=== PATIENT | male | born 1955 | race African-American/Black ===

== ENCOUNTER 2023-08-14 13:44 | Outpatient (REF) | payer MEDICARE, MEDICAID, SELFPAY | END 2023-08-14 13:45 | disposition home or self-care (01) | LOC: HO.SH 13:44 | PROVIDERS: PCP Nurse Practitioner Family; Visit Provider Nurse Practitioner Family | DX: Z01.118 Encounter for examination of ears and hearing with other abnormal findings (principal); H90.3 Sensorineural hearing loss, bilateral | CPT/HCPCS: 92557; 92567 ==

== ENCOUNTER 2023-10-10 09:59 | Outpatient (RCR) | payer OTHER, SELFPAY | END 2023-12-05 14:41 | disposition still patient (30) | LOC: HO.SH 09:59 | PROVIDERS: PCP Nurse Practitioner Family; Visit Provider Nurse Practitioner Family | DX: I69.328 Other speech and language deficits following cerebral infarction (principal) | CPT/HCPCS: 92523 ==

== ENCOUNTER 2023-12-17 15:32 | Inpatient (IN) | payer OTHER, SELFPAY ==
--- NOTE | ~2023-12-17 | XR_ITS ---
EXAMINATION: XR CHEST CLINICAL INFORMATION: Unresponsiveness COMPARISON: None available. TECHNIQUE: Frontal view of the chest was obtained. FINDINGS: Dual-chamber pacemaker device in place without disruption grossly. No significant abnormality is noted involving the heart, lungs, mediastinum, bony thorax or soft tissues. XR/XR chest 1V IMPRESSION: No active chest disease.. Electronically signed by: Brian Horner MD 12/17/2023 05:11 PM EDT RP
--- NOTE | ~2023-12-17 | CT_ITS ---
EXAMINATION: CT ANGIOGRAM HEAD CT ANGIOGRAM NECK CLINICAL INFORMATION: Unresponsive COMPARISON: None. TECHNIQUE: Test bolus sequences followed by intravenous administration 270 mL of Omnipaque 350. Helical imaging was performed in the axial plane from the aortic arch to the skull vertex. Delayed postcontrast imaging of the head was also performed. The data was processed at the communications technologist's workstation for generation of MIP sequences. Angled MIPs and volume rendered reformatted images were also generated at an offline 3D workstation. Stenoses are assessed in accordance with Encarnacion et al. Quantification of Carotid Stenosis on CT Angiography. AJR 2006. 27(1):13-19. [address] CT examination was performed using dose optimization techniques as appropriate, variously including the following: *Automated exposure control *Adjustment of mA and/or kV according to patient size (this includes techniques or standardized protocols for targeted exams where dose is matched to indication/reason for exam; i.e. extremities or head) *Use of iterative reconstruction technique DLP: 1498 mGy-cm FINDINGS: CT HEAD: Mild to moderate generalized parenchymal volume loss. Apparent symmetric subcortical hypodensities versus artifact within the bilateral frontal lobes would be better diagnostically assessed on brain MRI. Age indeterminate though likely chronic infarct involving the mid to anterior right temporal lobe with slight ex vacuo dilatation of the right temporal horn, although this would be more definitively aged on MRI. Otherwise, no large territorial edematous infarct. No acute intracranial hemorrhage. Prominence of the extra-axial CSF spaces overlying the right greater than left cerebellar hemispheres versus low density subdural fluid collections. 1.0 cm lipoma along the posterior interhemispheric fissure. No mass lesion, significant mass effect, or herniation pattern. No pathologic intra-axial enhancement or regional oligemia. The orbits are grossly normal. Retention cyst in the left maxillary sinus. No mastoid effusion. Osseous structures are intact. CTA HEAD: No hemodynamically significant stenosis or occlusion in the anterior or posterior circulation. Patchy calcific plaque along the carotid siphons contributes to mild stenosis of the cavernous and supraclinoid internal carotid arteries. 2 mm favor infundibulum over aneurysm at the left ophthalmic artery origin. No high flow vascular malformations. 1.5 cm longitudinally oriented arachnoid granulation projecting into the distal left transverse sinus, with otherwise normal opacification of the dural venous sinuses. CTA NECK: Classic 3 vessel branching pattern of the aortic arch. Origins of the great vessels are widely patent. The common carotid arteries are widely patent. Trace atherosclerosis at the carotid bifurcations without stenosis. The internal carotid arteries are widely patent. Retropharyngeal course of the right distal common carotid and bilateral proximal internal carotid arteries. The left vertebral artery is dominant. The vertebral artery ostia are widely patent. Both vertebral arteries are widely patent throughout their extracranial cervical course. CT NECK: Centrilobular and emphysematous changes in the lungs. 4 mm ill-defined nodule in the subpleural right upper lobe. Advanced cervical spondylosis contributes to apparent severe C5-C6 spinal canal stenosis with mass effect on the cord and apparent multilevel moderate spinal canal and multilevel severe neural foraminal narrowing. Multilevel vacuum disc phenomenon with some extruded anterior from the intervertebral disc spaces at C3-C4 and C4-C5 into the left-sided prevertebral soft tissues. CT/CT angio head neck stroke IMPRESSION: 1. Apparent symmetric subcortical hypodensities versus artifact within the bilateral frontal lobes would be better diagnostically assessed on brain MRI. 2. Age indeterminate though likely chronic infarct involving the mid to anterior right temporal lobe with slight ex vacuo dilatation of the right temporal horn would be more definitively aged on MRI. No acute intracranial hemorrhage. 3. Prominence of the extra-axial CSF spaces overlying the right greater than left cerebellar hemispheres versus low density subdural fluid collections. 4. No acute arterial occlusion or hemodynamically significant stenosis within the head or neck. 5. 2 mm favor infundibulum over aneurysm at the left ophthalmic artery origin. 6. Advanced cervical spondylosis contributes to apparent severe C5-C6 spinal canal stenosis with mass effect on the cord, appearing multilevel moderate spinal canal, and multilevel severe neural foraminal narrowing. If there is referrable myelopathy/radiculopathy, further evaluation of these findings with dedicated cervical spine MRI may be performed as clinically warranted. 5. 4 mm ill-defined nodule in the subpleural right upper lobe. According to the UPDATED 2017 Fleischner Society recommendations, the advised followup imaging for solid nodules < 6 mm is: LOW RISK PATIENT: No routine follow up. HIGH RISK PATIENT: Optional CT at 12 months. This critical result was discussed with Elvi Cisse at 4:47 PM on 12/17/2023 and it was ascertained that the content and urgency of the report was understood at the time of direct communication. Electronically signed by: Lalita Hankins MD 12/17/2023 04:47 PM EDT
--- NOTE | 2023-12-17 15:36 | ECG_ITS ---
Test Reason : heart straining Blood Pressure : / mmHG Vent. Rate : 074 BPM Atrial Rate : 074 BPM P-R Int : 104 ms QRS Dur : 178 ms QT Int : 446 ms P-R-T Axes : 000 123 -68 degrees QTc Int : 495 ms Atrial-sensed ventricular-paced rhythm Abnormal ECG No previous ECGs available Referred By: Generic ED Physician Electronically Signed By:SHANAE SÁNCHEZ
[2023-12-17 15:51] VITALS: BP 101/70; PULSE 94; O2SAT 100
[2023-12-17 15:52] LABS: Glucose, Whole Blood 105 mg/dL (60-115)
[2023-12-17 15:54] LABS: MANUAL DIFF FLAG NO
--- NOTE | 2023-12-17 15:55 | ED.GENADULT ---
HPI - General Adult General Chief complaint: Stroke Stated complaint: semi responsive,vomitig Time Seen by Provider: 12/17/23 15:38 History of Present Illness ED Provider: Nino HPI narrative: 68 y/o M patient; PMH medtronic dual chamber pacemaker 2/2 to CHB, HTN, HLD, spinal stenosis, hx right MCA stroke on Coumadin; presents from his out-patient physical therapy office with concern for decreased responsiveness. The patient went into the bathroom, had a large bowel movement, and when he walked out he had significant vomiting. He then was lowered to the ground where he was noticed to only be saying a few words at a time. EMS arrival the patient had an appropriate glucose. Patient denies chest pain or SOB, he reports a mild generalized headache. No history of alcohol or drug abuse. He is an active smoker. Related Data Allergies Allergy/AdvReac Type Severity Reaction Status Date / Time Unable to Assess Allergy Verified 12/17/23 16:22 Review of Systems Review of Systems: Yes Unobtainable due to mental condition Neurologic: Denies Abnormal speech present and Denies Sensory deficit (Neuro) [facility] Past Medical History Source: unable to obtain Social History Social History Do you have a plan to hurt others: No Plan Physical Exam ED Vital Signs: Vital Signs - 24 hr 12/17/23 16:18 Pulse Rate 50 Respiratory Rate 16 Blood Pressure 122/65 Pulse Oximetry 96 Oxygen Delivery Method Room Air BMI result Body Mass Index 25.8 Patient is afebrile, blood pressure low normal, appropriate HR and SpO2. Const Other: Lethargic, arousable to verbal stimuli with opening of both eyes Orientation/consciousness: patient oriented x3 HENMT Head: Yes normal to inspection and Yes atraumatic Eyes General: appearance normal, both eyes and all related structures Pupils: Equal, round and reactive pupils present EOM: EOMs intact bilaterally Neck Neck: Yes normal visual inspection, Yes full ROM, Yes supple and No tender Chest Chest palpation & inspection: normal inspection of the chest and normal palpation of entire chest wall Resp Effort & Inspection: normal respiratory effort, able to speak in complete sentences, no cough and no respiratory distress Auscultation: clear to auscultation bilaterally Cardio Rate: bradycardic Rhythm: regular rhythm Peripheral pulses: Peripheral pulses 2+ throughout GI Inspection: Yes normal to inspection, No Abdominal wall edema and No distended Palpation (GI): Soft to palpation, not firm, nontender, no guarding and not rigid Auscultation: normal bowel sounds Back/Spine/Pelvis Back: No back tenderness Neuro General: patient oriented x3 Cranial nerves: Yes CN's II-XII intact bilaterally and Yes Equal, round and reactive pupils present Cognition (Neuro): normal cognition Speech: No Abnormal speech present Motor exam (neuro): 5/5 motor strength present throughout Sensory Exam: No Sensory deficit (Neuro) Coordination: [id number] test normal and pkct-vm-ajby test normal Course Course Course Narrative: Patient is afebrile, blood pressure low normal, appropriate HR and SpO2. POC glucose 105. EKG consistent with paced rhythm. Does not meet [place] criteria. Sent emergently to the CT scanner for stroke evaluation. Reevaluation(s) Reevaluation #1: Labs reviewed. Hgb 10.6 - unclear baseline. INR 3.4. Cr 1.7, K 5.5 (01/2023 previously 1.1). Provided Calcium gluconate. Patient returned from CT more responsive. He does not have any memory of the events. He asked if he was just in an accident. He denies any pain, reports significant generalized weakness. NIHSS 1 for arouses to minor stimulation. Patient is on warfarin and is not a candidate for tnk at this time. We spoke with the patient's son who states they are estranged and he does not know anything about his father. Interrogated medtronic pacemaker. Normal pacemaker findings. CTA Head/Neck unremarkable for acute findings. Likely etiology of symptoms: seizure versus acute CVA. Supporting seizure is that patient has recently been seen by Neurology with concern for brief episodic jabs and jolts - he was due for an out-patient EEG. He did have a post-ictal type experience with significant amnesia to events today. He does not currently have any residual deficits suggesting CVA. He takes aspirin and Coumadin at baseline. Plan: Admit to hospitalist Condition: Stable Medications Administered Generic Name Dose Route Start Last Admin Trade Name Freq PRN Reason Stop Dose Admin Calcium Gluconate 1 gm in 50 mls @ 50 mls/hr 12/17/23 16:24 12/17/23 16:30 Calcium Gluconate IV 12/17/23 17:23 50 mls/hr ONCE ONE Administration Sodium Chloride 1,000 mls @ 999 mls/hr 12/17/23 16:30 12/17/23 16:30 Ns IV 12/17/23 17:30 999 mls/hr .Q1H1M DEISI Administration Discontinued Medications Generic Name Dose Route Start Last Admin Trade Name Velasquezq PRN Reason Stop Dose Admin Iohexol 100 ml 12/17/23 16:03 12/17/23 16:03 Iohexol 350 Mg/Ml 100 Ml Infus..Btl IV 12/17/23 16:04 70 ml ONCE ONE Administration Medical Decision Making Lab Data 12/17/23 15:45 12/17/23 15:45 Labs: Lab Results 12/17/23 12/17/23 12/17/23 Range/Units 15:39 15:45 15:53 WBC 7.2 (4.8-10.8) X10*3/uL RBC 3.90 L (4.60-5.80) X10*6/uL Hgb 10.6 L (14.0-18.0) g/dl Hct 34.1 L (42.0-52.0) % MCV 87.4 (80.0-98.0) fL MCH 27.2 (27.0-33.0) pg MCHC 31.1 (31.0-36.0) g/dl RDW 18.6 H (11.0-16.0) % Plt Count 361 (160-400) X10*3/uL MPV 9.1 L (9.4-12.4) fL Immature Gran % (Auto) 0.8 H (0.0-0.4) % Neut % (Auto) 67.4 (45-73) % Lymph % (Auto) 21.5 (20-40) % [place] % (Auto) 7.5 (2-11) % Eos % (Auto) 2.1 (0-4) % Baso % (Auto) 0.7 (0-2) % Lymph # (Auto) 1.5 (1.2-4.9) X10*3/uL [place] # (Auto) 0.5 (0.1-1.2) X10*3/uL Eos # (Auto) 0.2 (0.0-0.4) X10*3/uL Baso # (Auto) 0.1 (0.0-0.2) X10*3/uL Abs Immat Gran (auto) 0.06 H (0.00-0.03) X10*3/uL Absolute Neuts (auto) 4.8 (2.0-8.3) x10*3/uL Absolute Nucleated RBC 0.000 (0.0-0.012) X10*3/uL Nucleated RBC % (auto) 0.0 (0.0-0.2) /100WBC PT 41.0 H (11.1-13.3) SEC INR 3.4 H (0.9-1.1) APTT 46.0 H (26.0-36.8) SEC VBG pH 7.33 (7.32-7.43) VBG pCO2 51 mmHg VBG pO2 36 mmHg VBG HCO3 27 H (22-26) mmol/L VBG O2 Saturation 51.0 % VBG Base Excess 1.0 mmol/L Sodium 136 (135-145) mmol/L Potassium 5.5 H (3.3-5.1) mmol/L Chloride 102 (96-108) mmol/L Carbon Dioxide 26 (22-29) mmol/L Anion Gap 14 (12-20) BUN 33 H (9-16) mg/dL Creatinine 1.70 H (0.5-1.4) mg/dL Estim Creat Clear Calc 42.9 Estimated GFR 40 POC Glucose 105 (60-115) mg/dL Random Glucose 117 H (60-115) mg/dL Calcium 10.1 (8.4-10.2) mg/dL Magnesium 2.2 (1.6-2.6) mg/dL Total Bilirubin 0.4 (0.0-1.0) mg/dL AST 20 (5-37) U/L ALT 25 (0-40) U/L Alkaline Phosphatase 91 (39-117) U/L Troponin I High Sens 7.3 (<3.5-35.0) ng/L B-Natriuretic Peptide 21 (<100) pg/mL Total Protein 7.7 (6.5-8.0) g/dL Albumin 4.5 (3.5-5.0) g/dL Lipase 44 (8-78) U/L Influenza Type A (PCR) NEGATIVE (Negative) Influenza Type B (PCR) NEGATIVE (Negative) RSV RNA Qual (PCR) NEGATIVE (Negative) SARS-CoV-2 RNA (RT-PCR) NEGATIVE (Negative) Radiology Impression Discussion of test interpretation with radiology: I have reviewed the radiologist's reading. Radiologist Impression: EXAMINATION: CT ANGIOGRAM HEAD CT ANGIOGRAM NECK CLINICAL INFORMATION: Unresponsive COMPARISON: None. TECHNIQUE: Test bolus sequences followed by intravenous administration 270 mL of Omnipaque 350. Helical imaging was performed in the axial plane from the aortic arch to the skull vertex. Delayed postcontrast imaging of the head was also performed. The data was processed at the echo vascular technologist's workstation for generation of MIP sequences. Angled MIPs and volume rendered reformatted images were also generated at an offline 3D workstation. Stenoses are assessed in accordance with Encarnacion et al. Quantification of Carotid Stenosis on CT Angiography. AJR 2006. 27(1):13-19. This CT examination was performed using dose optimization techniques as appropriate, variously including the following: *Automated exposure control *Adjustment of mA and/or kV according to patient size (this includes techniques or standardized protocols for targeted exams where dose is matched to indication/reason for exam; i.e. extremities or head) *Use of iterative reconstruction technique DLP: 1498 mGy-cm FINDINGS: CT HEAD: Mild to moderate generalized parenchymal volume loss. Apparent symmetric subcortical hypodensities versus artifact within the bilateral frontal lobes would be better diagnostically assessed on brain MRI. Age indeterminate though likely chronic infarct involving the mid to anterior right temporal lobe with slight ex vacuo dilatation of the right temporal horn, although this would be more definitively aged on MRI. Otherwise, no large territorial edematous infarct. No acute intracranial hemorrhage. Prominence of the extra-axial CSF spaces overlying the right greater than left cerebellar hemispheres versus low density subdural fluid collections. 1.0 cm lipoma along the posterior interhemispheric fissure. No mass lesion, significant mass effect, or herniation pattern. No pathologic intra-axial enhancement or regional oligemia. The orbits are grossly normal. Retention cyst in the left maxillary sinus. No mastoid effusion. Osseous structures are intact. CTA HEAD: No hemodynamically significant stenosis or occlusion in the anterior or posterior circulation. Patchy calcific plaque along the carotid siphons contributes to mild stenosis of the cavernous and supraclinoid internal carotid arteries. 2 mm favor infundibulum over aneurysm at the left ophthalmic artery origin. No high flow vascular malformations. 1.5 cm longitudinally oriented arachnoid granulation projecting into the distal left transverse sinus, with otherwise normal opacification of the dural venous sinuses. CTA NECK: Classic 3 vessel branching pattern of the aortic arch. Origins of the great vessels are widely patent. The common carotid arteries are widely patent. Trace atherosclerosis at the carotid bifurcations without stenosis. The internal carotid arteries are widely patent. Retropharyngeal course of the right distal common carotid and bilateral proximal internal carotid arteries. The left vertebral artery is dominant. The vertebral artery ostia are widely patent. Both vertebral arteries are widely patent throughout their extracranial cervical course. CT NECK: Centrilobular and emphysematous changes in the lungs. 4 mm ill-defined nodule in the subpleural right upper lobe. Advanced cervical spondylosis contributes to apparent severe C5-C6 spinal canal stenosis with mass effect on the cord and apparent multilevel moderate spinal canal and multilevel severe neural foraminal narrowing. Multilevel vacuum disc phenomenon with some extruded anterior from the intervertebral disc spaces at C3-C4 and C4-C5 into the left-sided prevertebral soft tissues. CT/CT head/brain wo IV con IMPRESSION: 1. Apparent symmetric subcortical hypodensities versus artifact within the bilateral frontal lobes would be better diagnostically assessed on brain MRI. 2. Age indeterminate though likely chronic infarct involving the mid to anterior right temporal lobe with slight ex vacuo dilatation of the right temporal horn would be more definitively aged on MRI. No acute intracranial hemorrhage. 3. Prominence of the extra-axial CSF spaces overlying the right greater than left cerebellar hemispheres versus low density subdural fluid collections. 4. No acute arterial occlusion or hemodynamically significant stenosis within the head or neck. 5. 2 mm favor infundibulum over aneurysm at the left ophthalmic artery origin. 6. Advanced cervical spondylosis contributes to apparent severe C5-C6 spinal canal stenosis with mass effect on the cord, appearing multilevel moderate spinal canal, and multilevel severe neural foraminal narrowing. If there is referrable myelopathy/radiculopathy, further evaluation of these findings with dedicated cervical spine MRI may be performed as clinically warranted. 5. 4 mm ill-defined nodule in the subpleural right upper lobe. According to the UPDATED 2017 Fleischner Society recommendations, the advised followup imaging for solid nodules < 6 mm is: LOW RISK PATIENT: No routine follow up. HIGH RISK PATIENT: Optional CT at 12 months. This critical result was discussed with Elvi Cisse at 4:47 PM on 12/17/2023 and it was ascertained that the content and urgency of the report was understood at the time of direct communication. Electronically signed by: Lalita Hankins MD 12/17/2023 04:47 PM EDT RP Discharge Plan Discharge Clinical Impression: Episode of unresponsiveness Patient Disposition: Admitted As Inpatient Print Language: [place]
[2023-12-17 15:57] LABS: VBG HCO3 27 mmol/L (22-26); VBG pCO2 51 mmHg; VBG pH 7.33 (7.32-7.43); VBG pO2 36 mmHg
[2023-12-17 15:59] VITALS: BMI 25.6
[2023-12-17 15:59] LABS: Basophils Absolute Auto 0.1 X10*3/uL (0.0-0.2); Basophils Percent Auto 0.7 % (0-2); Eosinophils Absolute Auto 0.2 X10*3/uL (0.0-0.4); Eosinophils Percent Auto 2.1 % (0-4); Hematocrit 34.1 % (42.0-52.0); Hemoglobin 10.6 g/dl (14.0-18.0); Imm Gran Abs Auto 0.06 X10*3/uL (0.00-0.03); Imm Gran Pct Auto 0.8 % (0.0-0.4); Lymphocytes Absolute Auto 1.5 X10*3/uL (1.2-4.9); Lymphocytes Percent Auto 21.5 % (20-40); Mean Corpuscular HGB Conc 31.1 g/dl (31.0-36.0); Mean Corpuscular Hemoglobin 27.2 pg (27.0-33.0); Mean Corpuscular Volume 87.4 fL (80.0-98.0); Mean Platelet Volume 9.1 fL (9.4-12.4); Monocytes Absolute Auto 0.5 X10*3/uL (0.1-1.2); Monocytes Percent Auto 7.5 % (2-11); Neutrophils Absolute Auto 4.8 x10*3/uL (2.0-8.3); Neutrophils Percent Auto 67.4 % (45-73); Platelet Count 361 X10*3/uL (160-400); Red Cell Distribution Width 18.6 % (11.0-16.0); White Blood Count 7.2 X10*3/uL (4.8-10.8)
[2023-12-17 16:00] LABS: Venous Blood Gas Refer to POC result
[2023-12-17] MEDS: iohexoL 350 MG/ML 100 ML INFUS..BTL IV (16:03)
[2023-12-17 16:08] LABS: INTERNATIONAL NORM RATIO 3.4 (0.9-1.1)
[2023-12-17 16:15] LABS: Alanine Aminotransferase 25 U/L (0-40); Albumin Level 4.5 g/dL (3.5-5.0); Alkaline Phosphatase 91 U/L (39-117); Anion Gap 14 (12-20); Aspartate Amino Transferase 20 U/L (5-37); Bilirubin Total 0.4 mg/dL (0.0-1.0); Blood Urea Nitrogen 33 mg/dL (9-16); Calcium 10.1 mg/dL (8.4-10.2); Carbon Dioxide 26 mmol/L (22-29); Chloride 102 mmol/L (96-108); Creatinine Clr Calc Pharmacy 42.9; Estimated Glomerular Filt Rate 40; Glucose Random 117 mg/dL (60-115); Lipase 44 U/L (8-78); Magnesium 2.2 mg/dL (1.6-2.6); Potassium 5.5 mmol/L (3.3-5.1); Sodium 136 mmol/L (135-145); Total Protein 7.7 g/dL (6.5-8.0)
[2023-12-17 16:18] VITALS: BP 122/65; PULSE 50; RESP 16; O2SAT 96; BMI 25.6
[2023-12-17 16:20] LABS: B Type Natriuretic Peptide 21 pg/mL (<100)
[2023-12-17 16:22] LABS: Troponin-I High Sensitivity 7.3 ng/L (<3.5-35.0)
[2023-12-17] MEDS: Calcium Gluconate/NaCl,Iso-Osm 1 GM/50 ML PLAST..BAG IV (16:30)
[2023-12-17] MEDS: 0.9 % Sodium Chloride 1,000 ML 999 ML IV (16:30)
[2023-12-17 16:37] VITALS: BMI 25.8
[2023-12-17 16:58] LABS: Influenza A PCR NEGATIVE (Negative); Influenza B PCR NEGATIVE (Negative); Resp Syncy Virus RNA Qual PCR NEGATIVE (Negative); SARS COV2 PCR INHOUSE NEGATIVE (Negative)
--- OUTSIDE RECORDS SUMMARY | 2023-12-17 17:05 | XMS_ITS | Continuity of Care Document ---
Author Organization [facility] Address [address] [place] [address]- Care Team Providers Care Animal Nutritionist Name Role Phone Anabel LOWRY, [place] Primary Care Physician Encounter [facility] Date(s): 04/16/19 - 06/27/[address] [address]- [facility] Attending Physician: Magali Kruse MD Admitting Physician: Magali Kruse MD Referring Physician: Jossy Little NP Allergies, Adverse Reactions, Alerts Substance Reaction Severity Status NKA Active Immunizations Given and Recorded Vaccine Date Status Refusal Reason tetanus/diphtheria/pertussis, acel(Tdap) 1 11/20/12 Given pneumococcal 23-valent vaccine 01/07/12 Given influenza virus vaccine, inactivated 01/07/12 Give n 1Admin Note: vis 04/23/11 Medications aspirin 81 mg oral tablet 1 tablet = 81 mg, By Mouth, Daily, # 90 tablet, 3 Refills, Maintenance, 04/16/19 13:32:00 EST, Tablet, [facility]/pharmacy #[id number], 178, cm, 04/16/19 13:02:00 EST, Height Start Date: 04/16/19 Status: Ordered atorvastatin 20 mg oral tablet 1 tablet = 20 mg, By Mouth, Daily, # 30 tablet, 0 Refills, Maintenance, Tablet Start Date: 04/10/16 Status: Ordered carvedilol 25 mg oral tablet 25 mg, 1, tablet, By Mouth, 2 times a day, # 60 tablet, Refills 0, Maintenance, 04/10/16 10:14:16 Start Date: 04/10/16 Status: Ordered clopidogrel 75 mg oral tablet 75 mg, 1, tablet, By Mouth, Daily, Refills 0, Maintenance, 11/13/18 9:39:04 EDT Start Date: 11/13/18 Status: Ordered docusate sodium 100 mg oral capsule 100 mg, By Mouth, 2 times a day, # 60 capsule, Refills 0, Tot. Refills 0, Maintenance, 05/04/18 13:45:15 EST, Route to Pharmacy Electronically, [id number], [facility]/pharmacy #[id number] Start Date: 05/04/18 Status: Ordered DULoxetine 40 mg oral delayed release capsule 0 Refills, Maintenance, 11/05/17 13:28:01 EDT Start Date: 11/05/17 Status: Ordered Home Blood Pressure Monitor See Instructions, # 1 each, Refills 0, Tot. Refills 0, Maintenance, Use to measure blood pressure daily for hypertension. Dx: I10, 05/20/18 16:29:16 EST, Compound Start Date: 05/20/18 Status: Ordered lidocaine 5% topical cream 1 application, Topically, 3 times a day, PRN Pain , Moderate, # 30 Gm, 0 Refills, Maintenance, 03/05/19 16:40:29 EST, Cream, 1 application Topically 3 times a day,PRN:Pain , Moderate, 178, cm, 03/05/19 16:33:16 EST, Height Start Date: 03/05/19 Status: Ordered lisinopril 20 mg oral tablet 40 mg, 2, tablet, By Mouth, Daily, # 30 tablet, Refills 0, Maintenance, 04/10/16 10:15:28 EST Start Date: 04/10/16 Status: Ordered mirtazapine 15 mg oral tablet 1 tablet = 15 mg, By Mouth, Daily at bedtime, # 30 tablet, 3 Refills, Maintenance, 05/20/18 16:28:23 EST, Tablet Start Date: 05/20/18 Status: Ordered NuLYTELY Lemon [place] oral powder for reconstitution 240 mL, By Mouth, Every 15 minutes, # 4,000 mL, 0 Refills, Maintenance, 09/22/18 14:59:27 EDT Start Date: 09/22/18 Status: Ordered QUEtiapine 200 mg oral tablet, extended release 200 mg, 1, tablet, By Mouth, Daily in PM, # 30 tablet, Refills 3, Tot. Refills 3, Maintenance, 05/20/18 16:26:44 EST, Route to Pharmacy Electronically, [id number], [id number] Start Date: 05/20/18 Status: Ordered Problem List Condition Effective Dates Status Health Status Inform ant Anxiety and depression(Confirmed) Active Marijuana use(Confirmed) Active Cardiac pacemaker, Medtronic dual chamber pacemaker model E2DR0(Confirmed) 1 2005 Active CHB (complete heart block)(Confirmed) Active Essential hypertension(Confirmed) Active GERD (gastroesophageal reflu x disease)(Confirmed) Active History of substance abuse(C onfirmed) 2 Active Hypercholesterolemia with hypertriglyceridemia(Confirmed) Active Liver lesion(Confirmed) Active Old VT (myocardial infarction)(Confirmed) Active [facility]N CCA, [employer], Care Coor dinator Chelsea Youssef [phone](Confirmed) Active Post traumatic stress disord er (PTSD)(Confirmed) Active Spinal stenosis at L4-L5 level(Confirmed) Active Spinal stenosis at L4-L5 level(Confirmed) 3 Active Current tobacco use(Confirmed) Active 1History of cardiac pacemaker in situ from a complete heart block. Dual chamber electronic pacemaker[place] [address] Alvares. 2marijuana, cocaine, amphetamines, opiates and benzos. 3Dx 06/2017 Social History Social History Type Response Tobacco Use: Patient smokes 5 cig. a day. Sex
--- OUTSIDE RECORDS SUMMARY | 2023-12-17 17:05 | XMS_ITS | Continuity of Care Document ---
Author Organization [facility] Address [address] [place] [address]- Care Team Providers Care Dry Mill Worker Name Role Phone Anabel LOWRY, Jossy Park Primary Care Physician Encounter [facility] [place] Date(s): 10/07/22 - 11/06/22 [facility] [address] [place], [place] [id number] Allergies, Adverse Reactions, Alerts No Known Allergies Immunizations Given and Recorded Vaccine Date Status Refusal Reason pneumococcal 13-valent vaccine 05/10/21 Given SARS-CoV-2 (COVID-19) mRNA BNT-162b2 vac 1 03/15/21 Given SARS-CoV-2 (COVID-19) Ad26 vaccine 07/09/20 Given tetanus/diphtheria/pertussis, acel(Tdap) 2 11/20/12 Given pneumococcal 23-valent vaccine 01/07/12 Given influenza virus vaccine, inactivated 01/07/12 Give n 1Result Comment: Reconstituted with 1.8 mL of 0.9% NaCl Lot #[id number] Exp. 08/2022. 2Admin Note: vis 04/23/11 Medications aspirin 81 mg oral tablet 1 tablet = 81 mg, By Mouth, Daily, # 90 tablet, 3 Refills, Maintenance, 04/16/19 13:32:00 EST, Tablet, [facility]/pharmacy #[id number], 178, cm, 04/16/19 13:02:00 EST, Height Start Date: 04/16/19 Status: Ordered atorvastatin 40 mg oral tablet 1 tablet = 40 mg, By Mouth, Daily, # 30 tablet, 0 Refills, Maintenance, 06/27/21 9:46:00 EDT, [facility]/pharmacy #[id number], Partial fill upon patient request if the prescription is for a schedule II opioid drug., 177.8, cm, 06/27/21 7:59:00 EDT, Height, 68.2, k... Start Date: 06/27/21 Stop Date: 07/27/21 Status: Ordered carvedilol 25 mg oral tablet 25 mg, 1, tablet, By Mouth, 2 times a day, # 60 tablet, Refills 0, Maintenance, 04/10/16 10:14:16 Start Date: 04/10/16 Status: Ordered Diflucan 150 mg oral tablet 1 tablet = 150 mg, By Mouth, Once, # 1 tablet, 0 Refills, Soft Stop, 09/24/22 11:07:00 EDT, Tablet,[facility]/pharmacy #[id number], Partial fill upon patient request if the prescription is for a schedule II opioid drug., 177.8, cm, 09/24/22 10:56:00 EDT, Height,... Start Date: 09/24/22 Status: Ordered Home Blood Pressure Monitor See Instructions, # 1 each, Refills 0, Tot. Refills 0, Maintenance, Use to measure blood pressure daily for hypertension. Dx: I10, 05/20/18 16:29:16 EST, Compound Start Date: 05/20/18 Status: Ordered lisinopril 20 mg oral tablet 40 mg, 2, tablet, By Mouth, Daily, # 30 tablet, Refills 0, Maintenance, 04/10/16 10:15:28 EST Start Date: 04/10/16 Status: Ordered nitroglycerin 0.4 mg sublingual tablet 1 tablet = 0.4 mg, Sublingual, Every 5 minutes, PRN for chest pain, If chest pain not relieved in 5minutes after first dose, seek immediate medical attention, # 100 tablet, 0 Refills, Maintenance, 12/07/19 8:50:00 EDT, Tablet, [facility]/pharmacy #[id number], 178... Start Date: 12/07/19 Status: Ordered pantoprazole 20 mg oral delayed release tablet = 20 mg, By Mouth, Daily, # 30 each, 4 Refills, Maintenance, 07/27/21 9:45:00 EDT, EC Tablet, 177.8, cm, 06/27/21 7:59:00 EDT, Height, 68.2, kg, 06/26/21 0:54:00 EDT, Dry Weight Start Date: 07/27/21 Stop Date: 12/24/21 Status: Ordered Wrist splints cocked to neutral position Wrist splints cocked to neutral position, See Instructions, # 2 each, Refills 0, Tot. Refills 0, Maintenance, bilateral wrist splints to be worn every night to bed for carpal tunnel syndrome G56.00, 12/20/21 10:12:00 EDT, Compound Start Date: 12/20/21 Status: Ordered Problem List Condition Confirmation Course Effective Dates Status Health Status Informant Anxiety and depression Confirmed Active Candidiasis Confirmed Active Marijuana use Confirmed Active Cardiac pacemaker, Medtronic dual chamber pacemaker model E2DR0 1 Confirmed 2005 Active CHB (complete heart block) Confirmed Active Essential hypertension Confirmed Active GERD (gastroesophageal reflux disease) Confirmed Active History of substance abuse 2 Confirmed Active Hypercholesterolemia with hypertriglyceridemia Confirmed Active Liver lesion Confirmed Active [place] (myocardial infarction) Confirmed Active N Care Management [facility], Mikie Thibodeaux [phone] Confirmed Active Peripheral arterial disease Confirmed Active Post traumatic stress disorder (PTSD) Confirmed Active Spinal stenosis at L4-L5 level Confirmed Active Spinal stenosis at L4-L5 level 3 Confirmed Active Current tobacco use Confirmed Active 1History of cardiac pacemaker in situ from a complete heart block. Dual chamber electronic pacemaker[place] [address] Alvares. 2marijuana, cocaine, amphetamines, opiates and benzos. 3Dx 06/2017 Social History Social History Type Response Tobacco Use: Patient smokes 5 cig. a day. Sex Patient Care team information Care Team Personnel Name: El Beltran MD Position: [facility] Physician - Gastroenterology Member Role: Lifetime Consulting Physician Address: Address: [address] [place] [address], [address] [facility] [place] [address]- Name: Jossy Little NP Position: [facility] PCO Associate Professional Member Role: PCP Address: Address: [address] [place] [address]- Care Team Related Persons Name: JORJE ROBERTO Address: [address] [address] Name: MARCIN QUINTERO Address: [place] [address]
--- OUTSIDE RECORDS SUMMARY | 2023-12-17 17:05 | XMS_ITS | Continuity of Care Document ---
Author Organization [facility] Address [address] [address]- Care Team Providers Care Lead Athlete Name Role Phone Anabel LOWRY, Jossy Park Primary Care Physician [place] [facility] [place] 03[place]13/22 [facility] [address] [id number] Attending Physician: Ike Vyas Admitting Physician: AdmtrIke Referring Physician: Admtr, Tato8 Allergies, Adverse Reactions, Alerts No Known Allergies Immunizations Given and Recorded Vaccine Date Status Refusal Reason pneumococcal 13-valent vaccine 05/10/21 Given SARS-CoV-2 (COVID-19) mRNA BNT-162b2 vac 1 03/15/21 Given SARS-CoV-2 (COVID-19) Ad26 vaccine 07/09/20 Given tetanus/diphtheria/pertussis, acel(Tdap) 2 11/20/12 Given pneumococcal 23-valent vaccine 01/07/12 Given influenza virus vaccine, inactivated 01/07/12 Give n 1Result Comment: Reconstituted with 1.8 mL of 0.9% NaCl Lot #[id number] Exp. 08/2022. 2Admin Note: vis 04/23/11 Medications aspirin 81 mg oral tablet 1 tablet = 81 mg, By Mouth, Daily, # 90 tablet, 3 Refills, Maintenance, 04/16/19 13:32:00 EST, Tablet, [facility][id number], 178, cm, 04/16/19 13:02:00 EST, Height Start Date: 04/16/19 Status: Ordered atorvastatin 40 mg oral tablet 1 tablet = 40 mg, By Mouth, Daily, # 30 tablet, 0 Refills, Maintenance, 06/27/21 9:46:00 EDT, [facility]/pharmacy #[id number], Partial fill upon patient request if the prescription is for a schedule II opioid drug., 177.8, cm, 06/27/21 7:59:00 EDT, Height, 68.2, k... Start Date: 06/27/21 Stop Date: 07/27/21 Status: Ordered carvedilol 25 mg oral tablet 25 mg, 1, tablet, By Mouth, 2 times a day, # 60 tablet, Refills 0, Maintenance, 04/10/16 10:14:16 Start Date: 04/10/16 Status: Ordered Home Blood Pressure Monitor See [...] 0 Refills, Maintenance, 12/07/19 8:50:00 EDT, Tablet, [facility]/pharmacy #[id number], 178... Start Date: 12/07/19 Status: Ordered [...] Status Informant Anxiety and depression Confirmed Active Marijuana use Confirmed Active Cardiac pacemaker, Medtronic dual chamber pacemaker model E2DR0 1 Confirmed 2005 Active CHB (complete heart block) Confirmed Active Essential hypertension Confirmed Active GERD (gastroesophageal reflux disease) Confirmed Active History of substance abuse 2 Confirmed Active Hypercholesterolemia with hypertriglyceridemia Confirmed Active Liver lesion Confirmed Active [place] (myocardial infarction) Confirmed Active [facility] Care Management [facility], Mikie Thibodeaux [phone] Confirmed Active Peripheral arterial disease Confirmed Active [...] Team Personnel Name: El Beltran MD Position: [facility] GI MD Member Role: Lifetime Consulting Physician Address: Address: [address] [place] [address], [address] [facility] [place] [address]- Name: Jossy Little NP Position: [facility] PCO Associate Professional Member Role: PCP Address: Address: [address] [place] [address]- Care Team Related Persons Name: JORJE ROBERTO Address: home [address] [place] [address] Name: MARCIN QUINTERO Address: [place] [address]
--- OUTSIDE RECORDS SUMMARY | 2023-12-17 17:05 | XMS_ITS | Continuity of Care Document ---
Author Organization [facility] Address [address] [place] [address]- Care Team Providers Care Solar Installation Foreman Name Role Phone Anabel LOWRY, Jossy Park Primary Care Physician Encounter [facility] [place] Date(s): 12/26/22 - 01/25/23 [facility] [address] [place] [address]- [place] Allergies, Adverse Reactions, Alerts No Known Allergies Immunizations Given and Recorded Vaccine Date Status Refusal Reason pneumococcal 13-valent vaccine 05/10/21 Given SARS-CoV-2 (COVID-19) mRNA BNT-162b2 vac 1 03/15/21 Given SARS-CoV-2 (COVID-19) Ad26 vaccine 07/09/20 Given tetanus/diphtheria/pertussis, acel(Tdap) 2 11/20/12 Given pneumococcal 23-valent vaccine 01/07/12 Given influenza virus vaccine, inactivated 01/07/12 Give n 1Result Comment: Reconstituted with 1.8 mL of 0.9% NaCl Lot #[id number] Exp. 08/2022. 2Admin Note: vis 04/23/11 Medications [...] tablet, 0 Refills, Maintenance, 06/27/21 9:46:00 EDT, [id number], Partial fill upon patient request if the prescription is for a schedule II opioid drug., 177.8, cm, 06/27/21 7:59:00 EDT, Height, 68.2, k... Start Date: 06/27/21 Stop Date: 07/27/21 Status: Ordered carvedilol 25 mg oral tablet 25 mg, 1, tablet, By Mouth, 2 times a day, # 60 tablet, Refills 0, Maintenance, 04/10/16 10:14:16 Start Date: 04/10/16 Status: Ordered diclofenac 1% topical gel = 2 Gm, Topically, 4 times a day, # 100 Gm, 0 Refills, Maintenance, 01/22/23 11:55:00 EDT, Gel, [facility]/pharmacy #[id number], Partial fill upon patient request if the prescription is for a schedule II opioid drug., 177.8, cm, 01/22/23 11:14:00 EDT, Height, 68.2... Start Date: 01/22/23 Status: Ordered Diflucan 150 mg oral tablet 1 tablet = 150 mg, By Mouth, Once, # 1 tablet, 0 Refills, Soft Stop, 09/24/22 11:07:00 EDT, Tablet,[facility]/pharmacy #[id number], Partial fill upon patient [...] 0 Refills, Maintenance, 12/07/19 8:50:00 EDT, Tablet, [facility]/pharmacy #[id number], 178... Start Date: 12/07/19 [...] Confirmed Active Liver lesion Confirmed Active [place] (myocardial infarction) Confirmed Active [facility] Care Management [facility], Mikie Thibodeaux [phone] Confirmed Active Peripheral arterial disease Confirmed Active Post traumatic stress disorder (PTSD) Confirmed Active Spinal stenosis at L4-L5 level Confirmed Active Spinal stenosis at L4-L5 level 3 Confirmed Active Current tobacco use Confirmed Active 1History of cardiac pacemaker in situ from a complete heart block. Dual chamber electronic pacemaker[place] [address] Alvares. 2marijuana, cocaine, amphetamines, opiates and benzos. 3Dx 06/2017 Social History Social History Type Response Tobacco Use: Patient smokes 5 cig. a day. Sex Patient Care team information Care Team Personnel Name: El Beltran MD Position: [facility] Physician - Gastroenterology Member Role: Lifetime Consulting Physician Address: Address: [address] [place] [address], [address] [facility] [place] [address]- Name: Jossy Little NP Position: [facility] PCO Associate Professional Member Role: PCP Address: Address: [address] [place] [phone] [place] Care Team Related Persons Name: EDDIE ROBERTOANNETTE Address: home [address] [place] [address] Name: MARCIN QUINTERO Address: [place] [address]
--- OUTSIDE RECORDS SUMMARY | 2023-12-17 17:05 | XMS_ITS | Continuity of Care Document ---
Author Organization [facility] Address [address] [place] [address]- Care Team Providers Care Wallpaper Embosser Helper Name Role Phone Anabel LOWRY, Jossy Park Primary Care Physician [phone] Encounter [facility] [place] Date(s): 09/24/23 - 10/24/[address] [address] Attending Physician: Admtr, Ar8 Admitting Physician: Admtr, Ar8 Referring Physician: Admtr, Ar8 Allergies, Adverse Reactions, Alerts No Known Allergies Immunizations Given and Recorded Vaccine Date Status Refusal Reason influenza virus vaccine, inactivated 03/03/23 Give n influenza virus vaccine, inactivated 01/07/12 Give n tetanus/diphtheria/pertussis, acel(Tdap) 03/03/23 Given tetanus/diphtheria/pertussis, acel(Tdap) 1 11/20/12 Given pneumococcal 13-valent vaccine 05/10/21 Given SARS-CoV-2 (COVID-19) mRNA BNT-162b2 vac 2 03/15/21 Given SARS-CoV-2 (COVID-19) Ad26 vaccine 07/09/20 Given pneumococcal 23-valent vaccine 01/07/12 Given 1Admin Note: vis 04/23/11 2Result Comment: Reconstituted with 1.8 mL of 0.9% NaCl Lot #[id number] Exp. 08/2022. Medications aspirin 81 mg oral tablet 1 tablet = 81 mg, By Mouth, Daily, # 90 tablet, 3 Refills, Maintenance, 04/16/19 13:32:00 EST, Tablet, [id number], 178, cm, 04/16/19 13:02:00 EST, Height Start Date: 04/16/19 Status: Ordered atorvastatin 40 mg oral tablet 1 tablet = 40 mg, By Mouth, Daily, # 90 tablet, 3 Refills, Maintenance, 03/03/23 15:43:00 EST, [facility]/pharmacy #[id number], Partial fill upon patient request if the prescription is for a schedule II opioid drug., 182, cm, 03/03/23 15:03:00 EST, Height, 76, kg,... Start Date: 03/03/23 Stop Date: 07/01/23 Status: Ordered buPROPion 150 mg/24 hours (XL) oral tablet, extended release 1 tablet, By Mouth, Daily, # 30 tablet, 0 Refills, Maintenance, 04/03/23 9:26:00 EST, [facility] STORE [id number], 30, TAKE 1 TABLET BY MOUTH EVERY DAY, 182, cm, 03/14/23 11:20:00 EST, Height, 76, kg, 02/15/23 6:04:00 EST, Dry Weight Start Date: 04/03/23 Status: Ordered Colace sodium 100 mg oral capsule 100 mg, 1, capsule, By Mouth, 2 times a day, PRN, with plenty of water, # 60 capsule, Refills 2, Tot. Refills 2, Maintenance, Constipation, 09/18/23 9:28:00 EDT, Route to Pharmacy Electronically, [facility]/pharmacy #[id number], Partial fill upon patient request i... Start Date: 09/18/23 Status: Ordered Farxiga 10 mg oral tablet 1 tablet, By Mouth, Daily, Please have labs drawn for additional refills, # 90 tablet, 0 Refills, Maintenance, 08/04/23 10:32:00 EDT, [facility]/pharmacy #[id number], 182, cm, 05/08/23 7:28:00 EST, Height, 76, kg, 02/15/23 6:04:00 EST, Dry Weight Start Date: 08/04/23 Status: Ordered finasteride 5 mg oral tablet 1 tablet = 5 mg, By Mouth, Daily, # 90 tablet, 3 Refills, Maintenance, 03/03/23 15:52:00 EST, Tablet, [facility]/pharmacy #[id number], Partial fill upon patient request if the prescription is for a schedule II opioid drug., 182, cm, 03/03/23 15:03:00 EST, Height,... Start Date: 03/03/23 Status: Ordered Flomax 0.4 mg oral capsule 0.4 mg, 1, capsule, By Mouth, Daily, # 90 capsule, Refills 3, Tot. Refills 3, Maintenance, 03/03/2315:51:00 EST, Route to Pharmacy Electronically, [facility]/pharmacy #[id number], Partial fill upon patient request if the prescription is for a schedule II opioid d... Start Date: 03/03/23 Status: Ordered Jardiance 10 mg oral tablet 1 tablet = 10 mg, By Mouth, Daily in AM, # 30 tablet, 3 Refills, Maintenance, 05/16/23 14:28:00 EST, Tablet, [facility]/pharmacy #[id number], Partial fill upon patient request if the prescription is for a schedule II opioid drug., 182, cm, 05/08/23 7:28:00 EST, He... Start Date: 05/16/23 Status: Ordered lisinopril 40 mg oral tablet 1 tablet = 40 mg, By Mouth, Daily, # 90 each, 3 Refills, Maintenance, 03/03/23 15:47:00 EST, Tablet, [facility]/pharmacy #[id number], Partial fill upon patient request if the prescription is for a schedule II opioid drug., 182, cm, 03/03/23 15:03:00 EST, Height, 7... Start Date: 03/03/23 Status: Ordered metroNIDAZOLE 500 mg oral tablet 4 tablet = 2,000 mg, By Mouth, Once, # 4 tablet, 0 Refills, Soft Stop, 10/13/23 15:26:00 EDT, [facility]/pharmacy #[id number], Partial fill upon patient request if the prescription is for a schedule II opioid drug., 182, cm, 09/18/23 8:50:00 EDT, Height, 76, kg, 1... Start Date: 10/13/23 Status: Ordered nortriptyline 25 mg oral capsule 1, capsule, By Mouth, Daily at bedtime, # 30 capsule, Refills 5, Maintenance, 06/02/23 11:58:00 EST, Route to Pharmacy Electronically, [facility] STORE [id number], 182, cm, 05/08/23 7:28:00 EST, Height, 76, kg, 02/15/23 6:04:00 EST, Dry Weight Start Date: 06/02/23 Status: Ordered spironolactone 25 mg oral tablet 25 mg, By Mouth, Daily, # 90 tablet, Refills 3, Tot. Refills 3, Maintenance, 03/21/23 8:45:00 EST, Route to Pharmacy Electronically, [facility]/pharmacy #[id number], Partial fill upon patient request if the prescription is for a schedule II opioid drug., 182, cm,... Start Date: 03/21/23 Stop Date: 07/19/23 Status: Ordered warfarin 5 mg oral tablet 1 tablet = 5 mg, By Mouth, Daily, # 90 tablet, 3 Refills, Maintenance, 03/23/23 13:03:00 EST, Tablet, [facility]/pharmacy #[id number], Partial fill upon patient request if the prescription is for a schedule II opioid drug., 182, cm, 03/03/23 15:03:00 EST, Height,... Start Date: 03/23/23 Stop Date: 07/21/23 Status: Ordered Problem List Condition Confirmation Course [...] Confirmed Active Liver lesion Confirmed Active Old [place] (myocardial infarction) Confirmed Active *[id number]-Practice Representative-Isabel Paniagua Confirmed Active Peripheral arterial disease Confirmed Active Post traumatic stress disorder (PTSD) Confirmed Active Spinal stenosis at L4-L5 level Confirmed Active Spinal stenosis at L4-L5 level 3 Confirmed Active Current tobacco use Confirmed Active Vasculitis Confirmed Active 1History of cardiac pacemaker in situ from a complete heart block. Dual chamber electronic [place] [address] [place]vares. 2marijuana, cocaine, amphetamines, opiates and benzos. 3Dx 06/2017 Social History Social History Type Response Tobacco Use: Patient smokes 5 cig. a day. Sex Cardiology * Event Display: Cardiology Office Note, Non-BH Authored Date: * Event Display: Cardiovascular Result Scanned Authored Date: * Event Display: Cardiovascular Result Scanned Authored Date: Cardiology Consult note * Event Display: Consult Note Cardiology Authored Date: * Event Display: Consult Note Cardiology Authored Date: Patient Care team information Care Team Personnel Name: El Beltran MD Position: [facility] Physician - Gastroenterology Member Role: Lifetime Consulting Physician Address: Address: [address] [place] [address], [address] [facility] [place] [address]- Name: Anabel LOWRY, Jossy Park Position: [facility] PCO Associate Professional Member Role: PCP Address: Address: [address] [place] [address] [place] Name: Jackie Holland RN Position: [facility] RN Member Role: Primary Care Nurse Name: Jennifer Blackburn RN Position: [facility] RN Member Role: Primary Care Nurse Care Team Related Persons Name: JORJE ROBERTO Address: [address] [address] Name: MARCIN QUINTERO Address: [place] [address]
--- OUTSIDE RECORDS SUMMARY | 2023-12-17 17:05 | XMS_ITS | Continuity of Care Document ---
Author Organization [facility] Address [address] [place] [address]- Care Team Providers Care Timber Framer Name Role Phone Anabel LOWRY, Jossy Park Primary Care Physician [place] [facility] [place] Date(s): 07/30/21 - 08/29/21 [facility] [address] [place], [place] [address] Attending Physician: AdmIke castellon Admitting Physician: AdmtrIke Referring Physician: Admtr, Ar8 Allergies, Adverse Reactions, [...] with 1.8 mL of 0.9% NaCl Lot #[id number] Exp. 08/2022. 2Admin Note: vis 04/23/11 Medications [...] tablet, 0 Refills, Maintenance, 06/27/21 9:46:00 EDT, [facility]/pharmacy #[id number], Partial fill upon patient [...] 0 Refills, Maintenance, 12/07/19 8:50:00 EDT, Tablet, [facility]/pharmacy #[id number], 178... Start Date: 12/07/19 Status: Ordered pantoprazole 20 mg oral delayed release tablet = 20 mg, By Mouth, Daily, # 30 each, 4 Refills, Maintenance, 07/27/21 9:45:00 EDT, EC Tablet, 177.8, cm, 06/27/21 7:59:00 EDT, Height, 68.2, kg, 06/26/21 0:54:00 EDT, Dry Weight Start Date: 07/27/21 Stop Date: 12/24/21 Status: Ordered Problem List Condition Effective Dates Status Health Status Inform ant Anxiety and depression(Confirmed) Active Marijuana use(Confirmed) Active Cardiac pacemaker, Medtronic dual chamber pacemaker model E2DR0(Confirmed) 2005 Active CHB (complete heart block)(Confirmed) Active Essential hypertension(Confirmed) Active GERD (gastroesophageal reflu x disease)(Confirmed) Active History of substance abuse(C onfirmed) 2 Active Hypercholesterolemia with hypertriglyceridemia(Confirmed) Active Liver lesion(Confirmed) Active [place] (myocardial infarction)(Confirmed) Active [facility] Care Management Mikie Richardson [phone](Confirmed) Active Peripheral arterial disease(Confirmed) Active Post traumatic stress disord er (PTSD)(Confirmed) [...]
--- OUTSIDE RECORDS SUMMARY | 2023-12-17 17:06 | XMS_ITS | Continuity of Care Document ---
Author Organization [facility] Address [address] [place] [address]- Care Team Providers Care Physician Relations Specialist Name Role Phone Anabel LOWRY, Jossy Park Primary Care Physician Encounter [facility] Date(s): 09/26/23 - 10/26/23 [facility] [address] [place] [address]- Attending Physician: Ike Vyas Admitting Physician: Ike Vyas Referring Physician: AdmtrIke Allergies, Adverse Reactions, Alerts No Known Allergies [...] with 1.8 mL of 0.9% NaCl Lot #[id number] Exp. 08/2022. Medications aspirin 81 mg oral tablet 1 tablet = 81 mg, By Mouth, Daily, # 90 tablet, 3 Refills, Maintenance, 04/16/19 13:32:00 EST, Tablet, [id number], 178, cm, 04/16/19 13:02:00 EST, Height Start Date: 04/16/19 Status: Ordered atorvastatin 40 mg oral tablet 1 tablet = 40 mg, By Mouth, Daily, # 90 tablet, 3 Refills, Maintenance, 03/03/23 15:43:00 EST, [facility]/pharmacy #[id number], Partial fill upon patient request if the prescription is for a schedule II opioid drug., 182, cm, 03/03/23 15:03:00 EST, Height, 76, kg,... Start Date: 03/03/23 Stop Date: 07/01/23 Status: Ordered buPROPion 150 mg/24 hours (XL) oral tablet, extended release 1 tablet, By Mouth, Daily, # 30 tablet, 0 Refills, Maintenance, 04/03/23 9:26:00 EST, [facility] STORE [id number], 30, TAKE 1 TABLET BY MOUTH EVERY [...] 09/18/23 9:28:00 EDT, Route to Pharmacy Electronically, [facility]/pharmacy #[id number], Partial fill upon patient request i... Start Date: 09/18/23 Status: Ordered Farxiga 10 mg oral tablet 1 tablet, By Mouth, Daily, Please have labs drawn for additional refills, # 90 tablet, 0 Refills, Maintenance, 08/04/23 10:32:00 EDT, [facility]/pharmacy #[id number], 182, cm, 05/08/23 7:28:00 EST, Height, 76, kg, 02/15/23 6:04:00 EST, Dry Weight Start Date: 08/04/23 Status: Ordered finasteride 5 mg oral tablet 1 tablet = 5 mg, By Mouth, Daily, # 90 tablet, 3 Refills, Maintenance, 03/03/23 15:52:00 EST, Tablet, [facility]/pharmacy #[id number], Partial fill upon patient request if the prescription is for a schedule II opioid drug., 182, cm, 03/03/23 15:03:00 EST, Height,... Start Date: 03/03/23 Status: Ordered Flomax 0.4 mg oral capsule 0.4 mg, 1, capsule, By Mouth, Daily, # 90 capsule, Refills 3, Tot. Refills 3, Maintenance, 03/03/2315:51:00 EST, Route to Pharmacy Electronically, [facility]/pharmacy #[id number], Partial fill upon patient request if the prescription is for a schedule II opioid d... Start Date: 03/03/23 Status: Ordered Jardiance 10 mg oral tablet 1 tablet = 10 mg, By Mouth, Daily in AM, # 30 tablet, 3 Refills, Maintenance, 05/16/23 14:28:00 EST, Tablet, [facility]/pharmacy #[id number], Partial fill upon patient request if the prescription is for a schedule II opioid drug., 182, cm, 05/08/23 7:28:00 EST, He... Start Date: 05/16/23 Status: Ordered lisinopril 40 mg oral tablet 1 tablet = 40 mg, By Mouth, Daily, # 90 each, 3 Refills, Maintenance, 03/03/23 15:47:00 EST, Tablet, [facility]/pharmacy #[id number], Partial fill upon patient request if the prescription is for a schedule II opioid drug., 182, cm, 03/03/23 15:03:00 EST, Height, 7... Start Date: 03/03/23 Status: Ordered metroNIDAZOLE 500 mg oral tablet 4 tablet = 2,000 mg, By Mouth, Once, # 4 tablet, 0 Refills, Soft Stop, 10/13/23 15:26:00 EDT, [facility]/pharmacy #[id number], Partial fill upon patient request if the prescription is for a schedule II opioid drug., 182, cm, 09/18/23 8:50:00 EDT, Height, 76, kg, 1... Start Date: 10/13/23 Status: Ordered nortriptyline 25 mg oral capsule 1, capsule, By Mouth, Daily at bedtime, # 30 capsule, Refills 5, Maintenance, 06/02/23 11:58:00 EST, Route to Pharmacy Electronically, [facility] STORE [id number], 182, cm, 05/08/23 7:28:00 EST, Height, 76, kg, 02/15/23 6:04:00 EST, Dry Weight Start Date: 06/02/23 Status: Ordered spironolactone 25 mg oral tablet 25 mg, By Mouth, Daily, # 90 tablet, Refills 3, Tot. Refills 3, Maintenance, 03/21/23 8:45:00 EST, Route to Pharmacy Electronically, [facility]/pharmacy #[id number], Partial fill upon patient request if the prescription is for a schedule II opioid drug., 182, cm,... Start Date: 03/21/23 Stop Date: 07/19/23 Status: Ordered warfarin 5 mg oral tablet 1 tablet = 5 mg, By Mouth, Daily, # 90 tablet, 3 Refills, Maintenance, 03/23/23 13:03:00 EST, Tablet, [facility]/pharmacy #[id number], Partial fill upon patient request if [...] Active [place] (myocardial infarction) Confirmed Active *[id number] Miner-Isabel Paniagua Confirmed Active Peripheral arterial disease Confirmed [...] Team Personnel Name: El Beltran MD Position: [facility] Physician - Gastroenterology Member Role: Lifetime Consulting Physician Address: Address: [address] [place] [address], [address] [facility] [place] [address]- Name: Jossy Little NP Position: [facility] PCO Associate Professional Member Role: PCP Address: Address: [address] [place] [address]- [place] Name: Jackie Holland RN Position: S RN Member Role: Primary Care Nurse Name: Jennifer Blackburn RN Position: S RN Member Role: Primary Care Nurse Care Team Related Persons Name: JORJE ROBERTO Address: home [address] [place] [address] Name: MARCIN QUINTERO Address: [place] [address]
--- OUTSIDE RECORDS SUMMARY | 2023-12-17 17:06 | XMS_ITS | Continuity of Care Document ---
Author Organization [facility] Address [address] [place] [address]- Care Team Providers Care Senior Solutions Engineer Name Role Phone Anabel LOWRY, Jossy Park Primary Care Physician [phone] Encounter [facility] R [id number] Date(s): 10/05/22 - 11/04/22 [facility] [address] [place], [place] [address] Allergies, Adverse Reactions, Alerts No Known Allergies Immunizations Given and Recorded Vaccine Date Status Refusal Reason pneumococcal 13-valent vaccine 05/10/21 Given SARS-CoV-2 (COVID-19) mRNA BNT-162b2 vac 1 03/15/21 Given SARS-CoV-2 (COVID-19) Ad26 vaccine 07/09/20 Given tetanus/diphtheria/pertussis, acel(Tdap) 2 11/20/12 Given pneumococcal 23-valent vaccine 01/07/12 Given influenza virus vaccine, inactivated 01/07/12 Give n 1Result Comment: Reconstituted with 1.8 mL of 0.9% NaCl Lot #[id number] Exp. 08/2022. 2Admin Note: vis 04/23/11 Medications aspirin 81 mg oral tablet 1 tablet = 81 mg, By Mouth, Daily, # 90 tablet, 3 Refills, Maintenance, 04/16/19 13:32:00 EST, Tablet, [facility]/pharmacy #[id number], 178, cm, 04/16/19 13:02:00 EST, Height Start Date: 04/16/19 Status: Ordered atorvastatin 40 mg oral tablet 1 tablet = 40 mg, By Mouth, Daily, # 30 tablet, 0 Refills, Maintenance, 06/27/21 9:46:00 EDT, [facility]/pharmacy #[id number], Partial fill upon patient request [...] 0 Refills, Soft Stop, 09/24/22 11:07:00 EDT, Tablet,[id number], Partial fill upon patient request [...] Maintenance, 12/07/19 8:50:00 EDT, Tablet, [facility]/pharmacy #[id number], 178... Start Date: 12/07/19 Status: [...] Confirmed Active Liver lesion Confirmed Active [place] (myocardial infarction) Confirmed Active N Care Management [facility], Mikie Thibodeaux [phone] Confirmed Active Peripheral arterial disease Confirmed Active [...] Team Personnel Name: El Beltran MD Position: [facility] Physician - Gastroenterology Member Role: Lifetime Consulting Physician Address: Address: [address] [place] [address], [address] [facility] [place] [address]- Name: Jossy Little NP Position: [facility] PCO Associate Professional Member Role: PCP Address: Address: [address] [place] [address]- Care Team Related Persons Name: JORJE ROBERTO Address: home [address] [address] Name: MARCIN QUINTERO Address: [place] [address]
--- OUTSIDE RECORDS SUMMARY | 2023-12-17 17:06 | XMS_ITS | Continuity of Care Document ---
Author Organization [facility] Address [address], [address], [address] [place] [address]- Care Team Providers Care Tank Stave Assembler Name Role Phone Anabel LOWRY, Jossy Park Primary Care Physician Encounter [facility] Date(s): 03/21/23 - 04/20/23 [facility] [address], [address] [place] [address] Allergies, Adverse Reactions, Alerts No [...] with 1.8 mL of 0.9% NaCl Lot #[id number] Exp. 08/2022. Medications aspirin 81 mg oral tablet 1 tablet = 81 mg, By Mouth, Daily, # 90 tablet, 3 Refills, Maintenance, 04/16/19 13:32:00 EST, Tablet, [id number], 178, cm, 04/16/19 13:02:00 EST, Height Start Date: 04/16/19 Status: Ordered atorvastatin 40 mg oral tablet 1 tablet = 40 mg, By Mouth, Daily, # 90 tablet, 3 Refills, Maintenance, 03/03/23 15:43:00 EST, [id number], Partial fill upon patient request if the prescription is for a schedule II opioid drug., 182, cm, 03/03/23 15:03:00 EST, Height, 76, kg,... Start Date: 03/03/23 Stop Date: 07/01/23 Status: Ordered buPROPion 150 mg/24 hours (XL) oral tablet, extended release 1 tablet, By Mouth, Daily, # 30 tablet, 0 Refills, Maintenance, 04/03/23 9:26:00 EST, [id number], 30, TAKE 1 TABLET BY MOUTH EVERY DAY, 182, cm, 03/14/23 11:20:00 EST, Height, 76, kg, 02/15/23 6:04:00 EST, Dry Weight Start Date: 04/03/23 Status: Ordered dapagliflozin 10 mg oral tablet = 10 mg, By Mouth, Daily, # 30 tablet, 3 Refills, Maintenance, 04/04/23 8:51:00 EST, Tablet, [facility]/pharmacy #[id number], Partial fill upon patient request if the prescription is for a schedule II opioid drug., 182, cm, 03/14/23 11:20:00 EST, Height, 76, kg, 1... Start Date: 04/04/23 Stop Date: 08/02/23 Status: Ordered finasteride 5 mg oral tablet 1 tablet = 5 mg, By Mouth, Daily, # 90 tablet, 3 Refills, Maintenance, 03/03/23 15:52:00 EST, Tablet, [facility]/pharmacy #[id number], Partial fill upon patient request if the prescription is for a schedule II opioid drug., 182, cm, 03/03/23 15:03:00 EST, Height,... Start Date: 03/03/23 Status: Ordered Flomax 0.4 mg oral capsule 0.4 mg, 1, capsule, By Mouth, Daily, # 90 capsule, Refills 3, Tot. Refills 3, Maintenance, 03/03/2315:51:00 EST, Route to Pharmacy Electronically, [facility]/pharmacy #[id number], Partial fill upon patient request if the prescription is for a schedule II opioid d... Start Date: 03/03/23 Status: Ordered lisinopril 40 mg oral tablet 1 tablet = 40 mg, By Mouth, Daily, # 90 each, 3 Refills, Maintenance, 03/03/23 15:47:00 EST, Tablet, [id number], Partial fill upon patient request if the prescription is for a schedule II opioid drug., 182, cm, 03/03/23 15:03:00 EST, Height, 7... Start Date: 03/03/23 Status: Ordered nortriptyline 25 mg oral capsule 25 mg, By Mouth, Daily at bedtime, # 30 capsule, Refills 2, Tot. Refills 2, Maintenance, 03/26/23 10:48:00 EST, Route to Pharmacy Electronically, [id number], Partial fill upon patient requestif the prescription is for a schedule II opioid casandra... Start Date: 03/26/23 Stop Date: 06/24/23 Status: Ordered spironolactone 25 mg oral tablet 25 mg, By Mouth, Daily, # 90 tablet, Refills 3, Tot. Refills 3, Maintenance, 03/21/23 8:45:00 EST, Route to Pharmacy Electronically, [id number], Partial fill upon patient request if the prescription is for a schedule II opioid drug., 182, cm,... Start Date: 03/21/23 Stop Date: 07/19/23 Status: Ordered warfarin 5 mg oral tablet 1 tablet = 5 mg, By Mouth, Daily, # 90 tablet, 3 Refills, Maintenance, 03/23/23 13:03:00 EST, Tablet, [id number], Partial fill upon patient request [...] Confirmed Active Liver lesion Confirmed Active [place] (myocardial infarction) Confirmed Active [facility] [phone] Confirmed Active Peripheral arterial disease Confirmed Active [...] Team Personnel Name: El Beltran MD Position: [facility] Physician - Gastroenterology Member Role: Lifetime Consulting Physician Address: Address: [address] [place] [address], [address] [facility] [place] [address]- Name: Jossy Little NP Position: [facility] PCO Associate Professional Member Role: PCP Address: Address: [address] [place] [id number]- Name: Jackie Holland RN Position: [facility] RN Member Role: Primary Care Nurse Name: Jennifer Galvan Position: [facility] RN Member Role: Primary Care Nurse Name: Gil Grijalva RN Position: [facility] RN Member Role: Primary Care Nurse Care Team Related Persons Name: JORJE ROBERTO Address: home [address] [address] Name: MARCIN QUINTERO Address: [place] [address]
--- OUTSIDE RECORDS SUMMARY | 2023-12-17 17:06 | XMS_ITS | Continuity of Care Document ---
Author Organization [facility] Address [address] [place] [address]- Care Team Providers Care Central Sterile Supply Technician Name Role Phone Anabel LOWRY, Jossy Park Primary Care Physician Encounter [facility] Date(s): 11/26/21 - 12/26/21 [facility] [address] [place] [address]- Attending Physician: Ike Vyas Admitting Physician: AdmtrIke Referring Physician: Admtr, Ar8 [...] with 1.8 mL of 0.9% NaCl Lot #[id number] Exp. 08/2022. 2Admin Note: vis 04/23/11 Medications aspirin 81 mg oral tablet 1 tablet = 81 mg, By Mouth, Daily, # 90 tablet, 3 Refills, Maintenance, 04/16/19 13:32:00 EST, Tablet, [facility]/pharmacy #[id number], 178, cm, 04/16/19 13:02:00 EST, Height Start Date: 04/16/19 Status: Ordered atorvastatin 40 mg oral tablet 1 tablet = 40 mg, By Mouth, Daily, # 30 tablet, 0 Refills, Maintenance, 06/27/21 9:46:00 EDT, [facility]/pharmacy #[id number], Partial fill upon patient [...] 0 Refills, Maintenance, 12/07/19 8:50:00 EDT, Tablet, [facility]/pharmacy #[id number], 178... Start Date: 12/07/19 Status: Ordered pantoprazole [...] Confirmed Active Liver lesion Confirmed Active [place] (myocardial infarction) Confirmed Active [facility] Care Management [facility], Mikie Thibodeaux [phone] Confirmed Active Peripheral arterial disease Confirmed Active [...] a day. Sex Patient Care team information Personnel Name: Jossy Little NP Address: Address: [address] [place] [address]
--- OUTSIDE RECORDS SUMMARY | 2023-12-17 17:06 | XMS_ITS | Continuity of Care Document ---
Author Organization [facility] Address [address] [place] [address]- Care Team Providers Care Care Taker Name Role Phone Anabel LOWRY, Jossy Park Primary Care Physician Encounter [facility] Date(s): 02/28/23 - 03/30/[address] [address] Allergies, Adverse Reactions, Alerts No Known Allergies [...] with 1.8 mL of 0.9% NaCl Lot #[id number] Exp. 08/2022. Medications aspirin 81 mg oral [...] Date: 03/03/23 Stop Date: 07/01/23 Status: Ordered dapagliflozin 10 mg oral tablet = 10 mg, By Mouth, Daily, # 30 tablet, 0 Refills, Maintenance, 02/19/23 8:44:00 EST, Tablet, [facility]/pharmacy #[id number], Partial fill upon patient request if the prescription is for a schedule II opioid drug., 182, cm, 02/17/23 18:23:00 EST, Height, 76, kg, 1... Start Date: 02/19/23 Stop Date: 03/21/23 Status: Ordered finasteride 5 mg oral tablet 1 tablet = 5 mg, By Mouth, Daily, # 90 tablet, 3 Refills, Maintenance, 03/03/23 15:52:00 EST, Tablet, [facility]/pharmacy #[id number], Partial fill upon patient request if the prescription is for a schedule II opioid drug., 182, cm, 03/03/23 15:03:00 EST, Height,... Start Date: 03/03/23 Status: Ordered Flomax 0.4 mg oral capsule 0.4 mg, 1, capsule, By Mouth, Daily, # 90 capsule, Refills 3, Tot. Refills 3, Maintenance, 03/03/2315:51:00 EST, Route to Pharmacy Electronically, [facility]/pharmacy #[id number], Partial fill upon patient request [...] Date: 03/23/23 Stop Date: 07/21/23 Status: Ordered Wellbutrin XL 150 mg/24 hours oral tablet, extended release 1 tablet = 150 mg, By Mouth, Every 24 hours, for 30 days, do not crush or chew, # 30 tablet, 0 Refills, Acute 04/13/23 11:49:00 EST, 03/14/23 11:49:00 EST, ER Tablet, [facility]/pharmacy #[id number], Partial fillupon patient request if the prescription is for a s... Start Date: 03/14/23 Stop Date: 04/13/23 Status: Ordered Problem List Condition Confirmation Course [...] Active [place] (myocardial infarction) Confirmed Active [facility] [phone] Confirmed Active Peripheral arterial disease Confirmed Active [...] Team Personnel Name: El Beltran MD Position: [facility] Physician - Gastroenterology Member Role: Lifetime Consulting Physician Address: Address: [address] [place] [address], [address] [facility] [place] [address]- Name: Jossy Little NP Position: [facility] PCO Associate Professional Member Role: PCP Address: Address: [address] [place] [id number]- Name: Jackie Holland RN Position: [facility] RN Member Role: Primary Care Nurse Name: Jennifer Galvan Position: [facility] RN Member Role: Primary Care Nurse Name: Gil Grijalva RN Position: [facility] RN Member Role: Primary Care Nurse Care Team Related Persons Name: JORJE ROBERTO Address: home [address] [place] [id number] Name: MARCIN QUINTERO Address: [place] [address]
--- OUTSIDE RECORDS SUMMARY | 2023-12-17 17:06 | XMS_ITS | Continuity of Care Document ---
Author Organization [facility] Address [address] [place] [address]- Care Team Providers Care Mine Expert Name Role Phone Anabel LOWRY, Jossy Park Primary Care Physician Encounter [facility] Date(s): 10/30/23 - 11/29/[address] [address] Allergies, Adverse Reactions, Alerts No Known [...] with 1.8 mL of 0.9% NaCl Lot #[id number] Exp. 08/2022. Medications aspirin 81 mg oral tablet 1 tablet = 81 mg, By Mouth, Daily, # 90 tablet, 3 Refills, Maintenance, 04/16/19 13:32:00 EST, Tablet, [id number], 178, cm, 04/16/19 13:02:00 EST, Height Start Date: 1/17/20 Status: Ordered atorvastatin 40 mg oral tablet 1 tablet = 40 mg, By Mouth, Daily, # 90 tablet, 3 Refills, Maintenance, 03/03/23 15:43:00 EST, [facility]/pharmacy #[id number], Partial fill upon patient request if the prescription is for a schedule II opioid drug., 182, cm, 03/03/23 15:03:00 EST, Height, 76, kg,... Start Date: 03/03/23 Stop Date: 07/01/23 Status: Ordered buPROPion 150 mg/24 hours (XL) oral tablet, extended release 1 tablet, By Mouth, Daily, # 30 tablet, 0 Refills, Maintenance, 04/03/23 9:26:00 EST, [facility] STORE 09831, 30, TAKE 1 TABLET BY MOUTH EVERY DAY, 182, cm, 03/14/23 11:20:00 EST, Height, 76, kg, 02/15/23 6:04:00 EST, Dry Weight Start Date: 04/03/23 Status: Ordered carvedilol 12.5 mg oral tablet Refills 0, Maintenance, 11/10/23 14:02:00 EDT, Partial fill upon patient request if the prescription is for a schedule II opioid drug. Start Date: 11/10/23 Status: Ordered Colace sodium 100 mg oral capsule 100 mg, 1, capsule, By Mouth, 2 times a day, PRN, with plenty of water, # 60 capsule, Refills 2, Tot. Refills 2, Maintenance, Constipation, 09/18/23 9:28:00 EDT, Route to Pharmacy Electronically, [facility]/pharmacy #[id number], Partial fill upon patient request i... Start Date: 09/18/23 Status: Ordered Farxiga 10 mg oral tablet 1 tablet, By Mouth, Daily, # 90 tablet, 3 Refills, Maintenance, 11/04/23 9:07:00 EDT, [id number], 182, cm, 09/18/23 8:50:00 EDT, Height, 76, kg, 02/15/23 6:04:00 EST, Dry Weight Start Date: 11/04/23 Status: Ordered finasteride 5 mg oral tablet 1 tablet = 5 mg, By Mouth, Daily, # 90 tablet, 3 Refills, Maintenance, 03/03/23 15:52:00 EST, Tablet, [id number], Partial fill upon patient request if the prescription is for a schedule II opioid drug., 182, cm, 03/03/23 15:03:00 EST, Height,... Start Date: 03/03/23 Status: Ordered Flomax 0.4 mg oral capsule 0.4 mg, 1, capsule, By Mouth, Daily, # 90 capsule, Refills 3, Tot. Refills 3, Maintenance, 03/03/2315:51:00 EST, Route to Pharmacy Electronically, [facility]/pharmacy #[id number], Partial fill upon patient request if the prescription is for a schedule II opioid d... Start Date: 03/03/23 Status: Ordered lisinopril 40 mg oral tablet 1 tablet = 40 mg, By Mouth, Daily, # 90 each, 3 Refills, Maintenance, 03/03/23 15:47:00 EST, Tablet, [facility]/pharmacy #[id number], Partial fill upon patient request if the prescription is for a schedule II opioid drug., 182, cm, 03/03/23 15:03:00 EST, Height, 7... Start Date: 03/03/23 Status: Ordered metroNIDAZOLE 500 mg oral tablet 4 tablet = 2,000 mg, By Mouth, Once, # 4 tablet, 0 Refills, Soft Stop, 10/13/23 15:26:00 EDT, [facility]/pharmacy #[id number], Partial fill upon patient request if the prescription is for a schedule II opioid drug., 182, cm, 09/18/23 8:50:00 EDT, Height, 76, kg, 1... Start Date: 10/13/23 Status: Ordered nortriptyline 25 mg oral capsule 1, capsule, By Mouth, Daily at bedtime, # 30 capsule, Refills 5, Maintenance, 06/02/23 11:58:00 EST, Route to Pharmacy Electronically, [id number], 182, cm, 05/08/23 7:28:00 EST, Height, 76, kg, 02/15/23 6:04:00 EST, Dry Weight Start Date: 06/02/23 Status: Ordered spironolactone 25 mg oral tablet 1, tablet, By Mouth, Daily, # 90 tablet, Refills 3, Maintenance, 11/12/23 10:42:00 EDT, Route to Pharmacy Electronically, [id number], 182, cm, 11/10/23 14:00:00 EDT, Height, 76, kg, 02/15/23 6:04:00 EST, Dry Weight Start Date: 11/12/23 Stop Date: 12/12/23 Status: Ordered traMADol 50 mg oral tablet 0 Refills, Maintenance, 11/10/23 14:02:00 EDT, Partial fill upon patient request if the prescription is for a schedule II opioid drug. Start Date: 11/10/23 Status: Ordered warfarin 5 mg oral tablet 1 tablet = 5 mg, By Mouth, Daily, # 90 tablet, 3 Refills, Maintenance, 03/23/23 13:03:00 EST, Tablet, [facility]/pharmacy #[id number], Partial fill upon [...] Confirmed Active Liver lesion Confirmed Active Old [place] (myocardial infarction) Confirmed Active *[id number] Destructive Testing Supervisor-Isabel Paniagua Confirmed Active Peripheral arterial disease Confirmed [...] Personnel Name: El Beltran MD Position: [facility] Physician - Gastroenterology Member Role: Lifetime Consulting Physician Address: Address: [address] [place] [address], [address] [facility] [place] [address]- Name: Jossy Little NP Position: [facility] PCO Associate Professional Member Role: PCP Address: Address: [address] [place] [address]- [place] Name: Jackie Holland RN Position: S RN Member Role: Primary Care Nurse Name: Jennifer Blackburn RN Position: S RN Member Role: Primary Care Nurse Care Team Related Persons Name: JORJE ROBERTO Address: home [address] [place] [address] Name: MARCIN QUINTERO Address: [place] [address]
--- OUTSIDE RECORDS SUMMARY | 2023-12-17 17:06 | XMS_ITS | Continuity of Care Document ---
Author Organization [facility] Address [address] [place] [address]- Care Team Providers Care Catering Convention Services Manager Name Role Phone Anabel LOWRY, Jossy Park Primary Care Physician [phone] Encounter [facility] [place] Date(s): 07/09/20 - 08/08/20 [facility]/[address] [address] Attending Physician: Admtr, Tato8 Admitting Physician: Admtr, Ar8 Referring Physician: Admtr, Ar8 Allergies, Adverse Reactions, Alerts Substance Reaction Severity Status NKA Active Immunizations Given and Recorded Vaccine Date Status Refusal Reason SARS-CoV-2 (COVID-19) Ad26 vaccine 07/09/20 Given tetanus/diphtheria/pertussis, acel(Tdap) 1 11/20/12 Given pneumococcal 23-valent [...] 05/04/18 13:45:15 EST, Route to Pharmacy Electronically, [id number], [facility]/pharmacy #[id number] Start Date: 05/04/18 Status: Ordered DULoxetine [...] EST, Tablet Start Date: 05/20/18 Status: Ordered nitroglycerin 0.4 mg sublingual tablet 1 tablet = 0.4 mg, Sublingual, Every 5 minutes, PRN for chest pain, If chest pain not relieved in 5minutes after first dose, seek immediate medical attention, # 100 tablet, 0 Refills, Maintenance, 12/07/19 8:50:00 EDT, Tablet, [facility]/pharmacy #[id number], 178... Start Date: 12/07/19 Status: Ordered NuLYTELY [place] oral powder for reconstitution 240 mL, By Mouth, Every 15 minutes, # 4,000 mL, 0 Refills, Maintenance, 09/22/18 14:59:27 EDT Start Date: 09/22/18 Status: Ordered QUEtiapine 200 mg oral tablet, extended release 200 mg, 1, tablet, By Mouth, Daily in PM, # 30 tablet, Refills 3, Tot. Refills 3, Maintenance, 05/20/18 16:26:44 EST, Route to Pharmacy Electronically, [id number], [facility]/pharmacy #[id number] Start Date: 05/20/18 Status: Ordered Problem List Condition Effective Dates Status Health Status Inform ant Anxiety and depression(Confirmed) Active Marijuana use(Confirmed) Active Cardiac pacemaker, Medtronic dual chamber pacemaker model E2DR0(Confirmed) 1 2005 Active CHB (complete heart block)(Confirmed) Active Essential hypertension(Confirmed) Active GERD (gastroesophageal reflu x disease)(Confirmed) Active History of substance abuse(C onfirmed) 2 Active Hypercholesterolemia with hypertriglyceridemia(Confirmed) Active Liver lesion(Confirmed) Active [place] (myocardial infarction)(Confirmed) Active N Care Management [facility] , Mikie Caos [phone](Confirmed) Active Post traumatic stress disord er (PTSD)(Confirmed) [...]
--- OUTSIDE RECORDS SUMMARY | 2023-12-17 17:06 | XMS_ITS | Continuity of Care Document ---
Author Organization [facility] Address [address], [address], [address] [place] [address]- Care Team Providers Care Tractor Operator Battery Name Role Phone Anabel LOWRY, Jossy Park Primary Care Physician [place] [facility] 05/15/23 - 06/14/23 [facility] [address], [address], [address] [place] [address] Allergies, Adverse Reactions, Alerts No Known [...] with 1.8 mL of 0.9% NaCl Lot #[id number] Exp. 08/2022. Medications aspirin 81 mg oral [...] Refills, Maintenance, 04/03/23 9:26:00 EST, [id number], 30, TAKE 1 TABLET BY MOUTH EVERY DAY, 182, cm, 03/14/23 11:20:00 EST, Height, 76, kg, 02/15/23 6:04:00 EST, Dry Weight Start Date: 04/03/23 Status: Ordered dapagliflozin 10 mg oral tablet = 10 mg, By Mouth, Daily, # 30 tablet, 3 Refills, Maintenance, 04/04/23 8:51:00 EST, Tablet, [facility]/pharmacy #[id number], Partial fill upon patient request if the prescription is for a schedule II opioid drug., 182, cm, 03/14/23 11:20:00 EST, Height, 76, kg, 1... Start Date: 04/04/23 Stop Date: 08/02/23 Status: Ordered finasteride 5 mg oral tablet 1 tablet = 5 mg, By Mouth, Daily, # 90 tablet, 3 Refills, Maintenance, 03/03/23 15:52:00 EST, Tablet, [facility]/pharmacy #[id number], Partial fill upon patient request if the prescription is for a schedule II opioid drug., 182, cm, 03/03/23 15:03:00 EST, Height,... Start Date: 03/03/23 Status: Ordered Flomax 0.4 mg oral capsule 0.4 mg, 1, capsule, By Mouth, Daily, # 90 capsule, Refills 3, Tot. Refills 3, Maintenance, 03/03/2315:51:00 EST, Route to Pharmacy Electronically, [facility]/pharmacy #[id number], Partial fill upon patient request if the prescription is for a schedule II opioid d... Start Date: 03/03/23 Status: Ordered Jardiance 10 mg oral tablet 1 tablet = 10 mg, By Mouth, Daily in AM, # 30 tablet, 3 Refills, Maintenance, 05/16/23 14:28:00 EST, Tablet, [facility]/pharmacy #[id number], Partial fill upon patient request if the prescription is for a schedule II opioid drug., 182, cm, 05/08/23 7:28:00 EST, He... Start Date: 05/16/23 Status: Ordered lisinopril 40 mg oral tablet 1 tablet = 40 mg, By Mouth, Daily, # 90 each, 3 Refills, Maintenance, 03/03/23 15:47:00 EST, Tablet, [facility]/pharmacy #[id number], Partial fill upon patient request if the prescription is for a schedule II opioid drug., 182, cm, 03/03/23 15:03:00 EST, Height, 7... Start Date: 03/03/23 Status: Ordered metroNIDAZOLE 500 mg oral tablet 4 tablet = 2,000 mg, By Mouth, Once, MONITOR FOR BLEEDING. PLEASE HAVE INR CHECKED SCHEDULED>, # 4 tablet, 0 Refills, Soft Stop, 06/10/23 17:09:00 EDT, Tablet, [facility]/pharmacy #[id number], Partial fill upon patient request if the prescription is for a sched... Start Date: 06/10/23 Status: Ordered nortriptyline 25 mg oral capsule 1, capsule, By Mouth, Daily at bedtime, # 30 capsule, Refills 5, Maintenance, 06/02/23 11:58:00 EST, Route to Pharmacy Electronically, [id number], 182, cm, 05/08/23 7:28:00 EST, Height, 76, kg, 02/15/23 6:04:00 EST, Dry Weight Start Date: 06/02/23 Status: Ordered spironolactone 25 mg oral tablet 25 mg, By Mouth, Daily, # 90 tablet, Refills 3, Tot. Refills 3, Maintenance, 03/21/23 8:45:00 EST, Route to Pharmacy Electronically, [facility]/pharmacy #[id number], Partial fill upon patient request if the prescription is for a schedule II opioid drug., 182, cm,... Start Date: 03/21/23 Stop Date: 07/19/23 Status: Ordered warfarin 5 mg oral tablet 1 tablet = 5 mg, By Mouth, Daily, # 90 tablet, 3 Refills, Maintenance, 03/23/23 13:03:00 EST, Tablet, [facility]/pharmacy #[id number], Partial fill upon patient request if the [...] Confirmed Active Liver lesion Confirmed Active [place] (myocardial infarction) Confirmed Active [facility] Care Management [facility], Mikie Thibodeaux [phone] Confirmed Active Peripheral arterial disease Confirmed Active [...] Team Personnel Name: El Beltran MD Position: [facility] Physician - Gastroenterology Member Role: Lifetime Consulting Physician Address: Address: [address] [place] [address], [address] [facility] [place] [address]- Name: Jossy Little NP Position: [facility] PCO Associate Professional Member Role: PCP Address: Address: [address] [place] [address]- [place] Name: Jackie Holland RN Position: [facility] RN Member Role: Primary Care Nurse Name: Jennifer Blackburn RN Position: [facility] RN Member Role: Primary Care Nurse Care Team Related Persons Name: EDDIE ROBERTOANNETTE Address: home [address] [address] Name: MARCIN QUINTERO Address: [place] [address]
--- OUTSIDE RECORDS SUMMARY | 2023-12-17 17:06 | XMS_ITS | Continuity of Care Document ---
Author Organization [facility] Address [address] [place] [address]- Care Team Providers Care Dog Bather Name Role Phone Anabel LOWRY, Jossy Park Primary Care Physician [place] [facility] [place]19[place]23 - 03/21/[address] [address] Allergies, Adverse Reactions, Alerts No Known [...] with 1.8 mL of 0.9% NaCl Lot #[id number] Exp. 08/2022. Medications aspirin 81 mg oral [...] 0 Refills, Maintenance, 02/19/23 8:44:00 EST, Tablet, [facility]/pharmacy #[id number], Partial fill upon patient request if the prescription is for a schedule II opioid drug., 182, cm, 02/17/23 18:23:00 EST, Height, 76, kg, 1... Start Date: 02/19/23 Stop Date: 03/21/23 Status: Ordered finasteride 5 mg oral tablet 1 tablet = 5 mg, By Mouth, Daily, # 90 tablet, 3 Refills, Maintenance, 03/03/23 15:52:00 EST, Tablet, [facility]/pharmacy #[id number], Partial fill upon patient request if the prescription is for a schedule II opioid drug., 182, cm, 03/03/23 15:03:00 EST, Height,... Start Date: 03/03/23 Status: Ordered Flomax 0.4 mg oral capsule 0.4 mg, 1, capsule, By Mouth, Daily, # 90 capsule, Refills 3, Tot. Refills 3, Maintenance, 03/03/2315:51:00 EST, Route to Pharmacy Electronically, [facility]/pharmacy #[id number], Partial fill upon patient request if the prescription is for a schedule II opioid d... Start Date: 03/03/23 Status: Ordered lisinopril 40 mg oral tablet 1 tablet = 40 mg, By Mouth, Daily, # 90 each, 3 Refills, Maintenance, 03/03/23 15:47:00 EST, Tablet, [facility]/pharmacy #[id number], Partial fill upon patient request if the prescription is for a schedule II opioid drug., 182, cm, 03/03/23 15:03:00 EST, Height, 7... Start Date: 03/03/23 Status: Ordered nortriptyline 25 mg oral capsule 25 mg, By Mouth, Daily at bedtime, # 30 capsule, Refills 0, Tot. Refills 0, Maintenance, 02/19/23 8:44:00 EST, Route to Pharmacy Electronically, [facility]/pharmacy #[id number], Partial fill upon patient request if the prescription is for a schedule II opioid drug... Start Date: 02/19/23 Stop Date: 03/21/23 Status: Ordered spironolactone 25 mg oral tablet [...] tablet = 5 mg, By Mouth, Daily, for 30 days, # 30 tablet, 0 Refills, Hard Stop 03/23/23 13:03:00 EST, 02/21/23 13:03:00 EST, Tablet, [facility] 3, Partial fill upon patient request if the prescription is for a schedule II opioid drug., 1... Start Date: 02/21/23 Stop Date: 03/23/23 Status: Ordered warfarin 5 mg oral tablet 1 tablet = 5 mg, By Mouth, Daily, # 90 tablet, 3 Refills, Maintenance, 03/23/23 13:03:00 EST, Tablet, [facility]/pharmacy #[id number], Partial fill upon patient request [...] 11:49:00 EST, 03/14/23 11:49:00 EST, ER Tablet, [facility]/pharmacy #[id number], Partial fillupon patient request if the [...] Active [place] (myocardial infarction) Confirmed Active [facility] Care Management [facility], Mikie Thibodeaux [phone] Confirmed Active Peripheral arterial disease Confirmed Active [...] Team Personnel Name: El Beltran MD Position: [facility] Physician - Gastroenterology Member Role: Lifetime Consulting Physician Address: Address: [address] [place] [address], [address] [place] [address]- Name: Jossy Little NP Position: [facility] PCO Associate Professional Member Role: PCP Address: Address: [address] [place] [id number] Name: Jackie Holland RN Position: [facility] RN Member Role: Primary Care Nurse Name: Jennifer Galvan Position: S RN Member Role: Primary Care Nurse Name: Gil Grijalva RN Position: [facility] RN Member Role: Primary Care Nurse Care Team Related Persons Name: BROOKLYN ROBERTOETTE Address: [address] [address] Name: MARCIN QUINTERO Address: [place] [address]
--- OUTSIDE RECORDS SUMMARY | 2023-12-17 17:06 | XMS_ITS | Continuity of Care Document ---
Author Organization [facility] Address [address] [place] [address]- Care Team Providers Care Belt Splicer Name Role Phone Anabel LOWRY, Jossy Park Primary Care Physician Encounter [facility] [place] Date(s): 01/17/22 - 02/16/22 [facility] [address] [place] [address]- [place] Allergies, Adverse Reactions, Alerts No Known Allergies Immunizations Given and Recorded Vaccine Date Status Refusal Reason pneumococcal 13-valent vaccine 05/10/21 Given SARS-CoV-2 (COVID-19) mRNA BNT-162b2 vac 1 03/15/21 Given SARS-CoV-2 (COVID-19) Ad26 vaccine 07/09/20 Given tetanus/diphtheria/pertussis, acel(Tdap) 2 11/20/12 Given pneumococcal 23-valent vaccine 01/07/12 Given influenza virus vaccine, inactivated 01/07/12 Give n 1Result Comment: Reconstituted with 1.8 mL of 0.9% NaCl Lot #[id number] Exp. 08/2022. 2Admin Note: vis 04/23/11 Medications aspirin 81 mg oral tablet 1 tablet = 81 mg, By Mouth, Daily, # 90 tablet, 3 Refills, Maintenance, 04/16/19 13:32:00 EST, Tablet, [facility]/pharmacy #[id number], 178, cm, 04/16/19 13:02:00 EST, Height Start Date: 04/16/19 Status: Ordered atorvastatin 40 mg oral tablet 1 tablet = 40 mg, By Mouth, Daily, # 30 tablet, 0 Refills, Maintenance, 06/27/21 9:46:00 EDT, [facility]/pharmacy #[id number], Partial fill upon patient request if [...] 0 Refills, Maintenance, 12/07/19 8:50:00 EDT, Tablet, [facility]/pharmacy #[id number], 178... Start Date: 12/07/19 Status: Ordered pantoprazole [...] Confirmed Active Liver lesion Confirmed Active Old [place] (myocardial infarction) Confirmed Active [facility] Care Management [facility], Mikie Thibodeaux [phone] Confirmed Active Peripheral arterial disease Confirmed Active [...] Team Personnel Name: El Beltran MD Position: [facility] CANELA Member Role: Lifetime Consulting Physician Address: Address: [address] [place] [address], [address] [facility] [place] [address]- Name: Jossy Little NP Position: [facility] PCO Associate Professional Member Role: PCP Address: Address: [address] [place] [address]- Name: Bertha Melo RN Position: [facility] RN Member Role: Primary Care Nurse Care Team Related Persons Name: JORJE ROBERTO Address: home [address] [place] [address] Name: MARCIN QUINTERO Address: [place] [address]
--- OUTSIDE RECORDS SUMMARY | 2023-12-17 17:06 | XMS_ITS | Continuity of Care Document ---
Author Organization [facility] Address [address] [place] [address]- Care Team Providers Care Ground Crewman Name Role Phone Anabel LOWRY, Jossy Park Primary Care Physician [id number] Date(s): 06/05/21 - 07/27/21 [facility] [address] [place], [place] [address] Attending Physician: Dino LOWRY, Clarisa Santiago Admitting Physician: Dino LOWRY, Clarisa Santiago Referring Physician: Jossy Little NP Allergies, Adverse Reactions, Alerts No Known Allergies Immunizations Given and Recorded Vaccine Date Status Refusal Reason pneumococcal 13-valent vaccine 05/10/21 Given SARS-CoV-2 (COVID-19) mRNA BNT-162b2 vac 1 03/15/21 Given SARS-CoV-2 (COVID-19) Ad26 vaccine 07/09/20 Given tetanus/diphtheria/pertussis, acel(Tdap) 2 11/20/12 Given pneumococcal 23-valent vaccine 01/07/12 Given influenza virus vaccine, inactivated 01/07/12 Give n 1Result Comment: Reconstituted with 1.8 mL of 0.9% NaCl Lot #[id number] Exp. 08/2022. 2Admin Note: vis 04/23/11 Medications [...] tablet, 0 Refills, Maintenance, 06/27/21 9:46:00 EDT, [facility]/pharmacy #[id number], Partial fill upon patient request if [...] 0 Refills, Maintenance, 12/07/19 8:50:00 EDT, Tablet, [facility]/pharmacy #[id number], 178... Start Date: 12/07/19 Status: Ordered [...] with hypertriglyceridemia(Confirmed) Active Liver lesion(Confirmed) Active [place] (myocardial infarction)(Confirmed) Active [facility] Care Management [facility] , Radhajosefa Thibodeaux [phone](Confirmed) Active Peripheral arterial disease(Confirmed) Active Post traumatic [...]
--- OUTSIDE RECORDS SUMMARY | 2023-12-17 17:06 | XMS_ITS | Continuity of Care Document ---
Author Organization [facility] Address [address] [place] [address]- Care Team Providers Care Cvor Nurse Name Role Phone Anabel LOWRY, Jossy Park Primary Care Physician [phone] Encounter [place] Date(s): 05/28/19 - 06/07/[address] [address]- [facility] Attending Physician: AdmIke castellon Admitting Physician: AdmtrIke Referring Physician: Admtr, Ike Allergies, Adverse Reactions, Alerts Substance Reaction Severity [...] 3 Refills, Maintenance, 04/16/19 13:32:00 EST, Tablet, [facility]/pharmacy #[id number], 178, cm, 04/16/19 13:02:00 [...] 05/04/18 13:45:15 EST, Route to Pharmacy Electronically, [id number], [facility]/pharmacy #[id number] Start Date: 05/04/18 Status: Ordered DULoxetine [...] Start Date: 05/20/18 Status: Ordered NuLYTELY Lemon [place] oral powder for reconstitution 240 mL, By Mouth, Every 15 minutes, # 4,000 mL, 0 Refills, Maintenance, 09/22/18 14:59:27 EDT Start Date: 09/22/18 Status: Ordered QUEtiapine 200 mg oral tablet, extended release 200 mg, 1, tablet, By Mouth, Daily in PM, # 30 tablet, Refills 3, Tot. Refills 3, Maintenance, 05/20/18 16:26:44 EST, Route to Pharmacy Electronically, [id number], [id number] Start Date: 05/20/18 Status: Ordered [...] with hypertriglyceridemia(Confirmed) Active Liver lesion(Confirmed) Active [place] (myocardial infarction)(Confirmed) Active [facility], Care Coor dinator Chelsea Youssef [phone](Confirmed) Active Post traumatic stress disord er (PTSD)(Confirmed) [...]
--- OUTSIDE RECORDS SUMMARY | 2023-12-17 17:06 | XMS_ITS | Continuity of Care Document ---
Author Organization [facility] Address [address] [place] [address]- Care Team Providers Care Lard Maker Name Role Phone Anabel LOWRY, Jossy Park Primary Care Physician [place] [facility] 07/24/[address] [address]- [facility] Attending Physician: AdmIke castellon Admitting Physician: AdmtrIke [...] 3 Refills, Maintenance, 04/16/19 13:32:00 EST, Tablet, [facility]/pharmacy #[id number], 178, cm, 04/16/19 13:02:00 EST, [...] 05/04/18 13:45:15 EST, Route to Pharmacy Electronically, [id number], [facility]/pharmacy #[id number] Start Date: 05/04/18 Status: Ordered [...] Start Date: 05/20/18 Status: Ordered NuLYTELY Lemon [place] oral powder for reconstitution 240 mL, By Mouth, Every 15 minutes, # 4,000 mL, 0 Refills, Maintenance, 09/22/18 14:59:27 EDT Start Date: 09/22/18 Status: Ordered QUEtiapine 200 mg oral tablet, extended release 200 mg, 1, tablet, By Mouth, Daily in PM, # 30 tablet, Refills 3, Tot. Refills 3, Maintenance, 05/20/18 16:26:44 EST, Route to Pharmacy Electronically, [id number], [id number] Start Date: 05/20/18 Status: Ordered [...] with hypertriglyceridemia(Confirmed) Active Liver lesion(Confirmed) Active [place] (myocardial infarction)(Confirmed) Active [facility], Care Coor dinator Chelsea Youssef [phone](Confirmed) Active Post traumatic stress disord er (PTSD)(Confirmed) [...]
--- OUTSIDE RECORDS SUMMARY | 2023-12-17 17:06 | XMS_ITS | Continuity of Care Document ---
Author Organization [facility] Address [address] [place] [address]- Care Team Providers Care Supervisor Name Role Phone Anabel LOWRY, Jossy Park Primary Care Physician En[place] [facility] Date(s): 07/14/19 - 07/21/[address] [address]- [facility] Encounter Diagnosis Hot flashes(Discharge Diagnosis) - 07/14/19 Attending Physician: Sincere Milton MD Allergies, Adverse Reactions, Alerts Substance Reaction Severity [...] Refills, Maintenance, 04/16/19 13:32:00 EST, Tablet, [facility]/pharmacy #[id number], 178, cm, 04/16/19 13:02:00 EST, [...] 05/04/18 13:45:15 EST, Route to Pharmacy Electronically, [id number], [facility]/pharmacy #[id number] Start Date: 05/04/18 Status: Ordered [...] Start Date: 05/20/18 Status: Ordered NuLYTELY Lemon [place] oral powder for reconstitution 240 mL, By Mouth, Every 15 minutes, # 4,000 mL, 0 Refills, Maintenance, 09/22/18 14:59:27 EDT Start Date: 09/22/18 Status: Ordered QUEtiapine 200 mg oral tablet, extended release 200 mg, 1, tablet, By Mouth, Daily in PM, # 30 tablet, Refills 3, Tot. 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 Active CHB (complete heart block)(Confirmed) Active Essential hypertension(Confirmed) Active GERD (gastroesophageal reflu x disease)(Confirmed) Active History of substance abuse(C onfirmed) 2 Active Hypercholesterolemia with hypertriglyceridemia(Confirmed) Active Liver lesion(Confirmed) Active [place] (myocardial infarction)(Confirmed) Active [facility], Care Coor dinator Chelsea Youssef [phone](Confirmed) Active Post traumatic stress disord er (PTSD)(Confirmed) Active Spinal stenosis at L4-L5 level(Confirmed) Active Spinal stenosis at L4-L5 level(Confirmed) 3 Active Current tobacco use(Confirmed) Active 1History of cardiac pacemaker in situ from a complete heart block. Dual chamber electronic pacemaker[place] [address] Alvares. 2marijuana, cocaine, amphetamines, opiates and benzos. 3Dx 06/2017 Diagnosis Diagnosis Type Effective Dates Health Status Clini [facility] Service Informant Hot flashes Discharge Diagnosis 07/14/19 Social History Social History Type Response Tobacco Use: Patient smokes 5 cig. a day. Sex
--- OUTSIDE RECORDS SUMMARY | 2023-12-17 17:06 | XMS_ITS | Continuity of Care Document ---
Author Organization [facility] ter Address [address] [place] [id number]- Care Team Providers Care Podiatrist Assistant Name Role Phone Anabel LOWRY, [place] Primary Care Phys[phone] Date(s): 01/14/22 - 02/20/[address] [address]- Attending Physician: El Beltran MD Admitting Physician: El Beltran MD Referring Physician: El Beltran MD Allergies, Adverse Reactions, Alerts No Known Allergies Immunizations Given and Recorded Vaccine Date Status Refusal Reason pneumococcal 13-valent vaccine 05/10/21 Given SARS-CoV-2 (COVID-19) mRNA BNT-162b2 vac 1 03/15/21 Given SARS-CoV-2 (COVID-19) Ad26 vaccine 07/09/20 Given tetanus/diphtheria/pertussis, acel(Tdap) 2 11/20/12 Given pneumococcal 23-valent vaccine 01/07/12 Given influenza virus vaccine, inactivated 01/07/12 Give n 1Result Comment: Reconstituted with 1.8 mL of 0.9% NaCl Lot #[id number] Exp. 08/2022. 2Admin Note: vis 04/23/11 Medications [...] tablet, 0 Refills, Maintenance, 06/27/21 9:46:00 EDT, [facility]/pharmacy #[id number], Partial fill upon patient [...] 0 Refills, Maintenance, 12/07/19 8:50:00 EDT, Tablet, [facility]/pharmacy #[id number], 178... Start Date: 12/07/19 [...] Confirmed Active Liver lesion Confirmed Active [place] (myocardial infarction) Confirmed Active [facility] Care Management [facility], Mikie Thibodeaux [phone] Confirmed Active Peripheral arterial disease Confirmed Active [...] Team Personnel Name: El Beltran MD Position: [facility] GI MD Member Role: Lifetime Consulting Physician Address: Address: [address] [place] [address], [address] [facility] [place] [address]- Name: Jossy Little NP Position: [facility] PCO Associate Professional Member Role: PCP Address: Address: [address] [place] [address]- Name: Bertha Melo RN Position: [facility] RN Member Role: Primary Care Nurse Care Team Related Persons Name: JORJE ROBERTO Address: home [address] [address] Name: MARCIN QUINTERO Address: [place] [address]
--- OUTSIDE RECORDS SUMMARY | 2023-12-17 17:06 | XMS_ITS | Continuity of Care Document ---
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 Name Role Phone Anabel LOWRY, [place] Primary Care Physician Encounter [facility] Date(s): 02/14/23 - 02/19/[address] [address]- Discharge Disposition: A-D/C Home Attending Physician: Kirti Wakefield MD Admitting Physician: Mauro Dalal MD Referring Physician: Not on Staff, Referring MD Allergies, Adverse Reactions, Alerts No Known Allergies Immunizations Given and Recorded Vaccine Date Status Refusal Reason pneumococcal 13-valent vaccine 05/10/21 Given SARS-CoV-2 (COVID-19) mRNA BNT-162b2 vac 1 03/15/21 Given SARS-CoV-2 (COVID-19) Ad26 vaccine 07/09/20 Given tetanus/diphtheria/pertussis, acel(Tdap) 2 11/20/12 Given pneumococcal 23-valent vaccine 01/07/12 Given influenza virus vaccine, inactivated 01/07/12 Give n 1Result Comment: Reconstituted with 1.8 mL of 0.9% NaCl Lot #[id number] Exp. 08/2022. 2Admin Note: vis 04/23/11 Medications [...] tablet, 0 Refills, Maintenance, 06/27/21 9:46:00 EDT, [facility]/pharmacy #[id number], Partial fill upon patient request if the prescription is for a schedule II opioid drug., 177.8, cm, 06/27/21 7:59:00 EDT, Height, 68.2, k... Start Date: 06/27/21 Stop Date: 07/27/21 Status: Ordered carvedilol 3.125 mg oral tablet 3.125 mg, Tablet, By Mouth, 02/19/23 9:00:00 EST Start Date: 02/19/23 Stop Date: 02/19/23 Status: Completed dapagliflozin 10 mg oral tablet = 10 mg, By Mouth, Daily, # 30 tablet, 0 Refills, Maintenance, 02/19/23 8:44:00 EST, Tablet, [facility]/pharmacy #[id number], Partial fill upon patient request if the prescription is for a schedule II opioid drug., 182, cm, 02/17/23 18:23:00 EST, Height, 76, kg, 1... Start Date: 02/19/23 Stop Date: 03/21/23 Status: Ordered Fioricet Tablet 1 tablet, Tablet, By Mouth, Every 6 hours, PRN for Headache, Routine, 02/18/23 18:32:00 EST Notes: acetaminophen/butalbital/caffeine 325 mg-50 mg-40 mg oral tablet Start Date: 02/18/23 Stop Date: 02/20/23 Status: Discontinued lisinopril 20 mg oral tablet 40 mg, 2, tablet, By Mouth, Daily, # 30 tablet, Refills 0, Maintenance, 04/10/16 10:15:28 EST Start Date: 04/10/16 Status: Ordered lisinopril 20 mg oral tablet 40 mg, Tablet, By Mouth, 02/19/23 9:00:00 EST Start Date: 02/19/23 Stop Date: 02/19/23 Status: Completed Lovenox 120 mg/0.8 mL injectable solution = 114 mg, Subcutaneous Injection, Daily, for 5 days, *Note: Treatment = 1.5mg/kg/day, renal dosing = 1mg/kg/day*, # 40 mL, 0 Refills, Acute 02/24/23 13:27:00 EST, 02/19/23 13:27:00 EST, [facility], Partial fill upon patient request if th... Start Date: 02/19/23 Stop Date: 02/24/23 Status: Ordered nortriptyline 25 mg oral capsule 25 mg, By Mouth, Daily at bedtime, # 30 capsule, Refills 0, Tot. Refills 0, Maintenance, 02/19/23 8:44:00 EST, Route to Pharmacy Electronically, [facility]/pharmacy #[id number], Partial fill upon patient request if the prescription is for a schedule II opioid drug... Start Date: 02/19/23 Stop Date: 03/21/23 Status: Ordered spironolactone 25 mg oral tablet 25 mg, By Mouth, Daily, # 30 tablet, Refills 0, Tot. Refills 0, Maintenance, 02/19/23 8:45:00 EST, Route to Pharmacy Electronically, [facility]/pharmacy #[id number], Partial fill upon patient request if the prescription is for a schedule II opioid drug., 182, cm,... Start Date: 02/19/23 Stop Date: 03/21/23 Status: Ordered warfarin 5 mg oral tablet 1 tablet = 5 mg, By Mouth, Daily, # 30 tablet, 0 Refills, Maintenance, 02/21/23 13:03:00 EST, Tablet, [facility], Partial fill upon patient request if the prescription is for a scheduleII opioid drug., 182, cm, 02/19/23 11:57:00 EST, He... Start Date: 02/21/23 Stop Date: 03/23/23 Status: Ordered Problem List Condition Confirmation Course [...] Active Old CT (myocardial infarction) Confirmed Active [facility] [phone] Confirmed Active Peripheral arterial disease Confirmed Active Post traumatic stress disorder (PTSD) Confirmed Active Spinal stenosis at L4-L5 level Confirmed Active Spinal stenosis at L4-L5 level 3 Confirmed Active Current tobacco use Confirmed Active 1History of cardiac pacemaker in situ from a complete heart block. Dual chamber electronic pacemakerinserted [place] [address] Alvares. 2marijuana, cocaine, amphetamines, opiates and benzos. 3Dx 06/2017 Results Radiology Reports * Exam Date Time Procedure Performing Provider Status 02/15/23 8:[address] Head/Brain W/O Contrast Marion Roblero; Stu (Verified) Notes: (CT Head/Brain W/O Contrast) Reason For Exam: TIA RESULT: CT Head/Brain W/O Contrast CT Head/Brain W/O Contrast INDICATION: Reason: TIA; Clinical Question(s): Infarction; Order Comment: TECHNIQUE: Noncontrast head CT using axial technique and reconstructed in axial and coronal planes.Iterative reconstruction techniques are used to optimize dose and image quality. CTDIvol Head: 47.10 mGy, DLP Head: 772 mGy*cm. COMPARISON: 02/14/2023 FINDINGS: Monitor And Storage Bin Tender view findings, lines and tubes: None. BRAIN: Hypodense area seen in the anterior right temporal lobe. Findings suggest recent infarct. This represents a change from previous exam. No hemorrhage appreciated. VENTRICLES: Ventricles, sulci, and basilar cisterns are normal. EXTRA-AXIAL SPACES: No subarachnoid hemorrhage. No subdural or epidural collection. SKULL/SOFT TISSUES: No fractures or suspicious bony lesions. The extracranial soft tissues are unremarkable. SINUSES: The paranasal sinuses and mastoid air cells are clear. ORBITS: Visualized orbits and globes are intact. IMPRESSION: Moderate sized hypodense area noted in the right temporal lobe consistent with recent infarct. No hemorrhage identified. WSN: [id number] Ordering Physician: Megan Reddy Dictated By: Robin Molina MD Dictated Date/Time: 02/15/23 9:05 pm Reviewed By: Robin Molina MD Signed By: Robin Molina MD Signed Date/Time: 02/15/23 9:05 pm Transcribed By: ELIZABETH Transcribed Date/Time: 02/15/23 9:01 pm * Exam Date Time Procedure Performing Provider Status 02/14/23 1:28 PM Chest Portable Vinny Irby; Stu (Verified) Notes: (Chest Portable) Reason For Exam: Stroke;Other: RESULT: Chest Portable Chest Portable Reason: Other:; Stroke; Clinical Question(s): CHF COMPARISON: 06/25/2021 FINDINGS: LINES AND TUBES: The left-sided pacing device remains in place. There is been no change in the position of the leads. LUNGS AND PLEURA: Clear lungs. Normal pulmonary vascularity. No pleural effusion. No pneumothorax. HEART, MEDIASTINUM AND DONNIE: Heart is normal in size. Aorta is tortuous and unfolded. BONES AND SOFT TISSUES: There has been old trauma to the left clavicle. IMPRESSION: No acute abnormality. WSN: [id number] Ordering Physician: John Paul Lyons MD Dictated By: John Paul Baca MD Dictated Date/Time: 02/14/23 1:33 pm Reviewed By: John Paul Baca MD Signed By: John Paul Baca MD Signed Date/Time: 02/14/23 1:33 pm Transcribed By: CSLeticia Transcribed Date/Time: 02/14/23 1:32 pm * Exam Date Time Procedure Performing Provider Status 02/14/23 1:[address] Head/Brain W/O Contrast Arabella Barkley (Verified) Notes: (CT Head/Brain W/O Contrast) Reason For Exam: Headache(s) RESULT: CT Head/Brain W/O Contrast CT Head/Brain W/O Contrast Reason: New onset headache in the setting of right M2 occlusion. Clinical Question(s): Subarachnoid Hemorrhage. TECHNIQUE: Incremental CT without contrast through the head was formatted in axial and coronal plane. Weight-based protocol using automatic tube modulation was performed to optimize scan parameters. CTDIvol Head: 46.90 mGy, DLP Head: 773 mGy*cm. COMPARISON: Earlier the same day. CTA labeled 12:39 PM. FINDINGS: Current exam labeled 1:15 PM. BRAIN and EXTRA-AXIAL SPACES: This is a limited diagnostic quality exam for extra-axial hemorrhage although none is suspected. Hyperdensity along the falx and tentorium is likely normal post injection changes. No convincing evidence of an intra or extra-axial bleed. Right M2 segment remains hyperdense inferiorly in the sylvian fissure. Resendiz-white matter differentiation is well preserved. Ventricular prominence disproportionate with respect to the degree of sulcal prominence. No white matter lesions. No subarachnoid hemorrhage, subdural or epidural collections. CALVARIUM, SKULL BASE AND SOFT TISSUES: No fractures or suspicious bony lesions. The paranasal sinuses and mastoid air cells are clear. Visualized orbits and globes are intact. The extracranial soft tissues are unremarkable. IMPRESSION: No change in the dense right MCA sign. Otherwise no evidence of acute intracranial process. Please see CTA report for further information WSN: [id number] Ordering Physician: Cammy Wing Dictated By: Jonathan Mayer MD Dictated Date/Time: 02/14/23 1:35 pm Reviewed By: Jonathan Mayer MD Signed By: Jonathan Mayer MD Signed Date/Time: 02/14/23 1:35 pm Transcribed By: ELIZABETH Transcribed Date/Time: 02/14/23 1:25 pm * Exam Date Time Procedure Performing Provider Status 02/14/23 12:[address] Head-Hyper Acute Stroke Joellen Wright i; Auth (Verified) Notes: (CT Head-Hyper Acute Stroke) Reason For Exam: Neuro deficit, acute, stroke suspected;Other: RESULT: CT Head-Hyper Acute Stroke CT Head-Hyper Acute Stroke Reason: Other:; Neuro deficit, acute, stroke suspected; Clinical Question(s): Other:; Hematoma Infarction. TECHNIQUE: Incremental CT without contrast through the head was formatted in axial and coronal plane. Weight-based protocol using automatic tube modulation was performed to optimize scan parameters. CTDIvol Body: 22.53 mGy, DLP Body: 488 mGy*cm. CTDIvol Head: 45.90 mGy, DLP Head: 772 mGy*cm. COMPARISON: None. FINDINGS: BRAIN and EXTRA-AXIAL SPACES: No parenchymal hemorrhage, midline shift or mass effect. Hyperdensity is identified in the M2 segment of the right middle cerebral artery inferiorly, axial image 41 through 49 raising the question of thrombosis. No associated parenchymal changes are identified. Ventricular prominence disproportionate with respect to the degree of sulcal prominence similar to previous. No subarachnoid hemorrhage, subdural or epidural collections. CALVARIUM, SKULL BASE AND SOFT TISSUES: No fractures or suspicious bony lesions. The paranasal sinuses and mastoid air cells are clear. Visualized orbits and globes are intact. The extracranial soft tissues are unremarkable. IMPRESSION: 1. No intra or extra-axial bleed. 2. Dense right MCA sign concerning for an occluded M2 segment. 3. No associated parenchymal changes at this time. 4. Please see the separately dictated CTA report for further information. WSN: [id number] Ordering Physician: John Paul Lyons MD Dictated By: Jonathan Mayer MD Dictated Date/Time: 02/14/23 1:09 pm Reviewed By: Jonathan Mayer MD Signed By: Jonathan Mayer MD Signed Date/Time: 02/14/23 1:09 pm Transcribed By: ELIZABETH Transcribed Date/Time: 02/14/23 1:01 pm * Exam Date Time Procedure Performing Provider Status 02/14/23 12:[address] Angio Neck Hypera cute Stroke Joellen Isaac; Auth (Verified) Notes: (CT Angio Neck Hyperacute Stroke) Reason For Exam: Aneurysm, neck vessel(s);Other: RESULT: CT Angio Neck Hyperacute Stroke CT Angio Head Hyperacute Stroke, CT Angio Neck Hyperacute Stroke Reason: Other:; Stroke; Clinical Question(s): Other:; Hematoma Aneurysm / Other: Additional history per technologist: Left-sided weakness. TECHNIQUE: CT angiogram of the head and neck was performed after bolus administration of intravenous contrast. 100 mL of Omnipaque 300 was administered intravenously. Coronal and sagittal MIP reformatted images were obtained. Additional 3-D images were created on a separate workstation under concurrent supervision by the attending radiologist. All stenoses are measured using NASCET criteria. Weight-based protocol using automatic tube modulation was used to optimize exposure parameters. RADIATION DOSE PARAMETERS: CTDIvol Body: 22.53 mGy, DLP Body: 488 mGy*cm. COMPARISON: Noncontrast CT head performed concurrently. FINDINGS: CTA OF THE NECK: Arch: There is a three vessel aortic arch. The origins of the supra aortic vessels are patent. Right carotid system: The common carotid and cervical internal carotid arteries are patent. No stenosis (0%) by NASCET criteria. There is no dissection or aneurysm. Left carotid system: The common carotid and cervical internal carotid arteries are patent. No stenosis (0%) by NASCET criteria. There is no dissection or aneurysm. There is a co-dominant vertebral artery system. Right vertebral: No significant stenosis. No evidence of dissection or aneurysm. Left vertebral: Partial obscuration by surrounding refluxing venous contrast in the V1 segment. Otherwise no significant stenosis. No evidence of dissection or aneurysm. Other: Soft tissues and bones: Left chest wall pacemaker is partially visualized. No evidence of lymphadenopathy or mass. The thyroid is unremarkable. Visualized lungs are blurred by motion artifact, without significant superimposed airspace opacity. Multilevel degenerative changes of the spine are noted,without acute osseous abnormality. CTA OF THE HEAD: Anterior circulation: Bilateral intracranial ICAs demonstrate atherosclerotic calcifications, with mild narrowing of the cavernous and clinoid ICA is identified. There is abrupt occlusion of the right MCA inferior division proximal M2 branch, with reconstitution of the mid M2 branches after a 1.3 cm gap. Left MCA and bilateral KIMMY branches are patent without high-grade stenosis or proximal cutoff. No aneurysm or vascular malformation is seen. Posterior circulation: Bilateral intracranial vertebral arteries, the basilar artery, and bilateralsuperior cerebellar and posterior cerebral branches are patent. There is partial supply to both car body designer with mildly hypoplastic P1 segments on each side. There is no significant stenosis, proximalcutoff, aneurysm, or vascular malformation. Veins: Major dural venous sinuses are patent. Other: Soft tissues and bones: No midline shift or effacement of the basal cisterns. No space-occupying hemorrhage. No territorial loss of resendiz-white matter differentiation. Orbits are unremarkable. Mucous retention cyst noted in the inferior left maxillary sinus. Otherwise no significant opacification in the paranasal sinuses or mastoid air cells. IMPRESSION: 1. Abrupt occlusion of the right MCA inferior division proximal M2 branch, with reconstitution in the mid M2 segment. 2. No other site of occlusion or high-grade stenosis in the remaining major arteries of the head and neck. The impression above was relayed to Cammy Wing MD by Dr. Shandra Jim over the phone on02/14/2023 at 1:03 PM. WSN: [id number] Ordering Physician: John Paul Lyons MD Dictated By: Shandra Jim MD Dictated Date/Time: 02/14/23 2:44 pm Reviewed By: Shandra Jim MD Signed By: Shandra Jim MD Signed Date/Time: 02/14/23 2:44 pm Transcribed By: ELIZABETH Transcribed Date/Time: 02/14/23 1:05 pm * Exam Date Time Procedure Performing Provider Status 02/14/23 12:[address] Angio Head Hypera cute Stroke Joellen Isaac; Auth (Verified) Notes: (CT Angio Head Hyperacute Stroke) Reason For Exam: Stroke;Other: RESULT: CT Angio Head Hyperacute Stroke CT Angio Head Hyperacute Stroke, CT Angio Neck Hyperacute Stroke Reason: Other:; Stroke; Clinical Question(s): Other:; Hematoma Aneurysm / Other: Additional history per technologist: Left-sided weakness. TECHNIQUE: CT angiogram of the head and neck was performed after bolus administration of intravenous contrast. 100 mL of Omnipaque 300 was administered intravenously. Coronal and sagittal MIP reformatted images were obtained. Additional 3-D images were created on a separate workstation under concurrent supervision by the attending radiologist. All stenoses are measured using NASCET criteria. Weight-based protocol using automatic tube modulation was used to optimize exposure parameters. RADIATION DOSE PARAMETERS: CTDIvol Body: 22.53 mGy, DLP Body: 488 mGy*cm. COMPARISON: Noncontrast CT head performed concurrently. FINDINGS: CTA OF THE NECK: Arch: There is a three vessel aortic arch. The origins of the supra aortic vessels are patent. Right carotid system: The common carotid and cervical internal carotid arteries are patent. No stenosis (0%) by NASCET criteria. There is no dissection or aneurysm. Left carotid system: The common carotid and cervical internal carotid arteries are patent. No stenosis (0%) by NASCET criteria. There is no dissection or aneurysm. There is a co-dominant vertebral artery system. Right vertebral: No significant stenosis. No evidence of dissection or aneurysm. Left vertebral: Partial obscuration by surrounding refluxing venous contrast in the V1 segment. Otherwise no significant stenosis. No evidence of dissection or aneurysm. Other: Soft tissues and bones: Left chest wall pacemaker is partially visualized. No evidence of lymphadenopathy or mass. The thyroid is unremarkable. Visualized lungs are blurred by motion artifact, without significant superimposed airspace opacity. Multilevel degenerative changes of the spine are noted,without acute osseous abnormality. CTA OF THE HEAD: Anterior circulation: Bilateral intracranial ICAs demonstrate atherosclerotic calcifications, with mild narrowing of the cavernous and clinoid ICA is identified. There is abrupt occlusion of the right MCA inferior division proximal M2 branch, with reconstitution of the mid M2 branches after a 1.3 cm gap. Left MCA and bilateral KIMMY branches are patent without high-grade stenosis or proximal cutoff. No aneurysm or vascular malformation is seen. Posterior circulation: Bilateral intracranial vertebral arteries, the basilar artery, and bilateralsuperior cerebellar and posterior cerebral branches are patent. There is partial supply to both car body designer with mildly hypoplastic P1 segments on each side. There is no significant stenosis, proximalcutoff, aneurysm, or vascular malformation. Veins: Major dural venous sinuses are patent. Other: Soft tissues and bones: No midline shift or effacement of the basal cisterns. No space-occupying hemorrhage. No territorial loss of resendiz-white matter differentiation. Orbits are unremarkable. Mucous retention cyst noted in the inferior left maxillary sinus. Otherwise no significant opacification in the paranasal sinuses or mastoid air cells. IMPRESSION: 1. Abrupt occlusion of the right MCA inferior division proximal M2 branch, with reconstitution in the mid M2 segment. 2. No other site of occlusion or high-grade stenosis in the remaining major arteries of the head and neck. The impression above was relayed to Cammy Wing MD by Dr. Shandra Jim over the phone on02/14/2023 at 1:03 PM. WSN: [id number] Ordering Physician: John Paul Lyons MD Dictated By: Shandra Jim MD Dictated Date/Time: 02/14/23 2:44 pm Reviewed By: Shandra Jim MD Signed By: Shandra Jim MD Signed Date/Time: 02/14/23 2:44 pm Transcribed By: ELIZABETH Transcribed Date/Time: 02/14/23 1:05 pm Vital Signs Most recent to oldest [Reference Range]: 1 2 3 4 Height 182 cm (02/19/23 11:57 AM) 182 cm (02/17/23 6:23 PM) 182 cm (02/17/23 1:26 PM) Weight 76 kg (02/14/23 8:28 PM) Oxygen Saturation [94-100 %] 97 % (02/19/23 11:57 AM) 100 % (02/19/23 8:00 AM) 100 % (02/19/23 4:09 AM) Pulse Rate [55-90 bpm] 51 bpm *L* (02/19/23 11:57 AM) 56 bpm (02/19/23 9:40 AM) 51 bpm *L* (02/19/23 8:00 AM) Body Mass Index [18.5-24.99 kg/m2] 22.94 kg/m2 (02/14/23 8:28 PM) Blood Pressure [90-138/55-84 mm Hg] 165/93mm Hg *H* (02/19/23 11:57 AM) 165/93mm Hg *H* (02/19/23 11:00 AM) 160/101mm Hg *H* (02/19/23 9:40 AM) 160/101mm Hg *H* (02/19/23 9:40 AM) Respiratory Rate [16-30 br/min] 18 br/min (02/19/23 3:29 PM) 12 br/min *L* (02/19/23 11:57 AM) 16 br/min (02/19/23 9:26 AM) Temperature [96.8-100.4 DegF] 98.6 DegF (02/19/23 11:57 AM) 97.2 DegF (02/19/23 8:00 AM) 97.0 DegF (02/19/23 4:09 AM) Mode of Delivery (Oxygen) Room air (02/19/23 11:57 AM) Room air (02/19/23 4:09 AM) Room air (02/19/23 12:19 AM) Blood pressure sites Arm, right (02/19/23 11:57 AM) Arm, left (02/19/23 11:00 AM) Arm, right (02/19/23 8:00 AM) Temperature Route Oral (02/19/23 11:57 AM) Temporal (02/19/23 8:00 AM) Temporal (02/19/23 4:09 AM) Dry Weight 76 kg (02/14/23 8:28 PM) Weight Obtained Via Bed scale (02/14/23 8:28 PM) Social History Social History Type Response Tobacco Use: Patient smokes 5 cig. a day. Sex Male Admission evaluation note * Kumar CANELA, Bull: PERFORM Event Display: Admission Note Authored Date: [id number] Patient: ??MARCIN QUINTERO ? Age:??67 Years?Sex:??Male?:??1955?? Chief Complaint/Reason for Consultation Slurring of speech History of Present Illness The patient is a 67 years old male with past medical history of peripheral vascular disease, hypertension, hyperlipidemia, PTSD presented to ER with a chief complaint of slurring of speech. ?? The patient reported that he was in his usual state of health and??at dietary program when he and noticed??that he was unable to speak and??felt??his lips are flat.?? Patient also noticed shooting??pain in his left??and a 1 bystanders noticed patient is having slurring words. ??Therefore, they called 911 and patient brought to the ER. ?? In ER, patient has CT head done that did not show acute event, CT head and neck was done that showed right MCA ??occlusion.?? Patient's symptoms most resolved in the ER. ?? While in the ER, patient also developed right-sided temporal headache that he described at??sudden onset, feels like sharp??pains,??7 out of 10, with no aggravating or alleviating factors, nonradiating, not associate with blurry vision, nausea, vomiting Review of Systems All pertinent negative and positives are noted in HPI. ??All other systems were reviewed and are negative Objective ? Vital Signs?? Temperature: 98.1 DegF (02/14/23 18:51:00) Temperature Route: Oral (02/14/23 18:51:00) Pulse Rate: 57 bpm (02/14/23 19:30:00) Respiratory Rate: 20 br/min (02/14/23 19:30:00) Systolic Blood Pressure:??192 mm Hg??High (02/14/23 19:30:00) Diastolic Blood Pressure:??90 mm Hg??High (02/14/23 19:30:00) Blood pressure sites: Arm, left (02/14/23 19:30:00) Mean Arterial Pressure: 125 mm Hg (02/14/23 18:42:00) Pulse Pressure: 91 mm Hg (02/14/23 18:42:00) Oxygen Saturation: 100 % (02/14/23 19:30:00) Mode of Delivery (Oxygen): Room air (02/14/23 19:30:00) Early Warning Score: 0 (02/14/23 19:33:19) ? Physical Exam Constitutional: Alert, in no acute distress. Head: Normocephalic. ?? Eyes: Pupils are equal, round and reactive to light. Extraocular muscles intact. No pallor or scleral icterus ?? Ear, Nose and Throat: mucous membranes moist. Ears and nose - no obvious deformities. Trachea midline. ?? Neck: Supple, Full range of motion.No JVD or bruits. Respiratory:??Clear to auscultation. No wheezing or rhonchi.??No use of accessory muscles. No tactile fremitus.?? Cardiovascular:??PMI not visible. S1 S2 regular. No murmurs, rubs or gallops. Gastrointestinal:??Abdomen soft, non-tender, non-distended. Normal bowel sounds. No pulsatile mass.No hepatosplenomegaly. Genitourinary:??No costovertebral angle tenderness. Extremities: No lower extremity pitting edema. No cyanosis or clubbing. Neurologic:??AAOx3, Cranial nerves II-XII grossly intact. Speech normal, no facial droop. No focal neurological deficits. Moves all extremities spontaneously. Sensation intact bilaterally.??Flexor plantar response Skin:??No rash.?? Musculoskeletal:??No gross deformities on inspection. Normal range of motion in hips, knees, ankles. ??.??Muscle strength within normal limits Heme/Lymphatics:??Palpation of neck reveals no swelling or tenderness of neck nodes.?? Psychiatric: Normal mood and affect. Assessment/Plan Diagnoses 1. ??Acute CVA (cerebrovascular accident) ??(I63.9) 2. ??Occlusion of right middle cerebral artery ??(I66.01) 3. ??Headache ??(R51.9) 4. ??HTN (hypertension) ??(I10) 5. ??H/O heart block ??(Z86.79) 6. ??H/O cardiac pacemaker ??(Z95.0) 7. ??Peripheral arterial disease ??(I73.9) 8. ??HLD (hyperlipidemia) ??(E78.5) ?? Assessment:??The patient is a 67 years old male who is admitted with slurring of speech likely due to CVA ?? Acute CVA (cerebrovascular accident) (I63.9):??Etiology: Likely right MCA occlusion Patient presented with slurring of speech??and was found to have weakness in left hand??that resolved in the ER NIHSS scale is 0 In ER, CT head was done did not show acute neurology, CT head and neck was done that showed right MCA occlusion involving M2 branch Patient passed bedside swallow eval in the ER Neurology was consulted who recommended??to start patient on aspirin and statin, Lopressor hypertension Neuro endovascular also consulted who??recommended against??neuro endovascular intervention due to low NIHSS??but they will evaluate the patient again??and decide about neuro???intervention if symptoms worsen ?? Currently, patient is asymptomatic ?? Plan Continue home medication aspirin, Lipitor Allow permissive hypertension up to 220 Unable to get MRI due to pacemaker, will repeat CT head in 24 hours PMR consult Will monitor neurological status ?Antithrombotic Therapy by End of Hospital Day 2:??Antithrombotic ordered ?Statin Ordered:??Statin Ordered ?? 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 Headache (R51.9):??Etiology: Unclear Patient developed sudden right-sided temporal headache while in the ER??without any associated symptoms ESR, CRP normal Due to abrupt onset of headache, repeat CT was done that did not show any acute normality Neurology recommended to treat headache with??Tylenol Patient received Tylenol and headache??improved but??patient reports??headache is returning Will try dose of tramadol ? HTN (hypertension) (I10):??Currently holding home medication to allow permissive hypertension for 220 ?? 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 H/O cardiac pacemaker (Z95.0):??Management as above ?? Peripheral arterial disease (I73.9):??Resume home medication aspirin, Lipitor ?? HLD (hyperlipidemia) (E78.5):??Resume home medication Lipitor ?? VTE Prophylaxis:??Lovenox ?VTE Prophylaxis Assessment:??VTE Prophylaxis Ordered ?? Code Status:??Full code ?Order Code Status:??Code Status Ordered ?? Ongoing Medical Necessity:??CVA ?? Discharge Planning:??Pending clinical course ? Date of service: February 14, 2023 Histories Allergies Allergies ?(Active and Proposed Allergies Only) NKA? (Severity: Unknown severity, Onset: Unknown) ? Past Medical History/Problem List Active Problems??(17) Anxiety and depression [employer] [facility] Care Management [facility] Mikie Hernandez [phone] Candidiasis Cardiac pacemaker, Medtronic dual chamber pacemaker model [id number] CHB (complete heart block) Current tobacco use Essential hypertension GERD (gastroesophageal reflux disease) History of substance abuse Hypercholesterolemia with hypertriglyceridemia Liver lesion Marijuana use Old CT (myocardial infarction) Peripheral arterial disease Post traumatic stress disorder (PTSD) Spinal stenosis at L4-L5 level Spinal stenosis at L4-L5 level ? Past Surgical History Esophagogastroduodenoscopy and biopsy: 06/26/21 Colonoscopy, flexible; with removal of tumor(s), polyp(s), or other lesion(s) by snare technique: 01/11/19 Colonoscopy, flexible, proximal to splenic flexure; diagnostic, with or without collection of specimen(s) by brushing or washing, with or without colon decompression (separate procedure): 12/26/11 Upper gastrointestinal endoscopy including esophagus, stomach, and either the duodenum and/or jejunum as appropriate; with biopsy, single or multiple: 12/26/11 ORIF right ankle pacemaker ? Social History Tobacco Details:??Use: Patient smokes 5 cig. a day. Details:??Current every day smoker, Type: Cigarettes. ??Tobacco use times per day: 8 cigarretes a day max, 3 joints a day marijuana. ? Family History Mother: Hypertension Father: Hypertension Sister: Hypertension ? Medications Home Medications Aspirin (aspirin 81 mg oral tablet)?1?tab(s)?81?Milligram?By Mouth?Daily Atorvastatin (atorvastatin 40 mg oral tablet)?1?tab(s)?40?Milligram?By Mouth?Daily?for 30?Days Carvedilol (carvedilol 25 mg oral tablet)?25?Milligram?1?tablet?By Mouth?2 times a day Lisinopril (lisinopril 20 mg oral tablet)?40?Milligram?2?tablet?By Mouth?Daily ? Results Recent Labs BLOOD BANK Blood Type O Positive ()?? 02/14/2023 12:33 Antibody Screen Negative ()?? 02/14/2023 12:33 ?? BLOOD COUNT & DIFF WBC 4.4 k/mm3 ()?? 02/14/2023 13:41 RBC 4.52 m/mm3 (Low)?? 02/14/2023 13:41 Hgb 12.2 Gm/dL (Low)?? 02/14/2023 13:41 Hct 38.9 % (Low)?? 02/14/2023 13:41 MCV 86.1 femtoliters ()?? 02/14/2023 13:41 MCH 27.0 pg ()?? 02/14/2023 13:41 MCHC 31.4 g/dL (Low)?? 02/14/2023 13:41 Platelet Count 262 k/mm3 ()?? 02/14/2023 13:41 RDW-SD 45.2 femtoliters ()?? 02/14/2023 13:41 MPV 10.4 femtoliters ()?? 02/14/2023 13:41 Nucleated RBC (Automated) 0.0 #/100 WBC'S ()?? 02/14/2023 13:41 Abs. NRBC 0.0 k/mm3 ()?? 02/14/2023 13:41 Abs. Neut 2.2 k/mm3 ()?? 02/14/2023 13:41 Abs. Lymph 1.7 k/mm3 ()?? 02/14/2023 13:41 Abs. [place] 0.4 k/mm3 ()?? 02/14/2023 13:41 Abs. Eo 0.1 k/mm3 ()?? 02/14/2023 13:41 Abs. Baso 0.0 k/mm3 ()?? 02/14/2023 13:41 Neut % 49.4 % ()?? 02/14/2023 13:41 Lymph % 38.5 % ()?? 02/14/2023 13:41 [place] % 8.5 % ()?? 02/14/2023 13:41 Eos % 2.5 % ()?? 02/14/2023 13:41 Baso % 0.9 % ()?? 02/14/2023 13:41 Imm Gran 0.2 % ()?? 02/14/2023 13:41 Abs. Imm Gran 0.0 k/mm3 ()?? 02/14/2023 13:41 ?? CARDIAC High Sensitivity Troponin (HSTnT) 18 ng/L ()?? 02/14/2023 13:41 ?? CHEM GENERAL Sodium 141 mmol/L ()?? 02/14/2023 13:41 Potassium 4.8 mmol/L ()?? 02/14/2023 13:41 Chloride 106 mmol/L ()?? 02/14/2023 13:41 Bicarbonate Level 29 mmol/L ()?? 02/14/2023 13:41 Anion Gap 6 ()?? 02/14/2023 13:41 Glucose Level 103 mg/dL (High)?? 02/14/2023 13:41 Glucose, POC 127 mg/dL (High)?? 02/14/2023 12:27 BUN 12 mg/dL ()?? 02/14/2023 13:41 Creatinine-Blood 1.1 mg/dL ()?? 02/14/2023 13:41 Estimated GFR Creatinine 78 ML/MIN/1.73 M2 ()?? 02/14/2023 13:41 Calcium 9.2 mg/dL ()?? 02/14/2023 13:41 AST (SGOT) 17 units/L ()?? 02/14/2023 13:41 C-Reactive Protein <0.3 mg/dL ()?? 02/14/2023 13:41 ?? COAG INR 1.1 ()?? 02/14/2023 13:41 Protime (PT) 11.7 seconds (High)?? 02/14/2023 13:41 APTT 30.3 seconds ()?? 02/14/2023 13:41 ?? HEME OTHER Sed Rate 11 mm/hr ()?? 02/14/2023 13:41 ?? TOXICOLOGY/TDM Barbiturate Screen, Urine NONE DETECTED ()?? 02/14/2023 14:40 Cannabinoid Screen, Urine POSITIVE (Abnormal)?? 02/14/2023 14:40 Cocaine Metabolite Screen, Urine NONE DETECTED ()?? 02/14/2023 14:40 Benzodiazepine Screen, Urine NONE DETECTED ()?? 02/14/2023 14:40 Amphetamine Screen, Urine NONE DETECTED ()?? 02/14/2023 14:40 Opiate Screen, Urine NONE DETECTED ()?? 02/14/2023 14:40 ?? UA/URINALYSIS Appear/Color, Urine LIGHT YELLOW ()?? 02/14/2023 14:40 Specific [place], Urine >1.050 (High)?? 02/14/2023 14:40 pH, Urine 7.0 ()?? 02/14/2023 14:40 Albumin, Urine TRACE (Abnormal)?? 02/14/2023 14:40 Glucose, Urine NEGATIVE ()?? 02/14/2023 14:40 Ketones, Urine NEGATIVE ()?? 02/14/2023 14:40 Bilirubin, Urine NEGATIVE ()?? 02/14/2023 14:40 Hemoglobin, Urine NEGATIVE ()?? 02/14/2023 14:40 Nitrite, Urine NEGATIVE ()?? 02/14/2023 14:40 Leukocyte, Urine NEGATIVE ()?? 02/14/2023 14:40 Urobilinogen NORMAL mg/dL ()?? 02/14/2023 14:40 WBC's, Urine <1 /HPF ()?? 02/14/2023 14:40 RBC's, Urine 1 /HPF ()?? 02/14/2023 14:40 Squamous Epith <1 /HPF ()?? 02/14/2023 14:40 Hold Urine Culture Testing available 48 hours from time of collection. ()?? 02/14/2023 14:40 ?? VIROLOGY Influenza A PCR NEGATIVE ()?? 02/14/2023 13:40 Influenza B PCR NEGATIVE ()?? 02/14/2023 13:40 RSV PCR NEGATIVE ()?? 02/14/2023 13:40 COVID-19 PCR Specimen Source NASAL ()?? 02/14/2023 13:40 COVID-19 PCR Result NEGATIVE ()?? 02/14/2023 13:40 ? Coagulation Profile APTT: 30.3 seconds (13:41) INR: 1.1 (13:41) Protime (PT):??11.7 seconds??High (13:41) ?? EKG study * Event Display: EKG Authored Date: * Event Display: ECG 12-Lead Authored Date: Please click on pdf link to open report * Event Display: ECG 12-Lead Authored Date: Ventricular Rate: 63 BPM Atrial Rate: 63 BPM P-R Interval: 140 ms QRS Duration: 176 ms Q-T Interval: 498 ms QTC Calculation(Bazett): 509 ms R [place]: 112 degrees T [place]: -85 degrees AV dual-paced rhythm Abnormal ECG When compared with ECG of 25-JUN-2021 17:27, Vent. rate has increased BY 12 BPM Confirmed by BALDEV ONTIVEROS ([id number]) on 02/14/2023 4:27:42 PM [place]: BALDEV ONTIVEROS Heart * Event Display: Echocardiogram - Complete Authored Date: Transthoracic Echocardiography Report (TTE) Patient Demographics Patient Name MARCIN QUINTERO Date of Study 02/17/2023 Corporate Gender Male Facility Race Black Ethnicity Date of 1955 Height: 71.65 inches Age 67 year(s) Weight: 167.55 pounds Accession Number [id number] BSA: 1.97 m2 Room Number [id number] BMI: 22.94 kg/m2 Referring Physician Freida Garza MD Interpreting Physician Marli Soliman MD Floor Framer Martine Reina CVA. Clinical History Hypertension. Hypercholesterolemia. Pacemaker. Hx Substance abuse Old myocardial infarction. PAD Study Data Type of Study TTE procedure:Echo Complete-(Doppler, Colorflow) with Contrast. Procedure Information:Definity was administered by Martine Dumont RDCS. Study Date02/17/2023 Start Time: 11:20 AM Study Location: [facility] [place] Adult Echo Study Status: Echo lab Patient Status: JAY Technical Quality: Technically difficult due to poor acoustical window. Blood Pressure:164/95 mmHg EKG: Sinus bradycardia HR: 54 bpm Contrast Medium: Definity. Amount - 2 ml Allergies - No known allergies. 2D Measurements LV Diastolic Dimension: 5.8 cm LV Systolic Dimension: 4.4 cm LV Septum Diastolic: 1.3 cm LV PW Diastolic: 1.1 cm AO Root Dimension: 3.7 cm LA ESV (BP):64.2 ml LVOT Stroke Volume: 78.78 ml LA ESV Index: 33 ml/m2 Stroke Volume Index39.99 ml/m2 LVOT: 2.8 cm Cardiac Index:2.16 l/min/m2 Ascending Aorta:3.3 cm Doppler Measurements AV Peak Velocity: 152 cm/s MV Peak E-Wave: 45.4 cm/s AV Peak Gradient: 9.24 mmHg MV Peak A-Wave: 82.7 cm/s MV E/A Ratio: 0.55 LVOT Peak Velocity: 54.8 cm/s LVOT VTI12.8 cm MV Deceleration Time: 419 msec AV P1/2t: 797 msec TR Velocity:201 cm/s TR Gradient:16.16 mmHg PV Peak Velocity: 72.8 cm/s Estimated RAP:3 mmHg PV Peak Gradient: 2.12 mmHg Estimated RVSP: 19.2 mmHg E' Septal Velocity: 4.03 cm/s E' Lateral Velocity: 2.72 cm/s E/Med E':11.29582 E/Lat E':16.35294 Cardiac Anatomy Left Ventricle/Interventricular Septum The left ventricle is mildly dilated. Wall thickness is moderately increased. Systolic function appears moderately reduced. Ejection fraction is 30-40%. 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 Grade I diastolic dysfunction. Left Atrium/Interatrial Septum The left atrium is normal in size. Aortic Valve Mild regurgitation. No significant stenosis. Mitral Valve Trace regurgitation. Aorta The ascending aorta and aortic root are normal in size. Right Ventricle The right ventricle is normal in size. Function is preserved. There appears to be a pacer wire in the RV. Right Atrium The right atrial size is at the upper limit of normal. Pulmonic Valve No significant regurgitation. Tricuspid Valve Trace regurgitation. Pumonary Artery The pulmonary artery systolic pressure estimation is within normal limits. Venous Structures IVC Is normal in size with normal inspiratory collapse. Pericardium/Extracardiac There appears to be a small pericardial effusion anteriorly. Summary The left ventricle is mildly dilated. Wall thickness is moderately increased. Systolic function appears moderately reduced. Ejection fraction is 30-40%. 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 Grade I diastolic dysfunction. The left atrium is normal in size. The right ventricle is normal in size. Function is preserved. There appears to be a pacer wire in the RV. The right atrial size is at the upper limit of normal. The pulmonary artery systolic pressure estimation is within normal limits. There appears to be a small pericardial effusion anteriorly. Comparison No prior study available for comparison. Signature * Event Display: Echocardiogram - Complete Authored Date: Cardiology * Event Display: Cardiac Rhythm Strips Authored Date: * Event Display: Cardiac Rhythm Strips Authored Date: Hospital Progress note * Hannah Young: PERFORM Event Display: Progress Note Hospital Authored Date: Patient: ??MARCIN QUINTERO ? Age:??67 Years?Sex:??Male?:??1955?? Subjective Cardiology follow-up for: CMP, pacemaker, CVA Review of Systems C/o of headache. Denies chest pain, dyspnea,palps, edema Objective Measurements?? Height: 182 cm (02/17/23) Weight: 76 kg (02/14/23) Dry Weight: 76 kg (02/14/23) Body Mass Index: 22.94 kg/m2 (02/14/23) ? Vital Signs?? Temperature: 97.2 DegF (02/19/23 08:00:00) Temperature Route: Temporal (02/19/23 08:00:00) Pulse Rate: 56 bpm (02/19/23 09:40:00) Respiratory Rate: 16 br/min (02/19/23 09:26:00) Systolic Blood Pressure:??160 mm Hg??High (02/19/23 09:40:00) Systolic Blood Pressure:??160 mm Hg??High (02/19/23 09:40:00) Diastolic Blood Pressure:??101 mm Hg??High (02/19/23 09:40:00) Diastolic Blood Pressure:??101 mm Hg??High (02/19/23 09:40:00) Blood pressure sites: Arm, right (02/19/23 08:00:00) Mean Arterial Pressure: 111 mm Hg (02/19/23 04:09:00) Pulse Pressure: 89 mm Hg (02/19/23 04:09:00) Oxygen Saturation: 100 % (02/19/23 08:00:00) Mode of Delivery (Oxygen): Room air (02/19/23 04:09:00) Early Warning Score: 2 (02/19/23 09:41:20) ? Intake/Output? 02/14 16:51 02/19 07:00 02/18 07:00 02/17 07:00 02/16 07:00 ?? 02/19 11:14 02/19 11:14 02/19 06:59 02/18 06:59 02/17 06:59 Intake ? 3960 ?0 ? 1200 ?610 ?100 Output ?2 ?0 ?1 ?1 ?0 Net Total ? 3958 ?0 ? 1199 ?609 ?100 ? Urine Count ? 26 ?0 ?2 ?6 ?8 ? Physical Exam NEURO: AAOx3, no focal deficits, moving all extremities spontaneously HEENT: Moist mucous membranes, head atraumatic, pupils equal/round RESPIRATORY: Clear to auscultation bilaterally. No wheezes, rales, or rhonchi. CARDIOVASCULAR: RRR, S1S2, no murmurs/rubs/gallops ABDOMEN: Non-distended, +BS, soft, NTTP EXTREMITIES: No LE edema, erythema, or skin changes SKIN: Warm, dry, well-perfused _ Home Medications Aspirin (aspirin 81 mg oral tablet)?1?tab(s)?81?Milligram?By Mouth?Daily Atorvastatin (atorvastatin 40 mg oral tablet)?1?tab(s)?40?Milligram?By Mouth?Daily?for 30?Days Carvedilol (carvedilol 3.125 mg oral tablet)?3.125?Milligram?By Mouth?2 times a day?for 30?Days dapagliflozin (dapagliflozin 10 mg oral tablet)?10?Milligram?By Mouth?Daily?for 30?Days Lisinopril (lisinopril 20 mg oral tablet)?40?Milligram?2?tablet?By Mouth?Daily Nortriptyline (nortriptyline 25 mg oral capsule)?25?Milligram?By Mouth?Daily at bedtime?for 30?Days Spironolactone (spironolactone 25 mg oral tablet)?25?Milligram?By Mouth?Daily?for 30?Days ? Inpatient Medications Medications (21) Active SCHEDULED: (10) Aspirin 81 mg Chew Tablet (aspirin 81 mg oral tablet, chewable) ??81 mg, By Mouth, Daily Atorvastatin 40 mg Tablet (atorvastatin 40 mg oral tablet) ??40 mg, By Mouth, Daily at bedtime Carvedilol 3.125 mg Tablet (carvedilol 3.125 mg oral tablet) ??3.125 mg, By Mouth, 2 times a day Dapagliflozin 10 mg Tablet (Dapagliflozin Tablet) ??10 mg, By Mouth, Daily Enoxaparin 40 mg Inj (Enoxaparin Inj) ??40 mg 0.4 mL, Subcutaneous Injection, Daily Lisinopril 20 mg Tablet (lisinopril 20 mg oral tablet) ??40 mg, By Mouth, Daily Mineral Oil/Petrolatum Ophth Ointment (Lacri-Lube S.O.P. Ophth) ??1 application, Eyes, Both, 2 times a day NaCl 0.9% Flush 3ml (NaCL 0.9% Flush) ??3 mL, IV Push, Every 8 hours Nortriptyline 25 mg Capsule (nortriptyline 25 mg oral capsule) ??25 mg, By Mouth, Daily at bedtime Spironolactone 25 mg Tablet (spironolactone 25 mg oral tablet) ??25 mg, By Mouth, Daily CONTINUOUS: (0) PRN: (11) Acetaminophen 325 mg Tablet (Acetaminophen Tablet) ??975 mg, By Mouth, Every 6 hours Acetaminophen/Butalbital/Caffeine Tablet (Fioricet Tablet) ??1 tablet, By Mouth, Every 6 hours Dextromethorphan-Guaifenesin 20 mg-200 mg/10 mL Liqu UD (Robitussin DM Liquid) ??10 mL, By Mouth, Every 4 hours Docusate Sodium 100 mg Capsule (Docusate Sodium Capsule) ??100 mg 1 capsule, By Mouth, 2 times a day hydrALAZINE 20 mg/mL Inj (hydrALAZINE Inj) ??10 mg 0.5 mL, IV Push Slowly, Every 4 hours Lorazepam 2 mg Inj Syringe (Ativan Inj) ??0.5 mg, IV Push Slowly, Once Melatonin 3 mg Tablet (Melatonin Tablet) ??3 mg, By Mouth, Daily at bedtime NaCl 0.9% Flush 3ml (NaCL 0.9% Flush) ??3 mL, IV Push, Every 8 hours Polyethylene Glycol 17 Gm Powder (MiraLax Powder) ??17 Gm 1 pack/packet, By Mouth, Daily Senna Tablet ??8.6 mg 1 tablet, By Mouth, 2 times a day Simethicone 80 mg Chewable Tablet (Simethicone Tablet) ??80 mg, Chew, 3 times a day ? Results Recent Labs No labs resulted between 02/18/2023 00:00 and 02/19/2023 11:14? LFT?? No qualifying data available. ?? Microbiology ?? COVID-19, RSV, and Flu A/B, Rapid PCR?? Completed?? Source: Nasal Body Site: Nose Collected Dt/Tm: 02/14/2023 12:57 Last Updated Dt/Tm: 02/14/2023 15:02 ? Cardiology Labs High Sensitivity Troponin (HSTnT): 18 ng/L (02/14/23 13:41:00) Lipids: Cholesterol: 152 mg/dL (02/15/23 06:33:00) Triglycerides: 73 mg/dL (02/15/23 06:33:00) HDL Cholesterol: 55 mg/dL (02/15/23 06:33:00) LDL Cholesterol: 82 mg/dL (02/15/23 06:33:00) Non HDL Cholesterol: 97 mg/dL (02/15/23 06:33:00) ?? Blood Gases?? No qualifying data available. ?? Assessment/Plan ??1. ??Acute cerebrovascular accident Right MCA inferior division in the proximal M2 branch, neurology is following. On asa/statin. No evidence of arrhythmia on his monitor.?? 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 This dates back to 2005.?? He had an echocardiogram with contrast that did not show any apparent LV thrombus.?? Would recommend Coumadin, starting 7 days after his stroke as the most likely cause was thrombus in his apical aneurysm ? 2. ??Nonischemic cardiomyopathy The patient has a longstanding history of a nonischemic cardiomyopathy. ??Historically, his LVEF has remained around 40%. ??On the most recent echocardiogram done during this hospitalization the LVEFwas noted to be 30- 40%.??Continue spironolactone, Farxiga, carvedilol, lisinopril for guideline directed medical therapy.?? He did have heart catheterization in 2011 which did not show any significant coronary artery disease. ? 3. ??Presence of a cardiac pacemaker The patient has a Medtronic dual-chamber pacemaker and has approximately 2 months of battery life left.?? We will arrange outpatient follow-up to have his generator changed. ? Plan discussed and pt seen/examined with Dr. Hoang * Mariah CANELA, Ramu Huber: PERFORM Event Display: Progress Note Hospital Authored Date: [id number] Attending attestation: I have personally performed a face to face diagnostic evaluation of this patient at the date of service. I have reviewed pertinent historical, laboratory and other data. I discussed the patient's ongoing clinical issues and their management with the ARCHITECTURAL SALES CONSULTANT/PA and agree with the re commendations as above.?? I have personally performed the medical decision making in its entirety. ?? 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 The patient is currently on guideline directed medical therapy with carvedilol, dapagliflozin, lisinopril, and spironolactone.?? Would recommend to continue this medical therapy.?? On the other hand, the CVA was thought to be cardioembolic in nature.?? Interrogation of his pacemaker did not show any evidence of atrial arrhythmias.?? Given the patient's apical aneurysm, he is at an increased risk for developing an LV apical thrombus.?? As such, we need to consider the possibility that his CVA may have been cardioembolic in nature secondary to a small apical thrombus that embolized to the cerebral circulation.?? I discussed this possibility with the neurology team and they are in agreement that the patient would benefit from anticoagulation therapy given his cardioembolic CVA that may have been secondary to an LV apical thrombus.?? Neurology team recommended starting anticoagulation therapy 7 days after the CVA.?? I discussed this with the hospitalist team.?? We will start the patient on anticoagulation therapy with warfarin 7 daysafter the CVA.?? The patient is also in agreement to starting anticoagulation therapy with warfarin.?? On the other hand, the patient has a pacemaker in place with approximately 2 months of battery life left.?? I discussed his case with the electrophysiology service (Dr. Landaverde) and Dr. Landaverde will make arrangements for the patient to undergo an elective battery change in the outpatient setting within the next 2 weeks.?? I discussed this with the patient and he is in agreement to proceed with an e lective outpatient battery change for his pacemaker in the next few weeks. ?? Ramu Lemus MD, FAC, RPVI * Stanley Doll RN, Sa: PERFORM, SIGN, VERIFY Event Display: Progress Note Hospital Authored Date: Patient: MARCIN QUINTERO Age: 67 years Sex: Male : 1955 Associated Diagnoses: None Author: Stanley Doll RN, Sa Findings Problem Related to Alteration in Neurological : Alteration in Neurological Function/new 02/18/2023 21:00 EST Alteration in Neuro status Related to Acute Stroke (CVA) Goals & Outcomes, Neurological Pt will be hemodynamically stable, Pt will be Neurologically stable, Pt will maintain intact skin integrity Interventions, Neurological Active/passive range of motion, Assess/monitor cardiac status, Assess/monitor comfort/pain, Assess/monitor for signs of paralysis, range of motion, Elevate HOB & keep head midline in sniffing position, Minimize neuro stimulation Goals/Interventions, Neurological Yes Neurological, Problem Start 02/15/2023 4:34 Reviewed plan with, Neurological Patient Patient Progression, Neurological Pt progressing according to plan . Nursing Data Activity Data : Activity Data 02/18/2023 21:00 EST Baseline Functional Status Independent Activity Status ADL Ambulating in room Activity Assistance Independent Ambulation Distance ft Walk independently from bed to bathroom and back his bed Ambulation Patient Effort Good Ambulation Patient Response Tolerated well Ambulatory devices needed None Patient Effort Up to Chair Weight bearing Repositioning Self Range of Motion LUE Active Range of Motion RUE Active Range of Motion LLE Active Range of Motion RLE Active . IV Lines. : IV Lines. 02/18/2023 22:52 EST Right Forearm 18 gauge Peripheral IV Activity: Assess Peripheral IV Assess Compare Touch: A/C/T Done, no complications Peripheral IV Site Assessment: Clean, dry and intact, Flushes Well . Neurological Data. : Neurological Data. 02/17/2023 20:10 EST Neurological Symptoms Headache: persistent, changing or sudden Level of Consciousness Full Consciousness Orientated to person, place, time Person, Place, Time, Event Facial Symmetry Intact Characteristics of Speech Clear and normal Pupil description, left Regular Pupil description, right Regular Strength LUE 5-Active movement against gravity & full resistance Strength RUE 5-Active movement against gravity & full resistance Strength LLE 5-Active movement against gravity & full resistance Strength RLE 5-Active movement against gravity & full resistance Tone LUE Normal Tone RUE Normal Tone LLE Normal Tone RLE Normal Sensation LUE Intact Sensation RUE Intact Sensation LLE Intact Sensation RLE Intact Movement LUE Spontaneous, To command Movement RUE Spontaneous, To command Movement LLE Spontaneous, To command Movement RLE Spontaneous, To command Gait Steady 1 - 10 Pain Scale Score 10 Pain Interventions Repositioning, Rest, Other: coffee Pain relief acceptable Yes Neuro WNL except Memory Intact Swallow - Neuro Normal . Psychosocial : Psychosocial Data. 02/18/2023 23:00 EST Affect/Behavior Calm, Cooperative . Evaluation Pt. alert and oriented x 4. Denies dizzziness and blurred vision. C/O of headache to bilateral temporal and medication with PRN APAP with positive effects. On tele with AV paced rhythm with no distress noted on RM. Denies SOB. BP elevated (195/105) and period of V- tach noted and reported to provider; hydralazine given with positive effect. Bowel sound posiitve x all 4 quads; last BM on the 02/17/2023 per pt. Strength 4s to all exterimities. Walks independently to restroom and remains continentof bowel/bladder. Requested PRN elatonin today at HS and effective. Pt. appears to resting comfortably in bed. Call hewitt in reach and pt. reminded to call for assist. . Discharge Information Rehabilitation Discharge : Rehab Discharge Index 02/17/2023 8:28 EST Full chart review completed Yes Hospital course 02/17: per PM&R, PT is Not needed in this setting. * Jackie Holland RN: VERIFY, PERFORM, SIGN Event Display: Progress Note Hospital Authored Date: [id number] Patient: MARCIN QUINTERO Age: 67 years Sex: Male : 1955 Associated Diagnoses: None Author: Jackie Holland RN Findings Pt is AOx4. Able to make needs known. Endorses 10/07 headache managed with PRN tylenol and caffeine as recommended by neuro. Denies any chest pain, palpitations, dizziness, or shortness of breath. LS clear. Paced on tele. +BSx4. Continent of bowel/bladder. skin intact. bed locked in low position, call light and personal belongings in reach. Discharge Information Rehabilitation Discharge : Rehab Discharge Index 02/17/2023 8:28 EST Full chart review completed Yes Hospital course 02/17: per PM&R, PT is Not needed in this setting. Consult note * Ramu Lemus MD: PERFORM, MODIFY, MODIFY, SIGN, VERIFY Event Display: Consultation Note Authored Date: [id number] Patient: MARCIN QUINTERO Age: 67 years Sex: Male : 1955 Associated Diagnoses: None Author: Ramu Lemus MD History of Presenting Problem Mr. Quintero is a 67 years old male patient with history of heart failure with reduced ejection fraction due to a nonischemic cardiomyopathy, nonobstructive coronary artery disease, complete heart blockstatus post pacemaker placement (Medtronic), peripheral arterial disease, hyperlipidemia, past history of pancreatitis, and current smoker who is currently hospitalized after suffering a cerebrovascular accident. The patient is followed in our office by Dr. Alvares. The patient's last evaluation with Dr. Alvares was in June 2021. Since then, the patient has not showed up for several follow-up appointments including an appointment with the device clinic on 11/15/2021, and an appointment with Dr. Alvares on 08/07/2022, and an appointment with the device clinic on 12/12/2022. His medication list during his last visit with Dr. Alvares included: Aspirin 81 mg orally daily, carvedilol 12.5 mg orally twice daily, lisinopril 40 mg orally daily, pantoprazole 20 mg orally daily, and atorvastatin 40 mg orally daily. The patient presented to the hospital on 02/14/2023 with symptoms of slurred speech. He was diagnosed with a ischemic cerebrovascular accident secondary to abrupt occlusion of the right MCA inferior division in the proximal M2 branch. The patient has been under evaluation by the neurology team. Theneurology team stated that the patient's CVA is likely cardioembolic in nature. We are asked to evaluate the patient due to his chronic LV systolic dysfunction. During our evaluation, the patient denied any symptoms of chest pain, shortness of breath, palpitations, dizziness, or past episodes of syncope. On the other hand, the patient's pacemaker device was interrogated yesterday. The interrogation showed the patient has 100% ventricular pacing. No significant arrhythmias have been noted. The device is working appropriately but he has only 2 months left of battery life. Allergies: No known drug allergies Family history: Family history of hypertension. Social history: Current cigarette smoker. Review of system: A 12 point review of system was completed and the pertinent positive/negatives are included in the HPI. Cardiac testin. Echocardiogram (02/17/2023): Echocardiogram done at [facility]. Definity contrast was used. The left ventricle is mildly dilated. Moderate LVH. Moderately reduced left ventricular systolic function with a left ventricular ejection fraction of 30 to 40%. 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 Mild aortic valve insufficiency. Normal RV size and function. Pacer wire noted in the right ventricle. Small pericardial effusion. 2. Echocardiogram (10/10/2022): Mildly reduced left ventricular systolic function with a left ventricular ejection fraction of 45 to 50%. Akinesis of the apex with an apical aneurysm. No thrombus seenin the apex. Normal RV size and function. Mild to moderate TR. 3. Echocardiogram (11/22/2020): Mildly reduced left ventricular systolic function with a left ventricular ejection fraction of 40 to 45%. Apical aneurysm. [place] is akinetic. Normal RV size and function. Mild MR. Mild TR. Normal pulmonary artery pressure. 4. Left heart catheterization (06/11/2011): Left heart catheterization for evaluation of left ventricular systolic dysfunction. Normal left main. Normal LAD. Normal circumflex. Normal RCA. Normal ramus. Ventriculogram revealed an LVEF of 45% along with a moderate size aneurysm or large diverticulum at the apex. 5. Left heart catheterization (08/02/2005): Ventriculogram showed an LVEF of 55% along with discrete apical dyskinetic segment. Normal coronary arteries. 6. EKG (02/14/2023): AV dual paced rhythm. Past Medical History Allergies Allergic Reactions (Selected) NKA Physical Examination Vital Signs Vitals : VITALS 02/18/2023 11:00 EST Temperature 98.6 DegF Temperature Route Temporal Pulse Rate 50 bpm L Respiratory Rate 18 br/min Systolic Blood Pressure 145 mm Hg H Diastolic Blood Pressure 86 mm Hg H Blood pressure sites Arm, left Pulse Pressure 59 mm Hg Oxygen Saturation 100 % Mode of Delivery (Oxygen) Room air . Constitutional: In no acute distress. Appearance is age appropriate. Head / face: Facial features are normal. Eyes: Sclera are clear bilaterally. Ears / mouth / nose / throat: External nose is noted to be normal. Mouth is normal. Respiratory: Normal inspiration and expiration. Clear to auscultation bilaterally. Cardiac: Regular rate and rhythm. No murmurs. Abdomen: Positive bowel sounds. Soft and depressible. Nontender Vascular: Radial pulse is normal bilaterally. Ext: Skin temperature is warm to palpation. No edema or cyanosis. Psych: Alert. Awake. Oriented to time, place and person. Mood is appropriate. Results Review 7 day results Labs & Documents Laboratory : LABORATORY 02/16/2023 9:21 EST WBC 5.1 k/mm3 RBC 4.94 m/mm3 Hgb 13.1 Gm/dL L Hct 41.9 % MCV 84.8 femtoliters MCH 26.5 pg L MCHC 31.3 g/dL L Platelet Count 245 k/mm3 RDW-SD 43.6 femtoliters MPV 10.0 femtoliters Nucleated RBC (Automated) 0.0 #/100 WBC'S Abs. NRBC 0.0 k/mm3 Abs. Neut 2.8 k/mm3 Abs. Lymph 1.7 k/mm3 Abs. [place] 0.5 k/mm3 Abs. Eo 0.1 k/mm3 Abs. Baso 0.0 k/mm3 Neut % 53.7 % Lymph % 33.1 % [place] % 10.3 % Eos % 1.9 % Baso % 0.8 % Imm Gran 0.2 % Abs. Imm Gran 0.0 k/mm3 Sodium 138 mmol/L Potassium 4.4 mmol/L Chloride 104 mmol/L Bicarbonate Level 24 mmol/L Anion Gap 10 Glucose Level 118 mg/dL H BUN 15 mg/dL Creatinine-Blood 1.0 mg/dL Estimated GFR Creatinine 80 ML/MIN/1.73 M2 Calcium 9.2 mg/dL Phosphorus 2.8 mg/dL 02/15/2023 6:33 EST Cholesterol 152 mg/dL Triglycerides 73 mg/dL HDL Cholesterol 55 mg/dL LDL Cholesterol 82 mg/dL Non HDL Cholesterol 97 mg/dL 02/14/2023 14:40 EST Barbiturate Screen, Urine NONE DETECTED Cannabinoid Screen, Urine POSITIVE Cocaine Metabolite Screen, Urine NONE DETECTED Benzodiazepine Screen, Urine NONE DETECTED Amphetamine Screen, Urine NONE DETECTED Opiate Screen, Urine NONE DETECTED 02/14/2023 13:41 EST INR 1.1 Protime (PT) 11.7 seconds H APTT 30.3 seconds Sed Rate 11 mm/hr High Sensitivity Troponin (HSTnT) 18 ng/L Plan Assessment and plan: 1. Acute cerebrovascular accident: The patient presented to the hospital due to an acute cerebrovascular accident that resulted in abrupt occlusion of the right MCA inferior division in the proximal M2 branch. The patient has been under evaluation by the neurology team. He is currently on aspirin and atorvastatin. The neurology team stated that the patient CVAs likely cardioembolic in nature. Interrogation of his pacemaker has not shown any significant arrhythmias. An echocardiogram showed a moderately reduced left ventricular systolic function with a left ventricular ejection fraction of 30 to 40% along with an apical aneurysm. Of note, the patient does have a longstanding history of a nonischemic cardiomyopathy with evidence of an apical aneurysm. In fact, his apical aneurysm was described during a left heart catheterization done in the year 2005 at [facility]. At that time, he did not have any significant coronary artery disease. Follow-up left heart catheterization [id number] also did not show any significant coronary artery disease but the ventriculogram did show evidence of a mild LV systolic dysfunction along with an apical aneurysm. As such, we have a patient who had a possible cardioembolic CVA without any evidence of atrial arrhythmias on his pacemaker interrogation. He had an echocardiogram with contrast that did not show anyapparent LV thrombus. However, the patient has a chronic LV apical aneurysm. Given no other identifiable cause for his apparent cardioembolic stroke, I think that we to take into consideration the fact that the patient has an LV apical aneurysm which increases his risk of forming an LV apical thrombus. Therefore, the patient certainly could have had a small thrombus that embolized to his cerebral circulation causing a CVA. If the thrombus embolized and that would explain why there is no significant thrombus noted on the contrast-enhanced echocardiogram that was obtained after the CVA event. However, given the high risk of thrombus formation in this region of the heart and given his apparentcardioembolic CVA, I think that the patient would likely benefit from anticoagulation therapy. I will discuss this further with neurology team and the hospitalist team. 2. Nonischemic cardiomyopathy: The patient has a longstanding history of a nonischemic cardiomyopathy. Historically, his LVEF has remained around 40%. On the most recent echocardiogram done during this hospitalization the LVEF was noted to be 30-40%. In the outpatient setting, he was on lisinopril and carvedilol. Currently, he is only on lisinopril. As noted previously, the patient has a nonischemic cardiomyopathy based on his previous left heart catheterizations that have not shown any significant coronary artery disease. At this point, the patient is optimization of his guideline directed medical therapy. Would recommend to reinitiate his carvedilol. Would consider starting carvedilol 3.125 mg orally twice a day. On the other hand, would also recommend starting dapagliflozin 10 mg orally daily and spironolactone 25 mg orally daily. 3. Presence of a cardiac pacemaker: The patient has a dual-chamber pacemaker in place. The pacemaker is from [employer]tr[employer]. The pacemaker is nearing the end of its battery life. He has approximately 2 months of battery life left. I will reach out to electrophysiology service to determine if the patientwill require a change of his battery while he is in the hospital. * Aquilino CANELA, Klaus Huber: PERFORM, MODIFY Event Display: Consultation Note Authored Date: [id number] Patient: ??MARCIN QUINTERO ? Age:??67 Years?Sex:??Male?:??1955?? Chief Complaint/Reason for Consult Pt from [facility] with difficulty finding words , unsteady gait. pt reported to staff that he was not feeling well. upon ems arrival pt with slurred speech intermittent expressive aphasia . LKW pt reports used marijuana at 1030 History of Present Illness 67yo M with h/o heart block--s/p PPM, HTN, tobacco and cannabis use presented to the ED from his day program with reported left sided weakness, unsteady gait, and??slurred speech. NIH 4 was initiallyreported but improved to 1. CT head showed a dense R MCA sign and CT angio showed an occluded rightMCA inferior division. Pt declined TNK and thrombectomy. Additionally, he improved clinically so itwas deferred. Laboratory data was without any significant abnormalities and toxicology was positivecannabis.?? Upon arrival in the patient's room, he was seen ambulating independently from the bathroom to his bed while appropriately maneuvering his IV pole with normal gait pattern. He states all of his symptoms have resolved.?? He lives with a roommate on 1 level home with 4 steps to enter. He is indep with ADLs and mobility at baseline.??Sig other was at bedside. Review of Systems 14 point review of systems negative except as noted above in HPI. Physical Exam Vitals & Measurements T:??98.2?F?? HR:??53??(Monitored)?? RR:??16?? BP:??164/100?? SpO2:??99%?? HT:??182??cm?? WT:??76??kg?? BMI:??22.94?? Gen: Alert, oriented x 3 in NAD HEENT: EOMs intact,?? PERRL, VFF CV: Reg, no murmurs Chest: CTA bilat Abd: +BS, soft, NT Exts: no pedal edema Neuro: CN II-XII intact MMT: RUE:?LUE: Delt?5/5?Delt?5/5 Bi?5/5?Bi?5/5 Tri? 5/5? Tri? 5/5 FF? 5/5? FF?5/5 ?? RLE:? LLE: HF? 5/5? HF? 5/5 Quad?? 5/5? Quad?? 5/5 DF? 5/5? DF? 5/5 PF? 5/5? PF?5/5 Babinski: absent Sensory: intact DTRs: biceps and patella 1+ bilat Coordination: intact F to N bilat Pronator Drift: negative ?? Speech/Language: no dysarthria, fluent. recent memory intact.?? Mobility: ambulating to/from the bathroom with normal gait and maneuvering his IV stand without difficulty. No LOB or gait abnormalities.? Assessment/Plan 67yo M with h/o heart block--s/p PPM, HTN, tobacco abuse admitted for AMS, unsteady gait, VF deficit, ??and left sided weakness which seems to have resolved. Imaging revealed right MCA occlusion--pt declined TNK and thrombectomy. ? Recommendations: ?? Activity:??Encourage ambulatation with supervision Bowel Regimen:??Monitor on current regimen Bladder:??Voiding Normally. Cognition/psychopharmacology:?Likely at baseline.?? DVT prophylaxis:??Lovenox ?? Neurology:??Appreciate Neurology Note. Pain Management:??Appears comfortable.?? Spasticity:??None ?? Swallow: OK for regular consistency diet with thin liquids ?? Current rehab treatment & further recommendations: Occupational Therapy:??Not needed. Physical Therapy:??Not needed Speech Therapy:??Not needed.? Disposition: Home without services. Unless deficits recur. ?? Code Status:??Full Resuscitation HCP:??Has HCP in [facility] Problem List/Past Medical History Ongoing Anxiety and depression [employer] [facility] Care Management [facility], Omidoxanajosefa Caos [id number] Candidiasis Cardiac pacemaker, Medtronic dual chamber pacemaker model [id number] CHB (complete heart block) Current tobacco use Essential hypertension GERD (gastroesophageal reflux disease) History of substance abuse Hypercholesterolemia with hypertriglyceridemia Liver lesion Marijuana use Old CT (myocardial infarction) Peripheral arterial disease Post traumatic stress disorder (PTSD) Spinal stenosis at L4-L5 level Spinal stenosis at L4-L5 level Procedure/Surgical History Esophagogastroduodenoscopy and biopsy: 06/26/21 Colonoscopy, flexible; with removal of tumor(s), polyp(s), or other lesion(s) by snare technique: 01/11/19 Colonoscopy, flexible, proximal to splenic flexure; diagnostic, with or without collection of specimen(s) by brushing or washing, with or without colon decompression (separate procedure): 12/26/11 Upper gastrointestinal endoscopy including esophagus, stomach, and either the duodenum and/or jejunum as appropriate; with biopsy, single or multiple: 12/26/11 ORIF right ankle pacemaker Home Medications Aspirin: 81 mg = 1 tablet, By Mouth, Daily Atorvastatin: 40 mg = 1 tablet, By Mouth, Daily Carvedilol: 25 mg = 1 tablet, By Mouth, 2 times a day Lisinopril: 40 mg = 2 tablet, By Mouth, Daily Hospital Medications Medications (13) Active SCHEDULED: (4) Aspirin 81 mg Chew Tablet (aspirin 81 mg oral tablet, chewable) ??81 mg, By Mouth, Daily Atorvastatin 40 mg Tablet (atorvastatin 40 mg oral tablet) ??40 mg, By Mouth, Daily at bedtime Enoxaparin 40 mg Inj (Enoxaparin Inj) ??40 mg 0.4 mL, Subcutaneous Injection, Daily NaCl 0.9% Flush 3ml (NaCL 0.9% Flush) ??3 mL, IV Push, Every 8 hours CONTINUOUS: (1) NaCL 0.9% (1000 mL) Cont IV 1,000 mL (0.9% NaCL 1,000 mL) ??1,000 mL, IV Infusion, 100 mL/hr PRN: (8) Acetaminophen 325 mg Tablet (Acetaminophen Tablet) ??975 mg, By Mouth, Every 6 hours Dextromethorphan-Guaifenesin 20 mg-200 mg/10 mL Liqu UD (Robitussin DM Liquid) ??10 mL, By Mouth, Every 4 hours Docusate Sodium 100 mg Capsule (Docusate Sodium Capsule) ??100 mg 1 capsule, By Mouth, 2 times a day Melatonin 3 mg Tablet (Melatonin Tablet) ??3 mg, By Mouth, Daily at bedtime NaCl 0.9% Flush 3ml (NaCL 0.9% Flush) ??3 mL, IV Push, Every 8 hours Polyethylene Glycol 17 Gm Powder (MiraLax Powder) ??17 Gm 1 pack/packet, By Mouth, Daily Senna Tablet ??8.6 mg 1 tablet, By Mouth, 2 times a day Simethicone 80 mg Chewable Tablet (Simethicone Tablet) ??80 mg, Chew, 3 times a day Lab Results PM&R Labs ?? Tox Screen?? WBC: 4.7 k/mm3 (02/15/23) Barbiturate Screen, Urine: NONE DETECTED (02/14/23) Platelet Count: 230 k/mm3 (02/15/23) Cannabinoid Screen, Urine: POSITIVE Abnormal (02/14/23) Sodium: 140 mmol/L (02/15/23) Cocaine Metabolite Screen, Urine: NONE DETECTED (02/14/23) BUN: 10 mg/dL (02/15/23) Benzodiazepine Screen, Urine: NONE DETECTED (02/14/23) Creatinine-Blood: 1 mg/dL (02/15/23) Amphetamine Screen, Urine: NONE DETECTED (02/14/23) Barbiturate Screen, Urine: NONE DETECTED (02/14/23) Opiate Screen, Urine: NONE DETECTED (02/14/23) Cannabinoid Screen, Urine: POSITIVE Abnormal (02/14/23) ?? Cocaine Metabolite Screen, Urine: NONE DETECTED (02/14/23) ?? Benzodiazepine Screen, Urine: NONE DETECTED (02/14/23) ?? Amphetamine Screen, Urine: NONE DETECTED (02/14/23) ?? Opiate Screen, Urine: NONE DETECTED (02/14/23) ?? AST (SGOT): 17 units/L (02/14/23 13:41:00) * Violette Hastings: MODIFY, MODIFY, PERFORM, MODIFY, MODIFY, MODIFY, MODIFY, MODIFY, MODIFY, MODIFY, MODIFY, MODIFY Event Display: Consultation Note Authored Date: Patient: ??MARCIN QUINTERO ? Age:??67 Years?Sex:??Male?:??1955?? Chief Complaint/Reason for Consultation AMS, L weakness, slurred History of Present Illness 67 yo??male with PMH anxiety, heart block s/p pacer, tobacco, marijuana use, GERD,??hld,??PTSD who presented to [facility] on 02/14 with slurring, L weakness. Neurology consulted as AST alert. ?? History very difficult to obtain. Per EMS report, EMS called for pt feeling Hot with slurred speech noted by bystanders. EMS noted L side weakness and unsteady gate. Pt reportedly LKW at 10A prior to smoking marijuana - he states he then smoked marijuana and felt off but did not notice any deficits. Bystanders noticed slurring and EMS was called. In the ED, pt had SBP 180-190s. POC 127. He had NIHSS 4 for mild LLE drift, L field cut with L visual neglect. He was taken for CTH/A which were with RM2 occlusion.??Risk/benefits of TNK discussed with patient and pt declined TNK. After discussion about TNK, pt developed sudden onset headache which he described as stabbing over the R temporal region and 4/10.??He was taken for repeat CTH which was non-acute. After repeat CTH, NIHSS improved andnoted to have NIHSS 0-1 (visual neglect only),??appears to be fluctuating. His CTA findings were discussed with Dr. Jason soliman at the moment given low NIHSS and other ongoing emergent case - plan to re-assess after??other ongoing case. ?? The patient was seen and evaluated in the Emergency Department. ? Stroke Time Course: Time patient last seen well (not time patient was found): _10A - although unclear if accurate as ptdid not note deficits - deficits noted by bystanders Time patient arrived in ED: _1225 Time neurology consulted/paged: _1223 Time patient is seen by neurology: _[address] head/interpreted: _1235 TNK Given: yes/no _no TNK time if given: _N/A Reason for TNK exlusion if not given: _Pt declined HERNANDEZ/IA was not done, why ? _not done currently - low NIHSS, other ongoing cases - plan to re-assessafter ongoing case HERNANDEZ/IA was done, then time to IA therapy: _N/A ? Review of Systems ?General: Denies weight changes, fatigue, fever, chills ?Skin: denies rash, bites ?Eyes: denies visual changes, blurry vision ?ENT: denies hearing changes ?Cardiovascular: denies chest pain ?Respiratory: denies SOB ?GI: denies abdominal pain, nausea, vomiting, diarrhea ?: denies loss of bladder or bowel function ?Musculoskeletal: denies muscle weakness, swelling ?Neurological: +headache; denies?? dizziness, loss of vision, blurry vision, hearing changes, trouble swallowing, slurring, word finding difficulties, weakness, paresthesias Objective ? Vital Signs?? Temperature: 98.5 DegF (02/14/23 12:54:00) Temperature Route: Oral (02/14/23 12:54:00) Pulse Rate:??51 bpm??Low (02/14/23 12:54:00) Respiratory Rate: 20 br/min (02/14/23 12:54:00) Systolic Blood Pressure:??181 mm Hg??High (02/14/23 12:54:00) Diastolic Blood Pressure:??95 mm Hg??High (02/14/23 12:54:00) Pulse Pressure: 86 mm Hg (02/14/23 12:54:00) Oxygen Saturation: 100 % (02/14/23 12:54:00) Mode of Delivery (Oxygen): Room air (02/14/23 12:54:00) ? Ventilator Settings?? No qualifying data available. ? Intake/Output? No Data Available ? Physical Exam General Exam Appearance: Appears comfortable and appropriate, in no acute distress. Appears stated age.? HEENT: Normocephalic, atraumatic.? Cardiac: Regular rate and rhythm ?? Respiratory: Normal inspiration and expiration ?? Rheumatologic: No swelling, deformities or tenderness ?? Dermatologic: No significant skin lesions, rash, or bruising ?? Extremities: No edema or stasis changes ?? Psychiatric: Not depressed or anxious. Full and appropriate Affect. ?? Neurologic: Mentation: Awake, alert. Patient is oriented to person, place, time, and situation. Speech is clearand without slurring. Follows commands. names objects. repeats flag decorator: PERRL. EOMI. No nystagmus. VF-L hemianopsia, L visual neglect; Smile symmetric, no droop. Tongue midline and uvula rises symmetrically. Facial sensation in tact to light touch. Hearing acuity intact to voice. Lateral head deviation and shoulder shrug 5/5?? Motor: Normal bulk/tone. Strength 5/5 RUE, 5/5 RLE, 5/5 LUE, 4/5 LLE with drift Sensation: In tact to light touch of UEs and LEs, no extinction to DTS; left visual neglect Coordination: Finger to nose smooth Gait:??deferred ? NIH Stroke Scale:? 1a. LOC (0-alert; 1-not alert, arousable; 2-not alert, obtunded; 3- nonresponsive): _0 1b. Questions (0-answers two correctly; 1-answers one correctly; 2-answers neither correctly): _0 1c. Commands (0-perform two tasks; 1-performs one task; 2-performs neither tasks): _0 2. Gaze (0-normal; 1-partial gaze palsy; 2-forced deviation): _0 3. Visual ibrahim (0-no visual loss; 1-partial hemianopsia; 2-complete hemianopsia; 3-bilateral hemianopsia): _2 4. Facial palsy (0-normal; 1-minor palsy; 2-partial palsy; 3-complete paralysis): _0 5a. Motor left arm (0-normal; 1-drift before 10 sec; 2-falls before 10 sec; 3-no effort against gravity; 4-no movement): _0 5b. Motor right arm (0-normal; 1-drift before 10 sec; 2-falls before 10 sec; 3- no effort against gravity; 4-no movement): _0 6a. Motor left leg (0-normal; 1-drift before 5 sec; 2-falls before 5 sec; 3-no effort against gravity; 4-no movement): _1 6b. Motor right leg (0-normal; 1-drift before 5 sec; 2-falls before 5 sec; 3-no effort against gravity; 4-no movement): _0 7. Ataxia (0-absent; 1-one limb; 2-two limbs): _0 8. Sensory (0-absent; 1-mild/moderate; 2-severe/total loss): _0 9. Language (0-normal; 1-mild/moderate loss; 2-severe aphasia; 3-mute): _0 10. Dysarthria (0-normal; 1-mild/moderate; 2-severe): _0 11. Extinction (0-normal; 1-mild-one modality; 1-dudppb-vio modality): _1 ?? NIHSS Total: _4 - repeat NIHSS fluctuated and at times was 0-1 for no deficits and at times visual neglect only -??seems to be fluctuating in ED Assessment/Plan 67 yo??male with PMH anxiety, heart block s/p pacer, tobacco, marijuana use, GERD,??hld,??PTSD who presented to [facility] on 02/14 with slurring, L weakness. Neurology consulted as AST alert. LKW unclear (10AM per pt, prior to smoking marijuana, but unclear if reliable as he is unaware of deficits and no family/friends to corroborate history). SBP 180-190s, POC 127. NIHSS 4 (at times NIHSS Lower, fluctuating in ED), CTH/A with RM2 occlusion - pt declined TNK, NEVt on hold currently given improving with low NIHSS and other ongoing emergent NEV case. ?? ddx: RMCA stroke - inferior division ?? Recs: ?-q4h neurochecks ?-HOB flat as tolerated ?-will re-assess??role of thrombectomy??after current NEVt case??- low NIHSS currently??but appears to be fluctuating, will re-address with Dr. Gomez?-MRI brain w/out LOUIE ?-would check lipids, A1C ?-EKG/telemetry ?-aspirin ?-statin once able to swallow ?-NPO until cleared ?-PM&R consult ?-STAT CTH w/ any change in mental status ?-permissive htn SBP <220 for now ?-DVT prophylaxis?-provide stroke education ?-control vascular risks: A1c <7.0, statin for LDL >70 or >100 if only 1 vascular risk, residency program coordinator goal BP <120/80 ? Thank you for this consultation Neurology will follow ?? d/w Dr. Child and Dr. Gomez (NEV) d/w ED team ? Histories Allergies Allergies ?(Active and Proposed Allergies Only) NKA? (Severity: Unknown severity, Onset: Unknown) ? Past Medical History/Problem List Active Problems??(17) Anxiety and depression [employer] [facility] [facility] Care Management [facility] Mary, Mikie Thibodeaux [phone] Candidiasis Cardiac pacemaker, Medtronic dual chamber pacemaker model [id number] CHB (complete heart block) Current tobacco use Essential hypertension GERD (gastroesophageal reflux disease) History of substance abuse Hypercholesterolemia with hypertriglyceridemia Liver lesion Marijuana use Old CT (myocardial infarction) Peripheral arterial disease Post traumatic stress disorder (PTSD) Spinal stenosis at L4-L5 level Spinal stenosis at L4-L5 level ? Past Surgical History Esophagogastroduodenoscopy and biopsy: 06/26/21 Colonoscopy, flexible; with removal of tumor(s), polyp(s), or other lesion(s) by snare technique: 01/11/19 Colonoscopy, flexible, proximal to splenic flexure; diagnostic, with or without collection of specimen(s) by brushing or washing, with or without colon decompression (separate procedure): 12/26/11 Upper gastrointestinal endoscopy including esophagus, stomach, and either the duodenum and/or jejunum as appropriate; with biopsy, single or multiple: 12/26/11 ORIF right ankle pacemaker ? Social History Tobacco Details:??Use: Patient smokes 5 cig. a day. Details:??Current every day smoker, Type: Cigarettes. ??Tobacco use times per day: 8 cigarretes a day max, 3 joints a day marijuana. ? Psychosocial History ? Family History Mother: Hypertension Father: Hypertension Sister: Hypertension ? Travel History Travel Outside [facility] [place]: No ?? Medications Home Medications Aspirin (aspirin 81 mg oral tablet)?1?tab(s)?81?Milligram?By Mouth?Daily Atorvastatin (atorvastatin 40 mg oral tablet)?1?tab(s)?40?Milligram?By Mouth?Daily?for 30?Days Carvedilol (carvedilol 25 mg oral tablet)?25?Milligram?1?tablet?By Mouth?2 times a day Diclofenac Topical (diclofenac 1% topical gel)?2?gram?Topically?4 times a day Durable Medical Equipment (Home Blood Pressure Monitor)?See Instructions?Use to measure bloodpressure daily for hypertension. Dx: I10 Durable Medical Equipment (Wrist splints cocked to neutral position)?See Instructions?bilateral wrist splints to be worn every night to bed for carpal tunnel syndrome G56.00 Fluconazole (Diflucan 150 mg oral tablet)?1?tab(s)?150?Milligram?By Mouth?Once Lisinopril (lisinopril 20 mg oral tablet)?40?Milligram?2?tablet?By Mouth?Daily Nitroglycerin (nitroglycerin 0.4 mg sublingual tablet)?1?tab(s)?0.4?Milligram?Sublingual?Every 5 minutes?as needed?for chest pain?If chest pain not relieved in 5 minutes after first dose, seek immediate medical attention Pantoprazole (pantoprazole 20 mg oral delayed release tablet)?20?Milligram?By Mouth?Daily?for 30?Days ? Inpatient Medications Medications (1) Active SCHEDULED: (0) CONTINUOUS: (1) NaCL 0.9% (1000 mL) Cont IV 1,000 mL (0.9% NaCL 1,000 mL) ??1,000 mL, IV Infusion, 100 mL/hr PRN: (0) ? Results Recent Labs CHEM GENERAL Glucose, POC 127 mg/dL (High)?? 02/14/2023 12:27 ? CTH ?? IMPRESSION: ?? 1. ??No intra or extra-axial bleed. 2. ??Dense right MCA sign concerning for an occluded M2 segment. 3. ??No associated parenchymal changes at this time. 4. ??Please see the separately dictated CTA report for further information. ? CTA head/neck IMPRESSION: ? 1. ??Abrupt occlusion of the right MCA inferior division proximal M2 branch, with reconstitution inthe mid M2 segment. 2. ??No other site of occlusion or high-grade stenosis in the remaining major arteries of the head and neck. ?? CTH IMPRESSION: ?? No change in the dense right MCA sign. Otherwise no evidence of acute intracranial process. Please see CTA report for further information ?? * Violette Hastings: PERFORM Event Display: Consultation Note Authored Date: Pt reassessed- continues with low NIHSS with??NIHSS 2 (?L superior quadrantanopsia (inconsistent) and visual neglect), although at times appears to be NIHSS 0 -??no other focal findings. Headache mostly resolved at this time D/w Dr. Gomez??- holding on NEVt at this time given low NIHSS Given pacer, unlikely to be able to get an MRI - plan for repeat CTH tomorrow Pacer interogation ??- pt has no hx of afib that he knows of ?? d/w Dr. Child and ED as well Note * Jennifer Galvan: PERFORM Event Display: Discharge/Transfer Note Hospital Authored Date: [id number] Nursing Discharge Note Entered On: 02/19/2023 15:55 EST Performed On: 02/19/2023 15:54 EST by Jennifer Galvan Nursing Discharge Note 2 Discharge Time : 02/19/2023 15:20 EST Discharge Level of Care at Discharge : Home/Custodial/Foster Care Patient Left Unit Via : Ambulatory Patient Accompanied Off Unit with : Responsible adult DC Instructions Provided & Signed by Pt : Yes Patient Understands D/C Instructions : Yes Patient Instructions Discharge Signed : Yes Did Pt have Specialty Bed or Wound Vac : No Jennifer Galvan - 02/19/2023 15:54 EST * Santa Yee: PERFORM, MODIFY, MODIFY, MODIFY, MODIFY, MODIFY, MODIFY Event Display: Discharge/Transfer Note Hospital Authored Date: [id number] Patient: ??MARCIN QUINTERO ? Age:??67 Years?Sex:??Male?:??1955?? 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) Headache (R51.9) HTN (hypertension) (I10) H/O heart block (Z86.79) H/O cardiac pacemaker (Z95.0) Peripheral arterial disease (I73.9) HLD (hyperlipidemia) (E78.5) Cognitive impairment (R41.89) Visual neglect (R41.4) Difficulty walking (R26.2) Acute intractable headache, unspecified headache type (R51.9) Heart failure with reduced ejection fraction (I50.20) CHB (complete heart block) Essential hypertension History of substance abuse Peripheral arterial disease _ Discharge Medications Aspirin (aspirin 81 mg oral tablet)?1?tab(s)?81?Milligram?By Mouth?Daily Atorvastatin (atorvastatin 40 mg oral tablet)?1?tab(s)?40?Milligram?By Mouth?Daily?for 30?Days dapagliflozin (dapagliflozin 10 mg oral tablet)?10?Milligram?By Mouth?Daily?for 30?Days Enoxaparin (Lovenox 100 mg/mL injectable solution)?1.14?Milliliter?114?Milligram?Subcutaneous Injection?Daily?for 5?Days?*Note: Treatment = 1.5mg/kg/day, renal dosing = 1mg/kg/day* Lisinopril (lisinopril 20 mg oral tablet)?40?Milligram?2?tablet?By Mouth?Daily Nortriptyline (nortriptyline 25 mg oral capsule)?25?Milligram?By Mouth?Daily at bedtime?for 30?Days Spironolactone (spironolactone 25 mg oral tablet)?25?Milligram?By Mouth?Daily?for 30?Days Warfarin (warfarin 5 mg oral tablet)?1?tab(s)?5?Milligram?By Mouth?Daily?for 30?Days ? Quality Measures Stroke Quality Measures:?Discharged on Antithrombotic Therapy:??Antithrombotic prescription ?? Medications Started dapagliflozin (dapagliflozin 10 mg oral tablet)?10?Milligram?By Mouth?Daily?for 30?Days Nortriptyline (nortriptyline 25 mg oral capsule)?25?Milligram?By Mouth?Daily at bedtime?for 30?Days Spironolactone (spironolactone 25 mg oral tablet)?25?Milligram?By Mouth?Daily?for 30?Days Warfarin (warfarin 5 mg oral tablet)?1?tab(s)?5?Milligram?By Mouth?Daily?for 30?Days Enoxaparin (Lovenox 100 mg/mL injectable solution)?1.14?Milliliter?114?Milligram?Subcutaneous Injection?Daily?for 5?Days?*Note: Treatment = 1.5mg/kg/day, renal dosing = 1mg/kg/day* Medications Discontinued None Doses Changed None Allergies Allergies ?(Active and Proposed Allergies Only) NKA? (Severity: Unknown severity, Onset: Unknown) ?? PCP Follow-Up/Heads-Up Patient seen in hospital??with complaint of acute CVA, per cardiology would recommend starting anticoagulation for the possibility of thrombus.??He will be started on Warfarin therapy (with therapeutic Lovenox bridge)??and will need close INR monitoring. Future Appointments Friday 3:00 PM EST ?? With: Dorcas CANELA, Jama Where: [place] [address]- Status: Pending Friday 11:30 AM EST ?? With: Danyell CANELA, Luis Alberto Where: [facility] [facility], [address] [place] [id number]- Status: Pending Friday 2:40 PM EST ?? With: Radha CANELA, Latasha Pride Where: [facility] [address] [place] [address]- Status: Pending 2023 8:00 AM EST ?? [facility] [address] [facility], [address] [place] [id number]- Status: Pending Hospital Course Patient admitted to the hospital on 02-14-2023 with complaint of CVA, hypertension, history of heart block with cardiac pacemaker in place. The hospitalization, patient was followed by neurology, PM&R as well as hospital medicine and cardiology. Throughout hospitalization, patient continued to i mprove. Neurology felt that the stroke was likely embolic. Cardiology consult was placed, patient follows with [facility] cardiology. Life Claims Examiner felt that likely despite his interrogation not showing atrial arrhythmias, history of left ventricular apical aneurysm can be putting him at risk for left-ventricular apical thrombus. Overall, cardiology did recommend benefit from anticoagulation therapy this was discussed with neurology as well as hospitalist team, neurology is okay with this decision and can start anticoagulation on post-stroke day 7 which would be 02-21-2023. Patient is in agreement with this plan. Is also noted that patient will have his pacemaker battery run out in the next few months, electrophysiology lab was consulted and they believe that he likely has more time than that and would not recommend changing the battery while inpatient as likely insurance will not pay for this until the battery is closer to the end of its life and this can be done as an outpatient very safely. 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 He will also follow up on??Friday with a lab draw of his INR and his PCP foradjustment of??warfarin/Lovenox as needed.??At time of discharge, patient stable, all questions answered at bedside. ?? Objective Assessment and Plan The patient is a 67 years old male with history of heart block status post permanent pacemaker placement, peripheral artery disease, hypertension, hyperlipidemia who is admitted with slurring of speech likely due to CVA ?? Acute CVA (cerebrovascular accident) (I63.9):??. -Antithrombotic Therapy by End of Hospital Day 2:??Antithrombotic ordered -Statin Ordered:??Statin Ordered ?? 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 Etiology: Likely right MCA occlusion ?? Plan: -Neurology was consulted??and followed along while inpatient, okay for discharge from their perspective -Neuro endovascular also consulted who recommended against neuro endovascular intervention -Continue home medication aspirin, Lipitor -home dose of lisinopril. -passed swallow eval- started on diet. -PM&R consulted- Recommend home -Unable to get MRI because of pacemaker. -Consulted cardiology, see plan below for??full details ?? Headache (R51.9):??Etiology: Unclear ?? Plan: -Neurology recommended to treat headache with Tylenol, nortriptyline 25 mg at night for the tensiontype headaches -any explosive headache can take 20-40 mg of caffeine at bedtime to prevent hypnic headaches ?? HTN (hypertension) (I10):?? H/O heart block (Z86.79): H/O cardiac pacemaker (Z95.0):??Patient has history of heart block and pacemaker in place ?? Plan: -Patient has pacemaker interrogated 2 months ago and he was told that he will likely need battery change in the next couple of months (likely has 2-3 months left per EP and Rep) -Pacemaker interrogation Pacemaker interrogation with EP lab, no events, patient had 2-month battery left -Consult cardiology, see full plan below ?? Heart failure with reduced ejection fraction (I50.20):??Not appearing in acute exacerbation ?? Plan: -echo -Ejection fraction??is 30-40%-Grade I diastolic dysfunction -Continue home lisinopril -Consulted PV??cardiology- recs appreciated and included in the plan below -Possibility of an LV thrombus given his high risk for developing LV thrombus due to his LV apical aneurysm- recommending starting AC in the form of Warfarin (with Lovenox bridging due to hypercoagulability when starting Warfarin) -discussed the case with PCP Jossy Little and she will follow up with patient with INR drawing on Friday and will be set up with their clinical pharmacists. -would like to initiate again carvedilol, 3.125 mg orally twice a day HOWEVER has been bradycardic,will hold for now -starting dapagliflozin 10 mg orally daily and spironolactone 25 mg orally daily -reached out to electrophysiology Dr. Riddle is going to follow up in OP setting in 1-2 weeks,??noneed to change??battery while inpatient -Likely has 2-3??month of battery??left? Peripheral arterial disease (I73.9):?? -Resume home medication aspirin, Lipitor ?? HLD (hyperlipidemia) (E78.5):?? -Resume home medication Lipitor Vital Signs?? Temperature: 97.2 DegF (02/19/23 08:00:00) Temperature Route: Temporal (02/19/23 08:00:00) Pulse Rate:??51 bpm??Low (02/19/23 08:00:00) Respiratory Rate:??14 br/min??Low (02/19/23 08:00:00) Systolic Blood Pressure:??150 mm Hg??High (02/19/23 08:00:00) Diastolic Blood Pressure:??93 mm Hg??High (02/19/23 08:00:00) Blood pressure sites: Arm, right (02/19/23 08:00:00) Mean Arterial Pressure: 111 mm Hg (02/19/23 04:09:00) Pulse Pressure: 89 mm Hg (02/19/23 04:09:00) Oxygen Saturation: 100 % (02/19/23 08:00:00) Mode of Delivery (Oxygen): Room air (02/19/23 04:09:00) Early Warning Score: 2 (02/19/23 08:23:33) . Physical Exam Constitutional: Alert, in no distress. Mental Status: Oriented to person, place and time. Head: Normocephalic. Respiratory: Clear to auscultation. No wheezing, rales or rhonchi. Cardiovascular: S1 S2 regular. No murmurs, rubs or gallops. Gastrointestinal: Abdomen soft, non-tender, non-distended. Normal bowel sounds. Neurologic: No focal neurological deficits. Flexor plantar response. Moves all extremities spontaneously. Sensation intact bilaterally. Skin: No rashes or lesions. No petechiae or purpura.?? Musculoskeletal: No cyanosis or clubbing. No gross deformities. Normal range of motion. Heme/Lymphatics/Immun: Palpation of neck reveals no swelling or tenderness of neck nodes. Psychiatric: Normal mood and affect Patient Education Titles Discharge Instructions for Stroke?? Follow-Up Appointments Added Follow Up ?Time Frame ?Comments Luis Alberto Child?03/14/2023 11:30 Jossy Little Patient Instructions You are seen at [facility] with complaint of new acute stroke.?? Cardiology felt that this could likely have been secondary to a small blood clot/thrombus formed in your heart that travel to your brain.? I have sent a script for warfarin to our pharmacy along with shots of Lovenox like you were gettinghere. You will have to take both of them for the first couple of days after starting the medication(do not start until 02-21). ?? You will follow-up??with your PCP Jossy?Myranda??about??the warfarin and your level (INR).?? You should have a lab draw on Friday at any [facility] lab, she has put an order for this in the computer soyou do not need to bring the prescription with you.?? Ask them that they send the INR??value to??Jossy??and she will contact you??regarding the results??and what to do with your??warfarin dosing and if you should continue with the Lovenox shots IN ADDITION- this is all based on what your lab on Friday shows. Try to do that in the morning so Jossy can get the results and contact you in the afternoon same day.? I also discussed your battery life for your pacemaker with our electrophysiology lab, they think that you likely have 2-3 months of battery left and that you should follow-up with us in the outpatient setting to have it changed when is closer to the end of its life as this can easily be done safelyand they do not recommend changing it while inpatient.?Dr. Landaverde??should be??contacting you about a follow-up in the next couple of weeks, if you do not hear from them to give the office a call tomake sure that you have an upcoming appointment??within the next 1 to 2 weeks. ?? He will follow-up with the stroke clinic, they have already sent a request for follow-up appointment for you however I have given the phone number for neurology to call and make sure that you have a follow-up appointment after the holiday is over. You do not need any physical therapy or home services at this time, our physical medicine and rehabilitation team have given you a prescription for outpatient PT should you choose??to use it. ?? Overall, I am glad that you are doing better, it was a pleasure caring for you.?? I wish you all the best. Post Discharge Residential Home Health Face to Face ^HomeHealthFTF Results Discharge Labs BLOOD BANK Blood Type O Positive ()?? 02/14/2023 12:33 Antibody Screen Negative ()?? 02/14/2023 12:33 ?? BLOOD COUNT & DIFF WBC 5.1 k/mm3 ()?? 02/16/2023 09:21 RBC 4.94 m/mm3 ()?? 02/16/2023 09:21 Hgb 13.1 Gm/dL (Low)?? 02/16/2023 09:21 Hct 41.9 % ()?? 02/16/2023 09:21 MCV 84.8 femtoliters ()?? 02/16/2023 09:21 MCH 26.5 pg (Low)?? 02/16/2023 09:21 MCHC 31.3 g/dL (Low)?? 02/16/2023 09:21 Platelet Count 245 k/mm3 ()?? 02/16/2023 09:21 RDW-SD 43.6 femtoliters ()?? 02/16/2023 09:21 MPV 10.0 femtoliters ()?? 02/16/2023 09:21 Nucleated RBC (Automated) 0.0 #/100 WBC'S ()?? 02/16/2023 09:21 Abs. NRBC 0.0 k/mm3 ()?? 02/16/2023 09:21 Abs. Neut 2.8 k/mm3 ()?? 02/16/2023 09:21 Abs. Lymph 1.7 k/mm3 ()?? 02/16/2023 09:21 Abs. [place] 0.5 k/mm3 ()?? 02/16/2023 09:21 Abs. Eo 0.1 k/mm3 ()?? 02/16/2023 09:21 Abs. Baso 0.0 k/mm3 ()?? 02/16/2023 09:21 Neut % 53.7 % ()?? 02/16/2023 09:21 Lymph % 33.1 % ()?? 02/16/2023 09:21 [place] % 10.3 % ()?? 02/16/2023 09:21 Eos % 1.9 % ()?? 02/16/2023 09:21 Baso % 0.8 % ()?? 02/16/2023 09:21 Imm Gran 0.2 % ()?? 02/16/2023 09:21 Abs. Imm Gran 0.0 k/mm3 ()?? 02/16/2023 09:21 ?? CARDIAC High Sensitivity Troponin (HSTnT) 18 ng/L ()?? 02/14/2023 13:41 ? CHEM GENERAL Sodium 138 mmol/L ()?? 02/16/2023 09:21 Potassium 4.4 mmol/L ()?? 02/16/2023 09:21 Chloride 104 mmol/L ()?? 02/16/2023 09:21 Bicarbonate Level 24 mmol/L ()?? 02/16/2023 09:21 Anion Gap 10 ()?? 02/16/2023 09:21 Glucose Level 118 mg/dL (High)?? 02/16/2023 09:21 Glucose, POC 127 mg/dL (High)?? 02/14/2023 12:27 Hemoglobin A1C (Monitoring) 6.0 % (High)?? 02/15/2023 06:33 BUN 15 mg/dL ()?? 02/16/2023 09:21 Creatinine-Blood 1.0 mg/dL ()?? 02/16/2023 09:21 Estimated GFR Creatinine 80 ML/MIN/1.73 M2 ()?? 02/16/2023 09:21 Calcium 9.2 mg/dL ()?? 02/16/2023 09:21 Phosphorus 2.8 mg/dL ()?? 02/16/2023 09:21 Magnesium 1.6 mg/dL ()?? 02/15/2023 06:33 AST (SGOT) 17 units/L ()?? 02/14/2023 13:41 C-Reactive Protein <0.3 mg/dL ()?? 02/14/2023 13:41 ?? COAG INR 1.1 ()?? 02/14/2023 13:41 Protime (PT) 11.7 seconds (High)?? 02/14/2023 13:41 APTT 30.3 seconds ()?? 02/14/2023 13:41 ? HEME OTHER Sed Rate 11 mm/hr ()?? 02/14/2023 13:41 ? IMMUNOLOGY GENERAL B2GP1, IgG <9 ()?? 02/17/2023 13:47 B2GP1, IgM <9 ()?? 02/17/2023 13:47 ?? LIPID STUDIES Cholesterol 152 mg/dL ()?? 02/15/2023 06:33 Triglycerides 73 mg/dL ()?? 02/15/2023 06:33 HDL Cholesterol 55 mg/dL ()?? 02/15/2023 06:33 LDL Cholesterol 82 mg/dL ()?? 02/15/2023 06:33 Non HDL Cholesterol 97 mg/dL ()?? 02/15/2023 06:33 ? TOXICOLOGY/TDM Barbiturate Screen, Urine NONE DETECTED ()?? 02/14/2023 14:40 Cannabinoid Screen, Urine POSITIVE (Abnormal)?? 02/14/2023 14:40 Cocaine Metabolite Screen, Urine NONE DETECTED ()?? 02/14/2023 14:40 Benzodiazepine Screen, Urine NONE DETECTED ()?? 02/14/2023 14:40 Amphetamine Screen, Urine NONE DETECTED ()?? 02/14/2023 14:40 Opiate Screen, Urine NONE DETECTED ()?? 02/14/2023 14:40 ?? UA/URINALYSIS Appear/Color, Urine LIGHT YELLOW ()?? 02/14/2023 14:40 Specific [place], Urine >1.050 (High)?? 02/14/2023 14:40 pH, Urine 7.0 ()?? 02/14/2023 14:40 Albumin, Urine TRACE (Abnormal)?? 02/14/2023 14:40 Glucose, Urine NEGATIVE ()?? 02/14/2023 14:40 Ketones, Urine NEGATIVE ()?? 02/14/2023 14:40 Bilirubin, Urine NEGATIVE ()?? 02/14/2023 14:40 Hemoglobin, Urine NEGATIVE ()?? 02/14/2023 14:40 Nitrite, Urine NEGATIVE ()?? 02/14/2023 14:40 Leukocyte, Urine NEGATIVE ()?? 02/14/2023 14:40 Urobilinogen NORMAL mg/dL ()?? 02/14/2023 14:40 WBC's, Urine <1 /HPF ()?? 02/14/2023 14:40 RBC's, Urine 1 /HPF ()?? 02/14/2023 14:40 Squamous Epith <1 /HPF ()?? 02/14/2023 14:40 Hold Urine Culture Testing available 48 hours from time of collection. ()?? 02/14/2023 14:40 ? URINE OTHER Est Creatinine Clearance 77.06 mL/min ()?? 02/15/2023 07:20 ? VIROLOGY Influenza A PCR NEGATIVE ()?? 02/14/2023 13:40 Influenza B PCR NEGATIVE ()?? 02/14/2023 13:40 RSV PCR NEGATIVE ()?? 02/14/2023 13:40 COVID-19 PCR Specimen Source NASAL ()?? 02/14/2023 13:40 COVID-19 PCR Result NEGATIVE ()?? 02/14/2023 13:40 ? 35??minutes spent on discharge * Sury Pacheco RN: PERFORM Event Display: Patient Education/Instruction Authored Date: [id number] Inpatient Adult Discharge Instructions [address] [address] Name: MARCIN QUINTERO : 1955 Visit: 02/14/2023 16:51:00 Current Date: 02/19/2023 14:51 Account: [id number] Inpatient Adult Discharge Instructions We would like to thank you for allowing us to assist you with your healthcare needs. The following includes patient education materials and information regarding your injury/illness. Our entire staffstrives to provide an excellent experience for our patients and their families. PLEASE ENSURE YOU FOLLOW-UP PER THE INSTRUCTIONS BELOW! ?? YOUR OPINION IS IMPORTANT TO US! Please complete the survey you may receive by mail or email. Your feedback will be used to make improvements to the healthcare experiences of our patients and their families. Surveys are administered by [employer] ?? If further treatment with your primary care physician or another doctor is recommended, it is important for you to keep the appointment. Call your primary care physician or return to the Emergency Department immediately if your condition worsens, fails to improve, or new symptoms develop. If you need to find a doctor, you can call [facility] [employer] for a referral at [phone] or toll free at [phone]) or log in to [email or web address].. ?? [facility], in keeping with [facility] guidance, no longer requires face masks for staff, patientsor visitors in most situations. Similiar to time spent indoors at other locations, there is the chance that you were exposed to repiratory viruses during your time with us (such as flu or COVID-19). If you develop symptoms concerning for a viral respiratory infection, please seek testing (and treatment if indicated) from your medical provider or home test kit. ?? You can view and manage your care through the patient portal or by using a health care max of your choosing. [facility] [employer] [facility] is a website that allows you to securely view your medical information including your hospital discharge summary, office visit summaries, medications and follow-up visits. You can also request appointments, renew medications, and request access to your medical information using a health care max of your choosing, or just ask a question. You can enroll at [email or web address] or register during your next office visit. You have been discharged from [facility], Patient Care Unit: D5A. If you have any questions regarding these instructions after you leave, please call us and we will be happy to assist you. [facility] Your Care Team Attending Physician Ashu CANELA, Kirti Consulting Providers Jason CANELA, Jamal; Yandy CANELA, Elba Casas MD, Kellen Discharging Providers Breanne LUA, Santa [place] Reason for Admission Pt from [facility] with difficulty finding words , unsteady gait. pt reported to staff that he was not feeling well. upon ems arrival pt with slurred speech intermittent expressive aphasia . LKW pt reports used marijuana at 1030 Your Diagnosis Acute CVA (cerebrovascular accident) Headache Occlusion of right middle cerebral artery HTN (hypertension) H/O heart block H/O cardiac pacemaker Peripheral arterial disease HLD (hyperlipidemia) Heart failure with reduced ejection fraction Cognitive impairment Visual neglect Difficulty walking Acute intractable headache, unspecified headache type Tests Performed Below is a partial list of the tests performed during your hospitalization. You may have had other tests and procedures not included in this list. Please discuss all test results with your provider. Amphetamine Urine Screen AST Barbiturate Urine Screen Basic Metabolic Panel Benzodiazepine Urine Screen Beta 2 Glycoprotein 1 Ab BUN C-REACTIVE PROTEIN Calcium Level Cannabinoid Urine Screen CBC CBC w/ Differential Cocaine Urine Screen COVID-19, RSV, and Flu A/B, Rapid PCR Creatinine Electrolytes Glucose Level GLUCOSE POC Hgb A1C (Monitoring) High??Sensitivity??Troponin T Lipid Panel Magnesium Level Opiate Screen Urine Phosphorus Level PT (INR) PTT SEDIMENTATION RATE,AUTOMATED Type and Screen Urinalysis w/hold for Urine Culture CT Angio Head Hyperacute Stroke CT Angio Neck Hyperacute Stroke CT Head-Hyper Acute Stroke CT Head/Brain W/O Contrast XR Chest Portable Primary Care Provider Anabel LOWRY, Jossy [place] Advance Directive Health Care Proxy on File Yes - Health Care Proxy Discharge Vitals Temperature: 98.6 DegF Height: 182 cm Pulse Rate:??51 bpm??Low Weight: 76 kg Respiratory Rate:??12 br/min??Low Body Mass Index: 22.94 kg/m2 Systolic Blood Pressure:??165 mm Hg??High Body surface area: 1.96 Diastolic Blood Pressure:??93 mm Hg??High ?? Oxygen Saturation: 97 % ?? Studies Pending All tests and labs ordered during this hospital stay have been completed unless listed below. Please discuss all pending results with your provider listed above in these instructions. ?? Add On Lab Order Anticardiolipin Ab IgA Anticardiolipin Ab IgG/IgM Lupus Anticoagulant Coag Panel What to do next Instructions From Your Doctor You are seen at [facility] with complaint of new acute stroke.?? Cardiology felt that this could likely have been secondary to a small blood clot/thrombus formed in your heart that travel to your brain.? I have sent a script for warfarin to our pharmacy along with shots of Lovenox like you were gettinghere. You will have to take both of them for the first couple of days after starting the medication(do not start until 11-24). You ALSO have scripts at [facility] of your new heart medication, do not forget to pick these up. ?? You will follow-up??with your PCP Jossy??Anabel??about??the warfarin and your level (INR).?? You should have a lab draw on Friday at any [facility] lab, she has put an order for this in the computer soyou do not need to bring the prescription with you.?? Ask them that they send the INR??value to??Jossy??and she will contact you??regarding the results??and what to do with your??warfarin dosing and if you should continue with the Lovenox shots IN ADDITION- this is all based on what your lab on Friday shows. Try to do that in the morning so Jossy can get the results and contact you in the afternoon same day.? I also discussed your battery life for your pacemaker with our electrophysiology lab, they think that you likely have 2-3 months of battery left and that you should follow-up with us in the outpatient setting to have it changed when is closer to the end of its life as this can easily be done safelyand they do not recommend changing it while inpatient.?Dr. Landaverde??should be??contacting you about a follow-up in the next couple of weeks, if you do not hear from them to give the office a call tomake sure that you have an upcoming appointment??within the next 1 to 2 weeks. ?? You will follow-up with the stroke clinic, they have already sent a request for follow-up appointment for you however I have given the phone number for neurology to call and make sure that you have afollow-up appointment after the holiday is over. You do not need any physical therapy or home services at this time, our physical medicine and rehabilitation team have given you a prescription for outpatient PT should you choose??to use it. ?? Overall, I am glad that you are doing better, it was a pleasure caring for you.?? I wish you all the best. Discharge Orders Diet:??Cardiac diet Activity:??as tolerated Code Status:??Full Condition:??Good Prognosis:??Good Scheduled Follow-Up Appointments Friday 3:00 PM EST ?? With: Dorcas CANELA, Jama Where: [address] [address]- Status: Pending Friday 11:30 AM EST ?? With: Danyell CANELA, Luis Alberto Where: [facility] [address] [facility] [address] [address]- Status: Pending Friday 2:40 PM EST ?? With: Latasha Garcia MD Where: [address] [place] [address]- Status: Pending 2023 8:00 AM EST ?? With: Nabil LOWRY [facility] Where: [facility] [address] [facility] [address] [facility], [address] [place] [id number]- Status: Pending You Need to Schedule the Following Appointments Follow Up with??Luis Alberto Child When:??03/14/2023 11:30 AM EST Where: [address] [facility], 3rd Floor, [address] [place], [place] [id number] [facility] (1) Follow Up with??Jossy Little When:??In 0 days Discharge Medications MARCIN QUINTERO :1955 Visit Date:02/14/2023 Medications: Please continue your medications until treatment is completed or stopped by your provider. Medications not listed below should be discontinued. Discuss any questions related to medications with your provider. What How Much When Instructions Next Dose New dapagliflozin (dapagliflozin 10 mg oral tablet) 10 Milligram Oral Daily Duration: 30 Days Pickup at [facility]/pharmacy #[id number] Tomorrow 02/20/23 at 9am New Enoxaparin (Lovenox 120 mg/ 0.8 mL injectable solution) 114 Milligram Subcutaneous Injection Daily Duration: 5 Days *Note: Treatment = 1.5mg/ kg/ day, renal dosing = 1mg/ kg/ day* ?? Pickup at [facility] 3 Tomorrow 02/20/23 at 9am New Nortriptyline (nortriptyline 25 mg oral capsule) 25 Milligram Oral Daily at Bedtime Duration: 30 Days Pickup at [facility]/pharmacy #[id number] Today 02/19/23 at 9pm New Spironolactone (spironolactone 25 mg oral tablet) 25 Milligram Oral Daily Duration: 30 Days Pickup at [facility]/pharmacy #[id number] Tomorrow 02/20/23 at 9am New Warfarin (warfarin 5 mg oral tablet) 1 tab(s) Oral Daily Duration: 30 Days Pickup at [facility] 3 Tomorrow 02/20/23 at 9am Unchanged Aspirin (aspirin 81 mg oral tablet) 1 tab(s) Oral Daily Tomorrow 02/20/23 at 9am Unchanged Atorvastatin (atorvastatin 40 mg oral tablet) 1 tab(s) Oral Daily Duration: 30 Days Today 02/19/23 at 9pm Unchanged Lisinopril (lisinopril 20 mg oral tablet) 2 tab(s) Oral Daily Tomorrow 02/20/23 at 9am Pharmacy Information [id number]: [address], [place] [phone] [facility]: [address] [place], [place] [phone] ?? What How Much When Why Comments Stop Taking Carvedilol (carvedilol 25 mg oral tablet) 1 tab(s) Oral Twice a day Stop Taking Diclofenac Topical (diclofenac 1% topical gel) 2 gram Topically 4 times a day Stop Taking Durable Medical Equipment (Home Blood Pressure Monitor) See instructions Use to measure blood pressure daily for hypertension. Dx: I10 ?? Stop Taking Durable Medical Equipment (Wrist splints cocked to neutral position) See instructions Bilateral carpal tunnel syndrome bilateral wrist splints to be worn every night to bed for carpal tunnel syndrome G56.00 ?? Stop Taking Fluconazole (Diflucan 150 mg oral tablet) 1 tab(s) Oral Once Stop Taking Nitroglycerin (nitroglycerin 0.4 mg sublingual tablet) 1 tab(s) Sublingual Every 5 minutes as needed for for chest pain If chest pain not relieved in 5 minutes after first dose, seek immediate medical attention ?? Stop Taking Pantoprazole (pantoprazole 20 mg oral delayed release tablet) 20 Milligram Oral Daily Duration: 30 Days Test Results Below is a partial list of the most recent Laboratory test results done prior to this discharge. You may have had other tests and procedures not included in this list. Please discuss all test resultswith your provider. Est Creatinine Clearance - 77.06 mL/min (02/15/2023) Amphetamine Urine Screen (02/14/2023) ???Amphetamine Screen, Urine - NONE DETECTED AST (02/14/2023) ???AST (SGOT) - 17 units/L Barbiturate Urine Screen (02/14/2023) ???Barbiturate Screen, Urine - NONE DETECTED Basic Metabolic Panel (02/15/2023) ???Sodium - 140 mmol/L???Potassium - 4.4 mmol/L???Chloride - 107 mmol/L???Bicarbonate Level - 24 mmol/L???Anion Gap - 9???Glucose Level - 89 mg/dL???BUN - 10 mg/dL???Creatinine-Blood - 1.0 mg/dL???Estimated GFR Creatinine - 87 ML/MIN/1.73 M2???Calcium - 8.7 mg/dL Benzodiazepine Urine Screen (02/14/2023) ???Benzodiazepine Screen, Urine - NONE DETECTED Beta 2 Glycoprotein 1 Ab (02/17/2023) ? ?B2GP1, IgG - <9? ?B2GP1, IgM - <9 BUN (02/16/2023) ???BUN - 15 mg/dL C-REACTIVE PROTEIN (02/14/2023) ? ?C-Reactive Protein - <0.3 mg/dL Calcium Level (02/16/2023) ???Calcium - 9.2 mg/dL Cannabinoid Urine Screen (02/14/2023) ???Cannabinoid Screen, Urine - POSITIVE CBC (02/15/2023) ???WBC - 4.7 k/mm3???RBC - 4.20 m/mm3???Hgb - 11.3 Gm/dL???Hct - 35.9 %???MCV - 85.5 femtoliters???MCH - 26.9 pg???MCHC - 31.5 g/dL???Platelet Count - 230 k/mm3???RDW-SD - 43.8 femtoliters???MPV - 10.4 femtoliters???Nucleated RBC (Automated) - 0.0 #/100 WBC'S???Abs. NRBC - 0.0 k/mm3 CBC w/ Differential (02/16/2023) ???WBC - 5.1 k/mm3???RBC - 4.94 m/mm3???Hgb - 13.1 Gm/dL???Hct - 41.9 %???MCV - 84.8 femtoliters???MCH - 26.5 pg???MCHC - 31.3 g/dL???Platelet Count - 245 k/mm3???RDW-SD - 43.6 femtoliters???MPV - 10.0 femtoliters???Nucleated RBC (Automated) - 0.0 #/100 WBC'S???Abs. NRBC - 0.0 k/mm3???Abs. Neut - 2.8 k/mm3???Abs. Lymph - 1.7 k/mm3???Abs. [place] - 0.5 k/mm3???Abs. Eo - 0.1 k/mm3???Abs. Baso - 0.0 k/mm3???Neut % - 53.7 %???Lymph % - 33.1 %???Cabell % - 10.3 %???Eos % - 1.9 %???Baso % - 0.8 %???Imm Gran - 0.2 %???Abs. Imm Gran - 0.0 k/mm3 Cocaine Urine Screen (02/14/2023) ???Cocaine Metabolite Screen, Urine - NONE DETECTED COVID-19, RSV, and Flu A/B, Rapid PCR (02/14/2023) ???Influenza A PCR - NEGATIVE???Influenza B PCR - NEGATIVE???RSV PCR - NEGATIVE???COVID-19 PCR Specimen Source - NASAL???COVID-19 PCR Result - NEGATIVE Creatinine (02/16/2023) ???Creatinine-Blood - 1.0 mg/dL???Estimated GFR Creatinine - 80 ML/MIN/1.73 M2 Electrolytes (02/16/2023) ???Sodium - 138 mmol/L???Potassium - 4.4 mmol/L???Chloride - 104 mmol/L???Bicarbonate Level - 24 mmol/L???Anion Gap - 10 Glucose Level (02/16/2023) ???Glucose Level - 118 mg/dL GLUCOSE POC (02/14/2023) ???Glucose, POC - 127 mg/dL Hgb A1C (Monitoring) (02/15/2023) ???Hemoglobin A1C (Monitoring) - 6.0 % High??Sensitivity??Troponin T (02/14/2023) ???High Sensitivity Troponin (HSTnT) - 18 ng/L Lipid Panel (02/15/2023) ???Cholesterol - 152 mg/dL???Triglycerides - 73 mg/dL???HDL Cholesterol - 55 mg/dL???LDL Cholesterol - 82 mg/dL???Non HDL Cholesterol - 97 mg/dL Magnesium Level (02/15/2023) ???Magnesium - 1.6 mg/dL Opiate Screen Urine (02/14/2023) ???Opiate Screen, Urine - NONE DETECTED Phosphorus Level (02/16/2023) ???Phosphorus - 2.8 mg/dL PT (INR) (02/14/2023) ???INR - 1.1???Protime (PT) - 11.7 seconds PTT (02/14/2023) ???APTT - 30.3 seconds SEDIMENTATION RATE,AUTOMATED (02/14/2023) ???Sed Rate - 11 mm/hr Type and Screen (02/14/2023) ???Blood Type - O Positive???Antibody Screen - Negative Urinalysis w/hold for Urine Culture (02/14/2023) ? ?Appear/Color, Urine - LIGHT YELLOW? ?Specific [place], Urine - >1.050? ?pH, Urine - 7.0? ?Albumin, Urine - TRACE???Glucose, Urine - NEGATIVE???Ketones, Urine - NEGATIVE???Bilirubin, Urine - NEGATIVE???Hemoglobin, Urine - NEGATIVE???Nitrite, Urine - NEGATIVE???Leukocyte, Urine - NEGATIVE???Urobilinogen - NORMAL? ?WBC's, Urine - <1 /HPF? ?RBC's, Urine - 1 /HPF? ?Squamous Epith - <1 /HPF???Hold Urine Culture - Testing available 48 hours from time of collection. Allergies (NKA means No Known Allergies) NKA Problems Active Problems??(17) Anxiety and depression?? [employer] [facility] Care Management [facility], Mikie Thibodeaux [phone]?? Candidiasis?? Cardiac pacemaker, Medtronic dual chamber pacemaker model [id number]?? CHB (complete heart block)?? Current tobacco use?? Essential hypertension?? GERD (gastroesophageal reflux disease)?? History of substance abuse?? Hypercholesterolemia with hypertriglyceridemia?? Liver lesion?? Marijuana use?? Old CT (myocardial infarction)?? Peripheral arterial disease?? Post traumatic stress disorder (PTSD)?? Spinal stenosis at L4-L5 level?? Spinal stenosis at L4-L5 level?? Education Materials Below is the list of Educational Leaflet Providered with your Discharge Instructions. Warfarin Oral Tablet?? Spironolactone Oral Tablet?? Nortriptyline Oral Capsule?? Dapagliflozin Oral Tablet?? Enoxaparin Prefilled Syringe?? Risk Factors for Stroke?? The F.A.S.T. Way to Diagnose a Stroke?? Anatomy of the Brain?? Discharge Instructions for Stroke?? Valuables and Belongings I fully understand and agree that [facility] accepts no responsibility for all my personal property including clothing, toilet articles, radios, jewelry, dentures, hearing aids, rings, money, or any other property that is in my possession or is brought to me after admission. I understand certain valuables may be placed in a hospital safe for a short period of time. I understand that the hospital is not liable for loss or damage due to accident, fire, or other natural occurrence while said property is in the safe. I accept full responsibility for any personal property that I keep with me, and will not hold the hospital responsible in case of loss or disappearance. I acknowledge that i have been encouraged to send valuables and belongings home. ?? Review of Valuable and Belonging List: With patient Date for Pt to Sign Valuables/Belongings: 02/14/23 20:35:00 ?? Other Discharge Information ? Pulmonary Rehab Status?? Pulmonary Rehab Discharge Status?? Respiratory Rate:??12 br/min??Low ? Common Emergency Awareness Tips IS IT A STROKE? Act FAST and Check for these signs: FACE Does the face look uneven? ARM Does one arm drift down? SPEECH Does their speech sound strange? TIME Call at any sign of stroke ?? Heart Attack Signs Chest discomfort: Most heart attacks involve discomfort in the center of the chest and lasts more than a few minutes, or goes away and comes back. It can feel like uncomfortable pressure, squeezing, fullness or pain. Discomfort in upper body: Symptoms can include pain or discomfort in one or both arms, back, neck, jaw or stomach. Shortness of breath: With or without discomfort. Other signs: Breaking out in a cold sweat, nausea, or lightheaded. Remember, MINUTES DO MATTER. If you experience any of these heart attack warning signs, call to get immediate medical attention! ?? Smoking can increase your chances of developing chronic health problems and can cause harmful effects to other family members in your house. If you smoke, you are strongly encouraged to quit. Please call [facility] [facility] at [phone] or [phone]) or log in to [email or web address] for referrals to smoking cessation programs. ?? 988 Suicide & Crisis Lifeline is available 21/10 if you or someone you know needs to find a reason to keep living. By calling 018 you'll be connected to a skilled, trained counselor at a crisis center in your area. INPATIENT DISCHARGE INSTRUCTIONS SIGNATURE PAGE MARCIN QUINTERO Location:[facility] Registration Date and Time:02/14/2023 16:51 EST Primary Care Physician: Jossy Little NP, Attending Physician: Kirti Wakefield MD, I INGRIDRACHELLEMARCIN, have received the above patient education materials/instructions and have verbalized understanding. If ambulance or transport services are being used I further acknowledge being given a choice of service. ?? If you need to contact me, please call me at this number: . Patient/Log Grader Name: Patient/Log Grader Signature: Relationship to Patient: Witness Name/Signature: Date: * Sitzer RN, Sury: PERFORM Event Display: Patient Education Leaflets Authored Date: [id number] Warfarin Oral Tablet ?? [id number] Warfarin Oral Tablet Brands: Coumadin, Jantoven Uses This medicine is used for the following purposes: ??? prevent blood clots ??? treatment of blood clots ?? Instructions This medicine may be taken with or without food. This medicine will work best if you take it at about the same time every day. Keep the medicine at room temperature. Avoid heat and direct light. It is important that you keep taking each dose of this medicine on time even if you are feeling well. If you forget to take a dose on time, take it as soon as you remember. If you don't remember until the next day, please call your doctor for instructions. Never take a double dose or skip a dose unless your provider tells you to do so. Tell your doctor and pharmacist about all your medicines. Include prescription and qukl-rfb-auodryfcnnjmouyi, vitamins, and herbal medicines. ?? Cautions Tell your doctor and pharmacist if you ever had an allergic reaction to a medicine. Do not use the medication any more than instructed. Contact your doctor if you notice a change in the amount or darkening of your urine. Tell the doctor or pharmacist if you are , planning to be , or . Women who are or in their childbearing years should not touch or handle this medicine. This medicine can be absorbed through the woman's skin and harm the unborn baby. Call your doctor right away if you notice any unusual bleeding or bruising. Do not share this medicine with anyone who has not been prescribed this medicine. ?? Side Effects The following is a list of some common side effects from this medicine. Please speak with your doctor about what you should do if you experience these or other side effects. ??? liver problems ??? nausea ??? red, burning, or itchy skin ??? stomach upset or abdominal pain Call your doctor or get medical help right away if you notice any of these more serious side effects: ??? loss of balance ??? bleeding or bruising ??? chest pain ??? coughing up blood or vomit that looks like coffee grounds ??? dizziness ??? fainting ??? severe or persistent headache ??? sudden leg pain, swelling, warmth or redness ??? signs of liver damage (such as yellowing of eye or skin, dark urine, or unusual tiredness) ??? pale or blue skin, lips or fingernails ??? bloody or dark, tarry stools ??? light colored stool ??? symptoms of stroke (such as one- sided weakness, slurred speech, confusion) ??? blood in urine A few people may have an allergic reaction to this medicine. Symptoms can include difficulty breathing, skin rash, itching, swelling, or severe dizziness. If you notice any of these symptoms, seek medical help quickly. ?? Extra Please speak with your doctor, nurse, or pharmacist if you have any questions about this medicine. ?? [email or web address] IMPORTANT NOTE: This document tells you briefly how to take your medicine, but it does not tell youall there is to know about it. Your doctor or pharmacist may give you other documents about your medicine. Please talk to them if you have any questions. Always follow their advice. There is a more complete description of this medicine available in [employer]. Scan this code on your smartphone or tablet or use the web address below. You can also ask your pharmacist for a printout. If you have any questions, please ask your pharmacist. The display and use of this drug information is subject to Terms of Use. Copyright(c) 2022 [employer]. ?? The [employer]. All rights reserved. This information is not intended as a substitute for professional medical care. Always follow your healthcare professional's instructions. ?? * Sury Pacheco RN: PERFORM Event Display: Patient Education Leaflets Authored Date: [id number] Spironolactone Oral Tablet ?? [id number] Spironolactone Oral Tablet Brands: Aldactone Uses This medicine is used for the following purposes: ??? heart failure ??? high blood pressure ??? hormonal disorder ??? skin disorder ??? swelling ?? Instructions This medicine may be taken with or without food. This medicine will work best if you take it at about the same time every day. Do not take your last dose of the day within 4-6 hours of bedtime. Store at room temperature away from heat, light, and moisture. Do not keep in the bathroom. This medicine will make you urinate more. If you have difficulty passing urine, please tell your doctor. Talk to your doctor before eating foods with large amounts of potassium. Potassium is often found in salt substitutes. Your doctor may want you to reduce the amount of these foods. Tell your doctor if you have severe or persistent sweating, diarrhea or vomiting. These can increase your risk of a serious side effect. It is important that you keep taking each dose of this medicine on time even if you are feeling well. If you forget to take a dose on time, take it as soon as you remember. If it is almost time for thenext dose, do not take the missed dose. Return to your normal schedule. Do not take 2 doses at one time. Drug interactions can change how medicines work or increase risk for side effects. Tell your healthcare providers about all medicines taken. Include prescription and dohk-gnj-okpipcl medicines, vitamins, and herbal medicines. Speak with your doctor or pharmacist before starting or stopping any medicine. Tell your doctor if symptoms do not get better or if they get worse. Keep all appointments for medical exams and tests while on this medicine. ?? Cautions Tell your doctor and pharmacist if you ever had an allergic reaction to a medicine. Do not use the medication any more than instructed. This medicine may cause dizziness or fainting, especially after exercising or in hot weather. Be very careful when standing or sitting up quickly. Your ability to stay alert or to react quickly may be impaired by this medicine. Do not drive or operate machinery until you know how this medicine will affect you. Please check with your doctor before drinking alcohol while on this medicine. This medicine passes into breast milk. Ask your doctor before . During , this medicine should be used only when clearly needed. Talk to your doctor about the risks and benefits. Do not share this medicine with anyone who has not been prescribed this medicine. ?? Side Effects The following is a list of some common side effects from this medicine. Please speak with your doctor about what you should do if you experience these or other side effects. ??? diarrhea ??? dizziness ??? drowsiness or sedation ??? headaches ??? lightheadedness ??? stomachupset or abdominal pain ??? increased urinary frequency ??? vomiting Call your doctor or get medical help right away if you notice any of these more serious side effects: ??? breast pain or swelling ??? lack of energy and tiredness ??? fast, irregular, or slow heartbeat??? impotence ??? signs of kidney damage (such as change in urine color or bubbly urine) ??? musclecramps or weakness ??? persistent or unusual thirst A few people may have an allergic reaction to this medicine. Symptoms can include difficulty breathing, skin rash, itching, swelling, or severe dizziness. If you notice any of these symptoms, seek medical help quickly. ?? Extra Please speak with your doctor, nurse, or pharmacist if you have any questions about this medicine. ?? [email or web address] IMPORTANT NOTE: This document tells you briefly how to take your medicine, but it does not tell youall there is to know about it. Your doctor or pharmacist may give you other documents about your medicine. Please talk to them if you have any questions. Always follow their advice. There is a more complete description of this medicine available in [employer] [place]. Scan this code on your smartphone or tablet or use the web address below. You can also ask your pharmacist for a printout. If you have any questions, please ask your pharmacist. The display and use of this drug information is subject to Terms of Use. Copyright(c) 2022 [employer]. ?? The [employer]. All rights reserved. This information is not intended as a substitute for professional medical care. Always follow your healthcare professional's instructions. ?? * Sury Pacheco RN: PERFORM Event Display: Patient Education Leaflets Authored Date: [id number] Nortriptyline Oral Capsule ?? 55611-130 Nortriptyline Oral Capsule Brands: Pamelor Uses This medicine is used for the following purposes: ??? depression ??? nerve pain ??? pain ??? stop smoking ?? Instructions Take the medicine with 250 mL (1 cup) of water. This medicine will work best if you take it at about the same time every day. Store at room temperature away from heat, light, and moisture. Do not keep in the bathroom. Drink extra water while on this medicine. Adults should try to drink 6-8 cups (48 to 64 oz.) of water every day. To reduce constipation, eat high fiber foods, drink plenty of water and exercise. This medicine can make you sensitive to the sun. Use sunscreen or protective clothing when in sun. It may take several weeks for this medicine to fully work. It is important that you keep taking each dose of this medicine on time even if you are feeling well. If you forget to take a dose on time, take it as soon as you remember. If it is almost time for thenext dose, do not take the missed dose. Return to your normal schedule. Do not take 2 doses at one time. Drug interactions can change how medicines work or increase risk for side effects. Tell your healthcare providers about all medicines taken. Include prescription and szkt-myp-mgrujvj medicines, vitamins, and herbal medicines. Speak with your doctor or pharmacist before starting or stopping any medicine. Tell your doctor if symptoms do not get better or if they get worse. This medicine may affect your blood sugar levels. If you have diabetes, talk to your doctor before changing the dose of your diabetes medicine. Keep all appointments for medical exams and tests while on this medicine. ?? Cautions Tell your doctor and pharmacist if you ever had an allergic reaction to a medicine. Do not use the medication any more than instructed. This medicine may cause dizziness or fainting, especially after exercising or in hot weather. Be very careful when standing or sitting up quickly. If possible, avoid using with marijuana or other medicines that can cause dizziness or drowsiness. These include allergy/cold products, muscle relaxers, sleep aids, and pain relievers. Your ability to stay alert or to react quickly may be impaired by this medicine. Do not drive or operate machinery until you know how this medicine will affect you. Please check with your doctor before drinking alcohol while on this medicine. Family should check on the patient often. Call the doctor if patient becomes more depressed, has thoughts of suicide, or shows changes in behavior. This medicine passes into breast milk. Ask your doctor before . During , this medicine should be used only when clearly needed. Talk to your doctor about the risks and benefits. Do not share this medicine with anyone who has not been prescribed this medicine. Some patients have serious side effects from this medicine. Ask your pharmacist to show you the information from the Food and Drug Administration (FDA) and discuss it with you. ?? Side Effects The following is a list of some common side effects from this medicine. Please speak with your doctor about what you should do if you experience these or other side effects. ??? agitated feeling or trouble sleeping ??? increased appetite ??? breast pain or swelling ??? constipation ??? dizziness or drowsiness ??? dry mouth ??? numbness or tingling in hands and feet ??? problems with sexual functions or desire ??? difficulty or discomfort urinating ??? blurring or changes of vision ??? weight gain Call your doctor or get medical help right away if you notice any of these more serious side effects: ??? decreased awareness or responsiveness ??? change in behavior ??? shallow, irregular breathing ??? chest pain ??? confusion ??? pain in the eye ??? fainting ??? fever ??? hallucinations (unusual thoughts, seeing or hearing things that are not real) ??? fast or irregular heart beats ??? uncontrollable movement of face, tongue, arms or legs ??? muscle aches, spasms or abnormal movements ??? seizures ??? shakiness ??? cold, moist skin ??? slurred speech ??? stiffness of the arms or legs ??? severe stomach pain that spreads to the back ??? suicidal thoughts ??? severe or persistent vomiting A few people may have an allergic reaction to this medicine. Symptoms can include difficulty breathing, skin rash, itching, swelling, or severe dizziness. If you notice any of these symptoms, seek medical help quickly. ?? Extra Please speak with your doctor, nurse, or pharmacist if you have any questions about this medicine. ?? [email or web address] IMPORTANT NOTE: This document tells you briefly how to take your medicine, but it does not tell youall there is to know about it. Your doctor or pharmacist may give you other documents about your medicine. Please talk to them if you have any questions. Always follow their advice. There is a more complete description of this medicine available in [employer]. Scan this code on your smartphone or tablet or use the web address below. You can also ask your pharmacist for a printout. If you have any questions, please ask your pharmacist. The display and use of this drug information is subject to Terms of Use. Copyright(c) 2022 [employer]. ?? [employer]. All rights reserved. This information is not intended as a substitute for professional medical care. Always follow your healthcare professional's instructions. ?? * Lolita Back RN: VERIFY, PERFORM, SIGN Event Display: Patient Education Handout Authored Date: [id number] * Lexie Barnes RN: PERFORM Event Display: Discharge/Transfer Note Hospital Authored Date: [id number] Discharge Planning Nursing Entered On: 02/17/2023 15:25 EST Performed On: 02/17/2023 15:24 EST by Lexie Barnes RN Discharge Planning Nursing Anticipated discharge : Home Lexie Barnes RN - 02/17/2023 15:24 EST Indicator(s) for VNA/Home Care Services Able to safely function at home Able to safely ambulate at home : Yes Able to safely function at home : Yes Able to obtain meds: fill prescriptions : Yes Understands home medications : Yes Has food available at home : Yes Able to prepare/obtain meals : Yes Able to arrange transportation home : Yes Able to gain entry into home : Yes Exhibits impaired orientation : No Exhibits impaired comprehension : No Exhibits impaired judgement : No Caregiver willing to support patient : Yes Caregiver available to support patient : Yes Caregiver capable to support patient : Yes Lexie Barnes RN - 02/17/2023 15:24 EST New/changed/complex medication regime Recent change in mental health status : Yes Change in functional status : Yes New/changed/complex medication regime : Yes New Diagnosis : Yes Recent change in diet : Yes Catheter and/or Drain present : No Wound care / Colostomy care needed : No New injections : No IV therapy/TPN : No Impaired speech, swallow, communication : No Social problems or barriers : No Overwhelmed or noncompliant caregiver : No New DME Needed for Home : No Oxygen need at home or to transport home : No Lexie Barnes RN - 02/17/2023 15:24 EST Patient Care team information Care Team Personnel Name: El Beltran MD Position: [facility] Physician - Gastroenterology Member Role: Lifetime Consulting Physician Address: Address: [address] [place] [address], [address] [facility] [address] Name: Jossy Little NP Position: [facility] PCO Associate Professional Member Role: PCP Address: Address: [address] [place] [id number]- [place] Name: Jackie Holland RN Position: [facility] RN Member Role: Primary Care Nurse Name: Jennifer Galvan Position: [facility] RN Member Role: Primary Care Nurse Name: Gil Grijalva RN Position: [facility] RN Member Role: Primary Care Nurse Name: SindyJordi Little Attending Position: [facility] ED Medicine MD Name: Mary Jane Washington Position: [facility] ED OA Charge Member Role: ED Associate Name: Areli Isaac RN Position: [facility] ED RN W/OE and Tasks Member Role: Patient Care Provider Name: Belinda Hennessy Position: [facility] ED TA [facility] Care Team Related Persons Name: PARDEEP JORJE Address: home [address] [place] [address] Name: MARCIN QUINTERO Address: [place] [address]
--- OUTSIDE RECORDS SUMMARY | 2023-12-17 17:07 | XMS_ITS | Continuity of Care Document ---
Author Organization [facility] Address [address] [place] [address]- Care Team Providers Care Civil Engineering Teacher Name Role Phone Anabel LOWRY, Jossy Park Primary Care Physician [phone] Encounter [facility] Date(s): 02/26/23 - 03/28/23 [facility] [address] [place] [place] [address] Attending Physician: AdmIke castellon Admitting Physician: Admtr, [id number] Referring Physician: Admtr, [...] with 1.8 mL of 0.9% NaCl Lot #[id number] Exp. 08/2022. Medications aspirin 81 mg oral [...] 0 Refills, Maintenance, 02/19/23 8:44:00 EST, Tablet, [facility]/pharmacy #[id number], Partial fill upon patient request if the prescription is for a schedule II opioid drug., 182, cm, 02/17/23 18:23:00 EST, Height, 76, kg, 1... Start Date: 02/19/23 Stop Date: 03/21/23 Status: Ordered finasteride 5 mg oral tablet 1 tablet = 5 mg, By Mouth, Daily, # 90 tablet, 3 Refills, Maintenance, 03/03/23 15:52:00 EST, Tablet, [facility]/pharmacy #[id number], Partial fill upon patient request if the prescription is for a schedule II opioid drug., 182, cm, 03/03/23 15:03:00 EST, Height,... Start Date: 03/03/23 Status: Ordered Flomax 0.4 mg oral capsule 0.4 mg, 1, capsule, By Mouth, Daily, # 90 capsule, Refills 3, Tot. Refills 3, Maintenance, 03/03/2315:51:00 EST, Route to Pharmacy Electronically, [facility]/pharmacy #[id number], Partial fill upon patient request if the prescription is for a schedule II opioid d... Start Date: 03/03/23 Status: Ordered lisinopril 40 mg oral tablet 1 tablet = 40 mg, By Mouth, Daily, # 90 each, 3 Refills, Maintenance, 03/03/23 15:47:00 EST, Tablet, [facility]/pharmacy #[id number], Partial fill upon patient request if the prescription is for a schedule II opioid drug., 182, cm, 03/03/23 15:03:00 EST, Height, 7... Start Date: 03/03/23 Status: Ordered nortriptyline 25 mg oral capsule 25 mg, By Mouth, Daily at bedtime, # 30 capsule, Refills 2, Tot. Refills 2, Maintenance, 03/26/23 10:48:00 EST, Route to Pharmacy Electronically, [facility]/pharmacy #[id number], Partial fill upon patient requestif the [...] 3 Refills, Maintenance, 03/23/23 13:03:00 EST, Tablet, [facility]/pharmacy #[id number], Partial fill upon [...] 11:49:00 EST, 03/14/23 11:49:00 EST, ER Tablet, [facility]/pharmacy #[id number], Partial fillupon patient request if [...] Confirmed Active Liver lesion Confirmed Active Old [place] (myocardial infarction) Confirmed Active [facility] Care Management Mkiie Richardson [phone] Confirmed Active Peripheral arterial disease Confirmed Active [...] Team Personnel Name: El Beltran MD Position: [facility] Physician - Gastroenterology Member Role: Lifetime Consulting Physician Address: Address: [address] [place] [address], [address] [facility] [place] [address]- Name: Jossy Little NP Position: [facility] PCO Associate Professional Member Role: PCP Address: Address: [address] [place] [address]- Name: Jackie Holland RN Position: [facility] RN Member Role: Primary Care Nurse Name: Jennifer Galvan Position: [facility] RN Member Role: Primary Care Nurse Name: Gil Grijalva RN Position: [facility] RN Member Role: Primary Care Nurse Care Team Related Persons Name: JORJE ROBERTO Address: home [address] [place] [id number] Name: MARCIN QUINTERO Address: [place] [address]
--- OUTSIDE RECORDS SUMMARY | 2023-12-17 17:07 | XMS_ITS | Continuity of Care Document ---
Author Organization [facility] Address [address] [place] [address]- Care Team Providers Care Golf Manager Name Role Phone Jossy Little NP Primary Care Physician [phone] [id number] Date(s): 05/28/21 - 07/27/[address] [address] Attending Physician: Not on Staff, Attending MD Referring Physician: Jossy Little NP Allergies, [...] with 1.8 mL of 0.9% NaCl Lot #[id number] Exp. 08/2022. 2Admin Note: vis 04/23/11 Medications [...] tablet, 0 Refills, Maintenance, 06/27/21 9:46:00 EDT, [facility]/pharmacy #[id number], Partial fill upon patient [...] 0 Refills, Maintenance, 12/07/19 8:50:00 EDT, Tablet, [facility]/pharmacy #[id number], 178... Start Date: 12/07/19 Status: [...] with hypertriglyceridemia(Confirmed) Active Liver lesion(Confirmed) Active [place] (myocardial infarction)(Confirmed) Active N Care Management [facility] , Mikie Thibodeaux [phone](Confirmed) Active Peripheral arterial disease(Confirmed) Active Post traumatic [...]
--- OUTSIDE RECORDS SUMMARY | 2023-12-17 17:07 | XMS_ITS | Continuity of Care Document ---
Author Organization [facility] Address [address] [place] [address]- Care Team Providers Care Instrumentation Engineering Technician Name Role Phone Anabel LOWRY, Jossy Park Primary Care Physician [phone] Encounter [facility] Date(s): 03/21/23 - 04/20/[address] [address] Allergies, Adverse Reactions, Alerts No Known [...] with 1.8 mL of 0.9% NaCl Lot #[id number] Exp. 08/2022. Medications aspirin 81 mg oral [...] Refills, Maintenance, 04/03/23 9:26:00 EST, [id number], 30, TAKE 1 TABLET BY MOUTH EVERY DAY, 182, cm, 03/14/23 11:20:00 EST, Height, 76, kg, 02/15/23 6:04:00 EST, Dry Weight Start Date: 04/03/23 Status: Ordered dapagliflozin 10 mg oral tablet = 10 mg, By Mouth, Daily, # 30 tablet, 3 Refills, Maintenance, 04/04/23 8:51:00 EST, Tablet, [facility]/pharmacy #[id number], Partial fill upon patient request if the prescription is for a schedule II opioid drug., 182, cm, 03/14/23 11:20:00 EST, Height, 76, kg, 1... Start Date: 04/04/23 Stop Date: 08/02/23 Status: Ordered finasteride 5 mg oral tablet 1 tablet = 5 mg, By Mouth, Daily, # 90 tablet, 3 Refills, Maintenance, 03/03/23 15:52:00 EST, Tablet, [facility]/pharmacy #[id number], Partial fill upon patient request if the prescription is for a schedule II opioid drug., 182, cm, 03/03/23 15:03:00 EST, Height,... Start Date: 03/03/23 Status: Ordered Flomax 0.4 mg oral capsule 0.4 mg, 1, capsule, By Mouth, Daily, # 90 capsule, Refills 3, Tot. Refills 3, Maintenance, 03/03/2315:51:00 EST, Route to Pharmacy Electronically, [facility]/pharmacy #[id number], Partial fill upon patient [...] Confirmed Active Liver lesion Confirmed Active [place] (myocardial infarction) Confirmed Active [phone] Confirmed Active Peripheral arterial disease Confirmed Active [...] Team Personnel Name: El Beltran MD Position: [facility] Physician - Gastroenterology Member Role: Lifetime Consulting Physician Address: Address: [address] [place] [address], [address] [facility] [place] [address]- Name: Jossy Little NP Position: [facility] PCO Associate Professional Member Role: PCP Address: Address: [address] [place] [address]- Name: Jackie Holland RN Position: [facility] RN Member Role: Primary Care Nurse Name: Jennifer Galvan Position: [facility] RN Member Role: Primary Care Nurse Name: Gil Grijalva RN Position: [facility] RN Member Role: Primary Care Nurse Care Team Related Persons Name: JORJE ROBERTO Address: home [address] [place] [id number] Name: MARCIN QUINTERO Address: [place] [address]
--- OUTSIDE RECORDS SUMMARY | 2023-12-17 17:07 | XMS_ITS | Continuity of Care Document ---
Author Organization [facility] Address [address] [place] [address]- Care Team Providers Care Ammonia Solution Preparer Name Role Phone Anabel LOWRY, Jossy Park Primary Care Physician [phone] [place] [facility] Date(s): 03/03/23 - 04/02/[address] [address] Attending Physician: Admtr, [id number] Admitting Physician: Admtr, [...] with 1.8 mL of 0.9% NaCl Lot #[id number] Exp. 08/2022. Medications aspirin 81 mg oral [...] 0 Refills, Maintenance, 02/19/23 8:44:00 EST, Tablet, [id number], Partial fill upon patient request if the prescription is for a schedule II opioid drug., 182, cm, 02/17/23 18:23:00 EST, Height, 76, kg, 1... Start Date: 02/19/23 Stop Date: 03/21/23 Status: Ordered finasteride 5 mg oral tablet 1 tablet = 5 mg, By Mouth, Daily, # 90 tablet, 3 Refills, Maintenance, 03/03/23 15:52:00 EST, Tablet, [facility]/pharmacy #[id number], Partial fill upon patient request if the prescription is for a schedule II opioid drug., 182, cm, 03/03/23 15:03:00 EST, Height,... Start Date: 03/03/23 Status: Ordered Flomax 0.4 mg oral capsule 0.4 mg, 1, capsule, By Mouth, Daily, # 90 capsule, Refills 3, Tot. Refills 3, Maintenance, 03/03/2315:51:00 EST, Route to Pharmacy Electronically, [facility]/pharmacy #[id number], Partial fill upon patient request if the prescription is for a schedule II opioid d... Start Date: 03/03/23 Status: Ordered lisinopril 40 mg oral tablet 1 tablet = 40 mg, By Mouth, Daily, # 90 each, 3 Refills, Maintenance, 03/03/23 15:47:00 EST, Tablet, [facility]/pharmacy #[id number], Partial fill upon patient request if the prescription is for a schedule II opioid drug., 182, cm, 03/03/23 15:03:00 EST, Height, 7... Start Date: 03/03/23 Status: Ordered nortriptyline 25 mg oral capsule 25 mg, By Mouth, Daily at bedtime, # 30 capsule, Refills 2, Tot. Refills 2, Maintenance, 03/26/23 10:48:00 EST, Route to Pharmacy Electronically, [facility]/pharmacy #[id number], Partial fill upon patient requestif the [...] 11:49:00 EST, 03/14/23 11:49:00 EST, ER Tablet, [facility]/pharmacy #[id number], Partial fillupon patient [...] Confirmed Active Liver lesion Confirmed Active [place] (myocardial infarction) Confirmed Active [facility] Care Management Mikie Richardson [phone] Confirmed Active Peripheral arterial disease Confirmed Active [...] a day. Sex Cardiology * Event Display: Cardiovascular Result Scanned Authored Date: * Event Display: Cardiology Office Note, Non-BH Authored Date: * Event Display: Cardiovascular Result Scanned Authored Date: Cardiology Consult note * Event Display: Consult Note Cardiology Authored Date: * Event Display: Consult Note Cardiology Authored Date: Patient Care team information Care Team Personnel Name: El Beltran MD Position: [facility] Physician - Gastroenterology Member Role: Lifetime Consulting Physician Address: Address: [address] [place] [address], [facility] [address] [facility] [place] [address]- Name: Jossy Little NP Position: [facility] PCO Associate Professional Member Role: PCP Address: Address: [address] [place] [address]- Name: Jackie Holland RN Position: [facility] RN Member Role: Primary Care Nurse Name: Jennifer Galvan Position: [facility] RN Member Role: Primary Care Nurse Name: Gil Grijalva RN Position: [facility] RN Member Role: Primary Care Nurse Care Team Related Persons Name: EDDIE ROBERTOANNETTE Address: home [address] [place] [address] Name: MARCIN QUINTERO Address: [place] [address]
--- OUTSIDE RECORDS SUMMARY | 2023-12-17 17:07 | XMS_ITS | Continuity of Care Document ---
Author Organization [facility] Address [address] [place] [address]- Care Team Providers Care Brake Adjuster Name Role Phone Anabel LOWRY, Jossy Park Primary Care Physician [phone] Encounter [facility] Date(s): 06/27/21 - 08/10/21 [facility] [address] [place], [place] [address] Attending Physician: Dino LOWRY, [...] with 1.8 mL of 0.9% NaCl Lot #[id number] Exp. 08/2022. 2Admin Note: vis 04/23/11 Medications [...] tablet, 0 Refills, Maintenance, 06/27/21 9:46:00 EDT, [facility]/pharmacy #[id number], Partial fill upon patient request if [...] 0 Refills, Maintenance, 12/07/19 8:50:00 EDT, Tablet, [facility]/pharmacy #[id number], 178... Start Date: 12/07/19 Status: Ordered [...] with hypertriglyceridemia(Confirmed) Active Liver lesion(Confirmed) Active [place] (myocardial infarction)(Confirmed) Active N Care Management [facility] , Mikie Thibodeaux [phone](Confirmed) Active Peripheral arterial disease(Confirmed) Active Post traumatic [...]
--- OUTSIDE RECORDS SUMMARY | 2023-12-17 17:07 | XMS_ITS | Continuity of Care Document ---
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 08/2022. Medications aspirin 81 mg oral tablet 1 tablet = 81 mg, By Mouth, Daily, # 90 tablet, 3 Refills, Maintenance, 04/16/19 13:32:00 EST, Tablet, [id number], 178, cm, 04/16/19 13:02:00 EST, Height Start Date: 04/16/19 Status: Ordered atorvastatin 40 mg oral tablet 1 tablet = 40 mg, By Mouth, Daily, # 90 tablet, 3 Refills, Maintenance, 03/03/23 15:43:00 EST, [facility]/pharmacy #[id number], Partial fill upon patient request if the prescription is for a schedule II opioid drug., 182, cm, 03/03/23 15:03:00 EST, Height, 76, kg,... Start Date: 03/03/23 Stop Date: 07/01/23 Status: Ordered buPROPion 150 mg/24 hours (XL) oral tablet, extended release 1 tablet, By Mouth, Daily, # 30 tablet, 0 Refills, Maintenance, 04/03/23 9:26:00 EST, [id number], 30, TAKE 1 TABLET BY MOUTH EVERY [...] 09/18/23 9:28:00 EDT, Route to Pharmacy Electronically, [facility]/pharmacy #[id number], Partial fill upon patient request [...] Maintenance, 03/03/2315:51:00 EST, Route to Pharmacy Electronically, [facility]/pharmacy #[id number], Partial fill upon patient request if the prescription is for a schedule II opioid d... Start Date: 03/03/23 Status: Ordered lisinopril 40 mg oral tablet 1 tablet = 40 mg, By Mouth, Daily, # 90 each, 3 Refills, Maintenance, 03/03/23 15:47:00 EST, Tablet, [facility]/pharmacy #[id number], Partial fill upon patient request if the prescription is for a schedule II opioid drug., 182, cm, 03/03/23 15:03:00 EST, Height, 7... Start Date: 03/03/23 Status: Ordered metroNIDAZOLE 500 mg oral tablet 4 tablet = 2,000 mg, By Mouth, Once, # 4 tablet, 0 Refills, Soft Stop, 10/13/23 15:26:00 EDT, [facility]/pharmacy #[id number], Partial fill upon patient request if the prescription is for a schedule II opioid drug., 182, cm, 09/18/23 8:50:00 EDT, Height, 76, kg, 1... Start Date: 10/13/23 Status: Ordered nortriptyline 25 mg oral capsule 1, capsule, By Mouth, Daily at bedtime, # 30 capsule, Refills 5, Maintenance, 06/02/23 11:58:00 EST, Route to Pharmacy Electronically, [id number], 182, cm, 05/08/23 7:28:00 EST, Height, 76, kg, 02/15/23 6:04:00 EST, Dry Weight Start Date: 06/02/23 Status: Ordered spironolactone 25 mg oral tablet 1, tablet, By Mouth, Daily, # 90 tablet, Refills 3, Maintenance, 11/12/23 10:42:00 EDT, Route to Pharmacy Electronically, [id number], 182, cm, 11/10/23 14:00:00 EDT, Height, 76, [...] 3 Refills, Maintenance, 03/23/23 13:03:00 EST, Tablet, [facility]/pharmacy #[id number], Partial fill upon patient request [...] Active Old [place] (myocardial infarction) Confirmed Active *[id number]-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-Isabel Paniagua Confirmed Active Peripheral arterial disease Confirmed [...] Team Personnel Name: El Beltran MD Position: [facility] Physician - Gastroenterology Member Role: Lifetime Consulting Physician Address: Address: [address] [place] [address], [address] [facility] [place] [address]- Name: Jossy Little NP Position: [facility] PCO Associate Professional Member Role: PCP Address: Address: [address] [place] [phone]- [place] Name: Jackie Holland RN Position: S RN Member Role: Primary Care Nurse Name: Jennifer Blackburn RN Position: S RN Member Role: Primary Care Nurse Care Team Related Persons Name: JORJE ROBERTO Address: home [address] [place] [address] Name: MARCIN QUINTERO Address: [place] [address]
--- OUTSIDE RECORDS SUMMARY | 2023-12-17 17:07 | XMS_ITS | Continuity of Care Document ---
Author Organization [facility] Address [address] [place] [address]- Care Team Providers Care Manager Shipping Name Role Phone Anabel LOWRY, Jossy Park Primary Care Physician Encounter [facility] [id number] Date(s): 09/09/19 - 10/09/[address] [address]- [facility] Attending Physician: Ike Vyas Admitting Physician: Ike Vyas Referring Physician: AdmtrIke Allergies, Adverse Reactions, Alerts Substance Reaction Severity [...] 05/04/18 13:45:15 EST, Route to Pharmacy Electronically, [id number], [facility]/pharmacy #[id number] Start Date: 05/04/18 Status: Ordered DULoxetine [...] Start Date: 05/20/18 Status: Ordered NuLYTELY [place] oral powder for reconstitution 240 mL, By Mouth, Every 15 minutes, # 4,000 mL, 0 Refills, Maintenance, 09/22/18 14:59:27 EDT Start Date: 09/22/18 Status: Ordered QUEtiapine 200 mg oral tablet, extended release 200 mg, 1, tablet, By Mouth, Daily in PM, # 30 tablet, Refills 3, Tot. Refills 3, Maintenance, 05/20/18 16:26:44 EST, Route to Pharmacy Electronically, [id number], [id number] Start Date: 05/20/18 Status: Ordered [...] with hypertriglyceridemia(Confirmed) Active Liver lesion(Confirmed) Active Old [place] (myocardial infarction)(Confirmed) Active [facility], Care Coor dinator Chelsea Youssef [phone](Confirmed) Active Post traumatic stress disord er (PTSD)(Confirmed) [...]
--- OUTSIDE RECORDS SUMMARY | 2023-12-17 17:07 | XMS_ITS | Continuity of Care Document ---
Author Organization [facility] ter Address [address] [place] [address]- Care Team Providers Care Wood Gluer Name Role Phone Anabel LOWRY, Jossy Park Primary Care Physician [phone] [place] [facility] [place] 06/25/[place] - 06/27/[address] [email or web address] Encounter Diagnosis Abdominal pain, acute(Final) - 06/25/21 Discharge Disposition: A-D/C Home Attending Physician: Belinda OG, Reham Admitting Physician: Sarah Beth CANELA, Jaky Metz Referring Physician: Not on Staff, Referring MD [...] with 1.8 mL of 0.9% NaCl Lot #[id number] Exp. 08/2022. 2Admin Note: vis 04/23/11 Medications [...] tablet, 0 Refills, Maintenance, 06/27/21 9:46:00 EDT, [facility]/pharmacy #[id number], Partial fill upon patient request if the prescription is for a schedule II opioid drug., 177.8, cm, 06/27/21 7:59:00 EDT, Height, 68.2, k... Start Date: 06/27/21 Stop Date: 07/27/21 Status: Ordered buPROPion 100 mg/12 hours (SR) oral tablet, extended release See Instructions, START 1 TAB ONCE A DAY FOR 1 WEEK AND THEN INCREASE TO TWICE A DAY FOR SMOKING CESSATION, # 180 Unknown, 0 Refills, [id number], 178, cm, 05/10/21 11:08:00 EST, Height Start Date: 06/05/21 Status: Ordered carvedilol 25 mg oral tablet [...] EST, Compound Start Date: 05/20/18 Status: Ordered HYDROmorphone 2 mg oral tablet 2 mg, Tablet, By Mouth, Every 8 hours, PRN for Pain , Severe, Routine, 06/26/21 20:00:00 EDT Start Date: 06/26/21 Stop Date: 06/27/21 Status: Discontinued lisinopril 20 mg oral tablet 40 mg, Tablet, By Mouth, 06/27/21 9:00:00 EDT Start Date: 06/27/21 Stop Date: 06/27/21 Status: Completed lisinopril 20 mg oral tablet 40 mg, [...] 0 Refills, Maintenance, 12/07/19 8:50:00 EDT, Tablet, [facility]/pharmacy #[id number], 178... Start Date: 12/07/19 Status: Ordered pantoprazole 20 mg oral delayed release tablet = 20 mg, By Mouth, Daily, # 30 each, 0 Refills, Maintenance, 06/27/21 9:45:00 EDT, [facility] Tablet, 177.8, cm, 06/27/21 7:59:00 EDT, Height, 68.2, kg, 06/26/21 0:54:00 EDT, Dry Weight Start Date: 06/27/21 Stop Date: 07/27/21 Status: Ordered Problem List Condition Effective Dates Status Health Status Inform ant Anxiety and depression(Confirmed) Active Marijuana use(Confirmed) Active Cardiac pacemaker, Medtronic dual chamber pacemaker model E2DR0(Confirmed) 1 2005 Active CHB (complete heart block)(Confirmed) Active Essential hypertension(Confirmed) Active GERD (gastroesophageal reflu x disease)(Confirmed) Active History of substance abuse(C onfirmed) 2 Active Hypercholesterolemia with hypertriglyceridemia(Confirmed) Active Liver lesion(Confirmed) Active [place] (myocardial infarction)(Confirmed) Active [facility] Care Management [facility] , Mikie Thibodeaux [phone](Confirmed) Active Peripheral arterial disease(Confirmed) Active Post traumatic stress disord er (PTSD)(Confirmed) Active Spinal stenosis at L4-L5 level(Confirmed) Active Spinal stenosis at L4-L5 level(Confirmed) 3 Active Current tobacco use(Confirmed) Active 1History of cardiac pacemaker in situ from a complete heart block. Dual chamber electronic pacemaker[place] [address] Alvares. 2marijuana, cocaine, amphetamines, opiates and benzos. 3Dx 06/2017 Procedures Procedure Date Related Diagnosis Body Site Status Esophagogastroduodenoscopy and biopsy 06/26/21 Completed Results Radiology Reports * Exam Date Time Procedure Performing Provider Status 06/25/21 2:51 PM Chest 2 Views Frontal and Lat Ekenbarg er , Alejandra Peraza (Verified) Notes: (Chest 2 Views Frontal and Lat) Reason For Exam: Chest Pain;Other: RESULT: Chest 2 Views Frontal and Lat Chest 2 Views Frontal and Lat INDICATION: Chest and epigastric pain. COMPARISON: 07/02/2015. FINDINGS: LINES AND TUBES: Dual-lead left subclavian pacer/AICD wires are intact. LUNGS AND PLEURA: Large lung volumes. Otherwise, lungs are clear. No pleural effusion. No pneumothorax. HEART, MEDIASTINUM AND DONNIE: Heart is normal in size. Normal upper mediastinal and hilar contour. BONES AND SOFT TISSUES: Old fractures of the lateral right 9th and 10th ribs. IMPRESSION: No acute abnormality. I have personally reviewed the images and I agree with this report. WSN: [id number] Ordering Physician: Majo Mcclellan Dictated By: Keenan Gentile MD Dictated Date/Time: 06/25/21 3:00 pm Reviewed By: Dany Middleton MD, V Signed By: Dany Middleton MD, V Signed Date/Time: 06/25/21 3:05 pm Transcribed By: ELIZABETH Transcribed Date/Time: 06/25/21 2:58 pm Vital Signs Most recent to oldest [Reference Range]: 1 2 3 Height 177.8 cm (06/27/21 7:59 AM) 177.8 cm (06/27/21 4:20 AM) 177.8 cm (06/26/21 8:31 PM) Weight 71.9 kg (06/26/21 8:19 AM) 71.9 kg (06/25/21 11:12 PM) 71.9 kg (06/25/21 11:00 PM) Oxygen Saturation [94-100 %] 97 % (06/27/21 7:59 AM) 98 % (06/27/21 4:20 AM) 98 % (06/27/21 1:00 AM) Pulse Rate [55-90 bpm] 48 bpm *L* (06/27/21 7:59 AM) 50 bpm *L* (06/27/21 4:20 AM) 59 bpm (06/27/21 1:00 AM) Body Mass Index [18.5-24.99] 22.74 (06/26/21 8:19 AM) 22.74 (06/25/21 11:12 PM) Blood Pressure [90-138/55-84 mm Hg] 138/70mm Hg (06/27/21 8:35 AM) 137/51mm Hg (06/27/21 7:59 AM) 137/68mm Hg (06/27/21 4:20 AM) Respiratory Rate [16-30 br/min] 18 br/min (06/27/21 9:42 AM) 18 br/min (06/27/21 8:42 AM) 18 br/min (06/27/21 7:59 AM) Temperature [96.8-100.4 DegF] 99.7 DegF (06/27/21 7:59 AM) 98.8 DegF (06/27/21 4:20 AM) 98.2 DegF (06/27/21 1:00 AM) Liters per Minute 2 L/min (06/26/21 9:16 AM) Mode of Delivery (Oxygen) Room air (06/27/21 7:59 AM) Room air (06/27/21 4:20 AM) Room air (06/27/21 1:00 AM) Blood pressure sites Arm, left (06/27/21 7:59 AM) Leg, left (06/27/21 4:20 AM) Arm, left (06/27/21 1:00 AM) Temperature Route Oral (06/27/21 7:59 AM) Oral (06/27/21 4:20 AM) Oral (06/27/21 1:00 AM) Dry Weight 68.2 kg (06/25/21 11:12 PM) Weight Obtained Via Bed scale (06/25/21 11:12 PM) Bed scale (06/25/21 11:00 PM) Social History Social History Type Response Tobacco Use: Patient smokes 5 cig. a day. Sex
--- OUTSIDE RECORDS SUMMARY | 2023-12-17 17:07 | XMS_ITS | Continuity of Care Document ---
Author Organization [facility] Address [address] [place] [address]- Care Team Providers Care Flight Attendant Inflight Services Name Role Phone Anabel LOWRY, Jossy Pakr Primary Care Physician Encounter [facility] [place] Date(s): 04/16/23 - 05/16/[address] [address] Attending Physician: Ike Vyas Admitting Physician: AdmtrIke [...] with 1.8 mL of 0.9% NaCl Lot #[id number] Exp. 08/2022. Medications aspirin 81 mg oral tablet 1 tablet = 81 mg, By Mouth, Daily, # 90 tablet, 3 Refills, Maintenance, 04/16/19 13:32:00 EST, Tablet, [id number], 178, cm, 04/16/19 13:02:00 EST, Height Start Date: 04/16/19 Status: Ordered atorvastatin 40 mg oral tablet 1 tablet = 40 mg, By Mouth, Daily, # 90 tablet, 3 Refills, Maintenance, 03/03/23 15:43:00 EST, [facility]/pharmacy #[id number], Partial fill upon patient request if the prescription is for a schedule II opioid drug., 182, cm, 03/03/23 15:03:00 EST, Height, 76, kg,... Start Date: 03/03/23 Stop Date: 07/01/23 Status: Ordered buPROPion 150 mg/24 hours (XL) oral tablet, extended release 1 tablet, By Mouth, Daily, # 30 tablet, 0 Refills, Maintenance, 04/03/23 9:26:00 EST, [facility], 30, TAKE 1 TABLET BY MOUTH EVERY DAY, 182, cm, 03/14/23 11:20:00 EST, Height, 76, kg, 02/15/23 6:04:00 EST, Dry Weight Start Date: 04/03/23 Status: Ordered dapagliflozin 10 mg oral tablet = 10 mg, By Mouth, Daily, # 30 tablet, 3 Refills, Maintenance, 04/04/23 8:51:00 EST, Tablet, [facility]/pharmacy #[id number], Partial fill upon patient request if the prescription is for a schedule II opioid drug., 182, cm, 03/14/23 11:20:00 EST, Height, 76, kg, 1... Start Date: 04/04/23 Stop Date: 08/02/23 Status: Ordered finasteride 5 mg oral tablet 1 tablet = 5 mg, By Mouth, Daily, # 90 tablet, 3 Refills, Maintenance, 03/03/23 15:52:00 EST, Tablet, [facility]/pharmacy #[id number], Partial fill upon patient request if the prescription is for a schedule II opioid drug., 182, cm, 03/03/23 15:03:00 EST, Height,... Start Date: 03/03/23 Status: Ordered Flomax 0.4 mg oral capsule 0.4 mg, 1, capsule, By Mouth, Daily, # 90 capsule, Refills 3, Tot. Refills 3, Maintenance, 03/03/2315:51:00 EST, Route to Pharmacy Electronically, [facility]/pharmacy #[id number], Partial fill upon patient request if the prescription is for a schedule II opioid d... Start Date: 03/03/23 Status: Ordered Jardiance 10 mg oral tablet 1 tablet = 10 mg, By Mouth, Daily in AM, # 30 tablet, 3 Refills, Maintenance, 05/16/23 14:28:00 EST, Tablet, [facility]/pharmacy #[id number], Partial fill upon patient request if [...] dual chamber pacemaker model E2DR0 1 Confirmed 2006 Active CHB (complete heart block) Confirmed Active Essential hypertension Confirmed Active GERD (gastroesophageal reflux disease) Confirmed Active History of substance abuse 2 Confirmed Active Hypercholesterolemia with hypertriglyceridemia Confirmed Active Liver lesion Confirmed Active [place] (myocardial infarction) Confirmed Active [facility] Care Management [facility], Mikie Thibodeaux [phone] Confirmed Active Peripheral arterial disease Confirmed Active [...] Team Personnel Name: El Beltran MD Position: [facility] Physician - Gastroenterology Member Role: Lifetime Consulting Physician Address: Address: [address] [place] [address], [address] [facility] [place] [address]- Name: Jossy Little NP Position: [facility] PCO Associate Professional Member Role: PCP Address: Address: [address] [place] [id number] Name: Jackie Holland RN Position: [facility] RN Member Role: Primary Care Nurse Name: Jennifer Galvan Position: [facility] RN Member Role: Primary Care Nurse Name: Gil Grijalva RN Position: [facility] RN Member Role: Primary Care Nurse Care Team Related Persons Name: JORJE ROBERTO Address: home [address] [place] [address] Name: MARCIN QUINTERO Address: [place] [address]
--- OUTSIDE RECORDS SUMMARY | 2023-12-17 17:07 | XMS_ITS | Continuity of Care Document ---
Author Organization [facility] Address [address] [place] [address]- Care Team Providers Care Project Manager Entertainment And Media Name Role Phone Anabel LOWRY, Jossy Park Primary Care Physician Encounter [facility] [place] Date(s): 11/10/23 - 12/14/23 [facility] [address], [place] [address] Attending Physician: Mimi Martinez NP Admitting Physician: Mimi Martinez NP Referring Physician: Mimi Martinez NP Allergies, Adverse Reactions, Alerts No Known [...] with 1.8 mL of 0.9% NaCl Lot #[id number] Exp. 08/2022. Medications aspirin 81 mg oral tablet 1 tablet = 81 mg, By Mouth, Daily, # 90 tablet, 3 Refills, Maintenance, 04/16/19 13:32:00 EST, Tablet, [facility]/pharmacy #[id number], 178, cm, 04/16/19 13:02:00 EST, Height Start Date: 04/16/19 Status: Ordered atorvastatin 40 mg oral tablet 1 tablet = 40 mg, By Mouth, Daily, # 90 tablet, 3 Refills, Maintenance, 03/03/23 15:43:00 EST, [facility]/pharmacy #[id number], Partial fill upon patient request if the prescription is for a schedule II opioid drug., 182, cm, 03/03/23 15:03:00 EST, Height, 76, kg,... Start Date: 03/03/23 Stop Date: 07/01/23 Status: Ordered buPROPion 150 mg/24 hours (XL) oral tablet, extended release 1 tablet, By Mouth, Daily, # 30 tablet, 0 Refills, Maintenance, 04/03/23 9:26:00 EST, [facility] STORE [id number], 30, TAKE 1 TABLET BY MOUTH EVERY [...] 09/18/23 9:28:00 EDT, Route to Pharmacy Electronically, [facility]/pharmacy #[id number], Partial fill upon patient request i... Start Date: 09/18/23 Status: Ordered Farxiga 10 mg oral tablet 1 tablet, By Mouth, Daily, # 90 tablet, 3 Refills, Maintenance, 11/04/23 9:07:00 EDT, [facility]/pharmacy #[id number], 182, cm, 09/18/23 8:50:00 EDT, Height, 76, kg, 02/15/23 6:04:00 EST, Dry Weight Start Date: 11/04/23 Status: Ordered finasteride 5 mg oral tablet 1 tablet = 5 mg, By Mouth, Daily, # 90 tablet, 3 Refills, Maintenance, 03/03/23 15:52:00 EST, Tablet, [facility]/pharmacy #[id number], Partial fill upon patient request if the prescription is for a schedule II opioid drug., 182, cm, 03/03/23 15:03:00 EST, Height,... Start Date: 03/03/23 Status: Ordered Flomax 0.4 mg oral capsule 0.4 mg, 1, capsule, By Mouth, Daily, # 90 capsule, Refills 3, Tot. Refills 3, Maintenance, 03/03/2315:51:00 EST, Route to Pharmacy Electronically, [facility]/pharmacy #[id number], Partial fill upon patient request if the prescription is for a schedule II opioid d... Start Date: 03/03/23 Status: Ordered lisinopril 40 mg oral tablet 1 tablet = 40 mg, By Mouth, Daily, # 90 each, 3 Refills, Maintenance, 03/03/23 15:47:00 EST, Tablet, [facility]/pharmacy #[id number], Partial fill upon patient request if the prescription is for a schedule II opioid drug., 182, cm, 03/03/23 15:03:00 EST, Height, 7... Start Date: 03/03/23 Status: Ordered metroNIDAZOLE 500 mg oral tablet 4 tablet = 2,000 mg, By Mouth, Once, # 4 tablet, 0 Refills, Soft Stop, 10/13/23 15:26:00 EDT, [facility]/pharmacy #[id number], Partial fill upon patient request if the prescription is for a schedule II opioid drug., 182, cm, 09/18/23 8:50:00 EDT, Height, 76, kg, 1... Start Date: 10/13/23 Status: Ordered nortriptyline 25 mg oral capsule 1, capsule, By Mouth, Daily at bedtime, # 30 capsule, Refills 5, Maintenance, 06/02/23 11:58:00 EST, Route to Pharmacy Electronically, [facility] STORE [id number], 182, cm, 05/08/23 7:28:00 EST, Height, 76, kg, 02/15/23 6:04:00 EST, Dry Weight Start Date: 06/02/23 Status: Ordered spironolactone 25 mg oral tablet 1, tablet, By Mouth, Daily, # 90 tablet, Refills 3, Maintenance, 11/12/23 10:42:00 EDT, Route to Pharmacy Electronically, [id number], 182, cm, 11/10/23 14:00:00 EDT, Height, 76, [...] 3 Refills, Maintenance, 03/23/23 13:03:00 EST, Tablet, 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 a day. Sex US.doppler Carotid arteries - bilateral * Event Display: VL Carotid Duplex Scan Bilat Authored Date: [id number] Demographics Procedure Information Patient name: QUINTERO MARCIN Procedure date: 11/24/2023 1:26 PM Corporate Proc. sub type: Cerebral: Carotid, Carotid Duplex Scan Bilateral. Gender: Male Accession No: [id number] Date of : 1955 Account No: [id number] Age: 68 year(s) Patient status: Routine Admit Status: Outpatient Procedure Staff Probe: L 2-9 Attending Physician: Mimi Martinez NP Technical quality: Adequate visualization Ordering physician: Mimi Martinez NP Facility: [facility] 350 Referring Physician: Mimi Martinez NP Study location: [facility] Vascular Lab Bio Medical Technician: Samuel Mchugh Interpreting physician: Simon Ng MD Procedure consent obtained: Yes Indications Carotid Stenosis. Carotid Procedure Findings Right Left Location PSV (cm/s) EDV (cm/s) Plaque Characteristics PSV (cm/s) EDV (cm/s) Plaque Characteristics Prox CCA 103.5 23.2 128.7 34.7 Dist CCA 120.8 33.2 Heterogeneous 102.3 29.3 Bulb 80.7 22.7 Heterogeneous 84.2 29 Heterogeneous Prox ICA 101.4 29.8 123.9 39.4 Heterogeneous Mid ICA 88.2 32.9 120.3 46.6 Dist ICA 153.7 57.6 125.7 55.6 Prox ECA 36.2 0 76.6 4.4 Vertebral 71.3 27.4 60.3 23 Prox Subclavian 150.7 19.5 169 0 Right ICA/CCA ratio: 1.27 Left ICA/CCA ratio: 1.23 Carotid Plaque Details Left ICA/CCA ratio: 1.23 Right ICA/CCA ratio: 1.27 Study Comments REFERENCE Normal: Internal Carotid Artery (ICA) velocity is less than 180 cm/second with no visible plaque. ICA velocity less than 180 cm/second with some visible plaque indicates 1-49% stenosis. ICA velocity between 180-230 cm/second with visible plaque indicates 50-69% stenosis. ICA velocity greater than 230 cm/second with visible plaque indicates 70-99% stenosis. Total Occlusion is indicated by no detectable flow. Physician Conclusions Summary: Right Side: 1-49% stenosis in the Internal Carotid Artery. Antegrade flow in the Vertebral Artery. Multiphasic flow is seen in the Subclavian Artery. Left Side: 1-49% stenosis in the Internal Carotid Artery. Antegrade flow in the Vertebral Artery. Multiphasic flow is seen in the Subclavian Artery. No prior study is available for comparison. * Event Display: VL Carotid Duplex Scan Bilat Authored Date: [id number] Cardiology * Event Display: VL Lower Arterial PVR Without Exercise Authored Date: [id number] Demographics Procedure Information Patient name: INGRID BURCH Procedure date: 11/24/2023 1:51 PM Corporate Proc. sub type: Extremities Arteries: Lower Arterial Plethysmography, Lower Arterial PVR Gender: Male without Exercise. Date of : 1955 Accession No: [id number] Age: 68 year(s) Account No: [id number] Admit Status: Outpatient Procedure Staff Facility: [place] [address] Attending Physician: Mimi Martinez NP Study location: [facility] Ordering physician: Mimi Martinez NP Procedure consent obtained: Referring Physician: Mimi Martinez NP Yes Bio Medical Technician: Samuel Mchugh Interpreting physician: Simon Ng MD Indications PVD/Peripheral Vascular Disease. Lower Extremity Findings Right Left Location Pressure (mmHg) Ratio Pressure (mmHg) Ratio Brachial 100 103 Upper Thigh 124 1.2 130 1.26 Lower Thigh 113 1.1 119 1.16 Calf 64 0.62 100 0.97 CHIEF CONTROLLER 59 0.57 99 0.96 DPA 59 0.57 47 0.46 Right JAISON: 0.57 Left JAISON: 0.96 Physician Conclusions Summary: Right side: The Ankle / Brachial Index is 0.57. Left side: The Ankle / Brachial Index is 0.96. Comparison is made with the previous exam of 02/26/2023 . Snapshots * Event Display: VL Lower Arterial PVR Without Exercise Authored Date: [id number] * Event Display: VL Upper Arterial PVR Without Maneuvers Authored Date: [id number] Demographics Procedure Information Patient name: INGRID BURCH Procedure date: 11/24/2023 1:22 PM Corporate Proc. sub type: Extremities Arteries: Upper Extremities PVR, Upper Arterial PVR Gender: Male without Exercise. Date of : 1955 Accession No: [id number] Age: 68 year(s) Account No: [id number] Patient status: Routine Procedure Staff Admit Status: Outpatient Attending Physician: Mimi Martinez NP Facility: [facility] 350 Ordering physician: Mimi Martinez NP Study location: [address] Vascular Lab Referring Physician: Mimi Martinez NP Procedure consent obtained: Bio Medical Technician: Samuel Grijalva Interpreting physician: Simon Ng MD Indications Pain in limb. UE Pressures Right Left Pressure Pressure Location (mmHg) Ratio Wave Description (mmHg) Ratio Wave Description Brachial 97 101 Prox Radial 97 0.96 94 0.93 Radial 105 1.04 105 1.04 Ulnar 109 1.08 110 1.09 Right WBI: 1.08 Left WBI: 1.09 Physician Conclusions Summary: The Wrist / Brachial Index on the right is 1.08 . The Wrist / Brachial Index on the left is 1.09 . No prior study is available for comparison. Snapshots * Event Display: VL Upper Arterial PVR Without Maneuvers Authored Date: Patient Care team information Care Team Personnel Name: El Beltran MD Position: [facility] Physician - Gastroenterology Member Role: Lifetime Consulting Physician Address: Address: [address] [place] [address], [facility] [address] [place] [address]- Name: Jossy Little NP Position: [facility] PCO Associate Professional Member Role: PCP Address: Address: [address] [place] [address]- Name: Jackie Holland RN Position: [facility] RN Member Role: Primary Care Nurse Name: Jennifer Blackburn RN Position: [facility] RN Member Role: Primary Care Nurse Care Team Related Persons Name: JORJE ROBERTO Address: home [address] [place] [address] Name: MARCIN QUINTERO Address: [place] [address]
--- OUTSIDE RECORDS SUMMARY | 2023-12-17 17:07 | XMS_ITS | Continuity of Care Document ---
Author Organization [facility] Address [address] [place] [address]- Care Team Providers Care Intensive Care Specialist Name Role Phone Anabel LOWRY, Jossy Park Primary Care Physician [phone] Encounter [facility] [place] Date(s): 02/25/23 - 03/27/[address] [address] Allergies, Adverse Reactions, Alerts No Known [...] with 1.8 mL of 0.9% NaCl Lot #[id number] Exp. 08/2022. Medications aspirin 81 mg oral [...] Maintenance, 03/03/2315:51:00 EST, [id number], Partial fill upon patient request if the prescription is for a schedule II opioid d... Start Date: 03/03/23 Status: Ordered lisinopril 40 mg oral tablet 1 tablet = 40 mg, By Mouth, Daily, # 90 each, 3 Refills, Maintenance, 03/03/23 15:47:00 EST, Tablet, [facility]/pharmacy #[id number], Partial fill upon patient request [...] 11:49:00 EST, 03/14/23 11:49:00 EST, ER Tablet, [id number], Partial fillupon patient request if the [...] Confirmed Active Liver lesion Confirmed Active [place] (myocardial infarction) Confirmed Active [facility] Care Management Mikie Richardson [phone] Confirmed Active Peripheral arterial disease Confirmed Active [...] Team Personnel Name: El Beltran MD Position: [facility] Physician - Gastroenterology Member Role: Lifetime Consulting Physician Address: Address: [address] [place] [address], [facility] [address] [facility] [place] [address]- Name: Jossy Little NP Position: [facility] PCO Associate Professional Member Role: PCP Address: Address: [address] [place] [address]- Name: Jackie Holland RN Position: [facility] RN Member Role: Primary Care Nurse Name: Jennifer Galvan Position: [facility] RN Member Role: Primary Care Nurse Name: Gil Grijalva RN Position: [facility] RN Member Role: Primary Care Nurse Care Team Related Persons Name: BROOKLYN ROBERTOETTE Address: home [address] [address] Name: MARCIN QUINTERO Address: [place] [address]
--- OUTSIDE RECORDS SUMMARY | 2023-12-17 17:07 | XMS_ITS | Continuity of Care Document ---
Author Organization [facility] Address [address] [place] [address]- Care Team Providers Care Tobacco Packing Machine Operator Name Role Phone Anabel LOWRY, Jossy Park Primary Care Physician [phone] Encounter [facility] Date(s): 10/05/22 - 11/04/22 [facility] [address] [place], [place] [address] Allergies, Adverse Reactions, Alerts No [...] with 1.8 mL of 0.9% NaCl Lot #[id number] Exp. 08/2022. 2Admin Note: vis 04/23/11 Medications aspirin 81 mg oral tablet 1 tablet = 81 mg, By Mouth, Daily, # 90 tablet, 3 Refills, Maintenance, 04/16/19 13:32:00 EST, Tablet, [facility]/pharmacy #[id number], 178, cm, 04/16/19 13:02:00 EST, Height Start Date: 04/16/19 Status: Ordered atorvastatin 40 mg oral tablet 1 tablet = 40 mg, By Mouth, Daily, # 30 tablet, 0 Refills, Maintenance, 06/27/21 9:46:00 EDT, [facility]/pharmacy #[id number], Partial fill upon patient request if [...] 0 Refills, Soft Stop, 09/24/22 11:07:00 EDT, Tablet,[facility]/pharmacy #[id number], Partial fill upon patient request if [...] 0 Refills, Maintenance, 12/07/19 8:50:00 EDT, Tablet, [facility]/pharmacy #4471, 178... Start Date: 12/07/19 Status: Ordered [...] Confirmed Active Liver lesion Confirmed Active Old [place] (myocardial infarction) Confirmed Active N Care Management [facility], Mikie Thibodeaux [phone] Confirmed Active Peripheral arterial disease Confirmed Active [...] Team Personnel Name: El Beltran MD Position: [facility] Physician - Gastroenterology Member Role: Lifetime Consulting Physician Address: Address: [address] [place] [address], [address] [facility] [place] [address]- Name: Jossy Little NP Position: [facility] PCO Associate Professional Member Role: PCP Address: Address: [address] [place] [address]- Care Team Related Persons Name: JORJE ROBERTO Address: home [address] [address] Name: MARCIN QUINTERO Address: [place] [address]
--- OUTSIDE RECORDS SUMMARY | 2023-12-17 17:07 | XMS_ITS | Continuity of Care Document ---
Author Organization [facility] Address [address] [place] [address]- Care Team Providers Care Weight Guesser Name Role Phone Anabel LOWRY, Jossy Park Primary Care Physician [place] [facility] [place] - 05/10/[address] [address] Attending Physician: Jossy Little NP Admitting Physician: Jossy Little NP Referring Physician: Jossy Little NP Allergies, Adverse [...] with 1.8 mL of 0.9% NaCl Lot #[id number] Exp. 08/2022. 2Admin Note: vis 04/23/11 Medications [...] Refills, Maintenance, 12/07/19 8:50:00 EDT, Tablet, [facility]/pharmacy #[id number], 178... Start Date: 12/07/19 Status: [...] (myocardial infarction) Confirmed Active N Care Management [facility], Mikie Thibodeaux [phone] Confirmed Active Peripheral arterial disease Confirmed Active [...] Team Personnel Name: El Beltran MD Position: [facility] GI MD Member Role: Lifetime Consulting Physician Address: Address: [address] [place] [address], [address] [facility] [place] [address]- Name: Jossy Little NP Position: [facility] PCO Associate Professional Member Role: PCP Address: Address: [address] [place] [address]- Care Team Related Persons Name: JORJE ROBERTO Address: home [address] [place] [address] Name: MARCIN QUINTERO Address: [place] [address]
--- OUTSIDE RECORDS SUMMARY | 2023-12-17 17:07 | XMS_ITS | Continuity of Care Document ---
Author Organization [facility] Address [address], [address], [address] [place] [address]- Care Team Providers Care Membership Coordinator Name Role Phone Anabel LOWRY, Jossy Park Primary Care Physician [place] [facility] [place] [facility] [address], [address] [place] [address] Attending Physician: Ike Vyas Admitting Physician: AdmtrIke Referring Physician: Admtr, Ike Allergies, Adverse Reactions, Alerts No Known Allergies [...] with 1.8 mL of 0.9% NaCl Lot #[id number] Exp. 08/2022. Medications aspirin 81 mg oral tablet 1 tablet = 81 mg, By Mouth, Daily, # 90 tablet, 3 Refills, Maintenance, 04/16/19 13:32:00 EST, [facility]t, [id number], 178, cm, 04/16/19 13:02:00 EST, Height Start Date: 04/16/19 Status: Ordered atorvastatin 40 mg oral tablet 1 tablet = 40 mg, By Mouth, Daily, # 90 tablet, 3 Refills, Maintenance, 03/03/23 15:43:00 EST, [facility]/pharmacy #[id number], Partial fill upon patient request if the prescription is for a schedule II opioid drug., 182, cm, 03/03/23 15:03:00 EST, Height, 76, kg,... Start Date: 03/03/23 Stop Date: 07/01/23 Status: Ordered buPROPion 150 mg/24 hours (XL) oral tablet, extended release 1 tablet, By Mouth, Daily, # 30 tablet, 0 Refills, Maintenance, 04/03/23 9:26:00 EST, [facility] STORE 07513, 30, TAKE 1 TABLET BY MOUTH EVERY DAY, 182, cm, 03/14/23 11:20:00 EST, Height, 76, kg, 02/15/23 6:04:00 EST, Dry Weight Start Date: 04/03/23 Status: Ordered dapagliflozin 10 mg oral tablet = 10 mg, By Mouth, Daily, # 30 tablet, 3 Refills, Maintenance, 04/04/23 8:51:00 EST, Tablet, [facility]/pharmacy #[id number], Partial fill upon patient request if the prescription is for a schedule II opioid drug., 182, cm, 03/14/23 11:20:00 EST, Height, 76, kg, 1... Start Date: 04/04/23 Stop Date: 08/02/23 Status: Ordered finasteride 5 mg oral tablet 1 tablet = 5 mg, By Mouth, Daily, # 90 tablet, 3 Refills, Maintenance, 03/03/23 15:52:00 EST, Tablet, [facility]/pharmacy #[id number], Partial fill upon patient request if the prescription is for a schedule II opioid drug., 182, cm, 03/03/23 15:03:00 EST, Height,... Start Date: 03/03/23 Status: Ordered Flomax 0.4 mg oral capsule 0.4 mg, 1, capsule, By Mouth, Daily, # 90 capsule, Refills 3, Tot. Refills 3, Maintenance, 03/03/2315:51:00 EST, Route to Pharmacy Electronically, [facility]/pharmacy #[id number], Partial fill upon patient [...] Active [place] (myocardial infarction) Confirmed Active [facility] Care Management Mikie Richardson [phone] Confirmed Active Peripheral arterial disease Confirmed Active [...] Team Personnel Name: El Beltran MD Position: [facility] Physician - Gastroenterology Member Role: Lifetime Consulting Physician Address: Address: [address] [place] [address], [address] [facility] [place] [address]- Name: Jossy Little NP Position: [facility] PCO Associate Professional Member Role: PCP Address: Address: [address] [place] [address]- Name: Jackie Holland RN Position: [facility] RN Member Role: Primary Care Nurse Name: Jennifer Galvan Position: [facility] RN Member Role: Primary Care Nurse Name: Gil Grijalva RN Position: [facility] RN Member Role: Primary Care Nurse Care Team Related Persons Name: PARDEEP JORJE Address: home [address] [place] [address] Name: MARCIN QUINTERO Address: [place] [address]
--- OUTSIDE RECORDS SUMMARY | 2023-12-17 17:07 | XMS_ITS | Continuity of Care Document ---
Author Organization [facility] Address [address] [place] [address]- Care Team Providers Care Principal Scientist Name Role Phone Anabel LOWRY, Jossy Park Primary Care Physician [phone] Encounter [id number] Date(s): 04/20/19 - 04/30/[address] [address]- [facility] Attending Physician: Ike Vyas Admitting Physician: AdmtrIke Referring Physician: AdmtrIke Allergies, Adverse Reactions, Alerts [...] 3 Refills, Maintenance, 04/16/19 13:32:00 EST, Tablet, [facility]/pharmacy #[id number], 178, cm, 04/16/19 13:02:00 [...] 05/04/18 13:45:15 EST, Route to Pharmacy Electronically, [id number], [facility]/pharmacy #[id number] Start Date: 05/04/18 Status: Ordered [...] Start Date: 05/20/18 Status: Ordered NuLYTELY Lemon [place] oral powder for reconstitution 240 mL, By Mouth, Every 15 minutes, # 4,000 mL, 0 Refills, Maintenance, 09/22/18 14:59:27 EDT Start Date: 09/22/18 Status: Ordered QUEtiapine 200 mg oral tablet, extended release 200 mg, 1, tablet, By Mouth, Daily in PM, # 30 tablet, Refills 3, Tot. Refills 3, Maintenance, 05/20/18 16:26:44 EST, Route to Pharmacy Electronically, [id number], [id number] Start Date: 05/20/18 Status: Ordered [...] with hypertriglyceridemia(Confirmed) Active Liver lesion(Confirmed) Active [place] (myocardial infarction)(Confirmed) Active [facility], [facility], Care Coor dinator Chelsea Youssef [phone](Confirmed) Active Post traumatic stress disord er (PTSD)(Confirmed) [...]
--- OUTSIDE RECORDS SUMMARY | 2023-12-17 17:07 | XMS_ITS | Continuity of Care Document ---
Author Organization [facility] Address [address] [place] [address]- Care Team Providers Care Spinning Operator Name Role Phone Anabel LOWRY, Jossy Park Primary Care Physician [phone] [facility] [place] Date(s): 04/09/23 - 05/09/23 [facility] [address] [place], [place] [address] Attending Physician: AdmIke castellon Admitting Physician: AdmtrIke Referring Physician: AdmtrIke Allergies, [...] with 1.8 mL of 0.9% NaCl Lot #[id number] Exp. 08/2022. Medications aspirin 81 mg oral [...] Refills, Maintenance, 04/03/23 9:26:00 EST, [id number], 30, TAKE 1 TABLET BY MOUTH EVERY DAY, 182, cm, 03/14/23 11:20:00 EST, Height, 76, kg, 02/15/23 6:04:00 EST, Dry Weight Start Date: 04/03/23 Status: Ordered dapagliflozin 10 mg oral tablet = 10 mg, By Mouth, Daily, # 30 tablet, 3 Refills, Maintenance, 04/04/23 8:51:00 EST, Tablet, [facility]/pharmacy #[id number], Partial fill upon patient request if the prescription is for a schedule II opioid drug., 182, cm, 03/14/23 11:20:00 EST, Height, 76, kg, 1... Start Date: 04/04/23 Stop Date: 08/02/23 Status: Ordered finasteride 5 mg oral tablet 1 tablet = 5 mg, By Mouth, Daily, # 90 tablet, 3 Refills, Maintenance, 03/03/23 15:52:00 EST, Tablet, [facility]/pharmacy #[id number], Partial fill upon patient request if the prescription is for a schedule II opioid drug., 182, cm, 03/03/23 15:03:00 EST, Height,... Start Date: 03/03/23 Status: Ordered Flomax 0.4 mg oral capsule 0.4 mg, 1, capsule, By Mouth, Daily, # 90 capsule, Refills 3, Tot. Refills 3, Maintenance, 03/03/2315:51:00 EST, Route to Pharmacy Electronically, [facility]/pharmacy #[id number], Partial fill upon patient [...] Confirmed Active Liver lesion Confirmed Active [place] (myocardial infarction) Confirmed Active [facility] Care Management Mikie Richardson [phone] Confirmed Active Peripheral arterial disease Confirmed Active [...] Team Personnel Name: El Beltran MD Position: [facility] Physician - Gastroenterology Member Role: Lifetime Consulting Physician Address: Address: [address] [place] [address], [address] [facility] [place] [address]- Name: Jossy Little NP Position: [facility] PCO Associate Professional Member Role: PCP Address: Address: [address] [place] [address]- Name: Jackie Holland RN Position: [facility] RN Member Role: Primary Care Nurse Name: Jennifer Galvan Position: S RN Member Role: Primary Care Nurse Name: Gil Grijalva RN Position: [facility] RN Member Role: Primary Care Nurse Care Team Related Persons Name: JONESJORJE Address: home [address] [place] [address] Name: MARCIN QUINTERO Address: [place] [address]
--- OUTSIDE RECORDS SUMMARY | 2023-12-17 17:07 | XMS_ITS | Continuity of Care Document ---
Author Organization [facility] ter Address [address] [place] [address]- Care Team Providers Care Money Market Dealer Name Role Phone Anabel LOWRY, Jossy Park Primary Care Physician Encounter [facility] [place] [place] Date(s): 04/05/19 - 04/05/[address] [address]- [facility] Attending Physician: Magali Kruse MD Allergies, Adverse Reactions, Alerts Substance Reaction Severity Status NKA Active Immunizations Given and Recorded Vaccine Date Status Refusal Reason tetanus/diphtheria/pertussis, acel(Tdap) 1 11/20/12 Given pneumococcal 23-valent vaccine 01/07/12 Given influenza virus vaccine, inactivated 01/07/12 Give n 1Admin Note: vis 04/23/11 Medications aspirin 81 mg oral tablet 1 tablet = 81 mg, By Mouth, Daily, # 90 tablet, 3 Refills, Maintenance, 09/16/18 15:45:32 EDT, Tablet Start Date: 09/16/18 Status: Ordered atorvastatin 20 mg oral tablet [...] 05/04/18 13:45:15 EST, Route to Pharmacy Electronically, [id number], [facility]/pharmacy #[id number] Start Date: 05/04/18 Status: Ordered DULoxetine [...] EST, Tablet Start Date: 05/20/18 Status: Ordered nicotine 14 mg/24 hr transdermal film, extended release 1 patch, Topically, Daily, for 42 days, Use these first, # 42 patch, 0 Refills, Acute 04/16/19 16:27:48 EST, 03/05/19 16:27:48 EST, 1 patch Topically Daily,x42 days,Instr:Use these first, 178, cm, 03/05/19 16:04:07 EST, Height Start Date: 03/05/19 Stop Date: 04/16/19 Status: Ordered NuLYTELY Lemon [facility] oral powder for reconstitution 240 mL, By Mouth, Every 15 minutes, # 4,000 mL, 0 Refills, Maintenance, 09/22/18 14:59:27 EDT Start Date: 09/22/18 Status: Ordered QUEtiapine 200 mg oral tablet, extended release 200 mg, 1, tablet, By Mouth, Daily in PM, # 30 tablet, Refills 3, Tot. Refills 3, Maintenance, 05/20/18 16:26:44 EST, Route to Pharmacy Electronically, [id number], [facility]/pharmacy #[id number] Start Date: 05/20/18 Status: Ordered Problem List Condition Effective Dates Status Health Status Inform ant Anxiety and depression(Confirmed) Active Marijuana use(Confirmed) Active Cardiac pacemaker, Medtronic dual chamber pacemaker model E2DR0(Confirmed) 1 2005 Active CHB (complete heart block)(Confirmed) Active Essential hypertension(Confirmed) Active GERD (gastroesophageal reflu x disease)(Confirmed) Active History of substance abuse(C onfirmed) 2 Active HLD (hyperlipidemia)(Confirmed) Active Hypercholesterolemia with hypertriglyceridemia(Confirmed) Active Liver lesion(Confirmed) Active Nausea(Confirmed) Active [place] (myocardial infarction)(Confirmed) Active [facility], [facility], Care Coor dinator Chelsea Youssef [phone](Confirmed) Active Post traumatic stress disord er (PTSD)(Confirmed) Active Screening colonoscopy(Confirmed) Active Spinal stenosis at L4-L5 level(Confirmed) Active [...]
--- OUTSIDE RECORDS SUMMARY | 2023-12-17 17:07 | XMS_ITS | Continuity of Care Document ---
Author Organization [facility] Address [address] [place] [address]- Care Team Providers Care Car Shakeout Operator Name Role Phone Anabel LOWRY, Jossy Park Primary Care Physician En[facility] [place] Date(s): 01/16/22 - 02/15/22 [facility] [address] [place] [address]- [place] Allergies, Adverse Reactions, Alerts No Known Allergies Immunizations Given and Recorded Vaccine Date Status Refusal Reason pneumococcal 13-valent vaccine 05/10/21 Given SARS-CoV-2 (COVID-19) mRNA BNT-162b2 vac 1 03/15/21 Given SARS-CoV-2 (COVID-19) Ad26 vaccine 07/09/20 Given tetanus/diphtheria/pertussis, acel(Tdap) 2 11/20/12 Given pneumococcal 23-valent vaccine 01/07/12 Given influenza virus vaccine, inactivated 01/07/12 Give n 1Result Comment: Reconstituted with 1.8 mL of 0.9% NaCl Lot #[id number] Exp. 08/2022. 2Admin Note: vis 04/23/11 Medications aspirin 81 mg oral tablet 1 tablet = 81 mg, By Mouth, Daily, # 90 tablet, 3 Refills, Maintenance, 04/16/19 13:32:00 EST, Tablet, [facility]/pharmacy #[id number], 178, cm, 04/16/19 [...] 8:50:00 EDT, Tablet, [facility]/pharmacy #[id number], 178... Start Date: 12/07/19 Status: Ordered pantoprazole [...] G56.00, 12/20/21 10:12:00 EDT, Compound Start Date: 9/22/22 Status: Ordered Problem List Condition Confirmation Course [...] Active [place] (myocardial infarction) Confirmed Active [facility] Care Management [facility], Mikie Thibodeaux [phone] Confirmed Active Peripheral arterial disease Confirmed Active [...] Personnel Name: El Beltran MD Position: [facility] GI Member Role: Lifetime Consulting Physician Address: Address: [address] [place] [address], [address] [facility] [place] [address]- Name: Jossy Little NP Position: [facility] PCO Associate Professional Member Role: PCP Address: Address: [address] [place] [address]- Name: Bertha Melo RN Position: [facility] RN Member Role: Primary Care Nurse Care Team Related Persons Name: PARDEEP JORJE Address: home [address] [place] [address] Name: MARCIN QUINTERO Address: [place] [address]
--- OUTSIDE RECORDS SUMMARY | 2023-12-17 17:07 | XMS_ITS | Continuity of Care Document ---
Author Organization [facility] Address [address] [place] [address]- Care Team Providers Care Elevator Constructor Electric Name Role Phone Anabel LOWRY, Jossy Park Primary Care Physician [place] [facility] [place] [facility] [id number] Date(s): 07/02/21 - 08/01/[address] [address]- Attending Physician: Ike Vyas Admitting Physician: AdmtrIke [...] with 1.8 mL of 0.9% NaCl Lot #[id number] Exp. 08/2022. 2Admin Note: vis 04/23/11 Medications [...] tablet, 0 Refills, Maintenance, 06/27/21 9:46:00 EDT, [facility]/pharmacy #[id number], Partial fill upon patient request if [...] 0 Refills, Maintenance, 12/07/19 8:50:00 EDT, Tablet, [facility]/pharmacy #[id number], 178... Start Date: 12/07/19 Status: Ordered [...] with hypertriglyceridemia(Confirmed) Active Liver lesion(Confirmed) Active Old [place] (myocardial infarction)(Confirmed) Active N Care Management Mikie Richardson [phone](Confirmed) Active Peripheral arterial disease(Confirmed) Active Post traumatic [...]
--- OUTSIDE RECORDS SUMMARY | 2023-12-17 17:07 | XMS_ITS | Continuity of Care Document ---
Author Organization [facility] Address [address] [place] [address]- Care Team Providers Care Model Technician Name Role Phone Anabel LOWRY, Jossy Park Primary Care Physician [phone] [place] [facility] [place] Date(s): 07/30/21 - 08/06/21 [facility] [address] [place], [place] [address] Attending Physician: Dino LOWRY, Clarisa Santiago [...] with 1.8 mL of 0.9% NaCl Lot #[id number] Exp. 08/2022. 2Admin Note: vis 04/23/11 Medications [...] lesion(Confirmed) Active Old [place] (myocardial infarction)(Confirmed) Active N Care Management Mikie Richardson [phone](Confirmed) Active Peripheral arterial disease(Confirmed) Active Post traumatic stress disord er (PTSD)(Confirmed) Active Spinal stenosis at L4-L5 level(Confirmed) Active Spinal stenosis at L4-L5 level(Confirmed) 3 Active Current tobacco use(Confirmed) Active 1History of cardiac pacemaker in situ from a complete heart block. Dual chamber electronic pacemaker[place] [address] Alvares. 2marijuana, cocaine, amphetamines, opiates and benzos. 3Dx 06/2017 Vital Signs Most recent to oldest [Reference Range]: 1 Height 177.8 cm (07/30/21 8:52 AM) Weight 80.74 kg (07/30/21 8:52 AM) Oxygen Saturation [94-100 %] 98 % (07/30/21 8:52 AM) Pulse Rate [55-90 bpm] 62 bpm (07/30/21 8:52 AM) Body Mass Index [18.5-24.99] 25.54 *H* (07/30/21 8:52 AM) Blood Pressure [90-138/55-84 mm Hg] 144/ 88mm Hg *H* (07/30/21 8:52 AM) Mode of Delivery (Oxygen) Room air (07/30/21 8:52 AM) Blood pressure sites Arm, left (07/30/21 8:52 AM) Weight Obtained Via Patient/family state d (07/30/21 8:52 AM) Social History Social History Type Response Tobacco Use: Patient smokes 5 cig. a day. Sex
--- OUTSIDE RECORDS SUMMARY | 2023-12-17 17:07 | XMS_ITS | Continuity of Care Document ---
Author Organization [facility] Address [address] [place] [address]- Care Team Providers Care Internal Revenue Service Agent Name Role Phone Anabel LOWRY, Jossy Park Primary Care Physician [phone] [place] [facility] [place] [facility] [place]/05/23 - 07/05/[address] [address] Allergies, Adverse Reactions, Alerts No Known [...] with 1.8 mL of 0.9% NaCl Lot #[id number] Exp. 08/2022. Medications aspirin 81 mg oral [...] Refills, Maintenance, 04/03/23 9:26:00 EST, [id number], 30, TAKE 1 TABLET BY MOUTH EVERY DAY, 182, cm, 03/14/23 11:20:00 EST, Height, 76, kg, 02/15/23 6:04:00 EST, Dry Weight Start Date: 04/03/23 Status: Ordered dapagliflozin 10 mg oral tablet = 10 mg, By Mouth, Daily, # 30 tablet, 3 Refills, Maintenance, 04/04/23 8:51:00 EST, Tablet, [facility]/pharmacy #[id number], Partial fill upon patient request if the prescription is for a schedule II opioid drug., 182, cm, 03/14/23 11:20:00 EST, Height, 76, kg, 1... Start Date: 04/04/23 Stop Date: 08/02/23 Status: Ordered finasteride 5 mg oral tablet 1 tablet = 5 mg, By Mouth, Daily, # 90 tablet, 3 Refills, Maintenance, 03/03/23 15:52:00 EST, Tablet, [facility]/pharmacy #[id number], Partial fill upon patient request if the prescription is for a schedule II opioid drug., 182, cm, 03/03/23 15:03:00 EST, Height,... Start Date: 03/03/23 Status: Ordered Flomax 0.4 mg oral capsule 0.4 mg, 1, capsule, By Mouth, Daily, # 90 capsule, Refills 3, Tot. Refills 3, Maintenance, 03/03/2315:51:00 EST, Route to Pharmacy Electronically, [facility]/pharmacy #[id number], Partial fill upon patient request if the prescription is for a schedule II opioid d... Start Date: 03/03/23 Status: Ordered Jardiance 10 mg oral tablet 1 tablet = 10 mg, By Mouth, Daily in AM, # 30 tablet, 3 Refills, Maintenance, 05/16/23 14:28:00 EST, Tablet, [facility]/pharmacy #[id number], Partial fill upon patient request if the prescription is for a schedule II opioid drug., 182, cm, 05/08/23 7:28:00 EST, He... Start Date: 05/16/23 Status: Ordered lisinopril 40 mg oral tablet 1 tablet = 40 mg, By Mouth, Daily, # 90 each, 3 Refills, Maintenance, 03/03/23 15:47:00 EST, Tablet, [facility]/pharmacy #[id number], Partial fill upon patient request if the prescription is for a schedule II opioid drug., 182, cm, 03/03/23 15:03:00 EST, Height, 7... Start Date: 03/03/23 Status: Ordered metroNIDAZOLE 500 mg oral tablet 4 tablet = 2,000 mg, By Mouth, Once, MONITOR FOR BLEEDING. PLEASE HAVE INR CHECKED SCHEDULED>, # 4 tablet, 0 Refills, Soft Stop, 06/10/23 17:09:00 EDT, Tablet, [facility]/pharmacy #[id number], Partial fill upon patient request if the prescription is for a sched... Start Date: 06/10/23 Status: Ordered nortriptyline 25 mg oral capsule 1, capsule, By Mouth, Daily at bedtime, # 30 capsule, Refills 5, Maintenance, 06/02/23 11:58:00 EST, Route to Pharmacy Electronically, [id number], 182, cm, 05/08/23 7:28:00 EST, Height, 76, kg, 02/15/23 6:04:00 EST, Dry Weight Start Date: 06/02/23 Status: Ordered spironolactone 25 mg oral tablet 25 mg, By Mouth, Daily, # 90 tablet, Refills 3, Tot. Refills 3, Maintenance, 03/21/23 8:45:00 EST, Route to Pharmacy Electronically, [facility]/pharmacy #[id number], Partial fill upon patient request if the prescription is for a schedule II opioid drug., 182, cm,... Start Date: 03/21/23 Stop Date: 4/20/24 Status: Ordered warfarin 5 mg oral tablet 1 tablet = 5 mg, By Mouth, Daily, # 90 tablet, 3 Refills, Maintenance, 03/23/23 13:03:00 EST, Tablet, [facility]/pharmacy #[id number], Partial fill upon patient request if the [...] Confirmed Active Liver lesion Confirmed Active Old [place] (myocardial infarction) Confirmed Active [facility] Care Management [facility], Mikie Caos [phone] Confirmed Active Peripheral arterial disease Confirmed Active [...] Team Personnel Name: El Beltran MD Position: [facility] Physician - Gastroenterology Member Role: Lifetime Consulting Physician Address: Address: [address] [place] [address], [address] [facility] [place] [address]- Name: Jossy Little NP Position: [facility] PCO Associate Professional Member Role: PCP Address: Address: [address] [place] [address]- [place] Name: Jackie Holland RN Position: [facility] RN Member Role: Primary Care Nurse Name: Jennifer Blackburn RN Position: [facility] RN Member Role: Primary Care Nurse Care Team Related Persons Name: EDDIE ROBERTOANNETTE Address: home [address] [place] [address] Name: MARCIN QUINTERO Address: [place] [address]
--- OUTSIDE RECORDS SUMMARY | 2023-12-17 17:07 | XMS_ITS | Continuity of Care Document ---
Author Organization [facility] Address [address] [place] [address]- Care Team Providers Care Supervisor Roving Name Role Phone Anabel LOWRY, Jossy Park Primary Care Physician [place] [facility] [place] Date(s): 01/22/22 - 02/21/22 [facility] [address] [place] [address]- [place] Allergies, Adverse Reactions, Alerts No Known Allergies Immunizations Given and Recorded Vaccine Date Status Refusal Reason pneumococcal 13-valent vaccine 05/10/21 Given SARS-CoV-2 (COVID-19) mRNA BNT-162b2 vac 1 03/15/21 Given SARS-CoV-2 (COVID-19) Ad26 vaccine 07/09/20 Given tetanus/diphtheria/pertussis, acel(Tdap) 2 11/20/12 Given pneumococcal 23-valent vaccine 01/07/12 Given influenza virus vaccine, inactivated 01/07/12 Give n 1Result Comment: Reconstituted with 1.8 mL of 0.9% NaCl Lot #[id number] Exp. 08/2022. 2Admin Note: vis 04/23/11 Medications [...] 0 Refills, Maintenance, 12/07/19 8:50:00 EDT, Tablet, [facility]/pharmacy #[id number], 178... Start Date: 12/07/19 Status: Ordered pantoprazole [...] Confirmed Active Liver lesion Confirmed Active [place] (myocardial infarction) Confirmed Active [facility] Care Management [facility], Mikie Thibodeaux [phone] Confirmed Active Peripheral arterial disease Confirmed Active [...] Team Personnel Name: El Beltran MD Position: [facility] GI MD Member Role: Lifetime Consulting Physician Address: Address: [address] [place] [address], [address] [facility] [place] [address]- Name: Jossy Little NP Position: [facility] PCO Associate Professional Member Role: PCP Address: Address: [address] [place] [address]- Name: Bertha Melo RN Position: [facility] RN Member Role: Primary Care Nurse Care Team Related Persons Name: BROOKLYN ROBERTOETTE Address: home [address] [place] [address] Name: MARCIN QUINTERO Address: [place] [address]
--- OUTSIDE RECORDS SUMMARY | 2023-12-17 17:07 | XMS_ITS | Continuity of Care Document ---
Author Organization [facility] ter Address [address] [place] [address]- Care Team Providers Care Occupational Therapy Technician Name Role Phone Anabel LOWRY, Jossy Park Primary Care Physician [phone] Encounter [facility] [place] Date(s): 09/16/19 - 10/16/[address] [address]- [facility] Attending Physician: Tarah Verde MD Admitting Physician: Tarah Verde MD Referring Physician: Nicci Hoyos DO Allergies, Adverse Reactions, Alerts Substance Reaction Severity [...] 3 Refills, Maintenance, 04/16/19 13:32:00 EST, Tablet, [facility]/pharmacy #[id number], 178, cm, 04/16/19 13:02:00 EST, [...] 05/04/18 13:45:15 EST, Route to Pharmacy Electronically, [id number], [facility]/pharmacy #[id number] Start Date: 05/04/18 Status: Ordered [...] Start Date: 05/20/18 Status: Ordered NuLYTELY Lemon [place] oral powder for reconstitution 240 mL, By Mouth, Every 15 minutes, # 4,000 mL, 0 Refills, Maintenance, 09/22/18 14:59:27 EDT Start Date: 09/22/18 Status: Ordered QUEtiapine 200 mg oral tablet, extended release 200 mg, 1, tablet, By Mouth, Daily in PM, # 30 tablet, Refills 3, Tot. Refills 3, Maintenance, 05/20/18 16:26:44 EST, Route to Pharmacy Electronically, [id number], [facility]/pharmacy #[id number] Start Date: 05/20/18 Status: Ordered Problem List Condition Effective Dates Status Health Status Inform ant Anxiety and depression(Confirmed) Active Marijuana use(Confirmed) Active Cardiac pacemaker, Medtronic dual chamber pacemaker model E2DR0(Confirmed) 1 2005 Active CHB (complete heart block)(Confirmed) Active Essential hypertension(Confirmed) Active GERD (gastroesophageal reflu x disease)(Confirmed) Active History of substance abuse(C onfirmed) 2 Active Hypercholesterolemia with hypertriglyceridemia(Confirmed) Active Liver lesion(Confirmed) Active Old [place] (myocardial infarction)(Confirmed) Active [facility], [facility], Care Coor dinator Chelsea Youssef [phone](Confirmed) Active Post traumatic stress disord er (PTSD)(Confirmed) [...]
--- OUTSIDE RECORDS SUMMARY | 2023-12-17 17:07 | XMS_ITS | Continuity of Care Document ---
Author Organization [facility] Address [address] [place] [address]- Care Team Providers Care Business Reporting Developer Name Role Phone Anabel LOWRY, Jossy Park Primary Care Physician [place] [facility] [place] Date(s): 09/25/22 - 10/25/[address] [address] Allergies, Adverse Reactions, Alerts No Known Allergies Immunizations Given and Recorded Vaccine Date Status Refusal Reason pneumococcal 13-valent vaccine 05/10/21 Given SARS-CoV-2 (COVID-19) mRNA BNT-162b2 vac 1 03/15/21 Given SARS-CoV-2 (COVID-19) Ad26 vaccine 07/09/20 Given tetanus/diphtheria/pertussis, acel(Tdap) 2 11/20/12 Given pneumococcal 23-valent vaccine 01/07/12 Given influenza virus vaccine, inactivated 01/07/12 Give n 1Result Comment: Reconstituted with 1.8 mL of 0.9% NaCl Lot #[id number] Exp. 08/2022. 2Admin Note: vis 04/23/11 Medications aspirin 81 mg oral tablet 1 tablet = 81 mg, By Mouth, Daily, # 90 tablet, 3 Refills, Maintenance, 04/16/19 13:32:00 EST, Tablet, [facility]/pharmacy #[id number], 178, cm, 04/16/19 13:02:00 EST, Height Start Date: 04/16/19 Status: Ordered atorvastatin 40 mg oral tablet 1 tablet = 40 mg, By Mouth, Daily, # 30 tablet, 0 Refills, Maintenance, 06/27/21 9:46:00 EDT, [id number], Partial fill upon patient request if the prescription is for a schedule II opioid drug., 177.8, cm, 03/30/22 7:59:00 EDT, Height, 68.2, k... Start Date: [...] 0 Refills, Soft Stop, 09/24/22 11:07:00 EDT, Tablet,[facility]/pharmacy #[id number], Partial fill upon patient request [...] 0 Refills, Maintenance, 12/07/19 8:50:00 EDT, Tablet, [facility]/pharmacy #[id number], 178... Start Date: 12/07/19 Status: [...] Confirmed Active Liver lesion Confirmed Active [place] (myocardial infarction) Confirmed Active [facility] Care Management [facility], Mikie Thibodeaux [phone] Confirmed Active Peripheral arterial disease Confirmed Active [...] Team Personnel Name: El Beltran MD Position: [facility] Physician - Gastroenterology Member Role: Lifetime Consulting Physician Address: Address: [address] [place] [address], [address] [facility] [place] [address]- Name: Jossy Little NP Position: [facility] PCO Associate Professional Member Role: PCP Address: Address: [address] [place] [address]- Care Team Related Persons Name: JORJE ROBERTO Address: home [address] [address] Name: MRACIN QUINTERO Address: [place] [address]
--- OUTSIDE RECORDS SUMMARY | 2023-12-17 17:07 | XMS_ITS | Continuity of Care Document ---
Author Organization [facility] Address [address] [place] [address]- Care Team Providers Care Activity Specialist Name Role Phone Anabel LOWRY, Jossy Park Primary Care Physician Encounter [facility] [id number] Date(s): 03/15/21 - 04/14/[address] [address]- Attending Physician: Ike Vyas Admitting Physician: AdmIke castellon Referring Physician: AdmtrIke Allergies, Adverse Reactions, Alerts No Known Allergies Immunizations Given and Recorded Vaccine Date Status Refusal Reason SARS-CoV-2 (COVID-19) mRNA BNT-162b2 vac 1 03/15/21 Given SARS-CoV-2 (COVID-19) Ad26 vaccine 07/09/20 Given tetanus/diphtheria/pertussis, acel(Tdap) 2 11/20/12 Given pneumococcal 23-valent vaccine 01/07/12 Given influenza virus vaccine, inactivated 01/07/12 Give n 1Result Comment: Reconstituted with 1.8 mL of 0.9% NaCl Lot #[id number] Exp. 08/2022. 2Admin Note: vis 04/23/11 Medications [...] Maintenance, Tablet Start Date: 04/10/16 Status: Ordered buPROPion 100 mg/12 hours (SR) oral tablet, extended release 1 tablet = 100 mg, By Mouth, 2 times a day, Start once a day for 1 week and then increase to twice a day For smoking cessation, # 180 tablet, 0 Refills, Maintenance, 03/15/21 16:32:00 EST, ER Tablet,[facility]/pharmacy #[id number], Partial fill upon patient requ... Start Date: 03/15/21 Stop Date: 06/13/21 Status: Ordered carvedilol 25 mg oral tablet [...] 0 Refills, Maintenance, 12/07/19 8:50:00 EDT, Tablet, [facility]/pharmacy #[id number], 178... Start Date: 12/07/19 Status: Ordered Problem List Condition Effective Dates Status Health Status Inform ant Anxiety and depression(Confirmed) Active Marijuana use(Confirmed) Active Cardiac pacemaker, Medtronic dual chamber pacemaker model [id number](Confirmed) 2005 Active CHB (complete heart block)(Confirmed) Active Essential hypertension(Confirmed) Active GERD (gastroesophageal reflu x disease)(Confirmed) Active History of substance abuse(C onfirmed) 2 Active Hypercholesterolemia with hypertriglyceridemia(Confirmed) Active Liver lesion(Confirmed) Active [place] (myocardial infarction)(Confirmed) Active N Care Management [facility] Mikie [phone](Confirmed) Active Post traumatic stress disord er (PTSD)(Confirmed) [...]
--- OUTSIDE RECORDS SUMMARY | 2023-12-17 17:08 | XMS_ITS | Continuity of Care Document ---
Author Organization [facility] Address [address] [place] [address]- Care Team Providers Care Apparel Patternmaker Name Role Phone Anabel LOWRY, Jossy Park Primary Care Physician [phone] Encounter [facility] Date(s): 09/10/19 - 10/17/[address] [address]- [facility] Attending Physician: Tarah Verde MD Admitting Physician: [...] 3 Refills, Maintenance, 04/16/19 13:32:00 EST, Tablet, [facility]/pharmacy #[id number], 178, cm, 04/16/19 13:02:00 [...] 05/04/18 13:45:15 EST, Route to Pharmacy Electronically, [id number], [facility]/pharmacy #[id number] Start Date: 05/04/18 Status: [...] Start Date: 05/20/18 Status: Ordered NuLYTELY [place] oral powder for reconstitution 240 mL, By Mouth, Every 15 minutes, # 4,000 mL, 0 Refills, Maintenance, 09/22/18 14:59:27 EDT Start Date: 09/22/18 Status: Ordered QUEtiapine 200 mg oral tablet, extended release 200 mg, 1, tablet, By Mouth, Daily in PM, # 30 tablet, Refills 3, Tot. Refills 3, Maintenance, 05/20/18 16:26:44 EST, Route to Pharmacy Electronically, [id number], [facility]/pharmacy #[id number] Start Date: 05/20/18 Status: [...] with hypertriglyceridemia(Confirmed) Active Liver lesion(Confirmed) Active [place] (myocardial infarction)(Confirmed) Active [facility], [facility], Care Coor dinator Chelsea Youssef [phone](Confirmed) Active Post traumatic stress disord er (PTSD)(Confirmed) [...]
--- OUTSIDE RECORDS SUMMARY | 2023-12-17 17:08 | XMS_ITS | Continuity of Care Document ---
Author Organization [facility] Address [address] [place] [address]- Care Team Providers Care Manager New Product Name Role Phone Anabel LOWRY, Jossy Park Primary Care Physician [phone] [place] [facility] [place](s): 03/20/23 - 04/19/[address] [address] Allergies, Adverse Reactions, Alerts No Known [...] with 1.8 mL of 0.9% NaCl Lot #[id number] Exp. 08/2022. Medications aspirin 81 mg oral [...] Refills, Maintenance, 04/03/23 9:26:00 EST, [id number], 30, TAKE 1 TABLET BY MOUTH EVERY DAY, 182, cm, 03/14/23 11:20:00 EST, Height, 76, kg, 02/15/23 6:04:00 EST, Dry Weight Start Date: 04/03/23 Status: Ordered dapagliflozin 10 mg oral tablet = 10 mg, By Mouth, Daily, # 30 tablet, 3 Refills, Maintenance, 04/04/23 8:51:00 EST, Tablet, [facility]/pharmacy #[id number], Partial fill upon patient request if the prescription is for a schedule II opioid drug., 182, cm, 03/14/23 11:20:00 EST, Height, 76, kg, 1... Start Date: 04/04/23 Stop Date: 08/02/23 Status: Ordered finasteride 5 mg oral tablet 1 tablet = 5 mg, By Mouth, Daily, # 90 tablet, 3 Refills, Maintenance, 03/03/23 15:52:00 EST, Tablet, [facility]/pharmacy #[id number], Partial fill upon patient request if the prescription is for a schedule II opioid drug., 182, cm, 03/03/23 15:03:00 EST, Height,... Start Date: 03/03/23 Status: Ordered Flomax 0.4 mg oral capsule 0.4 mg, 1, capsule, By Mouth, Daily, # 90 capsule, Refills 3, Tot. Refills 3, Maintenance, 03/03/2315:51:00 EST, Route to Pharmacy Electronically, [facility]/pharmacy #[id number], Partial fill upon patient request [...] Confirmed [phone] Confirmed Active Peripheral arterial disease Confirmed Active [...] El Beltran MD Position: [facility] Physician - Gastroenterology Member Role: Lifetime Consulting Physician Address: Address: [address] [place] [address], [address] [facility] [place] [address]- Name: Jossy Little NP Position: [facility] PCO Associate Professional Member Role: PCP Address: Address: [address] [place] [address]- Name: Jackie Holland RN Position: [facility] RN Member Role: Primary Care Nurse Name: Jennifer Galvan Position: [facility] RN Member Role: Primary Care Nurse Name: Gil Grijalva RN Position: [facility] RN Member Role: Primary Care Nurse Care Team Related Persons Name: JORJE ROBERTO Address: home [address] [place] [address] Name: MARCIN QUINTERO Address: [place] [address]
--- OUTSIDE RECORDS SUMMARY | 2023-12-17 17:08 | XMS_ITS | Continuity of Care Document ---
Author Organization [facility] Address [address] [place] [address]- Care Team Providers Care Client Service Supervisor Name Role Phone Jossy Little NP Primary Care Physician [phone] [place] [facility] [place] 09/23/23 - 10/26/23 [facility] [address] [place] [address]- Attending Physician: El Beltran MD Admitting Physician: El Beltran MD Referring Physician: Jossy Little NP Allergies, [...] with 1.8 mL of 0.9% NaCl Lot #[id number] Exp. 08/2022. Medications aspirin 81 mg oral tablet 1 tablet = 81 mg, By Mouth, Daily, # 90 tablet, 3 Refills, Maintenance, 04/16/19 13:32:00 EST, Tablet, [id number], 178, cm, 04/16/19 13:02:00 EST, Height Start Date: 04/16/19 Status: Ordered atorvastatin 40 mg oral tablet 1 tablet = 40 mg, By Mouth, Daily, # 90 tablet, 3 Refills, Maintenance, 03/03/23 15:43:00 EST, [facility]/pharmacy #[id number], Partial fill upon patient request if the prescription is for a schedule II opioid drug., 182, cm, 03/03/23 15:03:00 EST, Height, 76, kg,... Start Date: 03/03/23 Stop Date: 07/01/23 Status: Ordered buPROPion 150 mg/24 hours (XL) oral tablet, extended release 1 tablet, By Mouth, Daily, # 30 tablet, 0 Refills, Maintenance, 04/03/23 9:26:00 EST, [facility], 30, TAKE 1 TABLET BY MOUTH EVERY [...] 09/18/23 9:28:00 EDT, Route to Pharmacy Electronically, [facility]/pharmacy #[id number], Partial fill upon patient request i... Start Date: 09/18/23 Status: Ordered Farxiga 10 mg oral tablet 1 tablet, By Mouth, Daily, Please have labs drawn for additional refills, # 90 tablet, 0 Refills, Maintenance, 08/04/23 10:32:00 EDT, [facility]/pharmacy #[id number], 182, cm, 05/08/23 7:28:00 EST, Height, 76, kg, 02/15/23 6:04:00 EST, Dry Weight Start Date: 08/04/23 Status: Ordered finasteride 5 mg oral tablet 1 tablet = 5 mg, By Mouth, Daily, # 90 tablet, 3 Refills, Maintenance, 03/03/23 15:52:00 EST, Tablet, [facility]/pharmacy #[id number], Partial fill upon patient request if the prescription is for a schedule II opioid drug., 182, cm, 03/03/23 15:03:00 EST, Height,... Start Date: 03/03/23 Status: Ordered Flomax 0.4 mg oral capsule 0.4 mg, 1, capsule, By Mouth, Daily, # 90 capsule, Refills 3, Tot. Refills 3, Maintenance, 03/03/2315:51:00 EST, Route to Pharmacy Electronically, [facility]/pharmacy #[id number], Partial fill upon patient request if the prescription is for a schedule II opioid d... Start Date: 03/03/23 Status: Ordered Jardiance 10 mg oral tablet 1 tablet = 10 mg, By Mouth, Daily in AM, # 30 tablet, 3 Refills, Maintenance, 05/16/23 14:28:00 EST, Tablet, [facility]/pharmacy #[id number], Partial fill upon patient request if the prescription is for a schedule II opioid drug., 182, cm, 05/08/23 7:28:00 EST, He... Start Date: 05/16/23 Status: Ordered lisinopril 40 mg oral tablet 1 tablet = 40 mg, By Mouth, Daily, # 90 each, 3 Refills, Maintenance, 03/03/23 15:47:00 EST, Tablet, [facility]/pharmacy #[id number], Partial fill upon patient request if the prescription is for a schedule II opioid drug., 182, cm, 03/03/23 15:03:00 EST, Height, 7... Start Date: 03/03/23 Status: Ordered metroNIDAZOLE 500 mg oral tablet 4 tablet = 2,000 mg, By Mouth, Once, # 4 tablet, 0 Refills, Soft Stop, 10/13/23 15:26:00 EDT, [facility]/pharmacy #[id number], Partial fill upon patient request if the prescription is for a schedule II opioid drug., 182, cm, 09/18/23 8:50:00 EDT, Height, 76, kg, 1... Start Date: 10/13/23 Status: Ordered nortriptyline 25 mg oral capsule 1, capsule, By Mouth, Daily at bedtime, # 30 capsule, Refills 5, Maintenance, 06/02/23 11:58:00 EST, Route to Pharmacy Electronically, [id number], 182, cm, 05/08/23 7:28:00 EST, Height, 76, kg, 02/15/23 6:04:00 EST, Dry Weight Start Date: 06/02/23 Status: Ordered spironolactone 25 mg oral tablet 25 mg, By Mouth, Daily, # 90 tablet, Refills 3, Tot. Refills 3, Maintenance, 03/21/23 8:45:00 EST, Route to Pharmacy Electronically, [facility]/pharmacy #[id number], Partial fill upon patient request if the prescription is for a schedule II opioid drug., 182, cm,... Start Date: 03/21/23 Stop Date: 07/19/23 Status: Ordered warfarin 5 mg oral tablet 1 tablet = 5 mg, By Mouth, Daily, # 90 tablet, 3 Refills, Maintenance, 03/23/23 13:03:00 EST, Tablet, [facility]/pharmacy #[id number], Partial fill upon patient request [...] Confirmed Active Liver lesion Confirmed Active [place] (myocardial infarction) Confirmed Active *[phone]-Software Configuration Manager-Isabel Paniagua Confirmed Active Peripheral arterial disease Confirmed [...] Member Role: Lifetime Consulting Physician Address: Address: [address] [place] [address], [address] [facility] [place] [address]- Name: Jossy Little NP Position: [facility] PCO Associate Professional Member Role: PCP Address: Address: [address] [place] [address]- [place] Name: Jackie Holland RN Position: S RN Member Role: Primary Care Nurse Name: Jennifer Blackburn RN Position: S RN Member Role: Primary Care Nurse Care Team Related Persons Name: JORJE ROBERTO Address: home [address] [place] [address] Name: MARCIN QUINTERO Address: [place] [address]
--- OUTSIDE RECORDS SUMMARY | 2023-12-17 17:08 | XMS_ITS | Continuity of Care Document ---
Author Organization [facility] Address [address] [address]- Care Team Providers Care Applied Biology Professor Name Role Phone Anabel LOWRY, Jossy Park Primary Care Physician Encounter [facility] Date(s): 01/11/21 - 02/10/21 [facility] [address] [address] Attending Physician: AdmIke castellon [...] 3 Refills, Maintenance, 04/16/19 13:32:00 EST, Tablet, [facility]/pharmacy #[id number], 178, cm, 04/16/19 13:02:00 EST, [...] 05/04/18 13:45:15 EST, Route to Pharmacy Electronically, [id number], [facility]/pharmacy #[id number] Start Date: 05/04/18 Status: Ordered [...] 0 Refills, Maintenance, 12/07/19 8:50:00 EDT, Tablet, [id number], 178... Start Date: 12/07/19 Status: Ordered NuLYTELY [place] oral powder for reconstitution 240 mL, By Mouth, Every 15 minutes, # 4,000 mL, 0 Refills, Maintenance, 09/22/18 14:59:27 EDT Start Date: 09/22/18 Status: Ordered QUEtiapine 200 mg oral tablet, extended release 200 mg, 1, tablet, By Mouth, Daily in PM, # 30 tablet, Refills 3, Tot. Refills 3, Maintenance, 05/20/18 16:26:44 EST, Route to Pharmacy Electronically, [id number], [facility]/pharmacy #[id number] Start Date: 05/20/18 Status: Ordered [...] with hypertriglyceridemia(Confirmed) Active Liver lesion(Confirmed) Active [place] (myocardial infarction)(Confirmed) Active N Care Management [facility] , Mikie Caos [phone](Confirmed) Active Post traumatic stress disord er (PTSD)(Confirmed) [...]
--- OUTSIDE RECORDS SUMMARY | 2023-12-17 17:08 | XMS_ITS | Continuity of Care Document ---
Author Organization [facility] Address [address] [place] [address]- Care Team Providers Care Miter Grinder Operator Name Role Phone Anabel LOWRY, Jossy Park Primary Care Physician [phone] Encounter [facility] [place] [facility] Date(s): 08/04/23 - 09/03/[address] [address] Allergies, Adverse Reactions, Alerts No Known [...] with 1.8 mL of 0.9% NaCl Lot #[id number] Exp. 08/2022. Medications aspirin 81 mg oral tablet 1 tablet = 81 mg, By Mouth, Daily, # 90 tablet, 3 Refills, Maintenance, 04/16/19 13:32:00 EST, [facility]t, [id number], 178, cm, 04/16/19 13:02:00 EST, Height Start Date: 04/16/19 Status: Ordered atorvastatin 40 mg oral tablet 1 tablet = 40 mg, By Mouth, Daily, # 90 tablet, 3 Refills, Maintenance, 03/03/23 15:43:00 EST, [facility]/pharmacy #[id number], Partial fill upon patient request if the prescription is for a schedule II opioid drug., 182, cm, 03/03/23 15:03:00 EST, Height, 76, kg,... Start Date: 03/03/23 Stop Date: 07/01/23 Status: Ordered buPROPion 150 mg/24 hours (XL) oral tablet, extended release 1 tablet, By Mouth, Daily, # 30 tablet, 0 Refills, Maintenance, 04/03/23 9:26:00 EST, [facility], 30, TAKE 1 TABLET BY MOUTH EVERY DAY, 182, cm, 03/14/23 11:20:00 EST, Height, 76, kg, 02/15/23 6:04:00 EST, Dry Weight Start Date: 04/03/23 Status: Ordered Farxiga 10 mg oral tablet 1 tablet, By Mouth, Daily, Please have labs drawn for additional refills, # 90 tablet, 0 Refills, Maintenance, 08/04/23 10:32:00 EDT, [facility]/pharmacy #[id number], 182, cm, 05/08/23 7:28:00 EST, Height, 76, kg, 02/15/23 6:04:00 EST, Dry Weight Start Date: 08/04/23 Status: Ordered finasteride 5 mg oral tablet 1 tablet = 5 mg, By Mouth, Daily, # 90 tablet, 3 Refills, Maintenance, 03/03/23 15:52:00 EST, Tablet, [facility]/pharmacy #[id number], Partial fill upon patient request if the prescription is for a schedule II opioid drug., 182, cm, 03/03/23 15:03:00 EST, Height,... Start Date: 03/03/23 Status: Ordered Flomax 0.4 mg oral capsule 0.4 mg, 1, capsule, By Mouth, Daily, # 90 capsule, Refills 3, Tot. Refills 3, Maintenance, 03/03/2315:51:00 EST, Route to Pharmacy Electronically, [facility]/pharmacy #[id number], Partial fill upon patient request if the prescription is for a schedule II opioid d... Start Date: 03/03/23 Status: Ordered Jardiance 10 mg oral tablet 1 tablet = 10 mg, By Mouth, Daily in AM, # 30 tablet, 3 Refills, Maintenance, 05/16/23 14:28:00 EST, Tablet, [facility]/pharmacy #[id number], Partial fill upon patient request if the prescription is for a schedule II opioid drug., 182, cm, 05/08/23 7:28:00 EST, He... Start Date: 05/16/23 Status: Ordered lisinopril 40 mg oral tablet 1 tablet = 40 mg, By Mouth, Daily, # 90 each, 3 Refills, Maintenance, 03/03/23 15:47:00 EST, Tablet, [facility]/pharmacy #[id number], Partial fill upon patient request if the prescription is for a schedule II opioid drug., 182, cm, 03/03/23 15:03:00 EST, Height, 7... Start Date: 03/03/23 Status: Ordered metroNIDAZOLE 500 mg oral tablet 4 tablet = 2,000 mg, By Mouth, Once, MONITOR FOR BLEEDING. PLEASE HAVE INR CHECKED SCHEDULED>, # 4 tablet, 0 Refills, Soft Stop, 06/10/23 17:09:00 EDT, Tablet, [facility]/pharmacy #[id number], Partial fill upon patient request if the prescription is for a sched... Start Date: 06/10/23 Status: Ordered nortriptyline 25 mg oral capsule 1, capsule, By Mouth, Daily at bedtime, # 30 capsule, Refills 5, Maintenance, 06/02/23 11:58:00 EST, Route to Pharmacy Electronically, [facility], 182, cm, 05/08/23 7:28:00 EST, Height, 76, kg, 02/15/23 6:04:00 EST, Dry Weight Start Date: 06/02/23 Status: Ordered spironolactone 25 mg oral tablet 25 mg, By Mouth, Daily, # 90 tablet, Refills 3, Tot. Refills 3, Maintenance, 03/21/23 8:45:00 EST, Route to Pharmacy Electronically, [facility]/pharmacy #[id number], Partial fill upon patient request if the prescription is for a schedule II opioid drug., 182, cm,... Start Date: 03/21/23 Stop Date: 07/19/23 Status: Ordered warfarin 5 mg oral tablet 1 tablet = 5 mg, By Mouth, Daily, # 90 tablet, 3 Refills, Maintenance, 03/23/23 13:03:00 EST, Tablet, [facility]/pharmacy #[id number], Partial fill upon patient request if the [...] Active [place] (myocardial infarction) Confirmed Active [facility] Care Management [facility], Mikie Thibodeaux [phone] Confirmed Active Peripheral arterial disease Confirmed Active [...] Team Personnel Name: El Beltran MD Position: [facility] Physician - Gastroenterology Member Role: Lifetime Consulting Physician Address: Address: [address] [place] [address], [address] [facility] [place] [address]- Name: Jossy Little NP Position: [facility] PCO Associate Professional Member Role: PCP Address: Address: [address] [place] [address]- [place] Name: Jackie Holland RN Position: [facility] RN Member Role: Primary Care Nurse Name: Jennifer Blackburn RN Position: [facility] RN Member Role: Primary Care Nurse Care Team Related Persons Name: JONES JORJE Address: home [address] [place] [address] Name: MARCIN QUINTERO Address: [place] [address]
--- OUTSIDE RECORDS SUMMARY | 2023-12-17 17:08 | XMS_ITS | Continuity of Care Document ---
Author Organization [facility] Address [address] [place] [address]- Care Team Providers Care Checkman Name Role Phone Anabel LOWRY, Jossy Park Primary Care Physician [phone] Encounter [facility] [place] Date(s): 04/13/21 - 05/13/[address] [address]- Allergies, Adverse Reactions, Alerts No Known Allergies Immunizations Given and Recorded Vaccine Date Status Refusal Reason pneumococcal 13-valent vaccine 05/10/21 Given SARS-CoV-2 (COVID-19) mRNA BNT-162b2 vac 1 03/15/21 Given SARS-CoV-2 (COVID-19) Ad26 vaccine 07/09/20 Given tetanus/diphtheria/pertussis, acel(Tdap) 2 11/20/12 Given pneumococcal 23-valent vaccine 01/07/12 Given influenza virus vaccine, inactivated 01/07/12 Give n 1Result Comment: Reconstituted with 1.8 mL of 0.9% NaCl Lot #[id number] Exp. 08/2022. 2Admin Note: vis 04/23/11 Medications [...] 0 Refills, Maintenance, 03/15/21 16:32:00 EST, ER Tablet,[facility] #[id number], Partial fill upon patient requ... Start [...] 0 Refills, Maintenance, 12/07/19 8:50:00 EDT, Tablet, [facility]/pharmacy #[id number], 178... Start Date: 12/07/19 [...] with hypertriglyceridemia(Confirmed) Active Liver lesion(Confirmed) Active [place] (myocardial infarction)(Confirmed) Active N Care Management [facility] Mikie [phone](Confirmed) Active Post traumatic stress disord er (PTSD)(Confirmed) [...]
--- OUTSIDE RECORDS SUMMARY | 2023-12-17 17:08 | XMS_ITS | Continuity of Care Document ---
Author Organization [facility] ter Address [address] [place] [address]- Care Team Providers Care Cementing Machine Operator Name Role Phone Anabel LOWRY, Jossy Park Primary Care Physician [place] [facility] [place]04[place]23 - 06/08/[address] [address] Attending Physician: Luis Alberto Child MD Admitting Physician: Luis Alberto Child MD Referring Physician: Luis Alberto Child MD Allergies, Adverse Reactions, Alerts No Known [...] with 1.8 mL of 0.9% NaCl Lot #[id number] Exp. 08/2022. Medications aspirin 81 mg oral tablet 1 tablet = 81 mg, By Mouth, Daily, # 90 tablet, 3 Refills, Maintenance, 04/16/19 13:32:00 EST, Tablet, [id number], 178, cm, 04/16/19 13:02:00 EST, Height Start Date: 04/16/19 Status: Ordered atorvastatin 40 mg oral tablet 1 tablet = 40 mg, By Mouth, Daily, # 90 tablet, 3 Refills, Maintenance, 03/03/23 15:43:00 EST, [facility]/pharmacy #[id number], Partial fill upon patient request if the prescription is for a schedule II opioid drug., 182, cm, 03/03/23 15:03:00 EST, Height, 76, kg,... Start Date: 03/03/23 Stop Date: 07/01/23 Status: Ordered buPROPion 150 mg/24 hours (XL) oral tablet, extended release 1 tablet, By Mouth, Daily, # 30 tablet, 0 Refills, Maintenance, 04/03/23 9:26:00 EST, [id number], 30, TAKE 1 TABLET BY MOUTH EVERY DAY, 182, cm, 03/14/23 11:20:00 EST, Height, 76, kg, 02/15/23 6:04:00 EST, Dry Weight Start Date: 04/03/23 Status: Ordered dapagliflozin 10 mg oral tablet = 10 mg, By Mouth, Daily, # 30 tablet, 3 Refills, Maintenance, 04/04/23 8:51:00 EST, Tablet, [facility]pharm[facility] #[id number], Partial fill upon patient request if the prescription is for a schedule II opioid drug., 182, cm, 03/14/23 11:20:00 EST, Height, 76, kg, 1... Start Date: 04/04/23 Stop Date: 08/02/23 Status: Ordered finasteride 5 mg oral tablet 1 tablet = 5 mg, By Mouth, Daily, # 90 tablet, 3 Refills, Maintenance, 03/03/23 15:52:00 EST, Tablet, [facility] #[id number], Partial fill upon patient request if the prescription is for a schedule II opioid drug., 182, cm, 03/03/23 15:03:00 EST, Height,... Start Date: 03/03/23 Status: Ordered Flomax 0.4 mg oral capsule 0.4 mg, 1, capsule, By Mouth, Daily, # 90 capsule, Refills 3, Tot. Refills 3, Maintenance, 03/03/2315:51:00 EST, Route to Pharmacy Electronically, [facility]pharm[facility] #[id number], Partial fill upon patient request if the prescription is for a schedule II opioid d... Start Date: 03/03/23 Status: Ordered Jardiance 10 mg oral tablet 1 tablet = 10 mg, By Mouth, Daily in AM, # 30 tablet, 3 Refills, Maintenance, 05/16/23 14:28:00 EST, Tablet, [facility]pharm[facility] #[id number], Partial fill upon patient request if the prescription is for a schedule II opioid drug., 182, cm, 05/08/23 7:28:00 EST, He... Start Date: 05/16/23 Status: Ordered lisinopril 40 mg oral tablet 1 tablet = 40 mg, By Mouth, Daily, # 90 each, 3 Refills, Maintenance, 03/03/23 15:47:00 EST, Tablet, [facility]/pharm[facility] #[id number], Partial fill upon patient request if the prescription is for a schedule II opioid drug., 182, cm, 03/03/23 15:03:00 EST, Height, 7... Start Date: 03/03/23 Status: Ordered nortriptyline 25 mg oral capsule 1, capsule, By Mouth, Daily at bedtime, # 30 capsule, Refills 5, Maintenance, 06/02/23 11:58:00 EST, Route to Pharmacy Electronically, [facility] [id number], 182, cm, 05/08/23 7:28:00 EST, Height, 76, kg, 02/15/23 6:04:00 EST, Dry Weight Start Date: 06/02/23 Status: Ordered spironolactone 25 mg oral tablet 25 mg, By Mouth, Daily, # 90 tablet, Refills 3, Tot. Refills 3, Maintenance, 03/21/23 8:45:00 EST, Route to Pharmacy Electronically, [facility] #[id number], Partial fill upon patient request if the prescription is for a schedule II opioid drug., 182, cm,... Start Date: 03/21/23 Stop Date: 07/19/23 Status: Ordered warfarin 5 mg oral tablet 1 tablet = 5 mg, By Mouth, Daily, # 90 tablet, 3 Refills, Maintenance, 03/23/23 13:03:00 EST, Tablet, [facility]/pharm[facility] #[id number], Partial fill upon patient request if [...] Confirmed Active Liver lesion Confirmed Active [place] (myocardial infarction) Confirmed Active [id number] Confirmed Active Peripheral arterial disease Confirmed Active [...] Team Personnel Name: El Beltran MD Position: [facility] Physician - Gastroenterology Member Role: Lifetime Consulting Physician Address: Address: [address] [place] [address], [facility] [address] [facility] [place], [place] [address] Name: Jossy Little NP Position: [facility] PCO Associate Professional Member Role: PCP Address: Address: [address] [place] [address]- Name: Jackie Holland RN Position: [facility] RN Member Role: Primary Care Nurse Name: Jennifer Blackburn RN Position: S RN Member Role: Primary Care Nurse Name: Gil Grijalva RN Position: [facility] RN Member Role: Primary Care Nurse Care Team Related Persons Name: BROOKLYN ROBERTOETTE Address: home [address] [place] [address] Name: MARCIN QUINTERO Address: [place] [address]
--- OUTSIDE RECORDS SUMMARY | 2023-12-17 17:08 | XMS_ITS | Continuity of Care Document ---
Author Organization [facility] Address [address] [place] [address]- Care Team Providers Care Assistant Director Of Residence Life Name Role Phone Anabel LOWRY, Jossy Park Primary Care Physician Encounter [facility] Date(s): 07/20/21 - 08/19/21 [facility] [address] [place], [place] [address] Allergies, Adverse Reactions, Alerts No Known Allergies Immunizations Given and Recorded Vaccine Date Status Refusal Reason pneumococcal 13-valent vaccine 05/10/21 Given SARS-CoV-2 (COVID-19) mRNA BNT-162b2 vac 1 03/15/21 Given SARS-CoV-2 (COVID-19) Ad26 vaccine 07/09/20 Given tetanus/diphtheria/pertussis, acel(Tdap) 2 11/20/12 Given pneumococcal 23-valent vaccine 01/07/12 Given influenza virus vaccine, inactivated 01/07/12 Give n 1Result Comment: Reconstituted with 1.8 mL of 0.9% NaCl Lot #[id number] Exp. 08/2022. 2Admin Note: vis 04/23/11 Medications aspirin 81 mg oral tablet 1 tablet = 81 mg, By Mouth, Daily, # 90 tablet, 3 Refills, Maintenance, 04/16/19 13:32:00 EST, Tablet, [facility]/pharmacy #[id number], 178, cm, 04/16/19 13:02:00 EST, Height Start Date: 04/16/19 Status: Ordered atorvastatin 40 mg oral tablet 1 tablet = 40 mg, By Mouth, Daily, # 30 tablet, 0 Refills, Maintenance, 06/27/21 9:46:00 EDT, [facility]/pharmacy #[id number], Partial fill upon [...] 0 Refills, Maintenance, 12/07/19 8:50:00 EDT, Tablet, [facility]/pharmacy #[id number], 178... Start Date: 12/07/19 Status: Ordered pantoprazole [...] with hypertriglyceridemia(Confirmed) Active Liver lesion(Confirmed) Active [place] (myocardial infarction)(Confirmed) Active [facility] Care Management [facility] , Mikie Thibodeaux [id number](Confirmed) Active Peripheral arterial disease(Confirmed) Active Post traumatic [...]
--- OUTSIDE RECORDS SUMMARY | 2023-12-17 17:08 | XMS_ITS | Continuity of Care Document ---
Author Organization [facility] Address [address] [place] [address]- Care Team Providers Care Optometric Technologist Name Role Phone Anabel LOWRY, Jossy Park Primary Care Physician [phone] Encounter [facility] Date(s): 06/05/23 - 07/05/[address] [address] Allergies, Adverse Reactions, Alerts [...] with 1.8 mL of 0.9% NaCl Lot #[id number] Exp. 08/2022. Medications aspirin 81 mg oral [...] Refills, Maintenance, 04/03/23 9:26:00 EST, [facility], 30, TAKE 1 TABLET BY MOUTH EVERY DAY, 182, cm, 03/14/23 11:20:00 EST, Height, 76, kg, 02/15/23 6:04:00 EST, Dry Weight Start Date: 04/03/23 Status: Ordered dapagliflozin 10 mg oral tablet = 10 mg, By Mouth, Daily, # 30 tablet, 3 Refills, Maintenance, 04/04/23 8:51:00 EST, Tablet, [facility]/pharmacy #[id number], Partial fill upon patient request if the prescription is for a schedule II opioid drug., 182, cm, 03/14/23 11:20:00 EST, Height, 76, kg, 1... Start Date: 04/04/23 Stop Date: 08/02/23 Status: Ordered finasteride 5 mg oral tablet 1 tablet = 5 mg, By Mouth, Daily, # 90 tablet, 3 Refills, Maintenance, 03/03/23 15:52:00 EST, Tablet, [facility]/pharmacy #[id number], Partial fill upon patient request if the prescription is for a schedule II opioid drug., 182, cm, 03/03/23 15:03:00 EST, Height,... Start Date: 03/03/23 Status: Ordered Flomax 0.4 mg oral capsule 0.4 mg, 1, capsule, By Mouth, Daily, # 90 capsule, Refills 3, Tot. Refills 3, Maintenance, 03/03/2315:51:00 EST, Route to Pharmacy Electronically, [facility]/pharmacy #[id number], Partial fill upon patient request if the prescription is for a schedule II opioid d... Start Date: 03/03/23 Status: Ordered Jardiance 10 mg oral tablet 1 tablet = 10 mg, By Mouth, Daily in AM, # 30 tablet, 3 Refills, Maintenance, 05/16/23 14:28:00 EST, Tablet, [facility]/pharmacy #[id number], Partial fill upon patient request if the prescription is for a schedule II opioid drug., 182, cm, 05/08/23 7:28:00 EST, He... Start Date: 05/16/23 Status: Ordered lisinopril 40 mg oral tablet 1 tablet = 40 mg, By Mouth, Daily, # 90 each, 3 Refills, Maintenance, 03/03/23 15:47:00 EST, Tablet, [facility]/pharmacy #[id number], Partial fill upon patient request if the prescription is for a schedule II opioid drug., 182, cm, 03/03/23 15:03:00 EST, Height, 7... Start Date: 03/03/23 Status: Ordered metroNIDAZOLE 500 mg oral tablet 4 tablet = 2,000 mg, By Mouth, Once, MONITOR FOR BLEEDING. PLEASE HAVE INR CHECKED SCHEDULED>, # 4 tablet, 0 Refills, Soft Stop, 06/10/23 17:09:00 EDT, Tablet, [facility]/pharmacy #[id number], Partial fill upon patient request if the prescription is for a sched... Start Date: 06/10/23 Status: Ordered nortriptyline 25 mg oral capsule 1, capsule, By Mouth, Daily at bedtime, # 30 capsule, Refills 5, Maintenance, 06/02/23 11:58:00 EST, Route to Pharmacy Electronically, [facility] [id number], 182, cm, 05/08/23 7:28:00 EST, Height, 76, kg, 02/15/23 6:04:00 EST, Dry Weight Start Date: 06/02/23 Status: Ordered spironolactone 25 mg oral tablet 25 mg, By Mouth, Daily, # 90 tablet, Refills 3, Tot. Refills 3, Maintenance, 03/21/23 8:45:00 EST, Route to Pharmacy Electronically, [facility]/pharmacy #[id number], Partial fill upon patient request if the prescription is for a schedule II opioid drug., 182, cm,... Start Date: 03/21/23 Stop Date: 4/20/24 Status: Ordered warfarin 5 mg oral tablet 1 tablet = 5 mg, By Mouth, Daily, # 90 tablet, 3 Refills, Maintenance, 03/23/23 13:03:00 EST, Tablet, [facility]/pharmacy #[id number], Partial fill upon patient request if the [...] [place] (myocardial infarction) Confirmed Active [facility] Care Management [facility], Mkiie Caos [phone] Confirmed Active Peripheral arterial disease Confirmed Active [...] Team Personnel Name: El Beltran MD Position: [facility] Physician - Gastroenterology Member Role: Lifetime Consulting Physician Address: Address: [address] [place] [address], [address] [facility] [place] [address]- Name: Jossy Litlte NP Position: [facility] PCO Associate Professional Member Role: PCP Address: Address: [address] [place] [address]- [place] Name: Jackie Holland RN Position: [facility] RN Member Role: Primary Care Nurse Name: Jennifer Blackburn RN Position: [facility] RN Member Role: Primary Care Nurse Care Team Related Persons Name: EDDIE ROBERTOANNETTE Address: home [address] [place] [address] Name: MARCIN QUINTERO Address: [place] [address]
--- OUTSIDE RECORDS SUMMARY | 2023-12-17 17:08 | XMS_ITS | Continuity of Care Document ---
Author Organization [facility] Address [address] [place] [address]- Care Team Providers Care Developer Relations Manager Name Role Phone Jossy Little NP Primary Care Physician [phone] Encounter [facility] Date(s): 11/10/23 - 11/17/23 [facility] [address] [place], [place] [address] Attending Physician: Mimi Martinez NP Admitting Physician: Mimi Martinez NP Referring Physician: Jossy Little NP Allergies, [...] with 1.8 mL of 0.9% NaCl Lot #[id number] Exp. 08/2022. Medications aspirin 81 mg oral tablet 1 tablet = 81 mg, By Mouth, Daily, # 90 tablet, 3 Refills, Maintenance, 04/16/19 13:32:00 EST, Tablet, [id number], 178, cm, 04/16/19 13:02:00 EST, Height Start Date: 04/16/19 Status: Ordered atorvastatin 40 mg oral tablet 1 tablet = 40 mg, By Mouth, Daily, # 90 tablet, 3 Refills, Maintenance, 03/03/23 15:43:00 EST, [facility]/pharmacy #[id number], Partial fill upon patient request if the prescription is for a schedule II opioid drug., 182, cm, 03/03/23 15:03:00 EST, Height, 76, kg,... Start Date: 03/03/23 Stop Date: 07/01/23 Status: Ordered buPROPion 150 mg/24 hours (XL) oral tablet, extended release 1 tablet, By Mouth, Daily, # 30 tablet, 0 Refills, Maintenance, 04/03/23 9:26:00 EST, [facility] STORE [id number], 30, TAKE 1 TABLET BY MOUTH EVERY [...] 09/18/23 9:28:00 EDT, Route to Pharmacy Electronically, [facility]/pharmacy #[id number], Partial fill upon patient request i... Start Date: 09/18/23 Status: Ordered Farxiga 10 mg oral tablet 1 tablet, By Mouth, Daily, # 90 tablet, 3 Refills, Maintenance, 11/04/23 9:07:00 EDT, [facility]/pharmacy #[id number], 182, cm, 09/18/23 8:50:00 EDT, Height, 76, kg, 02/15/23 6:04:00 EST, Dry Weight Start Date: 11/04/23 Status: Ordered finasteride 5 mg oral tablet 1 tablet = 5 mg, By Mouth, Daily, # 90 tablet, 3 Refills, Maintenance, 03/03/23 15:52:00 EST, Tablet, [facility]/pharmacy #[id number], Partial fill upon patient request if the prescription is for a schedule II opioid drug., 182, cm, 03/03/23 15:03:00 EST, Height,... Start Date: 03/03/23 Status: Ordered Flomax 0.4 mg oral capsule 0.4 mg, 1, capsule, By Mouth, Daily, # 90 capsule, Refills 3, Tot. Refills 3, Maintenance, 03/03/2315:51:00 EST, Route to Pharmacy Electronically, [facility]/pharmacy #[id number], Partial fill upon patient request if the prescription is for a schedule II opioid d... Start Date: 03/03/23 Status: Ordered lisinopril 40 mg oral tablet 1 tablet = 40 mg, By Mouth, Daily, # 90 each, 3 Refills, Maintenance, 03/03/23 15:47:00 EST, Tablet, [id number], Partial fill upon patient request if the prescription is for a schedule II opioid drug., 182, cm, 03/03/23 15:03:00 EST, Height, 7... Start Date: 03/03/23 Status: Ordered metroNIDAZOLE 500 mg oral tablet 4 tablet = 2,000 mg, By Mouth, Once, # 4 tablet, 0 Refills, Soft Stop, 10/13/23 15:26:00 EDT, [facility]/pharmacy #[id number], Partial fill upon patient request if the prescription is for a schedule II opioid drug., 182, cm, 09/18/23 8:50:00 EDT, Height, 76, kg, 1... Start Date: 10/13/23 Status: Ordered nortriptyline 25 mg oral capsule 1, capsule, By Mouth, Daily at bedtime, # 30 capsule, Refills 5, Maintenance, 06/02/23 11:58:00 EST, Route to Pharmacy Electronically, [facility] STORE [id number], 182, cm, 05/08/23 7:28:00 EST, Height, 76, kg, 02/15/23 6:04:00 EST, Dry Weight Start Date: 06/02/23 Status: Ordered spironolactone 25 mg oral tablet 1, tablet, By Mouth, Daily, # 90 tablet, Refills 3, Maintenance, 11/12/23 10:42:00 EDT, Route to Pharmacy Electronically, [facility] 386[facility], 182, cm, 11/10/23 14:00:00 EDT, Height, 76, [...] 3 Refills, Maintenance, 03/23/23 13:03:00 EST, Tablet, [facility]/pharmacy #[id number], Partial fill upon patient [...] Confirmed Active Liver lesion Confirmed Active [place] (myocardial infarction) Confirmed Active *[id number]-Nuclear Control Operator-Isabel Paniagua Confirmed Active Peripheral arterial disease Confirmed [...] recent to oldest [Reference Range]: 1 Height 182 cm (11/10/23 2:00 PM) Weight 70.31 kg (11/10/23 2:00 PM) Body Mass Index [18.5-24.99 kg/m2] 21.23 kg/m2 (11/10/23 2:00 PM) Blood Pressure [90-138/55-84 mm Hg] 118/ 68mm Hg (11/10/23 2:00 PM) Blood pressure sites Arm, left (11/10/23 2:00 PM) Weight Obtained Via Patient/family state d (11/10/23 2:00 PM) Social History Social History Type Response Tobacco Use: Patient smokes 5 cig. a day. Sex Note * [place]: PERFORM Event Display: Patient Education/Instruction Authored Date: [id number] Ambulatory Adult Visit Summary [facility] [address] [facility] [address] [address] Name: MARCIN QUINTERO : 1955?? Visit: 11/10/2023 13:44?? Ambulatory Visit Instructions ?? Your Care Team Primary Care Provider Jossy Little NP? This Visit Provider Mimi Martinez NP Your Diagnosis PVD (peripheral vascular disease) with claudication Vitals Signs Systolic Blood Pressure: 118 mm Hg Height: 182 cm Diastolic Blood Pressure: 68 mm Hg Weight: 70.31 kg ?? Body Mass Index: 21.23 kg/m2 ?? Body surface area: 1.89 What to do next Scheduled Follow-Up Appointments Friday 12:00 PM EDT ?? With: Jossy Little NP Where: [address] [address]- Status: Pending Future Orders INR (PT (INR)) - Routine, Once, 09/24/23 3:00:00 EDT every 7 days for 6 months, Single or RecurringFuture Order, [facility], Blood?? Medications The list below reflects the information in our records and provided by you today along with any changes made during this visit. Please continue your medications until treatment is completed or stopped by your provider. If this is different from the information you have or there are other questions,please contact the prescribing provider. What How Much When Instructions Unchanged Aspirin (aspirin 81 mg oral tablet) 1 tab(s) Oral Daily Unchanged Atorvastatin (atorvastatin 40 mg oral tablet) 1 tab(s) Oral Daily Duration: 30 Days Unchanged BuPROpion (buPROPion 150 mg/ 24 hours (XL) oral tablet, extended release) 1 tab(s) Oral Daily Unchanged Carvedilol (carvedilol 12.5 mg oral tablet) Unchanged dapagliflozin (Farxiga 10 mg oral tablet) 1 tab(s) Oral Daily Unchanged Docusate (Colace sodium 100 mg oral capsule) 1 capsule Oral Twice a day as needed for Constipation with plenty of water ?? Unchanged empagliflozin (Jardiance 10 mg oral tablet) 1 tab(s) Oral Daily in the morning Unchanged Finasteride (finasteride 5 mg oral tablet) 1 tab(s) Oral Daily Unchanged Lisinopril (lisinopril 40 mg oral tablet) 1 tab(s) Oral Daily Unchanged Metronidazole (metroNIDAZOLE 500 mg oral tablet) 4 tab(s) Oral Once Unchanged Nortriptyline (nortriptyline 25 mg oral capsule) 1 capsule Oral Daily at Bedtime Unchanged Spironolactone (spironolactone 25 mg oral tablet) 25 Milligram Oral Daily Duration: 30 Days Unchanged Tamsulosin (Flomax 0.4 mg oral capsule) 1 capsule Oral Daily Unchanged Tramadol (traMADol 50 mg oral tablet) Unchanged Warfarin (warfarin 5 mg oral tablet) 1 tab(s) Oral Daily Duration: 30 Days Medications and Immunizations Administered Medications Given During Visit No medications given during this visit.?? Allergies (NKA means No Known Allergies) NKA Common Emergency Awareness Tips IS IT A [...] are strongly encouraged to quit. Please call [employer] at [phone] or [phone]-[employer] ([phone]) or log in to [email or web address] for referrals to smoking cessation programs. ?? The National Suicide Prevention Hotline is available 21/10 if you or someone you know needs to find a reason to keep living. By calling 0-741-895-[employer] (6705) you'll be connected to a skilled, trained counselor at a crisis center in your area. [facility] You can view and manage your care through the patient portal or by using a health care max of your choosing. [employer] is a website that allows you to securely view your medical information including your hospital discharge summary, office visit summaries, medications and follow-up visits. You can also request appointments, renew medications, and request access to your medical information using a health care max of your choosing, or just ask a question. You can enroll at [email or web address] or register during your next office visit. [facility], in keeping with [facility] guidance, no longer requires face masks for [...] medical provider or home test kit. ?? Disclaimer: The information provided is of a general nature and is intended to be used in conjunction with the recommendations and advice of your health care practitioner. Every effort has been made to ensure that the information provided is accurate and complete at the time it is provided to you however, as your needs change, or, as new information becomes available, different or additional instructions may be required. ?? If you have questions, please consult with your primary care provider or pharmacist, as appropriate. This information is not intended to serve as substitution for assessment and evaluation by a qualified health care provider. If you do not have a primary care provider, you may find a [facility] provider by calling [employer] [facility] at [phone]. Patient Care team information Care Team Personnel Name: El Beltran MD Position: [facility] Physician - Gastroenterology Member Role: Lifetime Consulting Physician Address: Address: [address] [facility], [address] [facility] [place] [address]- [place] Name: Jossy Little NP Position: [facility] PCO Associate Professional Member Role: PCP Address: Address: [address] [place] [address]- [place] Name: Jackie Holland RN Position: [facility] RN Member Role: Primary Care Nurse Name: Jennifer Blackburn RN Position: [facility] RN Member Role: Primary Care Nurse Care Team Related Persons Name: PARDEEP JORJE Address: home [address] [place] [address] Name: MARCIN QUINTERO Address: [place] [address]
--- OUTSIDE RECORDS SUMMARY | 2023-12-17 17:08 | XMS_ITS | Continuity of Care Document ---
Author Organization [facility] Address [address] [place] [address]- Care Team Providers Care Interface Control Officer Name Role Phone Anabel LOWRY, Jossy Park Primary Care Physician Encounter [facility] [id number] Date(s): 12/20/21 - 01/19/[address] [address] Attending Physician: Admravinder, Ike Admitting Physician: Admtr, Ike Referring Physician: Admtr, Ar8 Allergies, Adverse Reactions, [...] with 1.8 mL of 0.9% NaCl Lot #[id number] Exp. 08/2022. 2Admin Note: vis 04/23/11 Medications aspirin 81 mg oral tablet 1 tablet = 81 mg, By Mouth, Daily, # 90 tablet, 3 Refills, Maintenance, 04/16/19 13:32:00 EST, Tablet, [facility]/pharmacy #[id number], 178, cm, 04/16/19 13:02:00 EST, Height [...] Refills, Maintenance, 12/07/19 8:50:00 EDT, Tablet, [facility]/pharmacy #[id number], 178... Start Date: 12/07/19 Status: Ordered [...] Confirmed Active Liver lesion Confirmed Active [place] (myocardial infarction) Confirmed Active [facility] Care Management [facility], [place] Carlos Eduardo [phone] Confirmed Active Peripheral arterial disease Confirmed Active [...] Personnel Name: Jossy Little NP Address: Address: [address] [place] [address]
--- OUTSIDE RECORDS SUMMARY | 2023-12-17 17:08 | XMS_ITS | Continuity of Care Document ---
Author Organization [facility] Address [address] [place] [address]- Care Team Providers Care Systems Tester Name Role Phone Jossy Little NP Primary Care Physician [id number] Date(s): 04/09/23 - 04/16/23 [facility] [address] [place] [address]- Encounter Diagnosis Peripheral artery disease(Discharge Diagnosis) - 04/09/23 Vasculitis(Discharge Diagnosis) - 04/10/23 Attending Physician: Latasha Garcia MD Admitting Physician: Latasha Garcia MD Referring Physician: Jossy Little NP Allergies, [...] with 1.8 mL of 0.9% NaCl Lot #[id number] Exp. 08/2022. Medications aspirin 81 mg oral [...] Refills, Maintenance, 04/03/23 9:26:00 EST, [facility], 30, TAKE 1 TABLET BY MOUTH EVERY DAY, 182, cm, 03/14/23 11:20:00 EST, Height, 76, kg, 02/15/23 6:04:00 EST, Dry Weight Start Date: 04/03/23 Status: Ordered dapagliflozin 10 mg oral tablet = 10 mg, By Mouth, Daily, # 30 tablet, 3 Refills, Maintenance, 04/04/23 8:51:00 EST, Tablet, [facility]/pharmacy #[id number], Partial fill upon patient [...] Confirmed Active Liver lesion Confirmed Active [place] (myocardial infarction) Confirmed Active N Care Management Mikie Richardson [phone] Confirmed Active Peripheral arterial disease Confirmed Active [...] Diagnosis Diagnosis Type Effective Dates Health Status Clinical Service Informant Peripheral artery disease Discharge Diagnosis 04/09/23 Vasculitis Discharge Diagnosis 04/10/23 Vital Signs Most recent to oldest [Reference Range]: 1 Height 182 cm (04/09/23 2:40 PM) Weight 74.84 kg (04/09/23 2:40 PM) Body Mass Index [18.5-24.99 kg/m2] 22.59 kg/m2 (04/09/23 2:40 PM) Blood Pressure [90-138/55-84 mm Hg] 112/ 68mm Hg (04/09/23 2:40 PM) Blood pressure sites Arm, right (04/09/23 2:40 PM) Weight Obtained Via Patient/family state d (04/09/23 2:40 PM) Social History Social History Type Response Tobacco Use: Patient smokes 5 cig. a day. Sex Note * Isabel Yang: PERFORM, SIGN, VERIFY Event Display: Patient Education/Instruction Authored Date: [id number] [facility] *[facility] [address] Clinical Summary Name MARCIN QUINTERO Age 68 Years 1955 PCP Anabel LOWRY, Jossy Park PCP Visit Date 04/09/2023 14:10:00 Additional Instructions: Scheduled Appointments?? Future Appointments ?*[facility]??Neurology ?[address] ?[place],??[place],??[address] ?Phone:??--?Fax:??-- ?Appt. Date:??05/08/2023?8:00 AM ?Scheduled Provider:??Annabelle LOWRY, Nella Mcelroy Follow-Up Instructions ?? With: Address: When: Radha CANELA, Latasha Pride [address] [facility] [address] [facility] [place] [address] In 1 year Comments: with JAISON Diagnosis Peripheral artery disease Medications: Please continue your medications until treatment is completed or stopped by your provider. Discuss any questions related to medications with your provider. Medications to Continue with No Changes These medications were not printed or sent to your pharmacy Aspirin (aspirin 81 mg oral tablet) 1 tab(s) Oral Daily. Refills: 3. Next Dose: Atorvastatin (atorvastatin 40 mg oral tablet) 1 tab(s) Oral Daily for 30 Days. Refills: 3. Next Dose: BuPROpion (buPROPion 150 mg/24 hours (XL) oral tablet, extended release) 1 tab(s) Oral Daily. Refills: 0. Next Dose: dapagliflozin (dapagliflozin 10 mg oral tablet) 10 Milligram Oral Daily for 30 Days. Refills: 3. Next Dose: Finasteride (finasteride 5 mg oral tablet) 1 tab(s) Oral Daily. Refills: 3. Next Dose: Lisinopril (lisinopril 40 mg oral tablet) 1 tab(s) Oral Daily. Refills: 3. Next Dose: Nortriptyline (nortriptyline 25 mg oral capsule) 25 Milligram Oral Daily at Bedtime for 30 Days. Refills: 2. Next Dose: Spironolactone (spironolactone 25 mg oral tablet) 25 Milligram Oral Daily for 30 Days. Refills: 3. Next Dose: Tamsulosin (Flomax 0.4 mg oral capsule) 1 capsule Oral Daily. Refills: 3. Next Dose: Warfarin (warfarin 5 mg oral tablet) 1 tab(s) Oral Daily for 30 Days. Refills: 3. Next Dose: Allergy Info:?? NKA Medications Given This Visit Future Orders ?VL Ankle Brachial Indices? Order Date:04/09/24?- Complete by?07/08/24 Vital Signs Height 182 cm Weight 74.84 kg BMI 22.59 kg/m2 Blood Pressure 112 mm Hg/68 mm Hg Temperature Pulse Rate Respiratory Rate 02 Sat Mode of Delivery / You can now view a summary of your hospital visit from the comfort of your home through a free online portal called [facility]. [facility] is a website that allows you to securely view your medical information including discharge summary, medications and follow-up visits. ??You can alsosend a secure electronic message to your doctor???s office to request appointments, renew medications or just ask a question. You can enroll at [email or web address] or register during your next office visit. Disclaimer:?? The information provided is of a general nature and is intended to be used in conjunction with the recommendations and advice of your health care practitioner. ??Every effort has been made to ensure that the information provided is accurate and complete at the time it is provided to you however, as your needs change, or, as new ??information becomes available, different or additional instructions may be required. If you have questions, please consult with your primary care provider or pharmacist, as appropriate. ??This information is not intended to serve as substitution for assessment and evaluation by a qualified health care provider. If you do not have a primary care provider, you may find a [facility] provider by calling [facility] [employer] [facility] at [phone]. [facility], in keeping with [facility] guidance, no longer requires face masks for staff, patientsor visitors in most situations. Similar to time spent indoors at other locations, there is the chance that you were exposed to respiratory viruses during your time with us (such as flu or COVID-19).? If you develop symptoms concerning for a viral respiratory infection, please seek testing (and treatment if indicated) from your medical provider or home test kit. For information about the plan of care including goals and instructions for your diagnosis, please see the patient education orders section of this document. Patient Education Materials?? The content of this educational material or handout may have been modified, supplemented, or adapted from its original content and format to support your individualized medical care. Patient Care team information Care Team Personnel Name: El Beltran MD Position: [facility] Physician - Gastroenterology Member Role: Lifetime Consulting Physician Address: Address: [address] [place] [address], [address] [facility] [place] [address]- Name: Jossy Little NP Position: [facility] PCO Associate Professional Member Role: PCP Address: Address: [address] [place] [address]- [place] Name: Jackie Holland RN Position: [facility] RN Member Role: Primary Care Nurse Name: Jennifer Galvan Position: S RN Member Role: Primary Care Nurse Name: Gil Grijalva RN Position: S RN Member Role: Primary Care Nurse Care Team Related Persons Name: PARDEEP JORJE Address: home [address] [address] Name: MARCIN QUINTERO Address: [place] [address]
--- OUTSIDE RECORDS SUMMARY | 2023-12-17 17:08 | XMS_ITS | Continuity of Care Document ---
Author Organization [facility] Address [address] [place] [address]- Care Team Providers Care Scaffold Erector Name Role Phone Anabel LOWRY, Jossy Park Primary Care Physician Encounter [facility] Date(s): 01/17/23 - 02/16/23 [facility] [address] [place] [address]- Allergies, Adverse Reactions, Alerts No Known Allergies Immunizations Given and Recorded Vaccine Date Status Refusal Reason pneumococcal 13-valent vaccine 05/10/21 Given SARS-CoV-2 (COVID-19) mRNA BNT-162b2 vac 1 03/15/21 Given SARS-CoV-2 (COVID-19) Ad26 vaccine 07/09/20 Given tetanus/diphtheria/pertussis, acel(Tdap) 2 11/20/12 Given pneumococcal 23-valent vaccine 01/07/12 Given influenza virus vaccine, inactivated 01/07/12 Give n 1Result Comment: Reconstituted with 1.8 mL of 0.9% NaCl Lot #[id number] Exp. 08/2022. 2Admin Note: vis 04/23/11 Medications aspirin 81 mg oral tablet 1 tablet = 81 mg, By Mouth, Daily, # 90 tablet, 3 Refills, Maintenance, 04/16/19 13:32:00 EST, Tablet, [facility]/pharmacy #[id number], 178, cm, 04/16/19 13:02:00 EST, Height Start Date: 04/16/19 Status: Ordered atorvastatin 40 mg oral tablet 1 tablet = 40 mg, By Mouth, Daily, # 30 tablet, 0 Refills, Maintenance, 06/27/21 9:46:00 EDT, [facility]/pharmacy #[id number], Partial fill upon patient request if the prescription is for a schedule II opioid drug., 177.8, cm, 06/27/21 7:59:00 EDT, Height, 68.2, k... Start Date: 06/27/21 Stop Date: 07/27/21 Status: Ordered carvedilol 25 mg oral tablet 25 mg, 1, tablet, By Mouth, 2 times a day, # 60 tablet, Refills 0, Maintenance, 04/10/16 10:14:16 Start Date: 04/10/16 Status: Ordered lisinopril 20 mg oral tablet 40 mg, 2, tablet, By Mouth, Daily, # 30 tablet, Refills 0, Maintenance, 04/10/16 10:15:28 EST Start Date: 04/10/16 Status: Ordered Problem List Condition Confirmation Course [...] Confirmed Active Liver lesion Confirmed Active [place] (myocardial infarction) Confirmed Active [facility] Care Management [facility], Mikie Thibodeaux [phone] Confirmed Active Peripheral arterial disease Confirmed Active [...] smokes 5 cig. a day. Sex Male Patient Care team information Care Team Personnel Name: El Beltran MD Position: [facility] Physician - Gastroenterology Member Role: Lifetime Consulting Physician Address: Address: [address] [place] [address], [address] [facility] [place] [address]- Name: Jossy Little NP Position: [facility] PCO Associate Professional Member Role: PCP Address: Address: [address] [place] [address] Name: Gil Grijalva RN Position: [facility] RN Member Role: Primary Care Nurse Care Team Related Persons Name: JONESEDDIE KRAFTJORJE Address: home [address] [address] Name: MARCIN QUINTERO Address: [place] [address]
--- OUTSIDE RECORDS SUMMARY | 2023-12-17 17:08 | XMS_ITS | Continuity of Care Document ---
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 08/2022. Medications aspirin 81 mg oral [...] Refills, Maintenance, 04/03/23 9:26:00 EST, [facility], 30, TAKE 1 TABLET BY MOUTH EVERY DAY, 182, cm, 03/14/23 11:20:00 EST, Height, 76, kg, 02/15/23 6:04:00 EST, Dry Weight Start Date: 04/03/23 Status: Ordered dapagliflozin 10 mg oral tablet = 10 mg, By Mouth, Daily, # 30 tablet, 3 Refills, Maintenance, 04/04/23 8:51:00 EST, Tablet, [facility]/pharmacy #[id number], Partial fill upon patient request if the prescription is for a schedule II opioid drug., 182, cm, 03/14/23 11:20:00 EST, Height, 76, kg, 1... Start Date: 04/04/23 Stop Date: 08/02/23 Status: Ordered finasteride 5 mg oral tablet 1 tablet = 5 mg, By Mouth, Daily, # 90 tablet, 3 Refills, Maintenance, 03/03/23 15:52:00 EST, Tablet, [facility]/pharmacy #[id number], Partial fill upon patient request if the prescription is for a schedule II opioid drug., 182, cm, 03/03/23 15:03:00 EST, Height,... Start Date: 03/03/23 Status: Ordered Flomax 0.4 mg oral capsule 0.4 mg, 1, capsule, By Mouth, Daily, # 90 capsule, Refills 3, Tot. Refills 3, Maintenance, 03/03/2315:51:00 EST, Route to Pharmacy Electronically, [facility]/pharmacy #[id number], Partial fill upon patient request if the prescription is for a schedule II opioid d... Start Date: 03/03/23 Status: Ordered Jardiance 10 mg oral tablet 1 tablet = 10 mg, By Mouth, Daily in AM, # 30 tablet, 3 Refills, Maintenance, 05/16/23 14:28:00 EST, Tablet, [facility]/pharmacy #[id number], Partial fill upon patient request if the prescription is for a schedule II opioid drug., 182, cm, 05/08/23 7:28:00 EST, He... Start Date: 05/16/23 Status: Ordered lisinopril 40 mg oral tablet 1 tablet = 40 mg, By Mouth, Daily, # 90 each, 3 Refills, Maintenance, 03/03/23 15:47:00 EST, Tablet, [facility]/pharmacy #[id number], Partial fill upon patient request if the prescription is for a schedule II opioid drug., 182, cm, 03/03/23 15:03:00 EST, Height, 7... Start Date: 03/03/23 Status: Ordered metroNIDAZOLE 500 mg oral tablet 4 tablet = 2,000 mg, By Mouth, Once, MONITOR FOR BLEEDING. PLEASE HAVE INR CHECKED SCHEDULED>, # 4 tablet, 0 Refills, Soft Stop, 06/10/23 17:09:00 EDT, Tablet, [facility]/pharmacy #[id number], Partial fill upon patient request if the prescription is for a sched... Start Date: 06/10/23 Status: Ordered nortriptyline 25 mg oral capsule 1, capsule, By Mouth, Daily at bedtime, # 30 capsule, Refills 5, Maintenance, 06/02/23 11:58:00 EST, Route to Pharmacy Electronically, [id number], 182, cm, 05/08/23 7:28:00 EST, Height, 76, kg, 02/15/23 6:04:00 EST, Dry Weight Start Date: 06/02/23 Status: Ordered spironolactone 25 mg oral tablet 25 mg, By Mouth, Daily, # 90 tablet, Refills 3, Tot. Refills 3, Maintenance, 03/21/23 8:45:00 EST, Route to Pharmacy Electronically, [facility]/pharmacy #[id number], Partial fill upon patient request if the prescription is for a schedule II opioid drug., 182, cm,... Start Date: 03/21/23 Stop Date: 4/20/24 Status: Ordered warfarin 5 mg oral tablet 1 tablet = 5 mg, By Mouth, Daily, # 90 tablet, 3 Refills, Maintenance, 03/23/23 13:03:00 EST, Tablet, [facility]/pharmacy #[id number], Partial fill upon patient request if the [...] Confirmed Active Liver lesion Confirmed Active [place] (myocardial infarction) Confirmed Active [facility] Care Management [facility], Mikie Caos [phone] Confirmed Active Peripheral arterial disease Confirmed Active [...] Team Personnel Name: El Beltran MD Position: [facility] Physician - Gastroenterology Member Role: Lifetime Consulting Physician Address: Address: [address] [place] [address], [address] [facility] [place] [address]- Name: Jossy Little NP Position: [facility] PCO Associate Professional Member Role: PCP Address: Address: [address] [place] [address]- [place] Name: Jackie Holland RN Position: [facility] RN Member Role: Primary Care Nurse Name: Jennifer Blackburn RN Position: [facility] RN Member Role: Primary Care Nurse Care Team Related Persons Name: EDDIE ROBERTOANNETTE Address: home [address] [place] [address] Name: MARCIN QUINTERO Address: [place] [address]
--- OUTSIDE RECORDS SUMMARY | 2023-12-17 17:08 | XMS_ITS | Continuity of Care Document ---
Author Organization [facility] Address [address] [place] [address]- Care Team Providers Care Hospice Volunteer Coordinator Name Role Phone Anabel LOWRY, Jossy Park Primary Care Physician Encounter [facility] Date(s): 10/30/23 - 11/29/[address] [address] Allergies, Adverse Reactions, Alerts No Known [...] with 1.8 mL of 0.9% NaCl Lot #[id number] Exp. 08/2022. Medications aspirin 81 mg oral tablet 1 tablet = 81 mg, By Mouth, Daily, # 90 tablet, 3 Refills, Maintenance, 04/16/19 13:32:00 EST, [facility]t, [id number], 178, cm, 04/16/19 13:02:00 EST, Height Start Date: 04/16/19 Status: Ordered atorvastatin 40 mg oral tablet 1 tablet = 40 mg, By Mouth, Daily, # 90 tablet, 3 Refills, Maintenance, 03/03/23 15:43:00 EST, [facility]/pharmacy #[id number], Partial fill upon patient request if the prescription is for a schedule II opioid drug., 182, cm, 03/03/23 15:03:00 EST, Height, 76, kg,... Start Date: 03/03/23 Stop Date: 07/01/23 Status: Ordered buPROPion 150 mg/24 hours (XL) oral tablet, extended release 1 tablet, By Mouth, Daily, # 30 tablet, 0 Refills, Maintenance, 04/03/23 9:26:00 EST, [facility], 30, TAKE 1 TABLET BY MOUTH EVERY [...] EDT, Route to Pharmacy Electronically, [facility]/pharmacy #[id number], Partial fill [...] EST, Route to Pharmacy Electronically, [facility]/pharmacy #[id number], Partial fill upon patient request if the prescription is for a schedule II opioid d... Start Date: 03/03/23 Status: Ordered lisinopril 40 mg oral tablet 1 tablet = 40 mg, By Mouth, Daily, # 90 each, 3 Refills, Maintenance, 03/03/23 15:47:00 EST, Tablet, [facility]/pharmacy #[id number], Partial fill upon patient request if the prescription is for a schedule II opioid drug., 182, cm, 03/03/23 15:03:00 EST, Height, 7... Start Date: 03/03/23 Status: Ordered metroNIDAZOLE 500 mg oral tablet 4 tablet = 2,000 mg, By Mouth, Once, # 4 tablet, 0 Refills, Soft Stop, 10/13/23 15:26:00 EDT, [facility]/pharmacy #[id number], Partial fill upon patient request if the prescription is for a schedule II opioid drug., 182, cm, 09/18/23 8:50:00 EDT, Height, 76, kg, 1... Start Date: 10/13/23 Status: Ordered nortriptyline 25 mg oral capsule 1, capsule, By Mouth, Daily at bedtime, # 30 capsule, Refills 5, Maintenance, 06/02/23 11:58:00 EST, Route to Pharmacy Electronically, [id number], 182, cm, 05/08/23 7:28:00 EST, Height, 76, kg, 02/15/23 6:04:00 EST, Dry Weight Start Date: 06/02/23 Status: Ordered spironolactone 25 mg oral tablet 1, tablet, By Mouth, Daily, # 90 tablet, Refills 3, Maintenance, 11/12/23 10:42:00 EDT, Route to Pharmacy Electronically, [id number], 182, cm, 11/10/23 14:00:00 EDT, Height, 76, [...] Maintenance, 03/23/23 13:03:00 EST, Tablet, [facility]/pharmacy #[id number], Partial fill [...] Confirmed Active Liver lesion Confirmed Active [place] (myocardial infarction) Confirmed Active *[id number]-Body Recall Instructor-Isabel Paniagua Confirmed Active Peripheral arterial disease Confirmed [...] Role: Lifetime Consulting Physician Address: Address: [address] [place] [address], [address] [facility] [place] [address]- Name: Jossy Little NP Position: [facility] PCO Associate Professional Member Role: PCP Address: Address: [address] [place] [address]- [place] Name: Jackie Holland RN Position: S RN Member Role: Primary Care Nurse Name: Jennifer Blackburn RN Position: S RN Member Role: Primary Care Nurse Care Team Related Persons Name: JORJE ROBERTO Address: home [address] [place] [address] Name: MARCIN QUINTERO Address: [place] [address]
--- OUTSIDE RECORDS SUMMARY | 2023-12-17 17:08 | XMS_ITS | Continuity of Care Document ---
Author Organization [facility] Address [address] [place] [address]- Care Team Providers Care Protozoologist Name Role Phone Anabel LOWRY, Jossy [place] Primary Care Physician [phone] Encounter [facility] [place] Date(s): 05/31/23 - 06/30/[address] [id number] Allergies, Adverse Reactions, Alerts No Known [...] with 1.8 mL of 0.9% NaCl Lot #[id number] Exp. 08/2022. Medications aspirin 81 mg oral [...] Refills, Maintenance, 04/03/23 9:26:00 EST, [id number], 30, TAKE 1 TABLET BY MOUTH EVERY DAY, 182, cm, 03/14/23 11:20:00 EST, Height, 76, kg, 02/15/23 6:04:00 EST, Dry Weight Start Date: 04/03/23 Status: Ordered dapagliflozin 10 mg oral tablet = 10 mg, By Mouth, Daily, # 30 tablet, 3 Refills, Maintenance, 04/04/23 8:51:00 EST, Tablet, [facility]/pharmacy #[id number], Partial fill upon patient request if the prescription is for a schedule II opioid drug., 182, cm, 03/14/23 11:20:00 EST, Height, 76, kg, 1... Start Date: 04/04/23 Stop Date: 08/02/23 Status: Ordered finasteride 5 mg oral tablet 1 tablet = 5 mg, By Mouth, Daily, # 90 tablet, 3 Refills, Maintenance, 03/03/23 15:52:00 EST, Tablet, [facility]/pharmacy #[id number], Partial fill upon patient request if the prescription is for a schedule II opioid drug., 182, cm, 03/03/23 15:03:00 EST, Height,... Start Date: 03/03/23 Status: Ordered Flomax 0.4 mg oral capsule 0.4 mg, 1, capsule, By Mouth, Daily, # 90 capsule, Refills 3, Tot. Refills 3, Maintenance, 03/03/2315:51:00 EST, Route to Pharmacy Electronically, [facility]/pharmacy #[id number], Partial fill upon patient request if the prescription is for a schedule II opioid d... Start Date: 03/03/23 Status: Ordered Jardiance 10 mg oral tablet 1 tablet = 10 mg, By Mouth, Daily in AM, # 30 tablet, 3 Refills, Maintenance, 05/16/23 14:28:00 EST, Tablet, [facility]/pharmacy #[id number], Partial fill upon patient request if the prescription is for a schedule II opioid drug., 182, cm, 05/08/23 7:28:00 EST, He... Start Date: 05/16/23 Status: Ordered lisinopril 40 mg oral tablet 1 tablet = 40 mg, By Mouth, Daily, # 90 each, 3 Refills, Maintenance, 03/03/23 15:47:00 EST, Tablet, [facility]/pharmacy #[id number], Partial fill upon patient request if the prescription is for a schedule II opioid drug., 182, cm, 03/03/23 15:03:00 EST, Height, 7... Start Date: 03/03/23 Status: Ordered metroNIDAZOLE 500 mg oral tablet 4 tablet = 2,000 mg, By Mouth, Once, MONITOR FOR BLEEDING. PLEASE HAVE INR CHECKED SCHEDULED>, # 4 tablet, 0 Refills, Soft Stop, 06/10/23 17:09:00 EDT, Tablet, [facility]/pharmacy #[id number], Partial fill upon patient request if the prescription is for a sched... Start Date: 06/10/23 Status: Ordered nortriptyline 25 mg oral capsule 1, capsule, By Mouth, Daily at bedtime, # 30 capsule, Refills 5, Maintenance, 06/02/23 11:58:00 EST, Route to Pharmacy Electronically, [id number], 182, cm, 05/08/23 7:28:00 EST, Height, 76, kg, 02/15/23 6:04:00 EST, Dry Weight Start Date: 06/02/23 Status: Ordered spironolactone 25 mg oral tablet 25 mg, By Mouth, Daily, # 90 tablet, Refills 3, Tot. Refills 3, Maintenance, 03/21/23 8:45:00 EST, Route to Pharmacy Electronically, [facility]/pharmacy #[id number], Partial fill upon patient request if the prescription is for a schedule II opioid drug., 182, cm,... Start Date: 03/21/23 Stop Date: 4/20/24 Status: Ordered warfarin 5 mg oral tablet 1 tablet = 5 mg, By Mouth, Daily, # 90 tablet, 3 Refills, Maintenance, 03/23/23 13:03:00 EST, Tablet, [facility]/pharmacy #[id number], Partial fill upon patient request if the [...] Active Old [place] (myocardial infarction) Confirmed Active [facility] Care Management [facility], Mikie Caos [phone] Confirmed Active Peripheral arterial disease Confirmed Active [...] Team Personnel Name: El Beltran MD Position: [facility] Physician - Gastroenterology Member Role: [employer]etime Consulting Physician Address: Address: [address] [place] [address], [address] [facility] [place] [address]- Name: Jossy Little NP Position: [facility] PCO Associate Professional Member Role: PCP Address: Address: [address] [place] [id number]- [place] Name: Jackie Holland RN Position: [facility] RN Member Role: Primary Care Nurse Name: Jennifer Blackburn RN Position: [facility] RN Member Role: Primary Care Nurse Care Team Related Persons Name: EDIDE ROBERTOANNETTE Address: home [address] [place] [id number] Name: MARCIN QUINTERO Address: [place] [address]
--- OUTSIDE RECORDS SUMMARY | 2023-12-17 17:08 | XMS_ITS | Continuity of Care Document ---
Author Organization [facility] Address [address] [place] [id number]- Care Team Providers Care Milk Delivery Driver Name Role Phone Anabel LOWRY, Jossy Park Primary Care Physician [phone] [facility] - 06[place]10/21 [facility] [address] [place], [place] [address] Attending Physician: AdmIke castellon Admitting [...] with 1.8 mL of 0.9% NaCl Lot #[id number] Exp. 08/2022. 2Admin Note: vis 04/23/11 Medications [...] SMOKING CESSATION, # 180 Unknown, 0 Refills, [id number], 178, cm, 05/10/21 11:08:00 EST, Height Start [...] Refills, Maintenance, 12/07/19 8:50:00 EDT, Tablet, [facility]/pharmacy #[id number], 178... Start Date: 12/07/19 Status: Ordered Problem List Condition Effective Dates Status Health Status Inform ant Anxiety and depression(Confirmed) Active Marijuana use(Confirmed) Active Cardiac pacemaker, Medtronic dual chamber pacemaker model E2DR0(Confirmed) 2005 Active CHB (complete heart block)(Confirmed) Active Essential hypertension(Confirmed) Active GERD (gastroesophageal reflu x disease)(Confirmed) Active History of substance abuse(C onfirmed) 2 Active Hypercholesterolemia with hypertriglyceridemia(Confirmed) Active Liver lesion(Confirmed) Active Old UT (myocardial infarction)(Confirmed) Active N Care Management [facility] , Mikie Thibodeaux [phone](Confirmed) Active Peripheral arterial disease(Confirmed) Active Post traumatic [...]
[2023-12-17 17:40] LABS: Appearance Urine Clear; Color Urine Yellow; Glucose Urine UA 500 mg/dL (Negative); Leukocyte Esterase Urine Negative (Negative); Nitrite Urine Negative (Negative); Specific Gravity - Urine >= 1.030 (1.005-1.025); Urine Blood Negative (Negative); Urine Ketones Negative (Negative); Urine Protein Negative (Neg-Trace)
[2023-12-17 17:49] LABS: Amphetamine Screen Urine Not Detected (Not Detect); Barbiturates, Urine Not Detected (Not Detect); Benzodiazepines Screen Urine Not Detected (Not Detect); Buprenorphine Scr Not Detected (Not Detect); Cannabinoid Screen Urine POSITIVE (Not Detect); Cocaine Screen Urine Not Detected (Not Detect); Fentanyl, urine Not Detected (Not Detect); Methadone Screen, Urine Not Detected (Not Detect); Opiate Screen Urine Not Detected (Not Detect); Oxycodone Screen Urine Not Detected (Not Detect); Phencyclidine Screen Urine Not Detected (Not Detect)
[2023-12-17 18:17] LABS: Lactic Acid 1.8 mmol/L (0.5-2.0)
[2023-12-17 18:18] LABS: Ethanol < 10 mg/dL
[2023-12-17 18:28] LABS: Troponin-I High Sensitivity 8.5 ng/L (<3.5-35.0)
[2023-12-17 18:46] VITALS: BP 109/48; PULSE 60; RESP 16; TEMP 36.6; O2SAT 96
--- NOTE | 2023-12-17 18:51 | PHA.MEDREC ---
Addendum entered by Sandy Ambriz, [facility] 12/18/23 11:05: Went to talk to patient again for med rec per nurse (Ed)'s request. Patient has his home med list now (didn't have med list with him last night) and on it, atorvastatin is 80 mg. Verified with patient that he is taking 80 mg and not 40 mg. He also confirmed that he takes 2 of vitamin C 250 mg, 2 of carvedilol 12.5 mg, 2 of docusate 100 mg and 2 of ferrous sulfate 325 mg daily. He also confirmed the dates and doses of warfarin. He said he takes tramadol 50 mg at bedtime only as needed for pain. Addendum entered by Isai Shea, [facility] 12/17/23 19:39: Med rec reviewed Original Note: Pharmacy Consult ? Medication Reconciliation Pharmacy has completed the medication reconciliation. Confirmed medications with patient. Patient states he is taking his Vitamin C, Carvedilol, Docusate and Ferrous Sulfate 2 tabs daily in the morning. He confirmed he is taking his Tamsulosin 0.4mg tab daily around noon. He also confirmed his Warfarin 5mg dosing stating he is taking 1/2 tab (2.5mg)on Mondays and and he takes 1 tab (5mg) on Sundays, Tuesdays, Wednesdays, Fridays and Saturdays.
--- NOTE | 2023-12-17 20:34 | PM.IMHP ---
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 Pt was at speech therapy for continued deficits from recent CVA when he went to the bathroom and had a humongous dump where it felt like he was in there for hours . After exiting the bathroom pt had headache, lightheadedness, blurriness, diaphoresis like in a sauna , and nausea with one episode of vomiting. He was then lowered to the ground and noted to be saying 1-2 words at a time without forming complete sentences. Unclear whether there were any tonic-clonic like movements. Pt was confused upon waking and with only vague recollection of events preceding episode. Currently complains only of continued headache and pain in his neck from base of skull to top of shoulders. Chronic bilateral numbness and tingling in extremities since CVA, at baseline. Reports eating and drinking normally without recent illness or sick contacts. Notes was admitted to [facility] [place] three weeks ago for symptomatic anemia and was transfused at least one unit PRBCs. Also reports currently being worked up outpatient by neurology for intermittent radiculopathy-like symptoms with scheduled outpatient EEG not yet performed. No chest pain/pressure, palpitations. No significant SOB. Has never has similar experience. In the ED pacemaker was interrogated and found to be functioning normally. In the ED pt with slightly soft BP of 109/48, otherwise vitals WNL. Labs were significant for H&H 10.6/34.1, INR 3.4, potassium 5.5, BUN 33, and creatinine 1.70. No leukocytosis. Hepatic function WNL. Serial troponins flat at 7.3 and 8.5. BNP 21. UA negative for UTI. Tox screen positive for marijuana, otherwise negative. Tested negative for flu, RSV, COVID. CXR showed no active disease of the chest. 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 EKG demonstrated atrial sensed ventricular paced rhythm. Pt was treated with IVF and calcium gluconate. Pt will be admitted to the hospital for treatment and further evaluation of unresponsive episode concerning for seizure activity vs vasovagal syncope. Review of Systems Review of Systems: Lightheadedness SAEED N/V Blurriness Diaphoresis No chest pain/pressure Denies abd pain No SOB PMFSH Medical History (Updated 12/18/23 @ 01:58 by STONEY Singh) ICD (implantable cardioverter-defibrillator) battery depletion Complete heart block HLD (hyperlipidemia) HTN (hypertension) BPH (benign prostatic hyperplasia) CVA (cerebral vascular accident) Social History Alcohol intake: never Smoked in Last 30 Days: Yes Use of substances other than those prescribed or required for medical reasons: Yes Substance Use Type: Marijuana Advance Directives: No Advance Directives Information Provided: No Do you have a plan to hurt others: No Plan Meds Allergies Allergy/AdvReac Type Severity Reaction Status Date / Time Unable to Assess Allergy Verified 12/17/23 16:22 Home Medications ?Medication ?Instructions ?Recorded ?Confirmed ?Last Taken ?Type ascorbic acid (vitamin C) 250 mg 500 mg PO DAILY 12/17/23 12/17/23 12/17/23 08:00 History tablet aspirin 81 mg tablet,delayed 81 mg PO DAILY 12/17/23 12/17/23 12/17/23 08:00 History release atorvastatin 40 mg tablet 40 mg PO DAILY 12/17/23 12/17/23 12/17/23 08:00 History carvedilol 12.5 mg tablet 25 mg PO DAILY 12/17/23 12/17/23 12/17/23 08:00 History dapagliflozin propanediol 10 mg 10 mg PO DAILY 12/17/23 12/17/23 12/17/23 08:00 History tablet (Farxiga) docusate sodium 100 mg capsule 200 mg PO DAILY 12/17/23 12/17/23 12/17/23 08:00 History ferrous sulfate 325 mg (65 mg 650 mg PO DAILY 12/17/23 12/17/23 12/17/23 08:00 History iron) tablet finasteride 5 mg tablet 5 mg PO DAILY 12/17/23 12/17/23 12/17/23 08:00 History lisinopril 40 mg tablet 40 mg PO DAILY 12/17/23 12/17/23 12/17/23 08:00 History nortriptyline 25 mg capsule 25 mg PO BEDTIME 12/17/23 12/17/23 12/16/23 History spironolactone 25 mg tablet 25 mg PO DAILY 12/17/23 12/17/23 12/17/23 08:00 History tamsulosin 0.4 mg capsule 0.4 mg PO DAILY@1200 12/17/23 12/17/23 12/17/23 08:00 History warfarin 5 mg tablet 2.5 mg PO MOTH@1800 12/17/23 12/17/23 12/16/23 History warfarin 5 mg tablet 5 mg PO SUTUWEFRSA@1800 12/17/23 12/17/23 12/16/23 History Physical Exam Vital Signs and Narrative: Vital Signs: Last Vital Signs Temp 97.8 F 12/17/23 18:46 Pulse 60 12/17/23 18:46 Resp 16 12/17/23 18:46 BP 109/48 L 12/17/23 18:46 Pulse Ox 96 12/17/23 18:46 O2 Del Method Room Air 12/17/23 18:46 BMI result Body Mass Index 25.8 Constitutional: Alert, in no acute distress. Mental Status: Oriented to person, place and time. Eyes: Pupils are equal, round, and reactive to light. Ear, Nose, and Throat: Oropharynx clear, mucous membranes moist. Ears and nose without deformities. Trachea midline. Respiratory: Clear to auscultation bilaterally. No wheezing, rales, or rhonchi. Cardiovascular: S1, S2 regular rhythm though bradycardic. No murmurs, rubs, or gallops. Gastrointestinal: Abdomen soft, non-tender, non-distended. Normal bowel sounds. Neurologic: Moves all extremities spontaneously though with noted left-sided weakness of upper and lower extremities. Preserved sensation to light touch of face and upper and lower extremities bilaterally. Pt with occasional stuttering and difficulty word finding. Skin: Warm, dry. Musculoskeletal: No cyanosis or clubbing. Extremities: No edema. Psychiatric: Normal mood and affect. Results Labs 12/17/23 15:45 12/17/23 15:45 Labs: Laboratory Results - last 24 hr 12/17/23 12/17/23 12/17/23 15:39 15:45 15:53 MCV 87.4 MCH 27.2 MCHC 31.1 RDW 18.6 H Plt Count 361 MPV 9.1 L Immature Gran % (Auto) 0.8 H Neut % (Auto) 67.4 Lymph % (Auto) 21.5 Chaves % (Auto) 7.5 Eos % (Auto) 2.1 Baso % (Auto) 0.7 Lymph # (Auto) 1.5 Chaves # (Auto) 0.5 Eos # (Auto) 0.2 Baso # (Auto) 0.1 Abs Immat Gran (auto) 0.06 H Absolute Neuts (auto) 4.8 Absolute Nucleated RBC 0.000 Nucleated RBC % (auto) 0.0 PT 41.0 H INR 3.4 H APTT 46.0 H VBG pH 7.33 VBG pCO2 51 VBG pO2 36 VBG HCO3 27 H VBG O2 Saturation 51.0 VBG Base Excess 1.0 Anion Gap 14 Estim Creat Clear Calc 42.9 Estimated GFR 40 POC Glucose 105 Random Glucose 117 H Lactic Acid Calcium 10.1 Magnesium 2.2 Total Bilirubin 0.4 AST 20 ALT 25 Alkaline Phosphatase 91 Total Creatine Kinase 161 Troponin I High Sens 7.3 B-Natriuretic Peptide 21 Total Protein 7.7 Albumin 4.5 Lipase 44 Urine Color Urine Appearance Urine pH Ur Specific [place] Urine Protein Urine Glucose (UA) Urine Ketones Urine Blood Urine Nitrite Ur Leukocyte Esterase Urine Opiates Screen Ur Buprenorphine Scrn Ur Oxycodone Screen Urine Methadone Screen Urine Fentanyl Screen Ur Barbiturates Screen Ur Phencyclidine Scrn Ur Amphetamines Screen U Benzodiazepines Scrn Urine Cocaine Screen U Marijuana (THC) Screen Ethyl Alcohol Influenza Type A (PCR) NEGATIVE Influenza Type B (PCR) NEGATIVE RSV RNA Qual (PCR) NEGATIVE SARS-CoV-2 RNA (RT-PCR) NEGATIVE 12/17/23 12/17/23 17:32 17:56 MCV MCH MCHC RDW Plt Count MPV Immature Gran % (Auto) Neut % (Auto) Lymph % (Auto) Chaves % (Auto) Eos % (Auto) Baso % (Auto) Lymph # (Auto) [place] # (Auto) Eos # (Auto) Baso # (Auto) Abs Immat Gran (auto) Absolute Neuts (auto) Absolute Nucleated RBC Nucleated RBC % (auto) PT INR APTT VBG pH VBG pCO2 VBG pO2 VBG HCO3 VBG O2 Saturation VBG Base Excess Anion Gap Estim Creat Clear Calc Estimated GFR POC Glucose Random Glucose Lactic Acid 1.8 Calcium Magnesium Total Bilirubin AST ALT Alkaline Phosphatase Total Creatine Kinase Troponin I High Sens 8.5 B-Natriuretic Peptide Total Protein Albumin Lipase Urine Color Yellow Urine Appearance Clear Urine pH 7.0 Ur Specific [place] >= 1.030 H Urine Protein Negative Urine Glucose (UA) 500 H Urine Ketones Negative Urine Blood Negative Urine Nitrite Negative Ur Leukocyte Esterase Negative Urine Opiates Screen Not Detected Ur Buprenorphine Scrn Not Detected Ur Oxycodone Screen Not Detected Urine Methadone Screen Not Detected Urine Fentanyl Screen Not Detected Ur Barbiturates Screen Not Detected Ur Phencyclidine Scrn Not Detected Ur Amphetamines Screen Not Detected U Benzodiazepines Scrn Not Detected Urine Cocaine Screen Not Detected U Marijuana (THC) Screen POSITIVE H Ethyl Alcohol < 10 Influenza Type A (PCR) Influenza Type B (PCR) RSV RNA Qual (PCR) SARS-CoV-2 RNA (RT-PCR) Imaging Radiologist's Impressions: Impressions Chest X-Ray 12/17/23 15:36 IMPRESSION: No active chest disease.. Electronically signed by: Brian Horner MD 12/17/2023 05:11 PM EDT Head/Neck CTA 12/17/23 15:50 IMPRESSION: 1. Apparent symmetric subcortical hypodensities versus artifact within the bilateral frontal lobes would be better diagnostically assessed on brain MRI. 2. Age indeterminate though likely chronic infarct involving the mid to anterior right temporal lobe with slight ex vacuo dilatation of the right temporal horn would be more definitively aged on MRI. No acute intracranial hemorrhage. 3. Prominence of the extra-axial CSF spaces overlying the right greater than left cerebellar hemispheres versus low density subdural fluid collections. 4. No acute arterial occlusion or hemodynamically significant stenosis within the head or neck. 5. 2 mm favor infundibulum over aneurysm at the left ophthalmic artery origin. 6. Advanced cervical spondylosis contributes to apparent severe C5-C6 spinal canal stenosis with mass effect on the cord, appearing multilevel moderate spinal canal, and multilevel severe neural foraminal narrowing. If there is referrable myelopathy/radiculopathy, further evaluation of these findings with dedicated cervical spine MRI may be performed as clinically warranted. 5. 4 mm ill-defined nodule in the subpleural right upper lobe. According to the UPDATED 2017 Fleischner Society recommendations, the advised followup imaging for solid nodules < 6 mm is: LOW RISK PATIENT: No routine follow up. HIGH RISK PATIENT: Optional CT at 12 months. This critical result was discussed with Elvi Cisse at 4:47 PM on 12/17/2023 and it was ascertained that the content and urgency of the report was understood at the time of direct communication. Electronically signed by: Lalita Hankins MD 12/17/2023 04:47 PM EDT RP Head CT 12/17/23 15:55 IMPRESSION: 1. Apparent symmetric subcortical hypodensities versus artifact within the bilateral frontal lobes would be better diagnostically assessed on brain MRI. 2. Age indeterminate though likely chronic infarct involving the mid to anterior right temporal lobe with slight ex vacuo dilatation of the right temporal horn would be more definitively aged on MRI. No acute intracranial hemorrhage. 3. Prominence of the extra-axial CSF spaces overlying the right greater than left cerebellar hemispheres versus low density subdural fluid collections. 4. No acute arterial occlusion or hemodynamically significant stenosis within the head or neck. 5. 2 mm favor infundibulum over aneurysm at the left ophthalmic artery origin. 6. Advanced cervical spondylosis contributes to apparent severe C5-C6 spinal canal stenosis with mass effect on the cord, appearing multilevel moderate spinal canal, and multilevel severe neural foraminal narrowing. If there is referrable myelopathy/radiculopathy, further evaluation of these findings with dedicated cervical spine MRI may be performed as clinically warranted. 5. 4 mm ill-defined nodule in the subpleural right upper lobe. According to the UPDATED 2017 Fleischner Society recommendations, the advised followup imaging for solid nodules < 6 mm is: LOW RISK PATIENT: No routine follow up. HIGH RISK PATIENT: Optional CT at 12 months. This critical result was discussed with Elvi Cisse at 4:47 PM on 12/17/2023 and it was ascertained that the content and urgency of the report was understood at the time of direct communication. 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 Pt will be admitted to the hospital for treatment and further evaluation of unresponsive episode concerning for seizure activity vs vasovagal syncope. Unresponsive episode Pt with episode of lightheadedness, N/V, diaphoresis, blurriness, and SAEED immediately after defecation Unclear if any witnessed tonic-clonic movements Possible post-ictal phase Unclear etiology: vasovagal syncope vs seizure vs cardiogenic vs orthostatic EEG Echocardiogram Check orthostatics Check prolactin Neurology consult Monitor on telemetry Radiculopathy Pt with numbness and tingling in extremities since CVA Possibly secondary to severe spinal stenosis with mass effect as seen on CT Neurology consult Will hold off on additional imaging pending neurology input Hyperkalemia Potassium 5.5 at time of presentation Likely in the setting of spironolactone Pt given calcium glutonate in the ED Hold spironolactone Follow potassium Monitor on telemetry Elevated creatinine Creatinine 1.70 at time of presentation Unclear if LANDON or CKD, baseline unknown Pt given IVF in ED Hold lisinopril Follow BMP HTN BP has been soft in ED Hold carvedilol, lisinopril, spironolactone for now Resume as warranted BPH Hold finasteride, tamsulosin due to soft BP Resume as warranted CVA/HLD Continue aspirin, statin Hold coumadin for now due to supratherapeutic INR Follow INR daily, resume coumadin as warranted Full Code Attending:?Dr. Butterfield DVT Prophylaxis: On coumadin Pt will require a hospitalization of at least two nights for treatment of?unresponsive episode concerning for syncopal episode vs new onset seizure with close monitoring of cardiac function, additional workup including EEG and echocardiogram, and specialist consultation with Neurology. Quality Stroke Does the patient have a stroke diagnosis?: No VTE Prior VTE?: No VTE Risk Level:: Medical - moderate - high VTE Device Contraindication: Treatment Not Indicated VTE Drug Contraindication: N/A - Med Ordered
[2023-12-17] MEDS: Nortriptyline HCl 25 MG CAPSULE PO (22:19)
--- NOTE | 2023-12-17 23:00 | PC.NURSE ---
This bond writer assumed care of this Pt at 1900. Pt A&Ox3, reports sudden onset of SAEED. Pt reports not eating all day, Pt given sandwich and PO fluids. Pt ambulating from bedside chair and back to bed independently.
[2023-12-17 23:24] VITALS: BP 102/65; PULSE 64; RESP 16; TEMP 37.2; O2SAT 99
[2023-12-17] MEDS: 0.9 % Sodium Chloride Flush 3 ML SYRINGE IVFLUSH (23:33)
[2023-12-18] MEDS: Acetaminophen 325 MG TABLET 650 MG PO (00:23)
--- NOTE | 2023-12-18 00:30 | PC.NURSE ---
Pt upset about not getting prostate meds on schedule, Pt requesting to leave. Provider Scout Perez made aware. T/W was able to convince Pt to stay. Pt agreeable.
[2023-12-18 04:41] LABS: Hematocrit 31.6 % (42.0-52.0); Hemoglobin 9.6 g/dl (14.0-18.0); Mean Corpuscular HGB Conc 30.4 g/dl (31.0-36.0); Mean Corpuscular Hemoglobin 26.6 pg (27.0-33.0); Mean Corpuscular Volume 87.5 fL (80.0-98.0); Mean Platelet Volume 8.9 fL (9.4-12.4); Platelet Count 327 X10*3/uL (160-400); Red Blood Count 3.61 X10*6/uL (4.60-5.80); Red Cell Distribution Width 18.2 % (11.0-16.0); White Blood Count 7.2 X10*3/uL (4.8-10.8)
[2023-12-18 04:50] LABS: INTERNATIONAL NORM RATIO 4.1 (0.9-1.1); Prothrombin Time 49.7 SEC (11.1-13.3)
[2023-12-18 04:59] LABS: Alanine Aminotransferase 21 U/L (0-40); Alkaline Phosphatase 81 U/L (39-117); Anion Gap 14 (12-20); Aspartate Amino Transferase 21 U/L (5-37); Bilirubin Total 0.3 mg/dL (0.0-1.0); Blood Urea Nitrogen 34 mg/dL (9-16); Calcium 10.1 mg/dL (8.4-10.2); Carbon Dioxide 24 mmol/L (22-29); Chloride 104 mmol/L (96-108); Creatinine Clr Calc Pharmacy 48.9; Estimated Glomerular Filt Rate 47; Glucose Random 101 mg/dL (60-115); Potassium 4.9 mmol/L (3.3-5.1); Sodium 137 mmol/L (135-145)
[2023-12-18 05:50] VITALS: BP 108/48; PULSE 56; RESP 13; TEMP 36.8; O2SAT 97
[2023-12-18 08:37] VITALS: BP 102/53; PULSE 70; RESP 18; TEMP 36.6; O2SAT 99
[2023-12-18 08:38] VITALS: BP 102/53; BP 88/39; PULSE 72; PULSE 76
[2023-12-18 08:39] VITALS: BP 92/50; PULSE 89
[2023-12-18] MEDS: 0.9 % Sodium Chloride Flush 3 ML SYRINGE IVFLUSH (09:14)
--- NOTE | 2023-12-18 09:29 | PC.NURSE ---
attempted to give pt his morning meds, pt states that he doesn't take the meds at the scheduled time and wanted to talk with pharmacy about clarifying times and meds that he's getting, spoke with pharmacy and several meds were reconciled but not continued by the MD, pharmacy will come down and speak with the pt about his current meds and times
--- NOTE | 2023-12-18 10:44 | MHC.CM.PN ---
CM met with Patient at bedside, in the ED and addressed IMM with him (original was given to Patient and a copy will be placed on the chart). Home/self care is the goal and CM has initiated and will follow for dc planning.Patient lives in a house with his Roommate and he intends to get an uber for transport to home. PCP/DUCT LAYER HELPER is Jossy Little.
--- NOTE | 2023-12-18 11:15 | PC.NURSE ---
pt irritable r/t to his medications that have been ordered and the time they were ordered for. reports he is not getting the answers that he wants and no one is telling him anything. pt reports he wants to leave because we have upset him and he wants to go home and take his medications like he is supposed to. Dr. Patrick made aware
--- NOTE | 2023-12-18 11:20 | PC.NURSE ---
Dr. Patrick down to see pt
--- NOTE | 2023-12-18 11:30 | PC.NURSE ---
Dr. Patrick at bedside to discuss with pt regarding plan of care, pt insistent on wanting to leave AMA - Dr. Patrick explained risks to pt of leaving including serious injury and deaht. 18G IV removed and pt walked to the exit.
--- NOTE | 2023-12-18 12:28 | P.DS_ITS ---
DS: Providers Provider Date of Service: 12/18/23 Date of admission: 12/17/23 21:58 Date of discharge: 12/18/23 Primary care physician: Unknown Physician Consults: 12/17/23 22:19 Consult to Neurology Routine Consulting Provider: 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 Pt was at speech therapy for continued deficits from recent CVA when he went to the bathroom and had a humongous dump where it felt like he was in there for hours . After exiting the bathroom pt had headache, lightheadedness, blurriness, diaphoresis like in a sauna , and nausea with one episode of vomiting. He was then lowered to the ground and noted to be saying 1-2 words at a time without forming complete sentences. Unclear whether there were any tonic-clonic like movements. Pt was confused upon waking and with only vague recollection of events preceding episode. Currently complains only of continued headache and pain in his neck from base of skull to top of shoulders. Chronic bilateral numbness and tingling in extremities since CVA, at baseline. Reports eating and drinking normally without recent illness or sick contacts. Notes was admitted to [facility] three weeks ago for symptomatic anemia and was transfused at least one unit PRBCs. Also reports currently being worked up outpatient by neurology for intermittent radiculopathy-like symptoms with scheduled outpatient EEG not yet performed. No chest pain/pressure, palpitations. No significant SOB. Has never has similar experience. In the ED pacemaker was interrogated and found to be functioning normally. In the ED pt with slightly soft BP of 109/48, otherwise vitals WNL. Labs were significant for H&H 10.6/34.1, INR 3.4, potassium 5.5, BUN 33, and creatinine 1.70. No leukocytosis. Hepatic function WNL. Serial troponins flat at 7.3 and 8.5. BNP 21. UA negative for UTI. Tox screen positive for marijuana, otherwise negative. Tested negative for flu, RSV, COVID. CXR showed no active disease of the chest. 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 EKG demonstrated atrial sensed ventricular paced rhythm. Pt was treated with IVF and calcium gluconate. Pt will be admitted to the hospital for treatment and further evaluation of unresponsive episode concerning for seizure activity vs vasovagal syncope. 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 Unresponsive episode versus near-syncope, patient presented with episodes of l ightheadedness, nausea vomiting, diaphoresis, blurriness and headache immediately after defecation, no seizure-like activity was witnessed, patient was confused upon waking up, orthostatic blood pressures were negative, noted to have soft blood pressures, symptoms likely due to vasovagal syncope versus seizure, further workup including echocardiogram neurology consult was pending ,however patient decided to leave hospital against medical advice due to difficulty in voiding although continued on Flomax and finasteride and also due to not receiving antihypertensive despite explaining the medications were held due to hypotension, patient was awake alert and understood that he has at risk of recurrent episode of syncope, fall and , patient was also informed about abnormal head and neck CTA showing severe C5-C6 spinal canal stenosis with mass effect on the cord, apparent multilevel moderate spinal canal, and multilevel severe neural foraminal narrowing, case was discussed with neurology due to intermittent chronic upper and lower extremity paresthesias a MRI C-spine without contrast was ordered, however patient left hospital against medical advice despite knowledge of abnormal findings and high risk for cord compression and paralysis.. Radiculopathy with abnormal CTA head and neck findings as above recommend outpatient neurology/neurosurgery follow-up. Hyperkalemia treated and resolved Elevated creatinine Creatinine 1.70 at time of presentation, improved to 1.49, Unclear if LANDON or CKD, baseline unknown recommend to hold lisinopril. HTN noted to have soft blood pressure recommend to hold all antihypertensives including Coreg lisinopril and spironolactone. BPH continue finasteride and Flomax CVA/HLD continue aspirin and statin, Coumadin held due to supratherapeutic Time Attestation Discharge Coordination Time (in mins): 40 Quality: Safe Use of Opioids Does Pt have an Active Cancer Diagnosis on the Problem List?: No Quality: Stroke Does the patient have a stroke diagnosis?: No Physical Exam Vital Signs: Vital Signs: Last Vital Signs Temp 97.9 F 12/18/23 08:37 Pulse 89 12/18/23 08:39 Resp 18 12/18/23 08:37 BP 92/50 L 12/18/23 08:39 Pulse Ox 99 12/18/23 08:37 O2 Del Method Room Air 12/18/23 08:37 BMI result Body Mass Index 25.8 Const: Other: patient declined examination DS: Data Data Completed and Pending Labs on day of discharge: Laboratory Results - last 24 hr 12/17/23 12/17/23 12/17/23 15:39 15:45 15:53 WBC 7.2 RBC 3.90 L Hgb 10.6 L Hct 34.1 L MCV 87.4 MCH 27.2 MCHC 31.1 RDW 18.6 H Plt Count 361 MPV 9.1 L Immature Gran % (Auto) 0.8 H Neut % (Auto) 67.4 Lymph % (Auto) 21.5 [place] % (Auto) 7.5 Eos % (Auto) 2.1 Baso % (Auto) 0.7 Lymph # (Auto) 1.5 [place] # (Auto) 0.5 Eos # (Auto) 0.2 Baso # (Auto) 0.1 Abs Immat Gran (auto) 0.06 H Absolute Neuts (auto) 4.8 Absolute Nucleated RBC 0.000 Nucleated RBC % (auto) 0.0 PT 41.0 H INR 3.4 H APTT 46.0 H VBG pH 7.33 VBG pCO2 51 VBG pO2 36 VBG HCO3 27 H VBG O2 Saturation 51.0 VBG Base Excess 1.0 Sodium 136 Potassium 5.5 H Chloride 102 Carbon Dioxide 26 Anion Gap 14 BUN 33 H Creatinine 1.70 H Estim Creat Clear Calc 42.9 Estimated GFR 40 POC Glucose 105 Random Glucose 117 H Lactic Acid Calcium 10.1 Magnesium 2.2 Total Bilirubin 0.4 AST 20 ALT 25 Alkaline Phosphatase 91 Total Creatine Kinase 161 Troponin I High Sens 7.3 B-Natriuretic Peptide 21 Total Protein 7.7 Albumin 4.5 Lipase 44 Urine Color Urine Appearance Urine pH Ur Specific [place] Urine Protein Urine Glucose (UA) Urine Ketones Urine Blood Urine Nitrite Ur Leukocyte Esterase Urine Opiates Screen Ur Buprenorphine Scrn Ur Oxycodone Screen Urine Methadone Screen Urine Fentanyl Screen Ur Barbiturates Screen Ur Phencyclidine Scrn Ur Amphetamines Screen U Benzodiazepines Scrn Urine Cocaine Screen U Marijuana (THC) Screen Ethyl Alcohol Influenza Type A (PCR) NEGATIVE Influenza Type B (PCR) NEGATIVE RSV RNA Qual (PCR) NEGATIVE SARS-CoV-2 RNA (RT-PCR) NEGATIVE 12/17/23 12/17/23 12/18/23 17:32 17:56 04:16 WBC 7.2 RBC 3.61 L Hgb 9.6 L Hct 31.6 L MCV 87.5 MCH 26.6 L MCHC 30.4 L RDW 18.2 H Plt Count 327 MPV 8.9 L Immature Gran % (Auto) Neut % (Auto) Lymph % (Auto) [place] % (Auto) Eos % (Auto) Baso % (Auto) Lymph # (Auto) [place] # (Auto) Eos # (Auto) Baso # (Auto) Abs Immat Gran (auto) Absolute Neuts (auto) Absolute Nucleated RBC 0.000 Nucleated RBC % (auto) 0.0 PT 49.7 H D INR 4.1 H APTT VBG pH VBG pCO2 VBG pO2 VBG HCO3 VBG O2 Saturation VBG Base Excess Sodium 137 Potassium 4.9 Chloride 104 Carbon Dioxide 24 Anion Gap 14 BUN 34 H Creatinine 1.49 H Estim Creat Clear Calc 48.9 Estimated GFR 47 POC Glucose Random Glucose 101 Lactic Acid 1.8 Calcium 10.1 Magnesium Total Bilirubin 0.3 AST 21 ALT 21 Alkaline Phosphatase 81 Total Creatine Kinase Troponin I High Sens 8.5 B-Natriuretic Peptide Total Protein 7.0 Albumin 4.0 Lipase Urine Color Yellow Urine Appearance Clear Urine pH 7.0 Ur Specific [place] >= 1.030 H Urine Protein Negative Urine Glucose (UA) 500 H Urine Ketones Negative Urine Blood Negative Urine Nitrite Negative Ur Leukocyte Esterase Negative Urine Opiates Screen Not Detected Ur Buprenorphine Scrn Not Detected Ur Oxycodone Screen Not Detected Urine Methadone Screen Not Detected Urine Fentanyl Screen Not Detected Ur Barbiturates Screen Not Detected Ur Phencyclidine Scrn Not Detected Ur Amphetamines Screen Not Detected U Benzodiazepines Scrn Not Detected Urine Cocaine Screen Not Detected U Marijuana (THC) Screen POSITIVE H Ethyl Alcohol < 10 Influenza Type A (PCR) Influenza Type B (PCR) RSV RNA Qual (PCR) SARS-CoV-2 RNA (RT-PCR) Discharge Plan Discharge Patient Disposition: Left Against Medical Advice Discharge Diagnosis: Unresponsiveness Radiculopathy/abnormal CTA head and neck Hyperkalemia Elevated creatinine Hypotension Referrals: Physician,Unknown J [Primary Care Provider] - 1 Week Discharge Medications: No Action carvedilol 12.5 mg tablet 25 mg PO DAILY aspirin 81 mg tablet,delayed release (DR/EC) 81 mg PO DAILY spironolactone 25 mg tablet 25 mg PO DAILY nortriptyline 25 mg capsule 25 mg PO BEDTIME tamsulosin 0.4 mg capsule 0.4 mg PO DAILY@1200 ascorbic acid (vitamin C) 250 mg tablet 500 mg PO DAILY ferrous sulfate 325 mg (65 mg iron) tablet 650 mg PO DAILY warfarin 5 mg tablet 5 mg PO SUTUWEFRSA@1800 docusate sodium 100 mg capsule 200 mg PO DAILY lisinopril 40 mg tablet 40 mg PO DAILY finasteride 5 mg tablet 5 mg PO DAILY dapagliflozin propanediol [Farxiga] 10 mg tablet 10 mg PO DAILY warfarin 5 mg tablet 2.5 mg PO MOTH@1800 atorvastatin 80 mg tablet 80 mg PO DAILY tramadol 50 mg tablet 50 mg PO BEDTIME PRN (Reason: pain) Discharge Orders: Discharge Order (Routine); Ordered 12/21/23 Ordered By: Ailyn Patrick Stand Alone Forms: Against Medical Advice Print Language: [place] Care Plan Goals: As below Hold antihypertensives for low blood pressure Continue medication for urinary retention Health Concerns: severe C5-C6 spinal canal stenosis with mass effect on the cord, recommend outpatient follow-up with Neurology/Neurosurgery Returned to check with recurrent episode of lightheadedness dizziness weakness numbness. Plan of Treatment: Outpatient follow-up with primary care physician call for appointment. Assessment: As above Discharge Date/Time: 12/18/23 11:39
[2023-12-18 13:16] LABS: Prothrombin Time Whole Bld POC 42.6 sec (11.1-13.5); ~PT, ~INR - Anti Coag Clinic 3.6 (0.9-1.1)
[2023-12-19 17:28] LABS: Prolactin 32.2 ng/mL (2.0-18.0)
== END 2023-12-18 11:39 | disposition left against medical advice (07) | DRG 312 ==
LOC: HO.ED 17:03 → HO.EDOVER 22:24
PROVIDERS: Physician Assistant Medical; Admitting Provider Student in an Organized Health Care Education/Training Program; Emergency Provider Emergency Medicine; PCP Nurse Practitioner Family; Visit Provider Hospitalist
DX: R55 Syncope and collapse (principal); I44.2 Atrioventricular block, complete; N40.0 Benign prostatic hyperplasia without lower urinary tract symptoms; E78.5 Hyperlipidemia, unspecified; I10 Essential (primary) hypertension; R79.1 Abnormal coagulation profile; M54.12 Radiculopathy, cervical region; F17.210 Nicotine dependence, cigarettes, uncomplicated; Z71.6 Tobacco abuse counseling; E87.5 Hyperkalemia; Z20.822 Contact with and (suspected) exposure to COVID-19; Z95.810 Presence of automatic (implantable) cardiac defibrillator; Z86.73 Personal history of transient ischemic attack (TIA), and cerebral infarction without residual deficits; Z79.01 Long term (current) use of anticoagulants; Z79.82 Long term (current) use of aspirin; Z79.899 Other long term (current) drug therapy
CPT/HCPCS: 0241U; 36415; 70450; 70496; 70498; 71045; 80053; 80307; 81003; 82550; 82803; 82947; 83605; 83690; 83735; 83880; 84146; 84484; 85025; 85027; 85610; 85730; 93005; 99285; J0613; Q9967

== ENCOUNTER → 2023-12-17 21:58 | Outpatient (BNV) | payer OTHER, SELFPAY | PROVIDERS: Admitting Provider Student in an Organized Health Care Education/Training Program; Emergency Provider Emergency Medicine; Visit Provider Student in an Organized Health Care Education/Training Program | DX: R40.4 Transient alteration of awareness (principal) | CPT/HCPCS: 99223; 99239 ==

== ENCOUNTER 2024-04-07 14:00 | Outpatient (RCR) | payer OTHER, SELFPAY ==
--- NOTE | 2023-12-17 15:55 | MHC.SPEECHCO ---
Alec was here for his first treatment visit of Speech Therapy. After 15 minutes, he stated he felt hot, and like he needed to vomit. He was guided to the bathroom. He was in the bathroom for about 15 minutes. PHARMACOVIGILANCE SPECIALIST checked in periodically and patient stated he was having a bowel movement. When he came back to the room he stated that he felt light headed, dizzy, and had blurred vision. PHARMACOVIGILANCE SPECIALIST contact Yennifer Miller, senior technical manager, and she initiated a call to [phone]. She remained with the Pt while PHARMACOVIGILANCE SPECIALIST guided the casino floorperson to the room. While they were working with him he was observed to have vomited into a trash bucket. PHARMACOVIGILANCE SPECIALIST provided the casino floorperson with his referral paperwork and demographics sheet. Pt was unable to stand, PHARMACOVIGILANCE SPECIALIST assisted casino floorperson with Pt to the stretcher with 3 person assist. Pt was not verbally responding when asked who he wanted to notify. Yennifer contacted his Son, Alec Avendano by phone while PHARMACOVIGILANCE SPECIALIST assisted casino floorperson to the ambulance. EMT reported they intended to bring him to [facility] ED.
--- NOTE | 2024-03-19 10:00 | MHC.SL.SOA ---
Referring Provider: Nella Alanis NP Reason for Referral: Speech Therapy Date of Plan of Treatment:10/10/23 Onset of Symptoms/Illness:01/29/23 Date Treatment Started:10/10/23 Medical Diagnosis:F80.0 Specific developmental disorders of speech and language Primary Speech Language Diagnosis:R41.841 Cognitive communication disorder Reason for Visit:14355 Individual Treatment Subjective: Alec returns today after a prolonged hiatus due to medical appointments. He reports great progress in his personal life including continuing efforts to address his medical issues as well as a return to playing music again. Objective: The following goals were addressed this treatment period: STG1: Pt will demonstrate knowledge of the 5 attention types with >80% accuracy independently. STG2: Pt will complete complex logic puzzles with use of compensatory strategies with >80% accuracy. STG3: Pt will increase short-term recall of 5 item lists with >80% accuracy and minimal assistance. STG4: Pt/Caregiver will complete weekly assigned HEP tasks with >80% accuracy independently. Assessment: Alec initially presented with difficulties in attention, memory, and complex problem solving. He has benefitted from Cognitive-Communication treatment targeting deficits in immediate and short term memory and participation in cognitively stimulating tasks that support his long-term brain health. He has not been able to find gainful employment as of yet. However, he is more active in his medial treatment, and, has begun playing music again - something that has been very important to him. FORGING DIE SINKER is recommending four (4) additional visits. In this time we will continue to address functional activities relevant to his long-term goals that will facilitate his independence in maintaining treatment gains. Plan: Goal # : STG1: Pt will demonstrate knowledge of the 5 attention types with >80% accuracy independently. Status of Goal: Goal Met Goal # : STG2: Pt will complete complex logic puzzles with use of compensatory strategies with >80% accuracy. Status of Goal: Goal Continued Goal # : STG3: Pt will increase short-term recall of 5 item lists with >80% accuracy and minimal assistance. Status of Goal: Goal Continued Goal # : STG4: Pt/Caregiver will complete weekly assigned HEP tasks with >80% accuracy independently. Status of Goal: Goal Continued Seen by: Graduate/Clinical Fellow: No Supervisory Statement: f_Reg Query Last Value , MHC.AU.SIGNATUR Speech Language Pathologist: Brennon Scales M.A., CCC-FORGING DIE SINKER
--- NOTE | 2024-04-20 17:42 | MHC.SL.SOA ---
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 He attended weekly sessions 12/31/23-04/07/24. Objective: Data collected 04/07/24: - Alec returns without his HEP, states that he lost them over the hiatus. - Provided logic grids with increased need for cues to cross out and make lists to aid him. Was able to demonstrate completion after a training period. - Introduced to [email or web address] game and provided website for [employer] puzzle. - Reviewed discharge plans, encouraged to continue with his musical ventures for socialization. - Reports change to vocational goals in light of his vascular issues and risk of amputation. Assessment: Alec initially presented with difficulties in attention, memory, and complex problem solving. He has benefitted from Cognitive-Communication treatment targeting deficits in immediate and short term memory and participation in cognitively stimulating tasks that support his long-term brain health. He has not been able to find gainful employment as of yet. However, he is more active in his medial treatment, and, has begun playing music again - something that has been very important to him. GUM SCORING MACHINE OPERATOR is recommending four (4) additional visits. In this time we will continue to address functional activities relevant to his long-term goals that will facilitate his independence in maintaining treatment gains. Notes: This is an administrative discharge note: Patient is discharged from speech therapy services at this time in light of recent staffing changes. GUM SCORING MACHINE OPERATOR discussed course of treatment with patient over the phone today. Patient would like to continue speech therapy addressing concerns related to short term memory and would like to be put on the waitlist for next available provider. Patient is aware there is an extended wait time currently and that patient would be starting with a new evaluation. He expressed he is in agreement with this treatment plan. Plan: Goal # : STG1: Pt will demonstrate knowledge of the 5 attention types with >80% accuracy independently. Status of Goal: Discharge Goal Goal # : STG2: Pt will complete complex logic puzzles with use of compensatory strategies with >80% accuracy. Status of Goal: Discharge Goal Goal # : STG3: Pt will increase short-term recall of 5 item lists with >80% accuracy and minimal assistance. Status of Goal: Discharge Goal Goal # : STG4: Pt/Caregiver will complete weekly assigned HEP tasks with >80% accuracy independently. Status of Goal: Discharge Goal Seen by: Graduate/Clinical Fellow: No Supervisory Statement: f_Reg Query Last Value , MHC.AU.SIGNATUR Speech Language Pathologist: Kathleen Milton M.A., CCC-GUM SCORING MACHINE OPERATOR
--- NOTE | 2024-04-26 17:01 | MHC.SL.SOA ---
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 He attended weekly sessions 12/31/23-04/07/24. Objective: Data collected 04/07/24: - Alec returns without his HEP, states that he lost them over the hiatus. - Provided logic grids with increased need for cues to cross out and make lists to aid him. Was able to demonstrate completion after a training period. - Introduced to Smart Education game and provided website for [employer] puzzle. - Reviewed discharge plans, encouraged to continue with his musical ventures for socialization. - Reports change to vocational goals in light of his vascular issues and risk of amputation. Assessment:Alec initially presented with difficulties in attention, memory, and complex problem solving. He has benefitted from Cognitive-Communication treatment targeting deficits in immediate and short term memory and participation in cognitively stimulating tasks that support his long-term brain health. He has not been able to find gainful employment as of yet. However, he is more active in his medial treatment, and, has begun playing music again - something that has been very important to him. DENTAL TECHNICIAN METAL is recommending four (4) additional visits. In this time we will continue to address functional activities relevant to his long-term goals that will facilitate his independence in maintaining treatment gains. Notes: This is an administrative discharge note: Patient is discharged from speech therapy services at this time in light of recent staffing changes. DENTAL TECHNICIAN METAL discussed course of treatment with patient over the phone today. Patient would like to continue speech therapy addressing concerns related to short term memory and would like to be put on the waitlist for next available provider. Patient is aware there is an extended wait time currently and that patient would be starting with a new evaluation. He expressed he is in agreement with this treatment plan. Plan: Goal # : STG1: Pt will demonstrate knowledge of the 5 attention types with >80% accuracy independently. Status of Goal: Discharge Goal Goal # : STG2: Pt will complete complex logic puzzles with use of compensatory strategies with >80% accuracy. Status of Goal: Discharge Goal Goal # : STG3: Pt will increase short-term recall of 5 item lists with >80% accuracy and minimal assistance. Status of Goal: Discharge Goal Goal # : STG4: Pt/Caregiver will complete weekly assigned HEP tasks with >80% accuracy independently. Status of Goal: Discharge Goal Seen by: Graduate/Clinical Fellow: No Supervisory Statement: f_Reg Query Last Value , MHC.AU.SIGNATUR Speech Language Pathologist: Kathleen Milton M.A., CCC-DENTAL TECHNICIAN METAL
== END 2024-04-21 09:39 | disposition home or self-care (01) ==
LOC: HO.SH 14:00
PROVIDERS: Visit Provider Nurse Practitioner Family
DX: Z60.3 Acculturation difficulty (principal)
CPT/HCPCS: 92507

== ENCOUNTER 2024-09-01 12:47 | Outpatient (RCR) | payer OTHER, SELFPAY ==
--- NOTE | 2024-09-02 13:11 | MHC.SP.ADU ---
Referring provider: Luis Alberto Child MD Reason for Referral: Aphasia, Cognitive Type of Treatment: 27354 Standardized Cognitive Performance Testing, per hour Date of Plan of Treatment: 09/01/24 Onset of Symptoms/Illness: 01/29/23 Date Treatment Started: 09/01/24 Medical Diagnosis: Hx Stroke Primary Speech Language Diagnosis: R41.841 Cognitive communication disorder Secondary Speech Language Diagnosis: R47.01 Aphasia History Patient is a 69 year old male referred by Luis Alberto Child MD from [facility], for a cognitive linguistic evaluation in order to reinstate speech therapy services. Patient reports multiple concerns, mostly pertaining to his cognitive ability, including having difficulty expressing thoughts, difficulty understanding what others are saying, problem solving, focusing, maintaining topic of conversation, oral motor weakness, and voice difficulties. Patient says his main concern is that he frequently has trouble finding words, which causes him to ?pause,? ?grope for words,? and stutter. Patient also admits to history of stuttering in childhood. Patient was seen for speech therapy previously 12/2023-03/2024, which targeted short term memory, however, was discharged in light of staffing changes. Patient completed highschool/GED level of education. 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 Patient reported past medical history including acid reflux, anxiety, arthritis, cardiac disease, concussion 5-6 years ago, head injury, heart attack, and stroke in 2002. Patient says that since his stroke, he continues to have trouble finding words, but denies any other residual effects or weakness in his extremities. Patient mentioned he has an upcoming appointment with Neurology this month for work up after experiencing numbness and tingling ?throughout [his] body? for the past 6-7 months. Patient lives alone in a private residence, indicating that he is and has one adult child who lives locally. Patient wears glasses and denies any history of hearing loss. 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 He was presented with simple line drawings, which he was instructed to name in a confrontation naming task. Patient correctly named 53 out of 60 images independently. Patient was able to name common nouns, but exhibited some difficulty naming less salient items, such as scroll, muzzle, and palatte. Patient produced some semantic paraphasias (i.e. naming pelican as ?penguin?), mislabeling items with other words that were semantically related. Patient was able to identify these errors and promptly corrected himself. Patient exhibited a short time delay when naming in approximately 10-15% of trials. Although patient performed well on confrontational naming tasks, he did present with nonfluent speech, impacted by hesitancies, whole-word or phrase-repetitions, and groping when searching for words. Often times, patient stated, ?I can?t think of the word,? and either changed the course of the conversation or used another, similar word in its place. Based on these observations, patient presents with a mild anomic aphasia, with difficulty retrieving words in connected speech. Tests of Cognition: RBANS Clinical Impression: Impaired Observations: Patient?s cognitive linguistic skills were evaluated using the RBANS: The Repeatable Battery for the Assessment of Neuropsychological Status (RBANS-Updated Form B). The RBANS assesses aspects of cognitive memory, language, and attention skills. The RBANS is considered a screening battery for cognitive function used with adolescents and adults, ages 12 to 89 years. Composite domains assessed in this evaluation are: Immediate Memory, Visuospatial/Constructional, Language, Attention, and Delayed Memory. Assessed domains and their scores are summarized below: IMMEDIATE MEMORY: These subtests assess an individual?s ability to remember a small amount of information immediately after it is presented. Patient was presented with a list of 10 spoken words and was instructed to repeat back as many words as he could remember from the list (List Learning). On first presentation, patient was unable to recall any words from the list, but on repetitions, repeated up to 4-5 words at a time. After listening to a spoken paragraph, patient was instructed to re-tell the story with as much detail as he could remember (Story memory). Similarly, patient was unable to retell the story on initial presentation, but provided some details after the story was repeated to him. Patient reports having difficulty remembering information that is provided to him verbally. List Learning Total Score: 14 Scaled Score: 2 Percentile: 0.4 Interpretation: Extremely Low Story Memory Total Score: 7 Scaled Score: 2 Percentile: 0.4 Interpretation: Extremely Low Immediate Memory Index score: 49 Percentile: <0.1 Interpretation: Extremely Low VISUOSPATIAL/CONSTRUCTIONAL: These subtests assess an individual?s visuospatial skills and perception of spatial relationships. Patient was able to copy a figure drawing with exactness. He was also instructed to match lines based on orientation. He selected lines which formed the same angle, however, were oriented differently in the figure. His visuospatial skills, nevertheless, are a relative strength. Figure Copy Total Score: 20 Scaled Score: 14 Percentile: 91 Interpretation: Superior Line Orientation Total Score: 8 Percentile Group: <2 Interpretation: Extremely Low Visuospatial/Constructional Index score: 89 Percentile Rank: 23 Interpretation: Low Average LANGUAGE: These subtests assess an individual?s word retrieval skills. Patient correctly named 10 out of 10 images during a confrontational naming task (Picture Naming), but exhibited more difficulty listing items in a category within a time constraint (Semantic Fluency). While patient generally performs well in confrontational naming, he exhibits mild anomia, which is more apparent in the context of a conversation. Picture Naming Total Score: 10 Percentile Group: 51-75 Interpretation: Average Semantic Fluency Total Score: 15 Scaled Score: 6 Percentile Rank: 9 Interpretation: Low Average Language Index score: 90 Percentile Rank: 25 Interpretation: Average ATTENTION: These subtests assess an individual?s capacity to remember and manipulate both visually and orally presented information in short-term memory storage. Patient was first instructed to repeat back number series that were between 2-9 digits long (Digit Span). He recalled up to 7 numbers at a time without error. Patient was also instructed to code markings with numbers (Coding), and completed this task making minimal errors. This is another area of strength for the patient. Digit Span Total Score: 12 Scaled Score: 12 Percentile Rank: 75 Interpretation: High Average Coding Total Score: 52 Scaled Score: 13 Percentile: 84 Interpretation: High Average Attention Index score: 115 Percentile Rank: 84 Interpretation: High Average DELAYED MEMORY: These subtests assess an individual?s retrieval of information from long-term memory. Patient was able to recall several items from a list (List Recall), but exhibited more difficulty recalling details from a narrative (Story Recall). He demonstrates superior ability recalling visual information in order to re-draw a figure he previously constructed (Figure Recall). List Recall Total Score: 5 Percentile Group: 26-50 Interpretation: Average List Recognition Total Score: 18 Percentile Group: 10-16 Interpretation: Low Average Story Recall Total Score: 3 Scaled Score: 3 Percentile Rank: 1 Interpretation: Extremely Low Figure Recall Total Score: 20 Scaled Score: 17 Percentile Rank: 99 Interpretation: Very Superior Delayed Memory Index Score: 88 Percentile Rank: 21 Interpretation: Low Average SUM OF INDEX SCORES: 431 TOTAL SCALE SCORE: 82 PERCENTILE RANK: 12% Interpretation: Low Average Diana Cheatham (1998). Repeatable Battery for the Assessment of Neuropsychological Status [Manual]. [place] MA: Keyla. Patient presents with a mild cognitive linguistic impairment, with difficulties in the areas of short term recall and word retrieval. Patient reports this is affecting him day to day (i.e. losing his keys, forgetting what he was told on the phone, etc.) and causing him increased frustration. Patient is recommended a trial of individualized cognitive therapy 1x weekly x 10 sessions targeting the following goals: Recommendation for Speech Therapy: Outpatient Speech Therapy Frequency/Duration: 1x weekly x 10 weeks Date Range for Service Requested: Time to Reassess: PRN [employer] Analytics Faculty Member Goals: 1.) Patient will utilize a variety of word-finding strategies at the conversational level with minimal assistance in >80% opportunities presented to him. 2.) Patient will utilize compensatory strategies to assist (immediate and delayed) short-term memory in 80% of opportunities independently. 3.) Patient will complete the Stuttering Severity Instrument (SSI) to further assess his fluency. 4.) Patient will complete the [place] Diagnostic Aphasia Examination (BDAE) to further assess his receptive and expressive language skills. Short Term Goals: Goal # : 1.1. Patient will list 5+ members per spoken category in 80% of trials when provided with minimal verbal prompts. 1.2. Patient will produce a minimum of 4 different features, when presented with a word using semantic feature analysis (SFA), given minimal verbal prompts, with 80% accuracy. Goal Status: New Goal Goal# : 2.1. Patient will recall page-level information and answer questions about the material at 80% accuracy given occasional visual cues after a 30-minute delay. 2.2. Patient will use internal memory strategies (i.e. rehearsal, association, visualization) to recall 5-6 items at 80% accuracy when provided with minimal verbal cues. Goal Status: New Goal Goal # : 2.3. Patient will write down relevant notes while presented with auditory instructions (i.e. voicemail message) and recall 80% of the information given use of written notes only. 2.4. Patient will electively use an max or tech device to record and retrieve needed information in four out of five contexts. Goal Status: New Goal Recommended Referrals to be Discussed with Primary Care Provider: Neurology Patient Education: Completed: Yes Patient/Caregiver Education: Described Results of Evaluation Patient expressed understanding of evaluation Comments/Barriers to Learning: It was a pleasure meeting and working with Mr. Avendano. Please do not hesitate to contact [facility] if we can be of further assistance in his care. Long Term Care Pharmacist Clinican/Clinical Fellow: No Supervisory Statement: N/A Speech Language Pathologist: Kathleen Milton M.A., CCC-FACILITIES DIRECTOR
== END 2024-09-02 14:08 | disposition still patient (30) ==
LOC: HO.SH 12:47
PROVIDERS: PCP Nurse Practitioner Family; Visit Provider Psychiatry & Neurology Neurology
DX: R47.01 Aphasia (principal)
CPT/HCPCS: 96125

== ENCOUNTER 2025-01-26 16:00 | Outpatient (RCR) | payer OTHER, SELFPAY ==
--- NOTE | 2025-01-27 15:15 | MHC.SL.SOA ---
Referring Provider: Luis Alberto Child MD Reason for Referral: Aphasia, Cognitive Date of Plan of Treatment:09/01/24 Onset of Symptoms/Illness:01/29/23 Date Treatment Started:09/01/24 Medical Diagnosis: Primary Speech Language Diagnosis:R47.01 Aphasia Secondary Speech Language Diagnosis:I69.911 Memory deficit Number of Authorized Visits Remaining: Authorization End Date: Reason for Visit:16131 Individual Treatment Other: Subjective:Alec an hour early for today's session due to his transportation arriving early. He was seen as soon as the therapist was available to start the session, about 1/2 hour before scheduled time. This was Alec's last session for treatment, having been seen for ten sessions beginning 09/21/24. Alec has been consistently highly engaged, responsive and demonstrated excellent insight/self awareness of his word finding and memory needs. He has made excellent progress on learning strategies to manage his needs. This note is to serve as a discharge from this cycle of therapy. Objective: Alec practiced structured exercises to address learning strategies for word retrieval and memory. Assessment:1.1: Alec has demonstrated 100% accuracy on naming at least five members in a given category, employing strategies of visualization and association to facilitate word finding. 1.2: Alec has demonstrate 100% accuracy in using defining and describing to facilitate word finding. 2.1: Danielle has used strategies of preview, listening for specific information (facts, dates, etc.) to retain and recall details from at least page level information, with greater than 80% accuracy. Danielle is noted to make strong connections to some text secondary to prior knowledge/personal association. 2.2: Danielle has demonstrated very strong visual memory and visualization skills and has applied these talents well to memory strategies. He has also used rehearsal, both audible and internal to remember briefly presented information with greater that 80% accuracy. On specfic topic areas, Danielle has also used strong personal associations to information to be remembered with very good accuracy. 2.3: Danielle annotated parks information with excellent accuracy, and uses this strategy routinely to recall appointments, number, and simple directions on a functional level. 2.4: Danielle has consistently expressed ambivalence with tech and using his phone for a variety of reminders to aid with recall. He did acknowledge, that when it is practical, the phone can be used to note important information, used as a reference to recall information given by text or email, and to record and access important numbers. 2.5: Danielle routinely complete homework assignments with some exceptions, due to occasionally forgetting the work or finding the task annoying. Tasks were adapted during therapy to be more functional to improve engagement. Notes: Plan: Goal # : 1.1. Patient will list 5+ members per spoken category in 80% of trials when provided with minimal verbal prompts. 1.2. Patient will produce a minimum of 4 different features, when presented with a word using semantic feature analysis (SFA), given minimal verbal prompts, with 80% accuracy. Status of Goal: Goal Met Goal # : 2.1. Patient will recall page-level information and answer questions about the material at 80% accuracy given occasional visual cues after a 30-minute delay. 2.2. Patient will use internal memory strategies (i.e. rehearsal, association, visualization) to recall 5-6 items at 80% accuracy when provided with minimal verbal cues. Status of Goal: Goal Met Goal # : 2.3. Patient will write down relevant notes while presented with auditory instructions (i.e. voicemail message) and recall 80% of the information given use of written notes only. 2.4. Patient will electively use an max or tech device to record and retrieve needed information in four out of five contexts. Status of Goal: Goal Met Goal # : STG4: Pt/Caregiver will complete weekly assigned HEP tasks with >80% accuracy independently. Status of Goal: Goal Met Seen by: Graduate/Clinical Fellow: No Supervisory Statement: f_Reg Query Last Value , MHC.AU.SIGNAT Speech Language Pathologist: Majo Malhotra M.A., [facility]-HAND EDGER
== END 2025-01-28 10:29 | disposition home or self-care (01) ==
LOC: HO.SH 16:00
PROVIDERS: PCP Nurse Practitioner Family; Visit Provider Psychiatry & Neurology Neurology
DX: I63.9 Cerebral infarction, unspecified (principal)
CPT/HCPCS: 92507